=== PATIENT | female | born 1940 | race Caucasian/White ===

== ENCOUNTER 2020-10-02 16:39 | Outpatient (REF) | payer MEDICARE, SELFPAY | END 2020-10-02 16:40 | disposition home or self-care (01) | LOC: HO.LAB 16:39 | PROVIDERS: Visit Provider Internal Medicine | DX: Z20.828 Contact with and (suspected) exposure to other viral communicable diseases (principal) | CPT/HCPCS: C9803; U0003 ==

== ENCOUNTER 2021-01-29 13:31 | Outpatient (REF) | payer MEDICARE, SELFPAY ==
--- NOTE | ~2021-01-29 | MM_ITS ---
EXAMINATION: BONE DENSITOMETRY CLINICAL INDICATION: Screening for osteoporosis. COMPARISON: This is the patient's baseline examination. TECHNIQUE: Using a [employer]ine[employer] DXA System (software version: 13.1) manufactured by [employer], dual-energy x-ray absorptiometry was performed of the lumbar spine and left hip. The images are of good technical quality. Summary results are attached. FINDINGS: AP SPINE L1-L4: BMD 1.045 g/cm2, Z-score 1.1, T-score -1.1, osteopenia. LEFT FEMUR, NECK: BMD 0.635 g/cm2, Z-score -0.4, T-score -2.9, osteoporosis. LEFT FEMUR, TOTAL: BMD 0.675 g/cm2, Z-score -0.2, T-score -2.6, osteoporosis. IDENTIFIED RISK FACTORS: Menopause, hysterectomy, bilateral oophorectomy, history of fracture (adult), secondary osteoporosis. HISTORY OF FRACTURE: Other. MEDICATIONS: None listed. MM/XR DEXA axial skeleton IMPRESSION: 1. DIAGNOSIS: Osteoporosis based on the lowest T-score value of -2.9 in the femoral neck applying World Health Organization criteria. 2. 10-YEAR FRACTURE RISK PREDICTION, FRAX: Major osteoporotic fracture (clinical spine, forearm, hip or shoulder) 19.9%. Hip fracture 7.4%. 3. Treatment Recommendations: NOF guidelines recommend consideration for treatment in postmenopausal women and men age 50 and older presenting with the following: -A hip or vertebral (clinical or morphometric) fracture. -T-score less than or equal to -2.5 at the femoral neck or spine after appropriate evaluation to exclude secondary causes. -Low bone mass at the hip or spine and a 10-year fracture probability by FRAX of greater than or equal to 3% for hip fracture or greater than or equal to 20% for major osteoporotic fracture based on the [place] adapted WHO algorithm. 4. Other Recommendations: All treatment decisions require clinical judgment and consideration of individual patient factors, including patient preferences, comorbidities, previous drug use, risk factors not captured in the FRAX model (e.g. frailty, falls, vitamin D deficiency, increased bone turnover, interval significant decline in bone density) and possible under or overestimation of fracture risk by FRAX. Additional medical evaluation for secondary cause of low bone mineral density may be appropriate. FUTURE SCAN RECOMMENDATION: People with diagnosed cases of osteoporosis or at high risk for fracture should have regular bone mineral density tests. For patients eligible for Medicare, routine testing is allowed once every 2 years. The testing frequency can be increased to one year for patients who have rapidly progressing disease, those who are receiving or discontinuing medical therapy to restore bone mass, or have additional risk factors.
== END 2021-01-29 13:32 | disposition home or self-care (01) ==
LOC: HO.MAMMO 13:31
PROVIDERS: PCP Nurse Practitioner Primary Care; Visit Provider Nurse Practitioner Primary Care
DX: Z13.820 Encounter for screening for osteoporosis (principal); Z78.0 Asymptomatic menopausal state
CPT/HCPCS: 77080

== ENCOUNTER → 2021-05-29 09:14 | Outpatient (BNVA) | payer MEDICARE, SELFPAY | PROVIDERS: PCP Nurse Practitioner Primary Care; Visit Provider Internal Medicine | DX: Z13.89 Encounter for screening for other disorder (principal) | CPT/HCPCS: Q3014 ==

== ENCOUNTER 2021-10-29 14:04 | Outpatient (REF) | payer MEDICARE, OTHER, SELFPAY ==
--- NOTE | ~2021-10-29 | US_ITS ---
EXAMINATION: ULTRASOUND SOFT TISSUE LIMITED CLINICAL INFORMATION: Mass in the left elbow COMPARISON: None TECHNIQUE: Limited sonogram of the superficial soft tissues of the left elbow FINDINGS: No abnormality is identified in the soft tissues adjacent to the left elbow. No subcutaneous edema. No cystic or solid masses. There is mild tortuosity of the cephalic vein at this area. US/US extremity nonvascular IMPRESSION: Mild tortuosity of the cephalic vein at this area. This could be related to prior IV placement.
== END 2021-10-29 14:05 | disposition home or self-care (01) ==
LOC: HO.US 14:04
PROVIDERS: PCP Nurse Practitioner Primary Care; Visit Provider Nurse Practitioner Primary Care
DX: M79.89 Other specified soft tissue disorders (principal)
CPT/HCPCS: 76882

== ENCOUNTER → 2022-04-07 10:17 | Outpatient (BNVA) | payer MEDICARE, OTHER, SELFPAY | PROVIDERS: PCP Nurse Practitioner Primary Care; Visit Provider Internal Medicine | DX: M81.0 Age-related osteoporosis without current pathological fracture (principal); E55.9 Vitamin D deficiency, unspecified | CPT/HCPCS: Q3014 ==

== ENCOUNTER → 2022-07-24 10:46 | Outpatient (BNVA) | payer MEDICARE, SELFPAY | PROVIDERS: PCP Nurse Practitioner Primary Care; Visit Provider Internal Medicine | DX: M81.0 Age-related osteoporosis without current pathological fracture (principal); E55.9 Vitamin D deficiency, unspecified | CPT/HCPCS: Q3014 ==

== ENCOUNTER 2022-07-28 15:19 | Outpatient (REF) | payer MEDICARE, SELFPAY ==
[2022-07-28 17:16] LABS: Alanine Aminotransferase 18 U/L (0-31); Albumin Level 3.9 g/dL (3.5-5.0); Alkaline Phosphatase 79 U/L (39-117); Anion Gap 19 (12-20); Aspartate Amino Transferase 13 U/L (5-31); Bilirubin Total 0.3 mg/dL (0.0-1.0); Blood Urea Nitrogen 30 mg/dL (9-16); Calcium 9.6 mg/dL (8.4-10.2); Carbon Dioxide 21 mmol/L (22-29); Chloride 103 mmol/L (96-108); Estimated Glomerular Filt Rate 26; Glucose Random 346 mg/dL (60-115); Phosphorus 4.1 mg/dL (2.7-4.5); Potassium 4.6 mmol/L (3.3-5.1); Sodium 138 mmol/L (135-145); Total Protein 7.1 g/dL (6.5-8.0)
[2022-07-28 17:32] LABS: Free T4 (Free Thyroxine) 0.92 ng/dL (0.71-1.85); Thyroid Stimulating Hormone 0.46 uIU/mL (0.32-4.0); Vitamin D 25-OH Total 48.4 ng/mL (>30)
[2022-07-29 12:42] LABS: Calcium (PTHI) 9.6 mg/dL (8.6-10.4); PTHI 76 pg/mL (16-77)
[2022-07-30 22:17] LABS: Prot Elec - Alpha1 0.3 g/dL (0.2-0.3); Prot Elec - Alpha2 0.6 g/dL (0.5-0.9); Prot Elec - Beta 1 0.4 g/dL (0.4-0.6); Prot Elec - Beta 2 0.4 g/dL (0.2-0.5); Prot Elec - Gamma 1.2 g/dL (0.8-1.7)
[2022-07-31 21:02] LABS: Alkaline Phosphatase Bone 13.4 mcg/L (see note)
[2022-08-01 20:47] LABS: N-Telopeptide 29 (see note); NTXCreaRU 126 mg/dL (20-275)
== END 2022-07-28 15:20 | disposition home or self-care (01) ==
LOC: HO.LAB 15:19
PROVIDERS: PCP Nurse Practitioner Primary Care; Visit Provider Internal Medicine
DX: M81.0 Age-related osteoporosis without current pathological fracture (principal); E55.9 Vitamin D deficiency, unspecified
CPT/HCPCS: 36415; 80053; 82306; 82523; 83970; 84075; 84100; 84165; 84439; 84443

== ENCOUNTER 2022-12-07 11:40 | Inpatient (IN) | payer MEDICARE, OTHER, SELFPAY ==
--- NOTE | ~2022-12-07 | CT_ITS ---
EXAMINATION: CT ANGIOGRAM HEAD CT ANGIOGRAM NECK CLINICAL INFORMATION: Confusion COMPARISON: None. TECHNIQUE: Initial noncontrast mcat instructor imaging of the head and neck was performed. Comparison is made with noncontrast head CT from earlier today. Test bolus sequences followed by intravenous administration 70 mL of Omnipaque 350. Helical imaging was performed in the axial plane from the aortic arch to the skull vertex. Delayed postcontrast imaging of the head was also performed. The data was processed at the medical imaging technologist's workstation for generation of MIP sequences. Angled MIPs and volume rendered reformatted images were also generated at an offline 3D workstation. Stenoses are assessed in accordance with NASCET criteria unless otherwise indicated. This CT examination was performed using dose optimization techniques as appropriate, variously including the following: *Automated exposure control *Adjustment of mA and/or kV according to patient size (this includes techniques or standardized protocols for targeted exams where dose is matched to indication/reason for exam; i.e. extremities or head) *Use of iterative reconstruction technique DLP: 1503 mGy-cm FINDINGS: CT HEAD: Noncontrast head CT findings are discussed separately, including an acute to subacute infarct in the left MCA territory involving the left parietal lobe and a portion of the left temporal lobe, which appears to demonstrate some enhancement likely on the basis of blood brain barrier disruption. CTA HEAD: Mild calcified plaque along the internal carotid artery siphons without significant stenosis. There is loss of contrast opacification of a distal left M4 branch on series 6 images 132-135, which appears somewhat distal for the degree of left MCA territory infarction, raising the possibility of a prior thrombosis with interval recanalization. The BRADLEY complexes are normal bilaterally. The intradural vertebral arteries are patent with trace calcific plaque along the intradural left vertebral artery. The basilar artery is normal. Eccentric plaque contributes to mild luminal narrowing of the mid left P2 FIREWORKS INSPECTOR. The right FIREWORKS INSPECTOR complex is patent. No proximal large vessel occlusion. No aneurysms and no high flow vascular malformations. No evidence of dural arteriovenous fistula. Timing of the contrast bolus allows assessment of the major dural venous sinuses, which all opacify normally CTA NECK: Classic 3 vessel branching pattern of the aortic arch. Fibrofatty and calcific plaque of the aortic arch and great vessel origins. Origins of the great vessels are widely patent. The common carotid arteries are widely patent. There is sclerosis at the bilateral carotid bifurcations contributes to mild (less than 50%) luminal narrowing of the internal carotid artery origins. The vertebral artery ostia are widely patent. Both vertebral arteries are patent, noting mild multifocal narrowing along the left V2 segment from extrinsic compression related to cervical spondylitic disease. CT NECK: No aerodigestive tract mass. . The salivary glands are unremarkable. The thyroid gland is normal. Normal appearance of the suprahyoid and infrahyoid neck spaces. No pathologically enlarged cervical chain lymph nodes. Diffuse osseous demineralization. Severe hypertrophic degenerative changes across the anterior atlantodental interval. Multilevel moderate to severe discogenic disease with mineralization of the disc spaces and cervical spondylosis. The visualized lung apices and upper mediastinum are within normal limits. Prior median sternotomy. CT/CT angio head neck stroke IMPRESSION: 1. Acute to subacute infarct in the left MCA territory involving the left parietal lobe and a portion of the left temporal lobe, which appears to demonstrate some enhancement likely on the basis of blood brain barrier disruption. 2. Loss of contrast opacification of a distal left M4 branch on series 6 images 132-135, which appears somewhat distal for the degree of left MCA territory infarction, raising the possibility of a prior thrombosis with interval recanalization. 3. Mild luminal narrowing of the mid left P2 FIREWORKS INSPECTOR and proximal internal carotid artery origins. Findings were discussed with Juvenal Mccoy MD on 12/07/2022 at 2:45 PM.
--- NOTE | ~2022-12-07 | CT_ITS ---
EXAMINATION: CT HEAD WITHOUT CONTRAST (STROKE PROTOCOL) CLINICAL INFORMATION: Stroke protocol. Confusion COMPARISON: None TECHNIQUE: Contiguous axial imaging was performed from the skull base to vertex without intravenous administration of contrast. This CT examination was performed using dose optimization techniques as appropriate, variously including the following: *Automated exposure control *Adjustment of mA and/or kV according to patient size (this includes techniques or standardized protocols for targeted exams where dose is matched to indication/reason for exam; i.e. extremities or head) *Use of iterative reconstruction technique DLP: 640 mGy-cm FINDINGS: There is a region of diminished density with loss of ramirez-white matter interface and mild edema involving sulci without midline shift structure shift involving the left parietal lobe with the appearance of an acute infarct. There is a curvilinear region of increased density within this which may represent a thrombosed vessel or calcified angioma. With the linear appearance or think that an acute bleed would be less likely. There is an old left occipital infarct. There is a large amount of periventricular white matter low density seen. There is some diminished density seen about the left sided white matter adjacent to the caudate lobe. CT/CT head for stroke IMPRESSION: What appears to be an acute evolving left parietal infarct with mild edema.. Old left occipital infarct. This critical result was discussed with Dr. Mccoy at 2:15 PM hours on January 04, 2023. It was ascertained that the content and urgency of the report was understood at the time of direct communication.
[2022-12-07 12:10] VITALS: BMI 19.3
[2022-12-07 12:52] LABS: Glucose, Whole Blood 359 mg/dL (60-115)
--- NOTE | 2022-12-07 13:05 | ED.GENADULT ---
HPI - General Adult General Chief complaint: General Medical Stated complaint: hyperglycemia Time Seen by Provider: 12/07/22 13:05 Source: patient Mode of arrival: ambulatory Limitations: language barrier History of Present Illness HPI narrative: According to son patient woke up normally and then became confused. No focal deficit, history of prior stroke. Last known well 9:30am Onset (ago): hour(s) Related Data Home Medications Medication Instructions Recorded Confirmed amlodipine 5 mg tablet 5 mg PO DAILY 05/29/21 08/20/22 atorvastatin 10 mg tablet 10 mg PO BEDTIME 05/29/21 08/20/22 blood sugar diagnostic (FreeStyle #10 ea 05/29/21 08/20/22 Lite Strips) cholecalciferol (vitamin D3) 25 25 mcg PO QPM 05/29/21 08/20/22 mcg (1,000 unit) tablet clonazepam 0.5 mg tablet 0.25 mg PO BEDTIME 05/29/21 08/20/22 glipizide 5 mg tablet 10 mg PO BID 05/29/21 08/20/22 lancets 33 gauge (TRUEplus Lancets) #100 ea 05/29/21 08/20/22 linagliptin 5 mg tablet (Tradjenta) 5 mg PO QAM 05/29/21 08/20/22 metoprolol succinate 50 mg 50 mg PO BID 05/29/21 08/20/22 tablet,extended release 24 hr omeprazole 20 mg capsule,delayed 20 mg PO DAILY 05/29/21 08/20/22 release pen needle, diabetic 32 gauge x #50 ea 05/29/21 08/20/22 5/32 (Pentips) sertraline 50 mg tablet 50 mg PO QAM 05/29/21 08/20/22 insulin degludec 100 unit/mL (3 6 unit subcut QPM 07/24/22 08/20/22 mL) subcutaneous pen (Tresiba FlexTouch U-100 insulin) Allergies Allergy/AdvReac Type Severity Reaction Status Date / Time No Known Allergies Allergy Verified 08/20/22 15:43 [No Known Allergies*] Review of Systems Review of Systems: Yes Unobtainable due to mental status PMFSH Past Medical History Medical History Abnormal SPEP CAD (coronary artery disease) CKD (chronic kidney disease) stage 4, GFR 15-29 ml/min CVA (cerebral vascular accident) Depression HLD (hyperlipidemia) HTN (hypertension) Osteoporosis T2DM (type 2 diabetes mellitus) Vitamin D deficiency Surgical History History of coronary artery bypass graft History of open heart surgery Hx of knee surgery Family History Family History Father Medical history unknown Mother Diabetes mellitus Osteoporosis Other No family history of cancer Social History Social History Household Members: Family and Children Housing: House Are you a primary healthcare network consultant to a significant other at home: No Do you presently have visiting nurse or other home services: No Alcohol intake: never Patient Tobacco Use Status: Never used Tobacco Advance Directives: No Advance Directives Information Provided: No service: No Current occupational status: retired Physical Exam ED Vital Signs: Vital Signs - 24 hr 12/07/22 14:29 Temperature 98.2 F Pulse Rate 73 Respiratory Rate 16 Blood Pressure 175/75 H Pulse Oximetry 100 Oxygen Delivery Method Room Air BMI result Body Mass Index 19.3 NIH Stroke Scale Level of Consciousness: Alert Level of Consciousness Questions: Answers neither question correctly Level of Consciousness Commands: Performs neither task correctly Best Gaze: Normal Facial Palsy: Normal Motor Arm (Right): No drift Motor Arm (Left): No drift Motor Leg (Right): No drift Motor Leg (Left): No drift Sensory: Normal Best Language: Severe aphasia Course Reevaluation(s) Reevaluation #1: Patient with large left temperal parietal infarction on CT, there maybe some blood in the stroke, patient is not a tpa candidate Time: 14:29 Reevaluation #2: I spent 40 minutes of critical care, with interventions, assessments, speaking to patient, consultants, and family. Time: 15:59 Medications Administered Discontinued Medications Generic Name Dose Route Start Last Admin Trade Name Freq PRN Reason Stop Dose Admin Sodium Chloride 500 mls @ 500 mls/hr 12/07/22 13:30 12/07/22 15:03 Ns IV 12/07/22 14:29 Infused .Q1H ZANA Infusion Insulin Human Lispro 8 unit 12/07/22 13:28 12/07/22 14:31 Insulin Lispro 100 Unit/Ml 3 Ml Vial SUBCUT 12/07/22 13:29 8 unit ONCE ONE Administration Iohexol 100 ml 12/07/22 14:16 12/07/22 14:16 Iohexol 350 Mg/Ml 100 Ml Infus..Btl IV 12/07/22 14:17 70 ml ONCE ONE Administration Medical Decision Making Differential Diagnosis Differential Diagnoses: The differential diagnosis associated with the presentation includes (Stroke, hyperglycemia, altered mental status) Admission/Observation Consideration of admission/observation: Escalation of care including admission/observation considered (Upon arrival 82 yo female with altered mental status was considered for admission on arrival) Consult Healthcare Provider Management of the patient was discussed with: Hospitalist and Biological Chemist (stroke team) Lab Data MDM Lab Attestation statement: I reviewed the patient's lab results. 12/07/22 14:50 12/07/22 14:50 Labs: Lab Results 12/07/22 12/07/22 12/07/22 Range/Units 12:48 14:50 14:50 WBC Cancelled RBC Cancelled Hgb Cancelled Hct Cancelled MCV Cancelled MCH Cancelled MCHC Cancelled RDW Cancelled Plt Count Cancelled MPV Cancelled Immature Gran % (Auto) (0.0-0.4) % Neut % (Auto) (45-73) % Lymph % (Auto) (20-40) % [place] % (Auto) (2-11) % Eos % (Auto) (0-4) % Baso % (Auto) (0-2) % Lymph # (Auto) (1.2-4.9) X10*3/uL [place] # (Auto) (0.1-1.2) X10*3/uL Eos # (Auto) (0.0-0.4) X10*3/uL Baso # (Auto) (0.0-0.2) X10*3/uL Abs Immat Gran (auto) (0.00-0.03) X10*3/uL Absolute Neuts (auto) (2.0-8.3) x10*3/uL Absolute Nucleated RBC Cancelled Nucleated RBC % (auto) Cancelled Sodium 134 L (135-145) mmol/L Potassium 5.2 H (3.3-5.1) mmol/L Chloride 100 (96-108) mmol/L Carbon Dioxide 25 (22-29) mmol/L Anion Gap 14 (12-20) BUN 39 H (9-16) mg/dL Creatinine 1.72 H (0.5-1.4) mg/dL Estim Creat Clear Calc 20.9 Estimated GFR 28 POC Glucose 359 H* (60-115) mg/dL Random Glucose 366 H* (60-115) mg/dL Calcium 9.2 (8.4-10.2) mg/dL Total Bilirubin 0.5 (0.0-1.0) mg/dL AST 15 (5-31) U/L ALT 19 (0-31) U/L Alkaline Phosphatase 79 (39-117) U/L Troponin I High Sens (<3.5-17.0) ng/L Total Protein 6.5 (6.5-8.0) g/dL Albumin 3.6 (3.5-5.0) g/dL 12/07/22 12/07/22 Range/Units 14:50 14:50 WBC 8.3 RBC 4.88 Hgb 13.5 Hct 41.1 MCV 84.2 MCH 27.7 MCHC 32.8 RDW 13.7 Plt Count 215 MPV 10.0 Immature Gran % (Auto) 0.8 H (0.0-0.4) % Neut % (Auto) 72.4 (45-73) % Lymph % (Auto) 22.0 (20-40) % [place] % (Auto) 4.4 (2-11) % Eos % (Auto) 0.2 (0-4) % Baso % (Auto) 0.2 (0-2) % Lymph # (Auto) 1.8 (1.2-4.9) X10*3/uL [place] # (Auto) 0.4 (0.1-1.2) X10*3/uL Eos # (Auto) 0.0 (0.0-0.4) X10*3/uL Baso # (Auto) 0.0 (0.0-0.2) X10*3/uL Abs Immat Gran (auto) 0.07 H (0.00-0.03) X10*3/uL Absolute Neuts (auto) 6.0 (2.0-8.3) x10*3/uL Absolute Nucleated RBC 0.000 Nucleated RBC % (auto) 0.0 Sodium (135-145) mmol/L Potassium (3.3-5.1) mmol/L Chloride (96-108) mmol/L Carbon Dioxide (22-29) mmol/L Anion Gap (12-20) BUN (9-16) mg/dL Creatinine (0.5-1.4) mg/dL Estim Creat Clear Calc Estimated GFR POC Glucose (60-115) mg/dL Random Glucose (60-115) mg/dL Calcium (8.4-10.2) mg/dL Total Bilirubin (0.0-1.0) mg/dL AST (5-31) U/L ALT (0-31) U/L Alkaline Phosphatase (39-117) U/L Troponin I High Sens 5.9 (<3.5-17.0) ng/L Total Protein (6.5-8.0) g/dL Albumin (3.5-5.0) g/dL Discharge Plan Discharge Clinical Impression: CVA (cerebral vascular accident) Patient Disposition: Admitted As Inpatient Prescriptions: No Action (DME) lancets [TRUEplus Lancets] 33 gauge misc See Rx Instructions Not Applicable TID Qty: 100 Rx Instructions: As directed Tradjenta 5 mg tablet 5 mg PO QAM sertraline 50 mg tablet 50 mg PO QAM clonazepam 0.5 mg tablet 0.25 mg PO BEDTIME atorvastatin 10 mg tablet 10 mg PO BEDTIME glipizide 5 mg tablet 10 mg PO BID omeprazole 20 mg capsule,delayed release(DR/EC) 20 mg PO DAILY (DME) FreeStyle Lite Strips Strip See Rx Instructions Not Applicable TID Qty: 10 Rx Instructions: As directed (DME) pen needle, diabetic [Pentips] 32 gauge x 5/32 needle See Rx Instructions .ROUTE DAILY Qty: 50 Rx Instructions: As directed metoprolol succinate 50 mg tablet extended release 24 hr 50 mg PO BID amlodipine 5 mg tablet 5 mg PO DAILY cholecalciferol (vitamin D3) 25 mcg (1,000 unit) tablet 25 mcg PO QPM Tresiba FlexTouch U-100 100 unit/mL (3 mL) insulin pen 6 unit subcut QPM
[2022-12-07] MEDS: 0.9 % Sodium Chloride 500 ML IV (13:45)
[2022-12-07] MEDS: iohexoL 350 MG/ML 100 ML INFUS..BTL IV (14:16)
[2022-12-07 14:29] VITALS: BP 175/75; PULSE 73; RESP 16; TEMP 36.8; O2SAT 100
[2022-12-07] MEDS: Insulin Lispro 100 UNIT/ML 3 ML VIAL 8 UNIT SUBCUT (14:31)
--- NOTE | 2022-12-07 14:51 | MHC.STROKE ---
Addendum entered by Karla Ricks RN 12/08/22 11:01: CASE DISCUSSED WITH DR BEASLEY TO CLARIFY LAST KNOWN WELL, DUE TO ISCHEMIC STROKE ALREADY SEEN ON INITIAL CT, ONSET OF SYMPTOMS IS UNKNOWN. DISCOVERY OF SYMPTOMS 12/07/22 AT 0930. EXCLUDED FROM THROMBOLYTICS BASED ON RECENT ISCHEMIC SEEN ON CT. Addendum entered by Karla Ricks RN 12/07/22 15:13: CTA H/N NO PROXIMAL LVO, SEE REPORT, ADMIT, ASPIRIN, STROKE ORDER SET. CANNOT HAVE MRI PACEMAKER. Original Note: 1140 ARRIVED BY EMS, NO STROKE ALERT, CONFUSION ELEVATED BLOOD SUGAR, NO LKW BUT DISCOVERED AROUND 0930. SEEN BY PROVIDER AT 1305 AND HE WAS CLARIFYING THE TIMELINE, STROKE PROTOCOL ACTIVATED. CT AND CTA H/N DONE. EVOLVING ACUTE STROKE IDENTIFIED ON CT, EXCLUDED AND OUT OF THE WINDOW FOR TPA-THROMBOLYTICS. PATIENT WAS ABLE TO PASS NURSING SWALLOW SCREEN WITHOUT DIFFICULTLY. CTA H/N RESULTS PENDING.
[2022-12-07 15:06] LABS: Basophils Percent Auto 0.2 % (0-2); Eosinophils Percent Auto 0.2 % (0-4); Hematocrit 41.1 % (37.0-47.0); Hemoglobin 13.5 g/dl (12.0-16.0); Imm Gran Abs Auto 0.07 X10*3/uL (0.00-0.03); Imm Gran Pct Auto 0.8 % (0.0-0.4); Lymphocytes Absolute Auto 1.8 X10*3/uL (1.2-4.9); MANUAL DIFF FLAG NO; Mean Corpuscular HGB Conc 32.8 g/dl (31.0-35.0); Mean Corpuscular Hemoglobin 27.7 pg (27.0-33.0); Mean Corpuscular Volume 84.2 fL (80.0-98.0); Monocytes Absolute Auto 0.4 X10*3/uL (0.1-1.2); Monocytes Percent Auto 4.4 % (2-11); Neutrophils Percent Auto 72.4 % (45-73); Platelet Count 215 X10*3/uL (160-400); Red Blood Count 4.88 X10*6/uL (4.20-5.50); Red Cell Distribution Width 13.7 % (11.0-16.0); White Blood Count 8.3 X10*3/uL (4.8-10.8)
[2022-12-07 15:22] LABS: Alanine Aminotransferase 19 U/L (0-31); Albumin Level 3.6 g/dL (3.5-5.0); Alkaline Phosphatase 79 U/L (39-117); Anion Gap 14 (12-20); Aspartate Amino Transferase 15 U/L (5-31); Bilirubin Total 0.5 mg/dL (0.0-1.0); Blood Urea Nitrogen 39 mg/dL (9-16); Calcium 9.2 mg/dL (8.4-10.2); Carbon Dioxide 25 mmol/L (22-29); Chloride 100 mmol/L (96-108); Creatinine Clr Calc Pharmacy 20.9; Estimated Glomerular Filt Rate 28; Glucose Random 366 mg/dL (60-115); Potassium 5.2 mmol/L (3.3-5.1); Sodium 134 mmol/L (135-145); Total Protein 6.5 g/dL (6.5-8.0)
[2022-12-07 15:27] LABS: Troponin-I High Sensitivity 5.9 ng/L (<3.5-17.0)
--- NOTE | 2022-12-07 15:32 | PC.NURSE ---
report received from CHERRIE Santana Pt resting on stretcher, no apparent distress, respirations are even and unlabored
--- NOTE | 2022-12-07 15:37 | ECG_ITS ---
Test Reason : ams Blood Pressure : / mmHG Vent. Rate : 069 BPM Atrial Rate : 069 BPM P-R Int : 144 ms QRS Dur : 068 ms QT Int : 400 ms P-R-T Axes : 022 -26 073 degrees QTc Int : 428 ms Normal sinus rhythm with sinus arrhythmia Nonspecific T wave abnormality Abnormal ECG When compared with ECG of 10-MAR-2020 12:25, No significant change was found Referred By: Juvenal Mccoy Electronically Signed By:JOHN SHULTZ MD
[2022-12-07 15:59] VITALS: BP 156/71; PULSE 72; RESP 16; O2SAT 99
--- NOTE | 2022-12-07 16:12 | P.HPHOSP_ITS ---
History of Present Illness Date of Service: 12/07/22 Attending physician on admission: [facility] Chief Complaint: aphasia, confusion 82-year-old female with history of uncontrolled insulin-dependent type 2 diabetes, CKD stage 4, coronary artery disease s/p CABG, history CVA, hyperlip idemia, hypertension, depression, osteoporosis presented to the ED via EMS. Per ED provider, pt was brought in by EMS with complaint of hyperglycemia of 397. On arrival pt noted to be confused, largely nonverbal, but well kempt. Upon speaking with pt's son, with whom she lives, patient was found to be nonverbal and confused by son with last known well time around 930am. Pt noted to be hypertensive in the ED at 175/75, other vitals wnl. Hematology studies unremarkable. Hyperglycemic at 366 with mild hyponatremia of 134 and mild hyperkalemia 5.2. Renal function with creatinine of 1.72, BUN 39, consistent with baseline. She was given 8 units regular insulin. Head CT showed probable acute evolving left parietal infarct with mild edema as well as old left occipital infarct. Head/neck CTA showed acute to subacute infarct in left MCA territory involving left parietal lobe and portion of the left temporal lobe demonstrating. Based on appearance of distal left M4 branch, there is also ques tion of prior thrombosis with interval recanalization as well as mild luminal narrowing of the mid left P2 ASSISTANT MANAGER PT and proximal internal carotid artery origins. Patient given 325 mg aspirin after having passed nursing bedside swallow screen. She is outside of the window for thrombolytic therapy. Patient to be admitted for acute CVA. Review of Systems Review of Systems: Yes Unobtainable due to mental condition [facility] Medical History Abnormal SPEP CAD (coronary artery disease) CKD (chronic kidney disease) stage 4, GFR 15-29 ml/min CVA (cerebral vascular accident) Depression HLD (hyperlipidemia) HTN (hypertension) Osteoporosis T2DM (type 2 diabetes mellitus) Vitamin D deficiency Family History Father Medical history unknown Mother Diabetes mellitus Osteoporosis Other No family history of cancer Surgical History History of coronary artery bypass graft History of open heart surgery Hx of knee surgery Social History Household Members: Family and Children Housing: House Are you a primary urgent care technician to a significant other at home: No Do you presently have visiting nurse or other home services: No Alcohol intake: never Patient Tobacco Use Status: Never used Tobacco Advance Directives: No Advance Directives Information Provided: No service: No Current occupational status: retired Meds Allergies Allergy/AdvReac Type Severity Reaction Status Date / Time No Known Allergies Allergy Verified 08/20/22 15:43 [No Known Allergies*] Active Medications: Current Medications Acetaminophen (Acetaminophen 325 Mg Tablet) 650 mg PO Q6H PRN PRN Reason: Pain, Mild (Pain Scale 1-3) Aspirin (Aspirin Enteric Coated 81 Mg Tablet.Dr) 81 mg PO DAILY ZANA Atorvastatin Calcium (Atorvastatin Calcium 80 Mg Tablet) 80 mg PO DAILY [facility] Dextrose (Dextrose 50 % 25 Gm/50 Ml Syringe) 25 gm IVPUSH Q15M PRN; Protocol PRN Reason: per Hypoglycemia Standing Ord. Enoxaparin Sodium (Enoxaparin Sodium 40 Mg/0.4 Ml Syringe) 40 mg SUBCUT Q24H ZANA Glucose (Glucose Gel 15 Gm Gel..Gram.) 15 gm PO Q15M PRN; Protocol PRN Reason: per Hypoglycemia Standing Ord. Insulin Human Lispro (Insulin Lispro 100 Unit/Ml 3 Ml Vial) 0 unit SUBCUT QIDACHS ZANA; Protocol Ondansetron HCl (Ondansetron Hcl 4 Mg/2 Ml Vial) 4 mg IVPUSH Q8H PRN PRN Reason: Nausea and Vomiting Pharmacy Consult (Consult Rx Perform Med Rec) 1 each MISCELLANE ONCE PRN PRN Reason: Consult order Senna (Sennosides 8.6 Mg Tablet) 17.2 mg PO BEDTIME PRN PRN Reason: Constipation Sodium Chloride (0.9 % Sodium Chloride Flush 3 Ml Syringe) 3 ml IVFLUSH QSHIFT [facility] Home Medications Medication Instructions Recorded Confirmed Last Taken Type amlodipine 5 mg tablet 5 mg PO DAILY 05/29/21 08/20/22 Unknown History atorvastatin 10 mg tablet 10 mg PO BEDTIME 05/29/21 08/20/22 Unknown History blood sugar diagnostic (FreeStyle #10 ea 05/29/21 08/20/22 Unknown History Lite Strips) cholecalciferol (vitamin D3) 25 25 mcg PO QPM 05/29/21 08/20/22 Unknown History mcg (1,000 unit) tablet clonazepam 0.5 mg tablet 0.25 mg PO BEDTIME 05/29/21 08/20/22 Unknown History glipizide 5 mg tablet 10 mg PO BID 05/29/21 08/20/22 Unknown History lancets 33 gauge (TRUEplus Lancets) #100 ea 05/29/21 08/20/22 Unknown History linagliptin 5 mg tablet (Tradjenta) 5 mg PO QAM 05/29/21 08/20/22 Unknown History metoprolol succinate 50 mg 50 mg PO BID 05/29/21 08/20/22 Unknown History tablet,extended release 24 hr omeprazole 20 mg capsule,delayed 20 mg PO DAILY 05/29/21 08/20/22 Unknown History release pen needle, diabetic 32 gauge x #50 ea 05/29/21 08/20/22 Unknown History (Pentips) sertraline 50 mg tablet 50 mg PO QAM 05/29/21 08/20/22 Unknown History insulin degludec 100 unit/mL (3 6 unit subcut QPM 07/24/22 08/20/22 Unknown History mL) subcutaneous pen (Tresiba FlexTouch U-100 insulin) Physical Exam Vital Signs and Narrative: Vital Signs: Last Vital Signs Temp 98.2 F 12/07/22 14:29 Pulse 73 12/07/22 14:29 Resp 16 12/07/22 14:29 BP 175/75 H 12/07/22 14:29 Pulse Ox 100 12/07/22 14:29 O2 Del Method 12/07/22 14:29 BMI result Body Mass Index 19.3 Constitutional - Awake and Alert, No apparent distress Eyes - PERRLA, EOMI Cardiovascular - S1S2, RRR, No edema Respiratory - Normal lung expansion, Normal respiratory effort, No respiratory distress, CTA bilaterally Gastrointestinal - NT / ND; +BS; No rebound or guarding Extremities - no calf tenderness bilaterally, no swelling Skin - Warm/Dry Neurological - Alert. Unable to assess orientation secondary to aphasia, but does appear confused. Unable to participate in neuro exam but does have good symmetric tone in upper and lower extremities. EOMI appear to be in tact. No facial droop. Results Labs 12/07/22 14:50 12/07/22 14:50 Labs: Laboratory Results - last 24 hr 12/07/22 12/07/22 12/07/22 12:48 14:50 14:50 MCV Cancelled MCH Cancelled MCHC Cancelled RDW Cancelled Plt Count Cancelled MPV Cancelled Immature Gran % (Auto) Neut % (Auto) Lymph % (Auto) [place] % (Auto) Eos % (Auto) Baso % (Auto) Lymph # (Auto) [place] # (Auto) Eos # (Auto) Baso # (Auto) Abs Immat Gran (auto) Absolute Neuts (auto) Absolute Nucleated RBC Cancelled Nucleated RBC % (auto) Cancelled Anion Gap 14 Estim Creat Clear Calc 20.9 Estimated GFR 28 POC Glucose 359 H* Random Glucose 366 H* Calcium 9.2 Total Bilirubin 0.5 AST 15 ALT 19 Alkaline Phosphatase 79 Troponin I High Sens Total Protein 6.5 Albumin 3.6 12/07/22 12/07/22 14:50 14:50 MCV 84.2 MCH 27.7 MCHC 32.8 RDW 13.7 Plt Count 215 MPV 10.0 Immature Gran % (Auto) 0.8 H Neut % (Auto) 72.4 Lymph % (Auto) 22.0 [place] % (Auto) 4.4 Eos % (Auto) 0.2 Baso % (Auto) 0.2 Lymph # (Auto) 1.8 [place] # (Auto) 0.4 Eos # (Auto) 0.0 Baso # (Auto) 0.0 Abs Immat Gran (auto) 0.07 H Absolute Neuts (auto) 6.0 Absolute Nucleated RBC 0.000 Nucleated RBC % (auto) 0.0 Anion Gap Estim Creat Clear Calc Estimated GFR POC Glucose Random Glucose Calcium Total Bilirubin AST ALT Alkaline Phosphatase Troponin I High Sens 5.9 Total Protein Albumin Imaging Radiologist's Impressions: Impressions Head CT 12/07/22 14:06 IMPRESSION: What appears to be an acute evolving left parietal infarct with mild edema.. Old left occipital infarct. This critical result was discussed with Dr. Mccoy at 2:15 PM hours on January 04, 2023. It was ascertained that the content and urgency of the report was understood at the time of direct communication. Head/Neck CTA 12/07/22 14:13 IMPRESSION: 1. Acute to subacute infarct in the left MCA territory involving the left parietal lobe and a portion of the left temporal lobe, which appears to demonstrate some enhancement likely on the basis of blood brain barrier disruption. 2. Loss of contrast opacification of a distal left M4 branch on series 6 images 132-135, which appears somewhat distal for the degree of left MCA territory infarction, raising the possibility of a prior thrombosis with interval recanalization. 3. Mild luminal narrowing of the mid left P2 ASSISTANT MANAGER PT and proximal internal carotid artery origins. Findings were discussed with Juvenal Mccoy MD on 12/07/2022 at 2:45 PM. Assessment and Plan (1) CVA (cerebral vascular accident): Status: Acute (2) Aphasia due to acute stroke: Status: Acute Plan 82-year-old female with history of uncontrolled insulin-dependent type 2 diabetes, CKD stage 4, coronary artery disease s/p CABG, history CVA, hyperl ipidemia, hypertension, depression, osteoporosis admitted for acute CVA. #Acute left parietal CVA -Head CT showed probable acute evolving left parietal infarct with mild edema as well as old left occipital infarct. Head/neck CTA showed acute to subacute infarct in left MCA territory involving left parietal lobe and portion of the left temporal lobe. No further imaging indicated at this time -nursing bedside swallow eval passed. Diabetic diet ground/mech altered until eval by TIPPING MACHINE OPERATOR AUTOMATIC -Given 325mg asa. Continue 81mg asa daily -Atorvastatin 80mg daily -lipid panel pending -PT, OT, TIPPING MACHINE OPERATOR AUTOMATIC consulted -appreciate Neuro input -stroke education -echo ordered #Non-metabolic encephalopathy- related to cerebral infarction as above # uncontrolled insulin-dependent type 2 diabetes with hyperglycemia -continue home basal insulin -Humalog on sliding scale -POC glucose -diabetic diet -hemoglobin A1c pending #CAD/HLD -EKG showing NSR, no felicita or depressions -Trop WNL -Continue statin/bb/asa #HTN -Hold antihypertensives to allow for penumbral perfusion in setting of CVA #CKD stage 4- likely r/t diabetic nephropathy -renal function baseline #Chronic left occipital infarct -continue plan as above #Depression -continue home meds DVT prophylaxis- lovenox Medrec pending Full code for now- clarify with son given pt's aphasia Pt requires inpt stay at least two midnights for management of acute CVA Time Spent With Patient Time: Total time managing care of this patient today ____ minutes. Quality Stroke Does the patient have a stroke diagnosis?: Yes Reason for No Anti-thrombotic by Day Two: Drug treatment not indicated (outside treatment window) VTE Prior VTE?: No VTE Risk Level:: Medical - moderate - high VTE Device Contraindication: Treatment Not Indicated VTE Drug Contraindication: N/A - Med Ordered
[2022-12-07 16:39] LABS: Estimated Average Glucose 303 mg/dL; Hemoglobin A1c % 12.2 %
[2022-12-07 16:44] LABS: Cholesterol 243 mg/dL; HDL Cholesterol 37 mg/dL; LDL Cholesterol Calculated 161 mg/dl; Triglycerides 226 mg/dL
[2022-12-07 16:47] LABS: Glucose, Whole Blood 212 mg/dL (60-115)
[2022-12-07] MEDS: Aspirin Enteric Coated 325 MG TABLET.DR PO (16:59)
[2022-12-07] MEDS: Enoxaparin Sodium 40 MG/0.4 ML SYRINGE SUBCUT (17:00)
[2022-12-07] MEDS: Insulin Lispro 100 UNIT/ML 3 ML VIAL SUBCUT ×2 (17:00→22:00)
[2022-12-07] MEDS: 0.9 % Sodium Chloride Flush 3 ML SYRINGE IVFLUSH (17:00)
--- NOTE | 2022-12-07 17:55 | PC.NURSE ---
pt resting comfortably on stretcher, son at bedside. this RN did neuro assessment with assistance from son. Pt son states that the patient continues to be confused, not making much sense .Pt is unable to remember birthday, last name, location
--- NOTE | 2022-12-07 18:41 | PHA.MEDREC ---
MED REC COMPLETE, NO ISSUES Pharmacy Consult ? Medication Reconciliation Pharmacy has completed the medication reconciliation.
--- NOTE | 2022-12-07 19:33 | MHC.CM.PN ---
CM met with patient and son. IMM 12/07. Reviewed with son. Son Italian speaking, but patient speaks [place] African. machine designer used for patient. Pt appears confused and is unable to converse with column precaster or acknowledge any understanding of simple questions. Per medical radiation therapist, speech that patient is attempting to use, does not make sense. Lives with son, Fran Grimaldo ([phone]). Has been living with her son for 3 years, since she had a stroke in [place]. Pt went to rehab in [place]. Pt has been independent at home, No DME/services. Ambulating without difficulty, managing ADL's independently. Son has family help with her care. Pt received 2 vaccinations and 1 booster in [place], but son is unsure of vessel engineer. No HCP on file. Unable to complete at this time due to aphasia and AMS. PT,OT, and speech assessment pending. D/C plan: Probable STR, will evaluate during MDR's. Son agreeable to home with services or STR. No referrals placed at this time pending further evaluations. CM will follow for discharge planning.
[2022-12-07 19:43] LABS: COVID-19 Test Negative (Negative); IDNOW Serial# 16C4AD1C
[2022-12-07 20:00] VITALS: BP 176/72; PULSE 65; TEMP 36.9; O2SAT 96
--- NOTE | 2022-12-07 20:14 | PC.NURSE ---
attempted to call report for pt to go upstairs, nurse not available. Rene texted RN as well
[2022-12-07 20:48] LABS: Glucose, Whole Blood 171 mg/dL (60-115)
[2022-12-07] MEDS: Atorvastatin Calcium 80 MG TABLET PO (21:59)
[2022-12-07] MEDS: Insulin Glargine,Hum.rec.anlog 100 UNIT/ML 10 ML VIAL SUBCUT (21:59)
[2022-12-07 23:44] VITALS: BP 159/76; PULSE 76; RESP 18; TEMP 37; O2SAT 100
[2022-12-08] VITALS (7 sets, daily range): BP systolic 119–161; BP diastolic 51–66; PULSE 66–87; RESP 18–20; TEMP 36.3–37.1; O2SAT 96–100
[2022-12-08] MEDS: 0.9 % Sodium Chloride Flush 3 ML SYRINGE IVFLUSH ×3 (00:34→16:48)
[2022-12-08] MEDS: Omeprazole 20 MG CAPSULE.DR PO (05:49)
[2022-12-08] MEDS: ondansetron HCL 4 MG/2 ML VIAL IVPUSH (06:00)
--- NOTE | 2022-12-08 07:00 | CA_ITS ---
Transthoracic Echocardiogram Patient (Last, First, Middle): Gwendolyn Maher, Gender: Female Date of : 1940 Age: 82 Procedure Date: 12/08/2022 Procedure Type: Transthoracic Echocardiogram Location: [place] Height: 167.64 cm Weight: 54.43 kg BSA: 1.61 m2 Heart Rate: 76 bpm BP: 175 / 75 mmHg Validation Software Facilitator: SB Referring MD: Marylin GREY Geospatial Systems Integrator: Elder Navas MD Symptoms: stroke Study Quality: Technically Difficult ECG Rhythm: Sinus Conclusions: - 1. Technically limited study 2. Normal LV systolic function with small area of apical akinesis with noted apical thrombus after contrast use 3. Limited evaluation of cardiac valves Findings Procedure Information Contrast agent, definity, is being given per protocol without apparent complications. Left Ventricle Normal left ventricular size, thickness, and systolic function. The visually estimated ejection fraction is between 65-70%. Spectral Doppler is indicative of an impaired relaxation filling pattern. There is mild septal asymmetric hypertrophy. There is a moderate immobile apical thrombus in the left ventricle. The thrombus appears protruding and irregular in shape. 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 All other scored wall segments showed normal motion. Right Ventricle The right ventricle was not well visualized. Atria The left atrium was not well visualized. There is no evidence of interatrial shunt. The right atrium was not well visualized. Aortic Valve The aortic valve was not well visualized. There is no aortic valve stenosis. There is no aortic valve regurgitation. Mitral Valve The mitral valve was not well visualized. There is no mitral valve regurgitation. There is no mitral valve stenosis. Pulmonic Valve The pulmonic valve was not well visualized. Tricuspid Valve The tricuspid valve was not well visualized. Tricuspid regurgitation envelope is inadequate for calculation of right ventricular systolic pressure. Great Vessels The aorta was not well visualized. The pulmonary artery was not well visualized. Venous The inferior vena cava was not well visualized. Pericardium/Pleural The pericardium was not well visualized. Prior Study Comparison No prior study available for comparison. Measurements 2D Linear Measurements IVSd: 1.42 0.6-0.9/0.6-1.0 cm LVIDd: 3.64 3.9-5.3/4.2-5.9 cm LVIDd Index: 2.26 2.4-3.2/2.2-3.1 cm/m2 LVIDs: 2.10 2.0-3.6 cm LVPWd: 0.77 0.7-1.1 cm LA Diam: 3.80 2.7-3.8/3.0-4.0 cm LAIDs Index: 2.36 1.5-2.3 cm/m2 LV Mass: 155.50 67-162/88-224 g LV Mass Index: 96.58 43-95/49-115 g/m2 LVOT Diam: 2.00 3.0+(-)1.3 cm 2D Systolic Function EF 4C: 71.80 >55% EF 2C: 68.60 >55% EF BiP: 69.40 >55% Mitral Valve MV Pk E: 0.57 MV PK A: 1.02 MV Decel Time: 184.00 E/A: 0.60 E'Lateral: 6.41 E'Medial: 3.16 E/E' Med: 17.90 E/E' Lat: 8.80 PHT: 54.00 MVA PHT: 4.07 Decel Moore: 3.08 Aortic Valve AoV Pk Paul: 1.24 AoV Pk Grad: 6.00 ROCCO: 2.10 LVOT LVOT Pk Paul: 0.81 LVOT Mn Paul: 0.62 LVOT VTI: 0.17 LVOT Pk Grad: 3.00 LVOT Mn Grad: 2.00 LVOT Diam: 2.00 LVOT Area: 3.14 Diastolic Function MV Pk E: 0.57 MV Pk A: 1.02 E/A: 0.60 E'Medial: 3.16 E/E' Med: 17.90 E' Laterial: 6.41 E/E' Lat: 8.80 Right Ventricle TAPSE (mm): 8.20 TVS' Paul: 7.20 Tricuspid Valve RA Press: 3.00 Great Vessels Aorta Sinus of Valsalva: 2.40 2.0-3.5 cm Ao Asc: 2.50 2.1-3.4 cm Updated in Other Vendor System with Status of Final Elder Navas MD electronically signed on 12/08/2022 4:52:27 PM with status of Final
[2022-12-08 07:18] LABS: MANUAL DIFF FLAG NO
[2022-12-08 07:21] LABS: Basophils Percent Auto 0.4 % (0-2); Hemoglobin 13.6 g/dl (12.0-16.0); Imm Gran Abs Auto 0.09 X10*3/uL (0.00-0.03); Imm Gran Pct Auto 0.8 % (0.0-0.4); Lymphocytes Absolute Auto 1.6 X10*3/uL (1.2-4.9); Lymphocytes Percent Auto 14.3 % (20-40); Mean Corpuscular HGB Conc 33.2 g/dl (31.0-35.0); Mean Corpuscular Hemoglobin 27.6 pg (27.0-33.0); Mean Corpuscular Volume 83.2 fL (80.0-98.0); Mean Platelet Volume 9.7 fL (9.4-12.3); Monocytes Absolute Auto 0.6 X10*3/uL (0.1-1.2); Monocytes Percent Auto 5.2 % (2-11); Neutrophils Absolute Auto 8.9 x10*3/uL (2.0-8.3); Neutrophils Percent Auto 79.3 % (45-73); Platelet Count 218 X10*3/uL (160-400); Red Blood Count 4.93 X10*6/uL (4.20-5.50); Red Cell Distribution Width 13.6 % (11.0-16.0); White Blood Count 11.2 X10*3/uL (4.8-10.8)
[2022-12-08 07:37] LABS: Glucose, Whole Blood 188 mg/dL (60-115)
[2022-12-08 07:42] LABS: Anion Gap 20 (12-20); Blood Urea Nitrogen 27 mg/dL (9-16); Calcium 9.6 mg/dL (8.4-10.2); Carbon Dioxide 22 mmol/L (22-29); Chloride 102 mmol/L (96-108); Cholesterol 263 mg/dL; Creatinine Clr Calc Pharmacy 23.8; Estimated Glomerular Filt Rate 33; Glucose Random 200 mg/dL (60-115); HDL Cholesterol 43 mg/dL; LDL Cholesterol Calculated 189 mg/dl; Potassium 4.4 mmol/L (3.3-5.1); Sodium 140 mmol/L (135-145); Triglycerides 159 mg/dL
[2022-12-08] MEDS: Aspirin Enteric Coated 81 MG TABLET.DR PO (07:53)
[2022-12-08] MEDS: Cholecalciferol (Vitamin D3) 25 MCG TABLET PO (07:53)
[2022-12-08] MEDS: Atorvastatin Calcium 80 MG TABLET PO (07:53)
[2022-12-08] MEDS: Insulin Lispro 100 UNIT/ML 3 ML VIAL SUBCUT ×3 (07:53→16:44)
[2022-12-08] MEDS: Sertraline HCL 50 MG TABLET PO (07:53)
--- NOTE | 2022-12-08 09:14 | PM.NEUROCN ---
History of Present Illness Data of Consult Service Date: 12/08/22 Primary Care Provider: Candy Ocampo NP HPI Reason for consult: stroke with aphasia This is a 82-year-old female with history of uncontrolled insulin-dependent type 2 diabetes, CKD stage 4, coronary artery disease s/p CABG, previous CVA, hyperlipidemia, hypertension, depression, osteoporosis presented to the ED with hyperglycemia of 397, confused, largely nonverbal. Pt's son, with whom she lives, found her nonverbal and confused with last known well time around 930am. BP in the ED at 175/75, Hyperglycemic at 366 with mild hyponatremia of 134 and mild hyperkalemia 5.2.? Renal function with creatinine of 1.72, BUN 39, consistent with baseline.? She was given 8 units regular insulin.? Head CT showed probable acute evolving left parietal infarct with mild edema as well as old left occipital infarct.? Head/neck CTA showed acute to subacute infarct in left MCA territory involving left parietal lobe and portion of the left temporal lobe.?Based on appearance of distal left M4 branch, there is also question of prior thrombosis with interval recanalization as well as mild luminal narrowing of the mid left P2 ALLEY TENDER and proximal internal carotid artery origins.? Patient given 325 mg aspirin after having passed nursing bedside swallow screen.? She was outside of the window for thrombolytic therapy.? Review of Systems Review of Systems: Yes Unobtainable due to mental condition and Unobtainable due to mental status PMFSH Past Medical History Medical History Abnormal SPEP CAD (coronary artery disease) CKD (chronic kidney disease) stage 4, GFR 15-29 ml/min CVA (cerebral vascular accident) Depression HLD (hyperlipidemia) HTN (hypertension) Osteoporosis T2DM (type 2 diabetes mellitus) Vitamin D deficiency Family History Family History Father Medical history unknown Mother Diabetes mellitus Osteoporosis Other No family history of cancer Surgical History Surgical History History of coronary artery bypass graft History of open heart surgery Hx of knee surgery Social History Social History Household Members: Family and Children Housing: House Are you a primary career orientation teacher to a significant other at home: No Do you presently have visiting nurse or other home services: No Alcohol intake: former Patient Tobacco Use Status: Never used Tobacco service: No Current occupational status: retired [employer] Allergies Allergy/AdvReac Type Severity Reaction Status Date / Time No Known Allergies Allergy Verified 08/20/22 15:43 [No Known Allergies*] Active Medications: Current Medications Acetaminophen (Acetaminophen 325 Mg Tablet) 650 mg PO Q6H PRN PRN Reason: Pain, Mild (Pain Scale 1-3) Aspirin (Aspirin Enteric Coated 81 Mg Tablet.) 81 mg PO DAILY [facility] Last Admin: 12/08/22 07:53 Dose: 81 mg Atorvastatin Calcium (Atorvastatin Calcium 80 Mg Tablet) 80 mg PO DAILY [facility] Last Admin: 12/08/22 07:53 Dose: 80 mg Calcitriol (Calcitriol 0.25 Mcg Capsule) 0.25 mcg PO Q2D@1000 [facility] Dextrose (Dextrose 50 % 25 Gm/50 Ml Syringe) 25 gm IVPUSH Q15M PRN; Protocol PRN Reason: per Hypoglycemia Standing Ord. Enoxaparin Sodium (Enoxaparin Sodium 40 Mg/0.4 Ml Syringe) 40 mg SUBCUT Q24H [facility] Last Admin: 12/07/22 17:00 Dose: 40 mg Glucose (Glucose Gel 15 Gm Gel..Gram.) 15 gm PO Q15M PRN; Protocol PRN Reason: per Hypoglycemia Standing Ord. Insulin Glargine (Insulin Glargine,Hum.Rec.Anlog 100 Unit/Ml 10 Ml Vial) 4 unit SUBCUT BEDTIME [facility] Last Admin: 12/07/22 21:59 Dose: 4 unit Insulin Human Lispro (Insulin Lispro 100 Unit/Ml 3 Ml Vial) 0 unit SUBCUT QIDACHS [facility]; Protocol Last Admin: 12/08/22 07:53 Dose: 2 unit Lidocaine (Lidocaine 4 % Patch Adh..Patch) 1 patch TRANSDERMA DAILY PRN PRN Reason: Back Pain Melatonin (Melatonin 3 Mg Tablet) 3 mg PO BEDTIME [facility] Metoprolol Succinate (Metoprolol Succinate Er 50 Mg Tab.Er.24h) 50 mg PO BID [facility]; Protocol Omeprazole (Omeprazole 20 Mg Capsule.) 20 mg PO DAILY@0630 [facility] Last Admin: 12/08/22 05:49 Dose: 20 mg Ondansetron HCl (Ondansetron Hcl 4 Mg/2 Ml Vial) 4 mg IVPUSH Q8H PRN PRN Reason: Nausea and Vomiting Last Admin: 12/08/22 06:00 Dose: 4 mg Pharmacy Consult (Consult Rx Perform Med Rec) 1 each MISCELLANE ONCE PRN PRN Reason: Consult order Senna (Sennosides 8.6 Mg Tablet) 17.2 mg PO BEDTIME PRN PRN Reason: Constipation Sertraline HCl (Sertraline Hcl 50 Mg Tablet) 50 mg PO DAILY [facility] Last Admin: 12/08/22 07:53 Dose: 50 mg Sodium Chloride (0.9 % Sodium Chloride Flush 3 Ml Syringe) 3 ml IVFLUSH QSHIFT [facility] Last Admin: 12/08/22 07:58 Dose: 3 ml Vitamin D (Cholecalciferol (Vitamin D3) 25 Mcg Tablet) 25 mcg PO DAILY [facility] Last Admin: 12/08/22 07:53 Dose: 25 mcg Home Medications Medication Instructions Recorded Confirmed Last Taken Type amlodipine 5 mg tablet 5 mg PO DAILY@1200 05/29/21 12/07/22 12/07/22 History atorvastatin 10 mg tablet 10 mg PO BEDTIME 05/29/21 12/07/22 12/07/22 History blood sugar diagnostic (FreeStyle #10 ea 05/29/21 08/20/22 Unknown History Lite Strips) cholecalciferol (vitamin D3) 25 25 mcg PO DAILY 05/29/21 12/07/22 12/07/22 History mcg (1,000 unit) tablet glipizide 5 mg tablet 10 mg PO BIDAC 05/29/21 12/07/22 12/07/22 History lancets 33 gauge (TRUEplus Lancets) #100 ea 05/29/21 08/20/22 Unknown History linagliptin 5 mg tablet (Tradjenta) 5 mg PO DAILY 05/29/21 12/07/22 12/07/22 History metoprolol succinate 50 mg 50 mg PO BID 05/29/21 12/07/22 12/07/22 History tablet,extended release 24 hr omeprazole 20 mg capsule,delayed 20 mg PO DAILY 05/29/21 12/07/22 12/07/22 History release pen needle, diabetic 32 gauge x #50 ea 05/29/21 08/20/22 Unknown History (Pentips) sertraline 50 mg tablet 50 mg PO DAILY 05/29/21 12/07/22 12/07/22 History insulin degludec 100 unit/mL (3 8 unit subcut BEDTIME 07/24/22 12/07/22 12/06/22 History mL) subcutaneous pen (Tresiba FlexTouch U-100 insulin) calcitriol 0.25 mcg capsule 0.25 mcg PO Q2D@1000 12/07/22 12/07/22 Unknown History lidocaine 5 % topical patch 1 patch topical DAILY PRN Back Pain 12/07/22 12/07/22 Unknown History (Lidoderm) melatonin 5 mg tablet 5 mg PO BEDTIME 12/07/22 12/07/22 12/06/22 History Physical Exam Vital Signs: Vital Signs: Last Vital Signs Temp 98.2 F 12/08/22 07:46 Pulse 78 12/08/22 08:35 Resp 20 12/08/22 07:46 BP 139/66 12/08/22 08:35 Pulse Ox 100 12/08/22 08:35 O2 Del Method 12/08/22 07:46 BMI result Body Mass Index 19.3 Neuro: Other: aphasia, otherwise non focal exam. Unable to test visual busch. Areflexia Results Labs 12/08/22 07:03 12/08/22 07:03 Labs: Short CBC 12/07/22 12/07/22 12/08/22 Range/Units 14:50 14:50 07:03 WBC Cancelled 8.3 11.2 H Hgb Cancelled 13.5 13.6 Hct Cancelled 41.1 41.0 Plt Count Cancelled 215 218 BMP 12/07/22 12/08/22 14:50 07:03 Sodium 134 L 140 Potassium 5.2 H 4.4 Chloride 100 102 Carbon Dioxide 25 22 BUN 39 H 27 H Creatinine 1.72 H 1.51 H Calcium 9.2 9.6 Liver Function 12/07/22 Range/Units 14:50 Total Bilirubin 0.5 (0.0-1.0) mg/dL AST 15 (5-31) U/L ALT 19 (0-31) U/L Alkaline Phosphatase 79 (39-117) U/L Albumin 3.6 (3.5-5.0) g/dL Assessment and Plan (1) CVA (cerebral vascular accident): Status: Acute Continue ASA. Control of BP and Sugar. PT, OT and speech therapy (2) Aphasia due to acute stroke: Status: Acute Speech therapy and swallowing eval. Plan 82-year-old female with history of uncontrolled insulin-dependent type 2 diabetes, CKD stage 4, coronary artery disease s/p CABG, history CVA, hyperlipidemia, hypertension, depression, osteoporosis admitted for acute CVA. #Acute left parietal CVA -Head CT showed probable acute evolving left parietal infarct with mild edema as well as old left occipital infarct. Head/neck CTA showed acute to subacute infarct in left MCA territory involving left parietal lobe and portion of the left temporal lobe. No further imaging indicated at this time -nursing bedside swallow eval passed. Diabetic diet ground/mech altered until eval by EXTRUSION DIE REPAIRER -Given 325mg asa. 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 Procedures Date of Service Date of Service: 12/08/22
--- NOTE | 2022-12-08 10:51 | MHC.CM.PN ---
CM met with Patient and her Son at bedside to discuss PT's recommendation for Acute Rehab. Patient & Son have accepted [facility] private room bed offer and CM will continue to follow.
[2022-12-08 10:54] LABS: Glucose, Whole Blood 215 mg/dL (60-115)
[2022-12-08] MEDS: Metoprolol Succinate ER 50 MG TAB.ER.24H PO ×2 (11:19→21:43)
[2022-12-08 14:46] LABS: Appearance Urine Clear; Color Urine Yellow; Glucose Urine UA 250 mg/dL (Negative); Leukocyte Esterase Urine Negative (Negative); Nitrite Urine Negative (Negative); Specific Gravity - Urine >= 1.030 (1.005-1.025); UMIC TRIGGER UACC YES; Urine Blood Negative (Negative); Urine Ketones Negative (Negative); Urine Protein 100 (2+) mg/dL (Neg-Trace)
[2022-12-08 14:48] LABS: Bacteria Urine None Seen (None Seen); Hyaline Casts Urine 0-2 /LPF (0-2); Squamous Epithelial Cell Urine 0-2 /HPF (0-2); WBC Urine 0-5 /HPF (0-5)
--- NOTE | 2022-12-08 14:51 | HO.PM.IMPN ---
Subjective Subjective Date of Service: 12/08/22 Interval History: aphasic, unable to obtain ROS Review of Systems Review of Systems: Yes Unobtainable due to mental status Physical Exam Vital Signs: Vital Signs: Last Vital Signs Temp 98.8 F 12/08/22 11:08 Pulse 75 12/08/22 11:08 Resp 20 12/08/22 11:08 BP 140/64 H 12/08/22 11:08 Pulse Ox 100 12/08/22 11:08 O2 Del Method 12/08/22 11:08 BMI result Body Mass Index 19.3 Gen: in no acute distress HEENT: sclera anicteric, moist mucus membranes Neck: supple Lungs: clear to auscultation bilaterally Heart: regular rate and rhythm, no murmurs Abd: soft, non-tender, non-distended Ext: no edema Skin: warm/well-perfused Neuro: alert, aphasic, no facial droop, normal tone in all 4 ext Psych: appropriate affect Objective Data Active Medications Acetaminophen (Acetaminophen 325 Mg Tablet) 650 mg PO Q6H PRN PRN Reason: Pain, Mild (Pain Scale 1-3) Aspirin (Aspirin Enteric Coated 81 Mg Tablet.) 81 mg PO DAILY [facility] Last Admin: 12/08/22 07:53 Dose: 81 mg Documented By: MIYA Atorvastatin Calcium (Atorvastatin Calcium 80 Mg Tablet) 80 mg PO DAILY [facility] Last Admin: 12/08/22 07:53 Dose: 80 mg Documented By: MIYA Calcitriol (Calcitriol 0.25 Mcg Capsule) 0.25 mcg PO Q2D@1000 [facility] Dextrose (Dextrose 50 % 25 Gm/50 Ml Syringe) 25 gm IVPUSH Q15M PRN; Protocol PRN Reason: per Hypoglycemia Standing Ord. Enoxaparin Sodium (Enoxaparin Sodium 40 Mg/0.4 Ml Syringe) 40 mg SUBCUT Q24H [facility] Last Admin: 12/07/22 17:00 Dose: 40 mg Documented By: MARCO Glucose (Glucose Gel 15 Gm Gel..Gram.) 15 gm PO Q15M PRN; Protocol PRN Reason: per Hypoglycemia Standing Ord. Insulin Glargine (Insulin Glargine,Hum.Rec.Anlog 100 Unit/Ml 10 Ml Vial) 4 unit SUBCUT BEDTIME [facility] Last Admin: 12/07/22 21:59 Dose: 4 unit Documented By: GILBERTO Insulin Human Lispro (Insulin Lispro 100 Unit/Ml 3 Ml Vial) 0 unit SUBCUT QIDACHS [facility]; Protocol Last Admin: 12/08/22 11:19 Dose: 4 unit Documented By: MIYA Lidocaine (Lidocaine 4 % Patch Adh..Patch) 1 patch TRANSDERMA DAILY PRN PRN Reason: Back Pain Melatonin (Melatonin 3 Mg Tablet) 3 mg PO BEDTIME [facility] Metoprolol Succinate (Metoprolol Succinate Er 50 Mg Tab.Er.24h) 50 mg PO BID [facility]; Protocol Last Admin: 12/08/22 11:19 Dose: 50 mg Documented By: MIYA Omeprazole (Omeprazole 20 Mg Capsule.Dr) 20 mg PO DAILY@0630 [facility] Last Admin: 12/08/22 05:49 Dose: 20 mg Documented By: YEIMI Ondansetron HCl (Ondansetron Hcl 4 Mg/2 Ml Vial) 4 mg IVPUSH Q8H PRN PRN Reason: Nausea and Vomiting Last Admin: 12/08/22 06:00 Dose: 4 mg Documented By: YEIMI Pharmacy Consult (Consult Rx Perform Med Rec) 1 each MISCELLANE ONCE PRN PRN Reason: Consult order Senna (Sennosides 8.6 Mg Tablet) 17.2 mg PO BEDTIME PRN PRN Reason: Constipation Sertraline HCl (Sertraline Hcl 50 Mg Tablet) 50 mg PO DAILY [facility] Last Admin: 12/08/22 07:53 Dose: 50 mg Documented By: MIYA Sodium Chloride (0.9 % Sodium Chloride Flush 3 Ml Syringe) 3 ml IVFLUSH QSHIFT [facility] Last Admin: 12/08/22 07:58 Dose: 3 ml Documented By: MIYA Vitamin D (Cholecalciferol (Vitamin D3) 25 Mcg Tablet) 25 mcg PO DAILY [facility] Last Admin: 12/08/22 07:53 Dose: 25 mcg Documented By: MIYA Labs 12/08/22 07:03 12/08/22 07:03 Labs: Laboratory Results - last 24 hr 12/07/22 12/07/22 12/07/22 14:50 14:50 14:50 MCV Cancelled 84.2 MCH Cancelled 27.7 MCHC Cancelled 32.8 RDW Cancelled 13.7 Plt Count Cancelled 215 MPV Cancelled 10.0 Immature Gran % (Auto) 0.8 H Neut % (Auto) 72.4 Lymph % (Auto) 22.0 [place] % (Auto) 4.4 Eos % (Auto) 0.2 Baso % (Auto) 0.2 Lymph # (Auto) 1.8 [place] # (Auto) 0.4 Eos # (Auto) 0.0 Baso # (Auto) 0.0 Abs Immat Gran (auto) 0.07 H Absolute Neuts (auto) 6.0 Absolute Nucleated RBC Cancelled 0.000 Nucleated RBC % (auto) Cancelled 0.0 Anion Gap 14 Estim Creat Clear Calc 20.9 Estimated GFR 28 POC Glucose Random Glucose 366 H* Estimat Average Glucose Hemoglobin A1c % Calcium 9.2 Total Bilirubin 0.5 AST 15 ALT 19 Alkaline Phosphatase 79 Troponin I High Sens Total Protein 6.5 Albumin 3.6 Triglycerides 226 Cholesterol 243 LDL Cholesterol, Calc 161 HDL Cholesterol 37 Urine Color Urine Appearance Urine pH Ur Specific [place] Urine Protein Urine Glucose (UA) Urine Ketones Urine Blood Urine Nitrite Ur Leukocyte Esterase COVID-19 ([facility]) [facility] 12/07/22 12/07/22 12/07/22 14:50 14:50 16:40 MCV MCH MCHC RDW Plt Count MPV Immature Gran % (Auto) Neut % (Auto) Lymph % (Auto) [place] % (Auto) Eos % (Auto) Baso % (Auto) Lymph # (Auto) [place] # (Auto) Eos # (Auto) Baso # (Auto) Abs Immat Gran (auto) Absolute Neuts (auto) Absolute Nucleated RBC Nucleated RBC % (auto) Anion Gap Estim Creat Clear Calc Estimated GFR POC Glucose 212 H Random Glucose Estimat Average Glucose 303 Hemoglobin A1c % 12.2 Calcium Total Bilirubin AST ALT Alkaline Phosphatase Troponin I High Sens 5.9 Total Protein Albumin Triglycerides Cholesterol LDL Cholesterol, Calc HDL Cholesterol Urine Color Urine Appearance Urine pH Ur Specific [place] Urine Protein Urine Glucose (UA) Urine Ketones Urine Blood Urine Nitrite Ur Leukocyte Esterase COVID-19 ([facility]) [facility] 12/07/22 12/07/22 12/08/22 19:19 20:40 07:03 MCV 83.2 MCH 27.6 MCHC 33.2 RDW 13.6 Plt Count 218 MPV 9.7 Immature Gran % (Auto) 0.8 H Neut % (Auto) 79.3 H Lymph % (Auto) 14.3 L [place] % (Auto) 5.2 Eos % (Auto) 0.0 Baso % (Auto) 0.4 Lymph # (Auto) 1.6 [place] # (Auto) 0.6 Eos # (Auto) 0.0 Baso # (Auto) 0.0 Abs Immat Gran (auto) 0.09 H Absolute Neuts (auto) 8.9 H Absolute Nucleated RBC 0.000 Nucleated RBC % (auto) 0.0 Anion Gap Estim Creat Clear Calc Estimated GFR POC Glucose 171 H Random Glucose Estimat Average Glucose Hemoglobin A1c % Calcium Total Bilirubin AST ALT Alkaline Phosphatase Troponin I High Sens Total Protein Albumin Triglycerides Cholesterol LDL Cholesterol, Calc HDL Cholesterol Urine Color Urine Appearance Urine pH Ur Specific [place] Urine Protein Urine Glucose (UA) Urine Ketones Urine Blood Urine Nitrite Ur Leukocyte Esterase COVID-19 ([facility]) Negative COVID-19 Clin Com See Note 12/08/22 12/08/22 12/08/22 07:03 07:24 10:42 MCV MCH MCHC RDW Plt Count MPV Immature Gran % (Auto) Neut % (Auto) Lymph % (Auto) [place] % (Auto) Eos % (Auto) Baso % (Auto) Lymph # (Auto) [place] # (Auto) Eos # (Auto) Baso # (Auto) Abs Immat Gran (auto) Absolute Neuts (auto) Absolute Nucleated RBC Nucleated RBC % (auto) Anion Gap 20 Estim Creat Clear Calc 23.8 Estimated GFR 33 POC Glucose 188 H 215 H Random Glucose 200 H Estimat Average Glucose Hemoglobin A1c % Calcium 9.6 Total Bilirubin AST ALT Alkaline Phosphatase Troponin I High Sens Total Protein Albumin Triglycerides 159 Cholesterol 263 LDL Cholesterol, Calc 189 HDL Cholesterol 43 Urine Color Urine Appearance Urine pH Ur Specific [place] Urine Protein Urine Glucose (UA) Urine Ketones Urine Blood Urine Nitrite Ur Leukocyte Esterase COVID-19 ([facility]) COVID-[facility] Com 12/08/22 14:15 MCV MCH MCHC RDW Plt Count MPV Immature Gran % (Auto) Neut % (Auto) Lymph % (Auto) [place] % (Auto) Eos % (Auto) Baso % (Auto) Lymph # (Auto) [place] # (Auto) Eos # (Auto) Baso # (Auto) Abs Immat Gran (auto) Absolute Neuts (auto) Absolute Nucleated RBC Nucleated RBC % (auto) Anion Gap Estim Creat Clear Calc Estimated GFR POC Glucose Random Glucose Estimat Average Glucose Hemoglobin A1c % Calcium Total Bilirubin AST ALT Alkaline Phosphatase Troponin I High Sens Total Protein Albumin Triglycerides Cholesterol LDL Cholesterol, Calc HDL Cholesterol Urine Color Yellow Urine Appearance Clear Urine pH 7.0 Ur Specific [place] >= 1.030 H Urine Protein 100 (2+) H Urine Glucose (UA) 250 H Urine Ketones Negative Urine Blood Negative Urine Nitrite Negative Ur Leukocyte Esterase Negative COVID-19 ([facility]) COVID-19 Clin Com Assessment and Plan (1) CVA (cerebral vascular accident): Status: Acute [facility] hospital d#2 82yo F with uncontrolld DM2, CKD4, CAD s/p CABG, prior CVA, HLD, HTN, depression, osteoporosis found to be aphasic, last known well unknown admitted for evolving left parietal CVA # CVA, acute - CT showed probable acute evolving left parietal infarct with mild edema as well as old left occipital infarct. Out of TPA window. - head/neck CTA showed acute to subacute infarct in left MCA territory involving left parietal lobe and portion of the left temporal lobe - cannot do MRI due to pacemaker - Neuro consulted- continue ASA + atorvastatin. PT/OT/GASKET FORMER + TTE pending # non-metabolic encephalopathy - related to cerebral infarction as above # uncontrolled insulin-dependent type 2 diabetes with hyperglycemia, A1c 12.2 - basal-bolus insulin, importance of glycemic control counseled to pt's son # CAD - statin, ASA, metoprolol # HTN - continue metoprolol, hold amlodipine to allow some degree of permissive HTN # CKD4 - SCr at baseline # depression - continue sertraline # VTE ppx: LMWH # dispo: plan AIR In my clinical judgment, the patient requires continued inpatient hospitalization for the following reasons: to complete CVA workup Time Spent With Patient Time: Total time managing care of this patient today __35__ minutes. Quality Stroke Does the patient have a stroke diagnosis?: Yes Reason for No Anti-thrombotic by Day Two: Drug treatment not indicated (outside treatment window) VTE Prior VTE?: No VTE Risk Level:: Medical - moderate - high VTE Device Contraindication: Treatment Not Indicated VTE Drug Contraindication: N/A - Med Ordered
[2022-12-08 15:56] LABS: Glucose, Whole Blood 292 mg/dL (60-115)
[2022-12-08] MEDS: Enoxaparin Sodium 40 MG/0.4 ML SYRINGE SUBCUT (16:45)
--- NOTE | 2022-12-08 17:46 | MHC.SL.SWA ---
Speech Pathologist Impression: Risk of Aspiration Due to: Neurological Condition Reduced Cognition Dysphasia Diet Status: Liquid Consistency and Strategies for Safe Swallow: Liquid Intake Recommendation: Thin Liquid Intake Strategies: Small Sips No Straws Solid Food Consistency: Dietary Recommendations: Grnd/Mech Altered (NDD2) Additional Modifications to Solid Foods: Patient will need 1-1 assistance, although can do some guided/supported self feeding (is clumsy, has slow movement of UE). Liquids by controlled cup sip, no straws. Assure that patient has swallowed before presenting more food. Oral Medication Intake: Crushed with Puree Please contact the pharmacy regarding appropriate crushable or liquid drug formulations that are available whenever modified delivery is recommended. Compensatory Strategies and Precautions to be Taken for Safe Swallow: Sitting Upright (90 deg) Menselsohn Maneuver Liquids from Cup Small Bites and Sips Alternate Liquids/Solids Rate of Ingestion Change Supervision While Eating and Drinking for Safe Swallow: Total Assistance (1:1) Foods to Avoid: Tough to chew solids, mixed consistencies Swallowing Recommended Treatments: Compens. Strategy Educat. Recommendation for Speech: Inpatient Speech Therapy Speech Therapy through Rehab Facility Comment: Patient presents with a mild oral phase dysphagia, characterized by a slow rate of mastication/oral transit. Patient was additionally given screening of speech/language: Patient was unreliably answering y/n questions (consistently answered Yes to all questions) and minimally verbalizing, verbalizations were repetitions of single word, (e.g. tawnya, tawnya, tawnya when asked to count to ten) and incoherent speech. Patient presents with suspected global aphasia. Recommend patient continue on current diet of Ground/Mechanical Altered (NDD2) for ease of mastication, and THIN liquids, pills crushed in puree. DRYING MACHINE RECEIVER will continue to follow, re-assess swallow as warranted, continue to assess/monitor speech/language skills. PARUL CARRILLO notified of recommendations by secure stephan, RN in person. Per case briefer, Patient has been accepted to [facility] for inpatient [facility]hab, will likely transfer 11/08/22. Frequency/Duration: Date Range for Service Req: Timeline to reassess: Utility Forester Clinican/Clinical Fellow: No Supervisory Statement: I have reviewed and agree with the student/clinical fellow's documentation: N/A Speech Language Pathologist: Manju Regan M.A., [facility]-DRYING MACHINE RECEIVER
--- NOTE | 2022-12-08 18:28 | PM.EVENT ---
Event Note Date of Service: 12/08/22 Event Note: Message received from Dr. Navas. Echocardiogram showed apical thrombus. Discussed with Dr. Harrington. Given her stroke, should wait one week before initiating anticoagulation. Recommends repeating head CT in 1 week to rule out any hemorrhage. If negative, can initiate anticoagulation. Continue aspirin. Time Spent With Patient Time: Total time managing care of this patient today ____ minutes.
[2022-12-08 20:22] LABS: Glucose, Whole Blood 114 mg/dL (60-115)
[2022-12-08] MEDS: Insulin Glargine,Hum.rec.anlog 100 UNIT/ML 10 ML VIAL SUBCUT (21:42)
[2022-12-08] MEDS: Melatonin 3 MG TABLET PO (21:43)
[2022-12-09] MEDS: 0.9 % Sodium Chloride Flush 3 ML SYRINGE IVFLUSH ×2 (00:17→08:35)
[2022-12-09 04:00] VITALS: BP 154/70; PULSE 68; RESP 20; TEMP 36.4; O2SAT 98
[2022-12-09] MEDS: Omeprazole 20 MG CAPSULE.DR PO (05:34)
[2022-12-09 07:11] VITALS: BP 142/74; PULSE 68; RESP 16; TEMP 36.5; O2SAT 99
--- NOTE | 2022-12-09 07:15 | PC.NURSE ---
Patient had 3 beat of Vtach overnight while sleeping , asymptomatic. Hospitalist notified, BMP and mag level ordered this am.
[2022-12-09 07:24] LABS: Glucose, Whole Blood 233 mg/dL (60-115)
[2022-12-09 07:48] LABS: Anion Gap 19 (12-20); Blood Urea Nitrogen 23 mg/dL (9-16); Calcium 9.3 mg/dL (8.4-10.2); Carbon Dioxide 22 mmol/L (22-29); Chloride 100 mmol/L (96-108); Creatinine Clr Calc Pharmacy 21.9; Estimated Glomerular Filt Rate 30; Glucose Random 238 mg/dL (60-115); Magnesium 1.7 mg/dL (1.6-2.6); Potassium 4.8 mmol/L (3.3-5.1); Sodium 136 mmol/L (135-145)
[2022-12-09 08:05] VITALS: BP 142/74; PULSE 68; O2SAT 99
[2022-12-09] MEDS: Insulin Lispro 100 UNIT/ML 3 ML VIAL SUBCUT ×2 (08:32→12:24)
[2022-12-09] MEDS: Aspirin Enteric Coated 81 MG TABLET.DR PO (08:34)
[2022-12-09] MEDS: Atorvastatin Calcium 80 MG TABLET PO (08:35)
[2022-12-09] MEDS: Sertraline HCL 50 MG TABLET PO (08:35)
[2022-12-09] MEDS: calcitrioL 0.25 MCG CAPSULE PO (08:35)
[2022-12-09] MEDS: Cholecalciferol (Vitamin D3) 25 MCG TABLET PO (08:35)
[2022-12-09] MEDS: Metoprolol Succinate ER 50 MG TAB.ER.24H PO (08:35)
--- NOTE | 2022-12-09 11:09 | P.CONCA_ITS ---
History of Present Illness History of Present Illness Date of Service: 12/09/22 Requesting physician: Marylin Mix Consult reason: other (Stroke with LV thrombus) Chief complaint: STOKE Narrative: I was consulted to see Gwendolyn in cardiology consultation. History cannot be obtained from the patient as she is nonverbal. She seems to not to every question I asked her. Patient came to the hospital with what appears to have expressive aphasia and some weakness in left upper extremity and confusion. Noted to have left MCA territory infarct with large infarct in the parietal lobe. Patient doing workup underwent echocardiogram and echocardiogram shows presence of LV mural thrombus at the apex with apical hypokinesis in that area. Patient does have prior history of coronary artery disease with coronary artery bypass grafting, hypertension, diabetes, hyperlipidemia. It appears that she was taking all her medications and this event happened acutely. She was not given thrombolytic therapy on admission due to the fact that we do know exact timing of the event. Review of Systems 2 Review of Systems: Yes Unobtainable due to mental condition PMFSH Past Medical History Medical History Abnormal SPEP CAD (coronary artery disease) CKD (chronic kidney disease) stage 4, GFR 15-29 ml/min CVA (cerebral vascular accident) Depression HLD (hyperlipidemia) HTN (hypertension) Osteoporosis T2DM (type 2 diabetes mellitus) Vitamin D deficiency Family History Family History Father Medical history unknown Mother Diabetes mellitus Osteoporosis Other No family history of cancer Surgical History Surgical History History of coronary artery bypass graft History of open heart surgery Hx of knee surgery Social History Social History Household Members: Family Housing: Apartment Are you a primary long term care administrator to a significant other at home: No Do you presently have visiting nurse or other home services: No Alcohol intake: former Patient Tobacco Use Status: Never used Tobacco service: No Current occupational status: retired [employer] Allergies Allergy/AdvReac Type Severity Reaction Status Date / Time No Known Allergies Allergy Verified 08/20/22 15:43 [No Known Allergies*] Active Medications: Current Medications Acetaminophen (Acetaminophen 325 Mg Tablet) 650 mg PO Q6H PRN PRN Reason: Pain, Mild (Pain Scale 1-3) Aspirin (Aspirin Enteric Coated 81 Mg Tablet.) 81 mg PO DAILY [facility] Last Admin: 12/09/22 08:34 Dose: 81 mg Atorvastatin Calcium (Atorvastatin Calcium 80 Mg Tablet) 80 mg PO DAILY [facility] Last Admin: 12/09/22 08:35 Dose: 80 mg Calcitriol (Calcitriol 0.25 Mcg Capsule) 0.25 mcg PO Q2D@1000 [facility] Last Admin: 12/09/22 08:35 Dose: 0.25 mcg Dextrose (Dextrose 50 % 25 Gm/50 Ml Syringe) 25 gm IVPUSH Q15M PRN; Protocol PRN Reason: per Hypoglycemia Standing Ord. Enoxaparin Sodium (Enoxaparin Sodium 40 Mg/0.4 Ml Syringe) 40 mg SUBCUT Q24H [facility] Last Admin: 12/08/22 16:45 Dose: 40 mg Glucose (Glucose Gel 15 Gm Gel..Gram.) 15 gm PO Q15M PRN; Protocol PRN Reason: per Hypoglycemia Standing Ord. Insulin Glargine (Insulin Glargine,Hum.Rec.Anlog 100 Unit/Ml 10 Ml Vial) 4 unit SUBCUT BEDTIME [facility] Last Admin: 12/08/22 21:42 Dose: 4 unit Insulin Human Lispro (Insulin Lispro 100 Unit/Ml 3 Ml Vial) 0 unit SUBCUT QIDACHS [facility]; Protocol Last Admin: 12/09/22 08:32 Dose: 4 unit Lidocaine (Lidocaine 4 % Patch Adh..Patch) 1 patch TRANSDERMA DAILY PRN PRN Reason: Back Pain Melatonin (Melatonin 3 Mg Tablet) 3 mg PO BEDTIME [facility] Last Admin: 12/08/22 21:43 Dose: 3 mg Metoprolol Succinate (Metoprolol Succinate Er 50 Mg Tab.Er.24h) 50 mg PO BID [facility]; Protocol Last Admin: 12/09/22 08:35 Dose: 50 mg Omeprazole (Omeprazole 20 Mg Capsule.) 20 mg PO DAILY@0630 [facility] Last Admin: 12/09/22 05:34 Dose: 20 mg Ondansetron HCl (Ondansetron Hcl 4 Mg/2 Ml Vial) 4 mg IVPUSH Q8H PRN PRN Reason: Nausea and Vomiting Last Admin: 12/08/22 06:00 Dose: 4 mg Pharmacy Consult (Consult Rx Perform Med Rec) 1 each MISCELLANE ONCE PRN PRN Reason: Consult order Senna (Sennosides 8.6 Mg Tablet) 17.2 mg PO BEDTIME PRN PRN Reason: Constipation Sertraline HCl (Sertraline Hcl 50 Mg Tablet) 50 mg PO DAILY [facility] Last Admin: 12/09/22 08:35 Dose: 50 mg Sodium Chloride (0.9 % Sodium Chloride Flush 3 Ml Syringe) 3 ml IVFLUSH QSHIFT [facility] Last Admin: 12/09/22 08:35 Dose: 3 ml Vitamin D (Cholecalciferol (Vitamin D3) 25 Mcg Tablet) 25 mcg PO DAILY [facility] Last Admin: 12/09/22 08:35 Dose: 25 mcg Home Medications Medication Instructions Recorded Confirmed Last Taken Type amlodipine 5 mg tablet 5 mg PO DAILY@1200 05/29/21 12/07/22 12/07/22 History atorvastatin 10 mg tablet 10 mg PO BEDTIME 05/29/21 12/07/22 12/07/22 History blood sugar diagnostic (FreeStyle #10 ea 05/29/21 08/20/22 Unknown History Lite Strips) cholecalciferol (vitamin D3) 25 25 mcg PO DAILY 05/29/21 12/07/22 12/07/22 H istory mcg (1,000 unit) tablet glipizide 5 mg tablet 10 mg PO BIDAC 05/29/21 12/07/22 12/07/22 History lancets 33 gauge (TRUEplus Lancets) #100 ea 05/29/21 08/20/22 Unknown History linagliptin 5 mg tablet (Tradjenta) 5 mg PO DAILY 05/29/21 12/07/22 12/07/22 History metoprolol succinate 50 mg 50 mg PO BID 05/29/21 12/07/22 12/07/22 History tablet,extended release 24 hr omeprazole 20 mg capsule,delayed 20 mg PO DAILY 05/29/21 12/07/22 12/07/22 History release pen needle, diabetic 32 gauge x #50 ea 05/29/21 08/20/22 Unknown History (Pentips) sertraline 50 mg tablet 50 mg PO DAILY 05/29/21 12/07/22 12/07/22 History insulin degludec 100 unit/mL (3 8 unit subcut BEDTIME 07/24/22 12/07/22 12/06/22 History mL) subcutaneous pen (Tresiba FlexTouch U-100 insulin) calcitriol 0.25 mcg capsule 0.25 mcg PO Q2D@1000 12/07/22 12/07/22 Unknown Hi story lidocaine 5 % topical patch 1 patch topical DAILY PRN Back Pain 12/07/22 12/07/22 Unknown History (Lidoderm) melatonin 5 mg tablet 5 mg PO BEDTIME 12/07/22 12/07/22 12/06/22 History Physical Exam Vital Signs: Vital Signs: Last Vital Signs Temp 97.7 F 12/09/22 07:11 Pulse 68 12/09/22 08:05 Resp 16 12/09/22 07:11 BP 142/74 H 12/09/22 08:05 Pulse Ox 99 12/09/22 08:05 O2 Del Method 12/09/22 07:11 BMI result Body Mass Index 19.3 Const: General: cooperative, comfortable, no acute distress, alert and awake Nutritional Appearance: average body habitus HEENT: Head: Yes normocephalic and Yes atraumatic Neck: Neck: Yes trachea midline, Yes supple and Yes no JVD Resp: Effort & Inspection: decreased respiratory effort Auscultation: clear to auscultation bilaterally Cardio: Jugular venous distension: no JVD Palpation: normal PMI Rate: regular rate Rhythm: regular rhythm Heart sounds: S1 normal heart sound present, S2 normal heart sound present, no click, no gallops, no murmurs and no rubs GI: Auscultation: normal bowel sounds Skin: General skin exam: no rashes or lesions noted Neuro: Speech: Expressive aphasia present Extrem: General: Yes no clubbing, cyanosis or edema Objective Labs and Meds 12/08/22 07:03 12/09/22 07:07 Lab results: Laboratory Results - last 24 hr 12/08/22 12/08/22 12/08/22 14:15 15:38 20:15 Sodium Potassium Chloride Carbon Dioxide Anion Gap BUN Creatinine Estim Creat Clear Calc Estimated GFR POC Glucose 292 H 114 Random Glucose Calcium Magnesium Urine Color Yellow Urine Appearance Clear Urine pH 7.0 Ur Specific [place] >= 1.030 H Urine Protein 100 (2+) H Urine Glucose (UA) 250 H Urine Ketones Negative Urine Blood Negative Urine Nitrite Negative Ur Leukocyte Esterase Negative Urine RBC 3-5 H Urine WBC 0-5 Ur Squamous Epith Cells 0-2 Urine Bacteria None Seen Hyaline Casts 0-2 12/09/22 12/09/22 07:07 07:15 Sodium 136 Potassium 4.8 Chloride 100 Carbon Dioxide 22 Anion Gap 19 BUN 23 H Creatinine 1.64 H Estim Creat Clear Calc 21.9 Estimated GFR 30 POC Glucose 233 H Random Glucose 238 H Calcium 9.3 Magnesium 1.7 Urine Color Urine Appearance Urine pH Ur Specific [place] Urine Protein Urine Glucose (UA) Urine Ketones Urine Blood Urine Nitrite Ur Leukocyte Esterase Urine RBC Urine WBC Ur Squamous Epith Cells Urine Bacteria Hyaline Casts Assessment and Plan (1) CVA (cerebral vascular accident): Status: Acute Patient present with acute CVA in the left MCA territory which appears to be embolic in nature given that she has LV mural thrombus. Concern for the loss size of infarct as well as possible hemorrhagic transformation. From cardiac perspective most likely cause is the apical akinetic segment along with development of mural thrombus related to prior coronary artery disease and possible apical myocardial infarction in the past. Patient does have prior coronary artery bypass grafting, details not available. Would be a candidate for oral anticoagulation therapy, study drug being warfarin. The direct oral anticoagulants in her case and not been well studied and with rapid onset of action may be more likely to cause him right cheek transformation. Consult with Neurology about initiation of oral anticoagulation therapy. One strategy could be initiating warfarin with delayed onset without any bridging anticoagulation. Continue high-intensity statin therapy. Continue adequate blood pressure control. Supportive and physical therapy care as per the hospitalist team. Will sign of the care at this point time. Will attempt to follow-up as outpatient unless patient has her own first calender worker which is difficult to ascertain at this point in time. Time Spent With Patient Time: Total time managing care of this patient today ____ minutes. Procedures Date of Service Date of Service: 12/09/22
[2022-12-09 11:21] LABS: Glucose, Whole Blood 351 mg/dL (60-115)
[2022-12-09 11:52] VITALS: BP 138/69; PULSE 78; RESP 17; TEMP 36.9; O2SAT 100
[2022-12-09 13:31] LABS: IDNOW Serial# 16C4AD1C
[2022-12-09 13:32] LABS: COVID-19 Test Negative (Negative)
--- NOTE | 2022-12-09 14:26 | P.DS_ITS ---
DS: Providers Provider Date of Service: 12/09/22 Date of admission: 12/07/22 15:59 Date of discharge: 12/09/22 Primary care physician: Candy Ocampo NP Consults: 12/07/22 16:03 Consult to Neurology Routine Consulting Provider: Joelle Hollingsworth Reason for consultation: stroke 12/08/22 16:59 Consult to Cardiology Routine Consulting Provider: Elder Navas Reason for consultation: apical thrombus DS: Diagnosis Discharge Diagnosis (1) CVA (cerebral vascular accident): Status: Acute (2) Intracardiac thrombosis: Status: Acute (3) Aphasia due to acute stroke: Status: Acute DS: Summary Hospital Course Hospital Course: from admission H+P by hospitalist MATILDA Mix, 12/07/22: 82-year-old female with history of uncontrolled insulin-dependent type 2 diabetes, CKD stage 4, coronary artery disease s/p CABG, history CVA, hyperlipidemia, hypertension, depression, osteoporosis presented to the ED via EMS. Per ED provider, pt was brought in by EMS with complaint of hyperglycemia of 397. On arrival pt noted to be confused, largely nonverbal, but well kempt. Upon speaking with pt's son, with whom she lives, patient was found to be nonverbal and confused by son with last known well time around 930am. Pt noted to be hypertensive in the ED at 175/75, other vitals wnl. Hematology studies unremarkable. Hyperglycemic at 366 with mild hyponatremia of 134 and mild hyperkalemia 5.2.? Renal function with creatinine of 1.72, BUN 39, consistent with baseline.? She was given 8 units regular insulin.? Head CT showed probable acute evolving left parietal infarct with mild edema as well as old left occipital infarct.? Head/neck CTA showed acute to subacute infarct in left MCA territory involving left parietal lobe and portion of the left temporal lobe demonstrating.? Based on appearance of distal left M4 branch, there is also question of prior thrombosis with interval recanalization as well as mild luminal narrowing of the mid left P2 [employer] and proximal internal carotid artery origins.? Patient given 325 mg aspirin after having passed nursing bedside swallow screen.? She is outside of the window for thrombolytic therapy.? Patient to be admitted for acute CVA. 82yo F with uncontrolld DM2, CKD4, CAD s/p CABG, prior CVA, HLD, HTN, depression, and osteoporosis who was found to be aphasic and brought in outside of the tPA window. She was admitted for evolving left parietal CVA with mild edema as well as old left occipital infarct.? Neurology was consulted. No MRI due to pacemaker. ASA and atorvastatin were continued. TTE showed an apical intracardiac thrombus. Per design and sales consultant: Patient present with acute CVA in the left MCA territory which appears to be embolic in nature given that she has LV mural thrombus.? Concern for the loss size of infarct as well as possible hemorrhagic transformation.? From cardiac perspective most likely cause is the apical akinetic segment along with development of mural thrombus related to prior coronary artery disease and possible apical myocardial infarction in the past.? Patient does have prior coronary artery bypass grafting, details not available.? Would be a candidate for oral anticoagulation therapy, study drug being warfarin.? The direct oral anticoagulants in her case and not been well studied and with rapid onset of action may be more likely to cause him right cheek transformation.? Consult with Neurology about initiation of oral anticoagulation therapy.? One strategy could be initiating warfarin with delayed onset without any bridging anticoagulation.? Continue high-intensity statin therapy.? Continue adequate blood pressure control. This was discussed with Neurology and warfarin 2.5 mg/d was started on 12/09/22. She will need daily INR monitoring until therapeutic and a repeat noncontrast CT of the head should be done on 12/12/22 to rule out hemorrhagic transformation of the stroke. The importance of glycemic and blood pressure control was counseled, especially in light of A1c of 12.2. Aphasia resolved and she was transferred to [facility]. Time Spent with Patient Time attestation: Total time managing care of this patient today __55__ minutes. Discharge coordination time: Greater than 30 minutes Quality: Safe Use of Opioids Does Pt have an Active Cancer Diagnosis on the Problem List?: No Quality: Stroke Does the patient have a stroke diagnosis?: Yes Reason for No Anti-thrombotic at DC: N/A - Med Ordered Reason for No Anticoagulant at DC: N/A - Med Ordered Reason Not Initiating IV-Tpa: Not indicated Reason for No Anti-thrombotic by Day Two: N/A - Med Ordered Reason for No Statin at DC: N/A - Med Ordered Physical Exam Vital Signs: Vital Signs: Last Vital Signs Temp 98.5 F 12/09/22 11:52 Pulse 78 12/09/22 11:52 Resp 17 12/09/22 11:52 BP 138/69 12/09/22 11:52 Pulse Ox 100 12/09/22 11:52 O2 Del Method 12/09/22 11:52 BMI result Body Mass Index 19.3 Gen: in no acute distress HEENT: sclera anicteric, moist mucus membranes Neck: supple Lungs: clear to auscultation bilaterally Heart: regular rate and rhythm, no murmurs Abd: soft, non-tender, non-distended Ext: no edema Skin: warm/well-perfused Neuro: alert, speech with some halting qualities but much improved from yesterday, no facial droop, no pronator drift Psych: appropriate affect DS: Data Data Completed and Pending Completed studies during hospitalization [Text1]: Laboratory Results WBC 11.2 X10*3/uL (4.8-10.8) H 12/08/22 07:03 RBC 4.93 X10*6/uL (4.20-5.50) 12/08/22 07:03 Hgb 13.6 g/dl (12.0-16.0) 12/08/22 07:03 Hct 41.0 % (37.0-47.0) 12/08/22 07:03 MCV 83.2 fL (80.0-98.0) 12/08/22 07:03 MCH 27.6 pg (27.0-33.0) 12/08/22 07:03 MCHC 33.2 g/dl (31.0-35.0) 12/08/22 07:03 RDW 13.6 % (11.0-16.0) 12/08/22 07:03 Plt Count 218 X10*3/uL (160-400) 12/08/22 07:03 MPV 9.7 fL (9.4-12.3) 12/08/22 07:03 Immature Gran % (Auto) 0.8 % (0.0-0.4) H 12/08/22 07:03 Neut % (Auto) 79.3 % (45-73) H 12/08/22 07:03 Lymph % (Auto) 14.3 % (20-40) L 12/08/22 07:03 Jones % (Auto) 5.2 % (2-11) 12/08/22 07:03 Eos % (Auto) 0.0 % (0-4) 12/08/22 07:03 Baso % (Auto) 0.4 % (0-2) 12/08/22 07:03 Lymph # (Auto) 1.6 X10*3/uL (1.2-4.9) 12/08/22 07:03 Jones # (Auto) 0.6 X10*3/uL (0.1-1.2) 12/08/22 07:03 Eos # (Auto) 0.0 X10*3/uL (0.0-0.4) 12/08/22 07:03 Baso # (Auto) 0.0 X10*3/uL (0.0-0.2) 12/08/22 07:03 Abs Immat Gran (auto) 0.09 X10*3/uL (0.00-0.03) H 12/08/22 07:03 Absolute Neuts (auto) 8.9 x10*3/uL (2.0-8.3) H 12/08/22 07:03 Absolute Nucleated RBC 0.000 X10*3/uL (0.0-0.012) 12/08/22 07:03 Nucleated RBC % (auto) 0.0 /100WBC (0.0-0.2) 12/08/22 07:03 PT 11.5 SEC (10.0-13.1) 12/09/22 14:35 INR 1.0 (0.9-1.1) 12/09/22 14:35 Sodium 136 mmol/L (135-145) 12/09/22 07:07 Potassium 4.8 mmol/L (3.3-5.1) 12/09/22 07:07 Chloride 100 mmol/L (96-108) 12/09/22 07:07 Carbon Dioxide 22 mmol/L (22-29) 12/09/22 07:07 Anion Gap 19 (12-20) 12/09/22 07:07 BUN 23 mg/dL (9-16) H 12/09/22 07:07 Creatinine 1.64 mg/dL (0.5-1.4) H 12/09/22 07:07 Estim Creat Clear Calc 21.9 12/09/22 07:07 Estimated GFR 30 12/09/22 07:07 POC Glucose 351 mg/dL (60-115) H* 12/09/22 11:07 Random Glucose 238 mg/dL (60-115) H 12/09/22 07:07 Estimat Average Glucose 303 mg/dL 12/07/22 14:50 Hemoglobin A1c % 12.2 % 12/07/22 14:50 Calcium 9.3 mg/dL (8.4-10.2) 12/09/22 07:07 Magnesium 1.7 mg/dL (1.6-2.6) 12/09/22 07:07 Total Bilirubin 0.5 mg/dL (0.0-1.0) 12/07/22 14:50 AST 15 U/L (5-31) 12/07/22 14:50 ALT 19 U/L (0-31) 12/07/22 14:50 Alkaline Phosphatase 79 U/L (39-117) 12/07/22 14:50 Troponin I High Sens 5.9 ng/L (<3.5-17.0) 12/07/22 14:50 Total Protein 6.5 g/dL (6.5-8.0) 12/07/22 14:50 Albumin 3.6 g/dL (3.5-5.0) 12/07/22 14:50 Triglycerides 159 mg/dL 12/08/22 07:03 Cholesterol 263 mg/dL 12/08/22 07:03 LDL Cholesterol, Calc 189 mg/dl 12/08/22 07:03 HDL Cholesterol 43 mg/dL 12/08/22 07:03 Urine Color Yellow 12/08/22 14:15 Urine Appearance Clear 12/08/22 14:15 Urine pH 7.0 (5.0-9.0) 12/08/22 14:15 Ur Specific [place] >= 1.030 (1.005-1.025) H 12/08/22 14:15 Urine Protein 100 (2+) mg/dL (Neg-Trace) H 12/08/22 14:15 Urine Glucose (UA) 250 mg/dL (Negative) H 12/08/22 14:15 Urine Ketones Negative mg/dL (Negative) 12/08/22 14:15 Urine Blood Negative (Negative) 12/08/22 14:15 Urine Nitrite Negative (Negative) 12/08/22 14:15 Ur Leukocyte Esterase Negative (Negative) 12/08/22 14:15 Urine RBC 3-5 /HPF (0-2) H 12/08/22 14:15 Urine WBC 0-5 /HPF (0-5) 12/08/22 14:15 Ur Squamous Epith Cells 0-2 /HPF (0-2) 12/08/22 14:15 Urine Bacteria None Seen (None Seen) 12/08/22 14:15 Hyaline Casts 0-2 /LPF (0-2) 12/08/22 14:15 COVID-19 ([facility]) Negative (Negative) 12/09/22 12:50 COVID-19 Clin Com See Note 12/09/22 12:[address] 12/07/22 14:06 IMPRESSION: What appears to be an acute evolving left parietal infarct with mild edema.. Old left occipital infarct. This critical result was discussed with Dr. Mccoy at 2:15 PM hours on January 04, 2023. It was ascertained that the content and urgency of the report was understood at the time of direct communication. Head/Neck CTA 12/07/22 14:13 IMPRESSION: 1. Acute to subacute infarct in the left MCA territory involving the left parietal lobe and a portion of the left temporal lobe, which appears to demonstrate some enhancement likely on the basis of blood brain barrier disruption. 2. Loss of contrast opacification of a distal left M4 branch on series 6 images 132-135, which appears somewhat distal for the degree of left MCA territory infarction, raising the possibility of a prior thrombosis with interval recanalization. 3. Mild luminal narrowing of the mid left P2 [employer] and proximal internal carotid artery origins. Findings were discussed with Juvenal Mccoy MD on 12/07/2022 at 2:45 PM. TTE 12/08/22 1. Technically limited study ? 2. Normal LV systolic function with small area of apical akinesis with noted apical thrombus after contrast use? 3. Limited evaluation of cardiac valves? Discharge Plan Discharge Anticipated Discharge Date/Time: 12/09/22 15:00 Patient Disposition: Xfer Inpatient Rehab Fac Discharge Diagnosis: Left MCA acute stroke Intracardiac thrombus Referrals: [facility] [Outside] - 1 Week Candy Ocampo NP [Primary Care Provider] - 1 Week Discharge Medications: New atorvastatin 80 mg Tablet 80 mg PO DAILY Qty: 30 0RF warfarin [Jantoven] 2.5 mg Tablet 2.5 mg PO DAILY@1800 Qty: 30 0RF aspirin 81 mg Tablet,Delayed Release (Dr/Ec) 81 mg PO DAILY Qty: 30 0RF Continued calcitriol 0.25 mcg Capsule 0.25 mcg PO Q2D@1000 melatonin 5 mg Tablet 5 mg PO BEDTIME lidocaine [Lidoderm] 5 % Adhesive Patch,Medicated 1 patch TOPICAL DAILY PRN (Reason: Back Pain) Rx Instructions: leave on most painful area for up to 12 hrs (DME) lancets [TRUEplus Lancets] 33 gauge misc See Rx Instructions Not Applicable TID Qty: 100 Rx Instructions: As directed Tradjenta 5 mg tablet 5 mg PO DAILY sertraline 50 mg tablet 50 mg PO DAILY glipizide 5 mg tablet 10 mg PO BIDAC omeprazole 20 mg capsule,delayed release(DR/EC) 20 mg PO DAILY (DME) FreeStyle Lite Strips Strip See Rx Instructions Not Applicable TID Qty: 10 Rx Instructions: As directed (DME) pen needle, diabetic [Pentips] 32 gauge x 5/32 needle See Rx Instructions .ROUTE DAILY Qty: 50 Rx Instructions: As directed metoprolol succinate 50 mg tablet extended release 24 hr 50 mg PO BID amlodipine 5 mg tablet 5 mg PO DAILY@1200 cholecalciferol (vitamin D3) 25 mcg (1,000 unit) tablet 25 mcg PO DAILY Tresiba FlexTouch U-100 100 unit/mL (3 mL) insulin pen 8 unit subcut BEDTIME Discontinued atorvastatin 10 mg tablet 10 mg PO BEDTIME Discharge Orders: Discharge Order (Routine); Ordered 12/09/22 Ordered By: Michele Hurst Diet: Diabetic diet Activity on Discharge: As tolerated Stand Alone Forms: Patient Portal Discharge page Other Ambulatory Orders: Prothrombin Time INR (DAILY) Timeframe: 20221210 Facility: [facility] - Location: Laboratory Ordered By: Michele Hurst Prothrombin Time INR (DAILY) Timeframe: 20221211 Facility: [facility] - Location: Laboratory Ordered By: Michele Hurst Prothrombin Time INR (DAILY) Timeframe: 20221212 Facility: [facility] - Location: Laboratory Ordered By: Michele Hurst Prothrombin Time INR (DAILY) Timeframe: 20221213 Facility: [facility] - Location: Laboratory Ordered By: Michele Hurst Prothrombin Time INR (DAILY) Timeframe: 20221214 Facility: [facility] - Location: Laboratory Ordered By: Michele Hurst Care Plan Goals: Stroke prevention Health Concerns: Left MCA acute stroke Intracardiac thrombus Plan of Treatment: Transfer to [facility] for speech therapy along with physical and occupational therapy. NDD2 [ground/mechanical] solids plus thin liquids. Continue aspirin Start warfarin 2.5 mg daily. Check INR daily until therapeutic [2-3]. REPEAT CT HEAD WITHOUT CONTRAST on 12/12/22 TO MONITOR FOR HEMORRHAGIC TRANSFORMATION Increase atorvastatin from 10 mg to 80 mg daily Please follow up with your primary care doctor within 1 week of discharge from [place]. Return to the hospital if you experience recurrent or worsening symptoms. Also follow up with your brand engineer within 1 month. Assessment: See Discharge Summary.
[2022-12-09] MEDS: Warfarin Sodium 2.5 MG TABLET PO (14:35)
[2022-12-09 14:52] LABS: Prothrombin Time 11.5 SEC (10.0-13.1)
--- NOTE | 2022-12-09 15:09 | MHC.CM.PN ---
Addendum entered by Marissa Tipton 12/09/22 15:12: IMM 12/07/22 The patient's [facility] has been [facility]. Original Note: Patient is dischARGED TODAY TO [place] [facility] VIA bls. aLL DISCHARGE INFO, INCLUDING A NEGATIVE COVID TEST RESULT, HAVE BEEN SENT TO THE FACILITY.
[2022-12-09 15:23] VITALS: BP 135/75; PULSE 80; RESP 17; TEMP 37.1; O2SAT 100
[2022-12-09 16:31] LABS: Glucose, Whole Blood 109 mg/dL (60-115)
== END 2022-12-09 16:47 | DRG 65 ==
LOC: HO.ED 16:00 → HO.EDOVER 16:11 → HO.IMC 20:01
PROVIDERS: Internal Medicine; Admitting Provider Physician Assistant; Emergency Provider Emergency Medicine; PCP Nurse Practitioner Primary Care; Visit Provider Family Medicine
DX: I63.512 Cerebral infarction due to unspecified occlusion or stenosis of left middle cerebral artery (principal); G93.49 Other encephalopathy; N18.4 Chronic kidney disease, stage 4 (severe); R47.01 Aphasia; I25.10 Atherosclerotic heart disease of native coronary artery without angina pectoris; E78.5 Hyperlipidemia, unspecified; I12.9 Hypertensive chronic kidney disease with stage 1 through stage 4 chronic kidney disease, or unspecified chronic kidney disease; E11.22 Type 2 diabetes mellitus with diabetic chronic kidney disease; F32.A Depression, unspecified; E11.65 Type 2 diabetes mellitus with hyperglycemia; I51.3 Intracardiac thrombosis, not elsewhere classified; Z20.822 Contact with and (suspected) exposure to COVID-19; Z86.73 Personal history of transient ischemic attack (TIA), and cerebral infarction without residual deficits; Z95.1 Presence of aortocoronary bypass graft; Z79.84 Long term (current) use of oral hypoglycemic drugs; Z79.899 Other long term (current) drug therapy
CPT/HCPCS: 36415; 70450; 70496; 70498; 80048; 80053; 80061; 81001; 82947; 83036; 83735; 84484; 85025; 85610; 87635; 92610; 93005; 93306; 97110; 97116; 97162; 97166; 97535; 99285; J1650; J2405; Q9957; Q9967

== ENCOUNTER → 2023-02-22 13:01 | Outpatient (BNVA) | payer MEDICARE, SELFPAY | PROVIDERS: PCP Nurse Practitioner Primary Care; Visit Provider Internal Medicine | DX: I69.30 Unspecified sequelae of cerebral infarction (principal); Z79.01 Long term (current) use of anticoagulants; Z51.81 Encounter for therapeutic drug level monitoring | CPT/HCPCS: 85610; 99202 ==

== ENCOUNTER → 2023-02-26 13:22 | Outpatient (BNVA) | payer MEDICARE, SELFPAY | PROVIDERS: PCP Nurse Practitioner Primary Care; Visit Provider Internal Medicine | DX: I69.30 Unspecified sequelae of cerebral infarction (principal); Z79.01 Long term (current) use of anticoagulants; Z51.81 Encounter for therapeutic drug level monitoring | CPT/HCPCS: 85610; 99211 ==

== ENCOUNTER → 2023-03-18 09:41 | Outpatient (BNVA) | payer MEDICARE, SELFPAY | PROVIDERS: PCP Nurse Practitioner Primary Care; Visit Provider Internal Medicine | DX: I69.30 Unspecified sequelae of cerebral infarction (principal); Z79.01 Long term (current) use of anticoagulants; Z51.81 Encounter for therapeutic drug level monitoring | CPT/HCPCS: 85610; 99211 ==

== ENCOUNTER → 2023-04-02 10:54 | Outpatient (BNVA) | payer MEDICARE, SELFPAY | PROVIDERS: PCP Nurse Practitioner Primary Care; Visit Provider Internal Medicine | DX: I69.30 Unspecified sequelae of cerebral infarction (principal); Z79.01 Long term (current) use of anticoagulants; Z51.81 Encounter for therapeutic drug level monitoring | CPT/HCPCS: 85610; 99211 ==

== ENCOUNTER → 2023-04-19 09:15 | Outpatient (BNVA) | payer MEDICARE, SELFPAY | PROVIDERS: PCP Nurse Practitioner Primary Care; Visit Provider Internal Medicine | DX: I69.30 Unspecified sequelae of cerebral infarction (principal); Z79.01 Long term (current) use of anticoagulants; Z51.81 Encounter for therapeutic drug level monitoring | CPT/HCPCS: 85610; 99211 ==

== ENCOUNTER → 2023-04-29 09:48 | Outpatient (BNVA) | payer MEDICARE, SELFPAY | PROVIDERS: PCP Nurse Practitioner Primary Care; Visit Provider Internal Medicine | DX: I69.30 Unspecified sequelae of cerebral infarction (principal); Z79.01 Long term (current) use of anticoagulants; Z51.81 Encounter for therapeutic drug level monitoring | CPT/HCPCS: 85610; 99211 ==

== ENCOUNTER 2023-05-14 10:26 | Outpatient (AMB) | payer MEDICARE, SELFPAY ==
[2023-05-14 10:33] LABS: Prothrombin Time Whole Bld POC 27.3 sec (11.1-13.5); ~PT, ~INR - Anti Coag Clinic 2.3 (0.9-1.1)
--- NOTE | 2023-05-14 10:40 | MHC.OFFVISCO ---
Intake Intake Visit Reasons: Anticoagulation Allergies No Known Allergies [No Known Allergies*] Allergy (Verified 05/14/23 10:28) Medication List - Last Reconciled 05/14/23 by Zee West RN amlodipine 5 mg PO DAILY@1200 aspirin 81 mg PO DAILY atorvastatin 80 mg PO DAILY blood sugar diagnostic (FreeStyle Lite Strips) As directed calcitriol 0.25 mcg PO Q2D@1000 cholecalciferol (vitamin D3) 25 mcg PO DAILY glipizide 10 mg PO BIDAC insulin degludec (Tresiba FlexTouch U-100 insulin) 8 units subcut BEDTIME lancets (TRUEplus Lancets) As directed lidocaine 5% (Lidoderm) 1 patch topical DAILY PRN linagliptin (Tradjenta) 5 mg PO DAILY melatonin 5 mg PO BEDTIME metoprolol succinate ER 50 mg PO BID omeprazole 20 mg PO DAILY pen needle, diabetic (Pentips) As directed sertraline 50 mg PO DAILY warfarin See Protocol 2 mg orally 4mg x 2 days/2mg x 5 days or as indicated by INR; Nursing Note NO CP,SOB,DIET/MED CHANGES,FALLS OR SX OF BLEEDING CONTINUE PRESENT DOSE AND FOLLOW-UP IN 2 WEEKS. GOOD UNDERSTANDING OF DOSING INSTR. 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 r/t blood sugar) and Stroke/TIA (cva x 2 (3 years) Nov 2022 - had covid vaccine) Cancer HX: No Psych. Illness/Depression: No Coding Level of Care Code Est Patient Level 1 Diagnoses Current use of anticoagulant therapy Z79.01 Assessment & Plan Assessment & Plan (1) Current use of anticoagulant therapy: Code(s): Z79.01 - care home (current) use of 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
== END 2023-05-14 10:43 | disposition home or self-care (01) ==
LOC: HO.ACS 10:26
PROVIDERS: PCP Nurse Practitioner Primary Care; Visit Provider Internal Medicine
DX: Z79.01 Long term (current) use of anticoagulants (principal)

== ENCOUNTER → 2023-05-14 10:26 | Outpatient (BNVA) | payer MEDICARE, SELFPAY | PROVIDERS: PCP Nurse Practitioner Primary Care; Visit Provider Internal Medicine | DX: I69.30 Unspecified sequelae of cerebral infarction (principal); Z79.01 Long term (current) use of anticoagulants; Z51.81 Encounter for therapeutic drug level monitoring | CPT/HCPCS: 85610; 99211 ==

== ENCOUNTER 2023-06-08 09:58 | Outpatient (AMB) | payer MEDICARE, SELFPAY ==
[2023-06-08 10:13] LABS: Prothrombin Time Whole Bld POC 23.2 sec (11.1-13.5); ~PT, ~INR - Anti Coag Clinic 1.9 (0.9-1.1)
--- NOTE | 2023-06-08 10:17 | MHC.OFFVISCO ---
Intake Intake Visit Reasons: Anticoagulation Allergies No Known Allergies [No Known Allergies*] Allergy (Verified 06/08/23 10:08) Medication List - Last Reconciled 06/08/23 by Olive Galarza RN amlodipine 5 mg PO DAILY@1200 aspirin 81 mg PO DAILY atorvastatin 80 mg PO DAILY blood sugar diagnostic (FreeStyle Lite Strips) As directed calcitriol 0.25 mcg PO Q2D@1000 cholecalciferol (vitamin D3) 25 mcg PO DAILY glipizide 10 mg PO BIDAC insulin degludec (Tresiba FlexTouch U-100 insulin) 8 units subcut BEDTIME lancets (TRUEplus Lancets) As directed lidocaine 5% (Lidoderm) 1 patch topical DAILY PRN linagliptin (Tradjenta) 5 mg PO DAILY melatonin 5 mg PO BEDTIME metoprolol succinate ER 50 mg PO BID omeprazole 20 mg PO DAILY pen needle, diabetic (Pentips) As directed sertraline 50 mg PO DAILY warfarin See Protocol 2 mg orally 4mg x 2 days/2mg x 5 days or as indicated by INR; Nursing Note Amb to ACS accomp by son, sts missed last visit as he was in the hospital. Medications and supplements reviewed No changes in health, diet, medications, or supplements Denies any unusual signs and symptoms of bruising, bleeding Denies any new Chest pain, SOB, or clotting INR: 1.9 just below therapeutic range Nutritional guidance given: ok for reds to raise today then balance greens and reds in diet, pt is not a green eater Dose: take 4mg today, 2mg tomorrow then usual dosing (4mg x 3 days and 2mg x 4 days) F/U INR: 2 weeks may need dosing increase again if comes in at or below range Patients son verbalizes understanding of instructions given with accurate read back/ teach back of dosing Anti-Coag Initial Assessment Social Hx Patient Tobacco Use Status: Never used Tobacco alcohol intake: former Alcohol intake frequency: does not drink Cardiovascular Hx: HTN, Rheumatic Fever (possible as child - will need to further assessment ) and Other (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 r/t blood sugar) and Stroke/TIA (cva x 2 (3 years) Nov 2022 - had covid vaccine) Cancer HX: No Psych. Illness/Depression: No Coding Level of Care Code Est Patient Level 1 Diagnoses Current use of anticoagulant therapy Z79.01 Time Spent (min) 15 Assessment & Plan Assessment & Plan (1) Current use of anticoagulant therapy: Code(s): Z79.01 - [facility] (current) use of 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
== END 2023-06-08 10:24 | disposition home or self-care (01) ==
LOC: HO.ACS 09:58
PROVIDERS: PCP Nurse Practitioner Primary Care; Visit Provider Internal Medicine
DX: Z79.01 Long term (current) use of anticoagulants (principal)

== ENCOUNTER → 2023-06-08 09:58 | Outpatient (BNVA) | payer MEDICARE, SELFPAY | PROVIDERS: PCP Nurse Practitioner Primary Care; Visit Provider Internal Medicine | DX: I69.30 Unspecified sequelae of cerebral infarction (principal); Z79.01 Long term (current) use of anticoagulants; Z51.81 Encounter for therapeutic drug level monitoring | CPT/HCPCS: 85610; 99211 ==

== ENCOUNTER 2023-06-25 10:18 | Outpatient (AMB) | payer MEDICARE, SELFPAY ==
[2023-06-25 10:26] LABS: Prothrombin Time Whole Bld POC 21.1 sec (11.1-13.5); ~PT, ~INR - Anti Coag Clinic 1.8 (0.9-1.1)
--- NOTE | 2023-06-25 10:29 | MHC.OFFVISCO ---
Intake Intake Visit Reasons: Anticoagulation Allergies No Known Allergies [No Known Allergies*] Allergy (Verified 06/25/23 10:19) Medication List - Last Reconciled 06/25/23 by Olive Galarza RN amlodipine 5 mg PO DAILY@1200 aspirin 81 mg PO DAILY atorvastatin 80 mg PO DAILY blood sugar diagnostic (FreeStyle Lite Strips) As directed calcitriol 0.25 mcg PO Q2D@1000 cholecalciferol (vitamin D3) 25 mcg PO DAILY glipizide 10 mg PO BIDAC insulin degludec (Tresiba FlexTouch U-100 insulin) 8 units subcut BEDTIME lancets (TRUEplus Lancets) As directed lidocaine 5% (Lidoderm) 1 patch topical DAILY PRN linagliptin (Tradjenta) 5 mg PO DAILY melatonin 5 mg PO BEDTIME metoprolol succinate ER 50 mg PO BID omeprazole 20 mg PO DAILY pen needle, diabetic (Pentips) As directed sertraline 50 mg PO DAILY warfarin See Protocol 2 mg orally 4mg x 2 days/2mg x 5 days or as indicated by INR; Nursing Note Amb to ACS accomp by family member feeling ok Medications and supplements reviewed No changes in health, diet, medications, or supplements Denies any unusual signs and symptoms of bruising, bleeding Denies any new Chest pain, SOB, or clotting INR: 1.8 below therapeutic range, has been trending low or below, not a bog green eater Nutritional guidance given: balance greens and reds in diet Dose: follow new dosing for increase to 4mg x 4 days and 2mg x 3 days; F/U INR: 10 days Patient verbalizes understanding of instructions given with accurate read back/ teach back of dosing Anti-Coag Initial Assessment Social Hx Patient Tobacco Use Status: Never used Tobacco alcohol intake: former Alcohol intake frequency: does not drink Cardiovascular Hx: HTN, Rheumatic Fever (possible as child - will need to further assessment ) and Other (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 r/t blood sugar) and Stroke/TIA (cva x 2 (3 years) Nov 2022 - had covid vaccine) Cancer HX: No Psych. 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
== END 2023-06-25 10:35 | disposition home or self-care (01) ==
LOC: HO.ACS 10:18
PROVIDERS: PCP Nurse Practitioner Primary Care; Visit Provider Internal Medicine
DX: Z79.01 Long term (current) use of anticoagulants (principal)

== ENCOUNTER → 2023-06-25 10:18 | Outpatient (BNVA) | payer MEDICARE, SELFPAY | PROVIDERS: PCP Nurse Practitioner Primary Care; Visit Provider Internal Medicine | DX: I69.30 Unspecified sequelae of cerebral infarction (principal); Z51.81 Encounter for therapeutic drug level monitoring; Z79.01 Long term (current) use of anticoagulants | CPT/HCPCS: 85610; 99211 ==

== ENCOUNTER 2023-07-06 10:35 | Outpatient (AMB) | payer MEDICARE, SELFPAY ==
--- NOTE | 2023-07-06 10:43 | MHC.OFFVISCO ---
Intake Intake Visit Reasons: Anticoagulation Allergies No Known Allergies [No Known Allergies*] Allergy (Verified 07/06/23 10:39) Medication List - Last Reconciled 07/06/23 by Rosalia Richmond RN amlodipine 5 mg PO DAILY@1200 aspirin 81 mg PO DAILY atorvastatin 80 mg PO DAILY blood sugar diagnostic (FreeStyle Lite Strips) As directed calcitriol 0.25 mcg PO Q2D@1000 cholecalciferol (vitamin D3) 25 mcg PO DAILY glipizide 10 mg PO BIDAC insulin degludec (Tresiba FlexTouch U-100 insulin) 8 units subcut BEDTIME lancets (TRUEplus Lancets) As directed lidocaine 5% (Lidoderm) 1 patch topical DAILY PRN linagliptin (Tradjenta) 5 mg PO DAILY melatonin 5 mg PO BEDTIME metoprolol succinate ER 50 mg PO BID omeprazole 20 mg PO DAILY pen needle, diabetic (Pentips) As directed sertraline 50 mg PO DAILY warfarin See Protocol 2 mg orally 4mg x 2 days/2mg x 5 days or as indicated by INR; Nursing Note INR: 2.1- in therapeutic range Medications and supplements reviewed- no changes No changes in health, diet, medications, or supplements, Denies any signs and symptoms of bleeding or bruising or clotting. Bleeding, bruising, clotting discussed Nutritional guidance given Dose: 2mg x 3, 4mg x 4 F/U INR: 2 weeks Patient and son verbalizes understanding of instructions given Anti-Coag Initial Assessment Social Hx Patient Tobacco Use Status: Never used Tobacco alcohol intake: former Alcohol intake frequency: does not drink Cardiovascular Hx: HTN, Rheumatic Fever (possible as child - will need to further assessment ) and Other (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 r/t blood sugar) and Stroke/TIA (cva x 2 (3 years) Nov 2022 - had covid vaccine) Cancer HX: No Psych. 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
[2023-07-06 10:44] LABS: Prothrombin Time Whole Bld POC 24.6 sec (11.1-13.5); ~PT, ~INR - Anti Coag Clinic 2.1 (0.9-1.1)
== END 2023-07-06 10:49 | disposition home or self-care (01) ==
LOC: HO.ACS 10:35
PROVIDERS: PCP Nurse Practitioner Primary Care; Visit Provider Internal Medicine
DX: Z79.01 Long term (current) use of anticoagulants (principal)

== ENCOUNTER → 2023-07-06 10:35 | Outpatient (BNVA) | payer MEDICARE, SELFPAY | PROVIDERS: PCP Nurse Practitioner Primary Care; Visit Provider Internal Medicine | DX: I69.30 Unspecified sequelae of cerebral infarction (principal); Z79.01 Long term (current) use of anticoagulants; Z51.81 Encounter for therapeutic drug level monitoring | CPT/HCPCS: 85610; 99211 ==

== ENCOUNTER 2023-07-20 10:11 | Outpatient (AMB) | payer MEDICARE, SELFPAY ==
[2023-07-20 10:38] LABS: Prothrombin Time Whole Bld POC 54.2 sec (11.1-13.5); ~PT, ~INR - Anti Coag Clinic 4.5 (0.9-1.1)
--- NOTE | 2023-07-20 10:46 | MHC.OFFVISCO ---
Intake Intake Visit Reasons: Anticoagulation Allergies No Known Allergies [No Known Allergies*] Allergy (Verified 07/20/23 10:33) Medication List - Last Reconciled 07/20/23 by Olive Galarza RN amlodipine 5 mg PO DAILY@1200 aspirin 81 mg PO DAILY atorvastatin 80 mg PO DAILY blood sugar diagnostic (FreeStyle Lite Strips) As directed calcitriol 0.25 mcg PO Q2D@1000 cholecalciferol (vitamin D3) 25 mcg PO DAILY glipizide 10 mg PO BIDAC insulin degludec (Tresiba FlexTouch U-100 insulin) 8 units subcut BEDTIME lancets (TRUEplus Lancets) As directed lidocaine 5% (Lidoderm) 1 patch topical DAILY PRN linagliptin (Tradjenta) 5 mg PO DAILY melatonin 5 mg PO BEDTIME metoprolol succinate ER 50 mg PO BID omeprazole 20 mg PO DAILY pen needle, diabetic (Pentips) As directed sertraline 50 mg PO DAILY warfarin See Protocol 4mg x 4 days, 2mg mwf Nursing Note Amb to [facility] feeling well , accomp by son Medications and supplements reviewed No changes in health, diet, medications, or supplements other than melatonin last week for sleep Denies any unusual signs and symptoms of bruising, bleeding Denies any new Chest pain, SOB, or clotting INR: 4.5 above therapeutic range (last dose increase 06/25) Nutritional guidance given: have a dark leafy green today then balance greens and reds in diet enc to have a serving of green when taking melatonin Dose: hold warfarin today then resume usual dosing tomorrow;4mg x 4 days and 2mg x 3 days F/U INR: 1 week Patient verbalizes understanding of instructions given with accurate read back/ teach back of dosing Anti-Coag Initial Assessment Social Hx Patient Tobacco Use Status: Never used Tobacco alcohol intake: former Alcohol intake frequency: does not drink Cardiovascular Hx: HTN, Rheumatic Fever (possible as child - will need to further assessment ) and Other (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 r/t blood sugar) and Stroke/TIA (cva x 2 (3 years) Nov 2022 - had covid vaccine) Cancer HX: No Psych. 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
== END 2023-07-20 10:51 | disposition home or self-care (01) ==
LOC: HO.ACS 10:11
PROVIDERS: PCP Nurse Practitioner Primary Care; Visit Provider Internal Medicine
DX: Z79.01 Long term (current) use of anticoagulants (principal)

== ENCOUNTER → 2023-07-20 10:11 | Outpatient (BNVA) | payer MEDICARE, SELFPAY | PROVIDERS: PCP Nurse Practitioner Primary Care; Visit Provider Internal Medicine | DX: I69.30 Unspecified sequelae of cerebral infarction (principal); Z79.01 Long term (current) use of anticoagulants; Z51.81 Encounter for therapeutic drug level monitoring | CPT/HCPCS: 85610; 99211 ==

== ENCOUNTER 2023-07-27 10:43 | Outpatient (AMB) | payer MEDICARE, SELFPAY ==
[2023-07-27 10:51] LABS: ~PT, ~INR - Anti Coag Clinic 2.5 (0.9-1.1)
--- NOTE | 2023-07-27 10:59 | MHC.OFFVISCO ---
Intake Intake Visit Reasons: Anticoagulation Allergies No Known Allergies [No Known Allergies*] Allergy (Verified 07/27/23 10:44) Medication List - Last Reconciled 07/27/23 by Francine Vigil RN amlodipine 5 mg PO DAILY@1200 aspirin 81 mg PO DAILY atorvastatin 80 mg PO DAILY blood sugar diagnostic (FreeStyle Lite Strips) As directed calcitriol 0.25 mcg PO Q2D@1000 cholecalciferol (vitamin D3) 25 mcg PO DAILY docusate sodium 100 mg PO BID glipizide 10 mg PO BIDAC insulin degludec (Tresiba FlexTouch U-100 insulin) 8 units subcut BEDTIME lancets (TRUEplus Lancets) As directed lidocaine 5% (Lidoderm) 1 patch topical DAILY PRN linagliptin (Tradjenta) 5 mg PO DAILY melatonin 5 mg PO BEDTIME metoprolol succinate ER 50 mg PO BID pantoprazole 40 mg PO DAILY pen needle, diabetic (Pentips) As directed sennosides (senna) 17.2 mg PO BEDTIME sertraline 50 mg PO DAILY warfarin See Protocol 4mg x 4 days, 2mg mwf Nursing Note INR: 2.5 in therapeutic range Medications and supplements reviewed- NO CHANGES PER PT AND SON STATES SHE HAS ALLERGIES TODAY - SNIFFLES No changes in health, diet, medications, or supplements, Denies any signs and symptoms of bleeding or bruising or clotting. 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 r/t blood sugar) and Stroke/TIA (cva x 2 (3 years) Nov 2022 - had covid vaccine) Cancer HX: No Psych. 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
== END 2023-07-27 11:03 | disposition home or self-care (01) ==
LOC: HO.ACS 10:43
PROVIDERS: PCP Nurse Practitioner Primary Care; Visit Provider Internal Medicine
DX: Z79.01 Long term (current) use of anticoagulants (principal)

== ENCOUNTER → 2023-07-27 10:43 | Outpatient (BNVA) | payer MEDICARE, SELFPAY | PROVIDERS: PCP Nurse Practitioner Primary Care; Visit Provider Internal Medicine | DX: I69.30 Unspecified sequelae of cerebral infarction (principal); Z79.01 Long term (current) use of anticoagulants; Z51.81 Encounter for therapeutic drug level monitoring | CPT/HCPCS: 85610; 99211 ==

== ENCOUNTER 2023-08-10 10:54 | Outpatient (AMB) | payer MEDICARE, SELFPAY ==
--- NOTE | 2023-08-10 11:18 | MHC.OFFVISCO ---
Intake Intake Visit Reasons: Anticoagulation Allergies No Known Allergies [No Known Allergies*] Allergy (Verified 08/10/23 11:02) Medication List - Last Reconciled 08/10/23 by Olive Galarza RN amlodipine 5 mg PO DAILY@1200 aspirin 81 mg PO DAILY atorvastatin 80 mg PO DAILY blood sugar diagnostic (FreeStyle Lite Strips) As directed calcitriol 0.25 mcg PO Q2D@1000 cholecalciferol (vitamin D3) 25 mcg PO DAILY docusate sodium 100 mg PO BID glipizide 10 mg PO BIDAC insulin degludec (Tresiba FlexTouch U-100 insulin) 8 units subcut BEDTIME lancets (TRUEplus Lancets) As directed lidocaine 5% (Lidoderm) 1 patch topical DAILY PRN linagliptin (Tradjenta) 5 mg PO DAILY melatonin 5 mg PO BEDTIME metoprolol succinate ER 50 mg PO BID pantoprazole 40 mg PO DAILY pen needle, diabetic (Pentips) As directed sennosides (senna) 17.2 mg PO BEDTIME sertraline 50 mg PO DAILY warfarin See Protocol 4mg x 4 days, 2mg mwf Nursing Note Amb to [facility], accomp by son feeling well Medications and supplements reviewed No changes in health, diet, medications, or supplements Denies any unusual signs and symptoms of bruising, bleeding Denies any new Chest pain, SOB, or clotting INR: 3.6 above therapeutic range, reviewed possible causes for elevated INR- son sts she had more cranberry juice than usual, not a big green eater Nutritional guidance given:try to get a green in today, then balance greens and reds in diet, try to limit cranberry juice to 2-3x week Dose: decrease dose today to 2mg then resume usual dosing tomorrow;4mg x 3 days and 2mg x 4 days F/U INR:2 weeks Patients son verbalizes understanding of instructions given with accurate read back/ teach back of dosing Anti-Coag Initial Assessment Social Hx Patient Tobacco Use Status: Never used Tobacco alcohol intake: former Alcohol intake frequency: does not drink Cardiovascular Hx: HTN, Rheumatic Fever (possible as child - will need to further assessment ) and Other (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 r/t blood sugar) and Stroke/TIA (cva x 2 (3 years) Nov 2022 - had covid vaccine) Cancer HX: No Psych. 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
== END 2023-08-10 11:26 | disposition home or self-care (01) ==
LOC: HO.ACS 10:54
PROVIDERS: PCP Nurse Practitioner Primary Care; Visit Provider Internal Medicine
DX: Z79.01 Long term (current) use of anticoagulants (principal)

== ENCOUNTER → 2023-08-10 10:54 | Outpatient (BNVA) | payer MEDICARE, SELFPAY | PROVIDERS: PCP Nurse Practitioner Primary Care; Visit Provider Internal Medicine | DX: I69.30 Unspecified sequelae of cerebral infarction (principal); Z79.01 Long term (current) use of anticoagulants; Z51.81 Encounter for therapeutic drug level monitoring | CPT/HCPCS: 85610; 99211 ==

== ENCOUNTER 2023-08-26 14:04 | Outpatient (AMB) | payer MEDICARE, SELFPAY ==
[2023-08-26 14:17] LABS: Prothrombin Time Whole Bld POC 37.6 sec (11.1-13.5); ~PT, ~INR - Anti Coag Clinic 3.1 (0.9-1.1)
--- NOTE | 2023-08-26 14:21 | MHC.OFFVISCO ---
Intake Intake Visit Reasons: Anticoagulation Allergies No Known Allergies [No Known Allergies*] Allergy (Verified 08/26/23 14:11) Medication List - Last Reconciled 08/26/23 by Olive Galarza RN amlodipine 5 mg PO DAILY@1200 aspirin 81 mg PO DAILY atorvastatin 80 mg PO DAILY blood sugar diagnostic (FreeStyle Lite Strips) As directed calcitriol 0.25 mcg PO Q2D@1000 cholecalciferol (vitamin D3) 25 mcg PO DAILY docusate sodium 100 mg PO BID glipizide 10 mg PO BIDAC insulin degludec (Tresiba FlexTouch U-100 insulin) 8 units subcut BEDTIME lancets (TRUEplus Lancets) As directed lidocaine 5% (Lidoderm) 1 patch topical DAILY PRN linagliptin (Tradjenta) 5 mg PO DAILY melatonin 5 mg PO BEDTIME metoprolol succinate ER 50 mg PO BID pantoprazole 40 mg PO DAILY pen needle, diabetic (Pentips) As directed sennosides (senna) 17.2 mg PO BEDTIME sertraline 50 mg PO DAILY warfarin See Protocol 4mg x 4 days, 2mg mwf Nursing Note Amb to [facility] accomp by son, feeling well Medications and supplements reviewed No changes in health, diet, medications, or supplements Denies any unusual signs and symptoms of bruising, bleeding Denies any new Chest pain, SOB, or clotting INR: 3.1 just above therapeutic range Nutritional guidance given: add an extra green to diet and balance greens and reds in diet Dose: continue usual dosing;4mg x 3 days and 2mg x 4 days F/U INR: 2 weeks Patient verbalizes understanding of instructions given with accurate read back/ teach back of dosing Anti-Coag Initial Assessment Social Hx Patient Tobacco Use Status: Never used Tobacco alcohol intake: former Alcohol intake frequency: does not drink Cardiovascular Hx: HTN, Rheumatic Fever (possible as child - will need to further assessment ) and Other (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 r/t blood sugar) and Stroke/TIA (cva x 2 (3 years) Nov 2022 - had covid vaccine) Cancer HX: No Psych. Illness/Depression: No Coding Level of Care Code Est Patient Level 1 Diagnoses Current use of anticoagulant therapy Z79.01 Time Spent (min) 15 Assessment & Plan Assessment & Plan (1) Current use of anticoagulant therapy: Code(s): Z79.01 - residential (current) use of 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
== END 2023-08-26 14:25 | disposition home or self-care (01) ==
LOC: HO.ACS 14:04
PROVIDERS: PCP Nurse Practitioner Primary Care; Visit Provider Internal Medicine
DX: Z79.01 Long term (current) use of anticoagulants (principal)

== ENCOUNTER → 2023-08-26 14:04 | Outpatient (BNVA) | payer MEDICARE, SELFPAY | PROVIDERS: PCP Nurse Practitioner Primary Care; Visit Provider Internal Medicine | DX: I69.30 Unspecified sequelae of cerebral infarction (principal); Z79.01 Long term (current) use of anticoagulants; Z51.81 Encounter for therapeutic drug level monitoring | CPT/HCPCS: 85610; 99211 ==

== ENCOUNTER 2023-09-07 14:09 | Outpatient (AMB) | payer MEDICARE, SELFPAY ==
--- NOTE | 2023-09-07 14:24 | MHC.OFFVISCO ---
Intake Intake Visit Reasons: Anticoagulation Allergies No Known Allergies [No Known Allergies*] Allergy (Verified 09/07/23 14:19) Medication List - Last Reconciled 09/07/23 by Rosalia Richmond RN amlodipine 5 mg PO DAILY@1200 aspirin 81 mg PO DAILY atorvastatin 80 mg PO DAILY blood sugar diagnostic (FreeStyle Lite Strips) As directed calcitriol 0.25 mcg PO Q2D@1000 cholecalciferol (vitamin D3) 25 mcg PO DAILY docusate sodium 100 mg PO BID glipizide 10 mg PO BIDAC insulin degludec (Tresiba FlexTouch U-100 insulin) 8 units subcut BEDTIME lancets (TRUEplus Lancets) As directed lidocaine 5% (Lidoderm) 1 patch topical DAILY PRN linagliptin (Tradjenta) 5 mg PO DAILY melatonin 5 mg PO BEDTIME metoprolol succinate ER 50 mg PO BID pantoprazole 40 mg PO DAILY pen needle, diabetic (Pentips) As directed sennosides (senna) 17.2 mg PO BEDTIME sertraline 50 mg PO DAILY warfarin See Protocol 4mg x 4 days, 2mg mwf Nursing Note INR: 2.7- in therapeutic range of 2-3 Medications and supplements reviewed- no changes No changes in health, diet, medications, or supplements, Denies any signs and symptoms of bleeding or bruising or clotting. 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 r/t blood sugar) and Stroke/TIA (cva x 2 (3 years) Nov 2022 - had covid vaccine) Cancer HX: No Psych. 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
[2023-09-07 14:26] LABS: Prothrombin Time Whole Bld POC 32.6 sec (11.1-13.5); ~PT, ~INR - Anti Coag Clinic 2.7 (0.9-1.1)
== END 2023-09-07 14:33 | disposition home or self-care (01) ==
LOC: HO.ACS 14:09
PROVIDERS: PCP Nurse Practitioner Primary Care; Visit Provider Internal Medicine
DX: Z79.01 Long term (current) use of anticoagulants (principal)

== ENCOUNTER → 2023-09-07 14:09 | Outpatient (BNVA) | payer MEDICARE, SELFPAY | PROVIDERS: PCP Nurse Practitioner Primary Care; Visit Provider Internal Medicine | DX: I69.30 Unspecified sequelae of cerebral infarction (principal); Z79.01 Long term (current) use of anticoagulants; Z51.81 Encounter for therapeutic drug level monitoring | CPT/HCPCS: 85610; 99211 ==

== ENCOUNTER 2023-09-28 10:12 | Outpatient (AMB) | payer MEDICARE, SELFPAY ==
[2023-09-28 10:20] LABS: Prothrombin Time Whole Bld POC 40.9 sec (11.1-13.5); ~PT, ~INR - Anti Coag Clinic 3.4 (0.9-1.1)
--- NOTE | 2023-09-28 10:23 | MHC.OFFVISCO ---
Intake Intake Visit Reasons: Anticoagulation Allergies No Known Allergies [No Known Allergies*] Allergy (Verified 09/28/23 10:16) Medication List - Last Reconciled 09/28/23 by Francine Vigil RN amlodipine 5 mg PO DAILY@1200 aspirin 81 mg PO DAILY atorvastatin 80 mg PO DAILY blood sugar diagnostic (FreeStyle Lite Strips) As directed calcitriol 0.25 mcg PO Q2D@1000 cholecalciferol (vitamin D3) 25 mcg PO DAILY docusate sodium 100 mg PO BID glipizide 10 mg PO BIDAC insulin degludec (Tresiba FlexTouch U-100 insulin) 8 units subcut BEDTIME lancets (TRUEplus Lancets) As directed lidocaine 5% (Lidoderm) 1 patch topical DAILY PRN linagliptin (Tradjenta) 5 mg PO DAILY melatonin 5 mg PO BEDTIME metoprolol succinate ER 50 mg PO BID pantoprazole 40 mg PO DAILY pen needle, diabetic (Pentips) As directed sennosides (senna) 17.2 mg PO BEDTIME sertraline 50 mg PO DAILY warfarin See Protocol 4mg x 4 days, 2mg mwf Nursing Note INR: 3.4 in therapeutic range Medications and supplements reviewed No changes in health, diet, medications, or supplements, Denies any signs and symptoms of bleeding or bruising or clotting. 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 r/t blood sugar) and Stroke/TIA (cva x 2 (3 years) Nov 2022 - had covid vaccine) Cancer HX: No Psych. Illness/Depression: No Coding Level of Care Code Est Patient Level 1 Results AMB INR Fingerstick AMB INR Fingerstick 3.4 Last Edit by Francine Vigil RN on 09/28/23 10:24 MANUAL ENTRY FAILED INTERFACING ONGOING
== END 2023-09-28 10:28 | disposition home or self-care (01) ==
LOC: HO.ACS 10:12
PROVIDERS: PCP Nurse Practitioner Primary Care; Visit Provider Internal Medicine
DX: Z79.01 Long term (current) use of anticoagulants (principal)

== ENCOUNTER → 2023-09-28 10:12 | Outpatient (BNVA) | payer MEDICARE, SELFPAY | PROVIDERS: PCP Nurse Practitioner Primary Care; Visit Provider Internal Medicine | DX: I69.30 Unspecified sequelae of cerebral infarction (principal); Z79.01 Long term (current) use of anticoagulants; Z51.81 Encounter for therapeutic drug level monitoring | CPT/HCPCS: 85610; 99211 ==

== ENCOUNTER 2023-10-13 10:22 | Outpatient (AMB) | payer MEDICARE, SELFPAY ==
--- NOTE | 2023-10-13 10:36 | MHC.OFFVISCO ---
Intake Intake Visit Reasons: Anticoagulation Allergies No Known Allergies [No Known Allergies*] Allergy (Verified 10/13/23 10:31) Medication List - Last Reconciled 10/13/23 by Rosalia Richmond RN amlodipine 5 mg PO DAILY@1200 aspirin 81 mg PO DAILY atorvastatin 80 mg PO DAILY blood sugar diagnostic (FreeStyle Lite Strips) As directed calcitriol 0.25 mcg PO Q2D@1000 cholecalciferol (vitamin D3) 25 mcg PO DAILY docusate sodium 100 mg PO BID glipizide 10 mg PO BIDAC insulin degludec (Tresiba FlexTouch U-100 insulin) 8 units subcut BEDTIME lancets (TRUEplus Lancets) As directed lidocaine 5% (Lidoderm) 1 patch topical DAILY PRN linagliptin (Tradjenta) 5 mg PO DAILY melatonin 5 mg PO BEDTIME metoprolol succinate ER 50 mg PO BID pantoprazole 40 mg PO DAILY pen needle, diabetic (Pentips) As directed sennosides (senna) 17.2 mg PO BEDTIME sertraline 50 mg PO DAILY warfarin See Protocol 4mg x 4 days, 2mg mwf Nursing Note INR: 2.5- in therapeutic range of 2-3 Medications and supplements reviewed- no changes No changes in health, diet, medications, or supplements, Denies any signs and symptoms of bleeding or bruising or clotting. 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 r/t blood sugar) and Stroke/TIA (cva x 2 (3 years) Nov 2022 - had covid vaccine) Cancer HX: No Psych. Illness/Depression: No Coding Level of Care Code Est Patient Level 1 Diagnoses Current use of anticoagulant therapy Z79.01 Results AMB INR Fingerstick AMB INR Fingerstick 2.5 Last Edit by Rosalia Richmond RN on 10/13/23 10:37 Assessment & Plan Assessment & Plan (1) Current use of anticoagulant therapy: Code(s): Z79.01 - long-term (current) use of 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
[2023-10-14 09:16] LABS: Prothrombin Time Whole Bld POC 29.8 sec (11.1-13.5); ~PT, ~INR - Anti Coag Clinic 2.5 (0.9-1.1)
== END 2023-10-13 10:43 | disposition home or self-care (01) ==
LOC: HO.ACS 10:22
PROVIDERS: PCP Nurse Practitioner Primary Care; Visit Provider Internal Medicine
DX: Z79.01 Long term (current) use of anticoagulants (principal)

== ENCOUNTER → 2023-10-13 10:22 | Outpatient (BNVA) | payer MEDICARE, SELFPAY | PROVIDERS: PCP Nurse Practitioner Primary Care; Visit Provider Internal Medicine | DX: I69.30 Unspecified sequelae of cerebral infarction (principal); Z79.01 Long term (current) use of anticoagulants; Z51.81 Encounter for therapeutic drug level monitoring | CPT/HCPCS: 85610; 99211 ==

== ENCOUNTER 2023-11-03 11:15 | Outpatient (AMB) | payer MEDICARE, SELFPAY ==
--- NOTE | 2023-11-03 11:27 | MHC.OFFVISCO ---
Intake Intake Visit Reasons: Anticoagulation Allergies No Known Allergies [No Known Allergies*] Allergy (Verified 11/03/23 11:19) Medication List - Last Reconciled 11/03/23 by Zee West RN amlodipine 5 mg PO DAILY@1200 aspirin 81 mg PO DAILY atorvastatin 80 mg PO DAILY blood sugar diagnostic (FreeStyle Lite Strips) As directed calcitriol 0.25 mcg PO Q2D@1000 cholecalciferol (vitamin D3) 25 mcg PO DAILY docusate sodium 100 mg PO BID glipizide 10 mg PO BIDAC insulin degludec (Tresiba FlexTouch U-100 insulin) 8 units subcut BEDTIME lancets (TRUEplus Lancets) As directed lidocaine 5% (Lidoderm) 1 patch topical DAILY PRN linagliptin (Tradjenta) 5 mg PO DAILY melatonin 5 mg PO BEDTIME metoprolol succinate ER 50 mg PO BID pantoprazole 40 mg PO DAILY pen needle, diabetic (Pentips) As directed sennosides (senna) 17.2 mg PO BEDTIME sertraline 50 mg PO DAILY warfarin See Protocol 4mg x 4 days, 2mg mwf Nursing Note NO CP,SOB,DIET/MED CHANGES,FALLS OR SX OF BLEEDING. DECREASE DOSE TODAY TO 1MGM THEN RESUME USUAL DOSING AND FOLLOW-UP IN 2 WEEKS. GOOD UNDERSTANDING VERB.BY GRANDSON. 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 r/t blood sugar) and Stroke/TIA (cva x 2 (3 years) Nov 2022 - had covid vaccine) Cancer HX: No Psych. Illness/Depression: No Coding Level of Care Code Est Patient Level 1 Diagnoses Current use of anticoagulant therapy Z79.01 Assessment & Plan Assessment & Plan (1) Current use of anticoagulant therapy: Code(s): Z79.01 - halfway (current) use of 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
== END 2023-11-03 11:28 | disposition home or self-care (01) ==
LOC: HO.ACS 11:15
PROVIDERS: PCP Nurse Practitioner Primary Care; Visit Provider Internal Medicine
DX: Z79.01 Long term (current) use of anticoagulants (principal)

== ENCOUNTER → 2023-11-03 11:15 | Outpatient (BNVA) | payer MEDICARE, SELFPAY | PROVIDERS: PCP Nurse Practitioner Primary Care; Visit Provider Internal Medicine | DX: I69.30 Unspecified sequelae of cerebral infarction (principal); Z79.01 Long term (current) use of anticoagulants; Z51.81 Encounter for therapeutic drug level monitoring | CPT/HCPCS: 85610; 99211 ==

== ENCOUNTER 2023-11-17 13:03 | Outpatient (AMB) | payer MEDICARE, SELFPAY ==
[2023-11-17 13:09] LABS: Prothrombin Time Whole Bld POC 39.9 sec (11.1-13.5); ~PT, ~INR - Anti Coag Clinic 3.3 (0.9-1.1)
--- NOTE | 2023-11-17 13:14 | MHC.OFFVISCO ---
Intake Intake Visit Reasons: Anticoagulation Allergies No Known Allergies [No Known Allergies*] Allergy (Verified 11/17/23 13:03) Medication List - Last Reconciled 11/17/23 by Zee West RN amlodipine 5 mg PO DAILY@1200 aspirin 81 mg PO DAILY atorvastatin 80 mg PO DAILY blood sugar diagnostic (FreeStyle Lite Strips) As directed calcitriol 0.25 mcg PO Q2D@1000 cholecalciferol (vitamin D3) 25 mcg PO DAILY docusate sodium 100 mg PO BID glipizide 10 mg PO BIDAC insulin degludec (Tresiba FlexTouch U-100 insulin) 8 units subcut BEDTIME lancets (TRUEplus Lancets) As directed lidocaine 5% (Lidoderm) 1 patch topical DAILY PRN linagliptin (Tradjenta) 5 mg PO DAILY melatonin 5 mg PO BEDTIME metoprolol succinate ER 50 mg PO BID pantoprazole 40 mg PO DAILY pen needle, diabetic (Pentips) As directed sennosides (senna) 17.2 mg PO BEDTIME sertraline 50 mg PO DAILY warfarin See Protocol 4mg x 4 days, 2mg mwf Nursing Note NO CP,SOB,DIET/MED CHANGES,FALLS OR SX OF BLEEDING. HOLD WARFARIN TODAY THEN RESUME USUAL DOSE AND FOLLOW-UP IN 2 WEEKS. GOOD UNDERSTANDING OF DOSING INSTR. 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 r/t blood sugar) and Stroke/TIA (cva x 2 (3 years) Nov 2022 - had covid vaccine) Cancer HX: No Psych. 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
== END 2023-11-17 13:15 | disposition home or self-care (01) ==
LOC: HO.ACS 13:03
PROVIDERS: PCP Nurse Practitioner Primary Care; Visit Provider Internal Medicine
DX: Z79.01 Long term (current) use of anticoagulants (principal)

== ENCOUNTER → 2023-11-17 13:03 | Outpatient (BNVA) | payer MEDICARE, SELFPAY | PROVIDERS: PCP Nurse Practitioner Primary Care; Visit Provider Internal Medicine | DX: I69.30 Unspecified sequelae of cerebral infarction (principal); Z79.01 Long term (current) use of anticoagulants; Z51.81 Encounter for therapeutic drug level monitoring | CPT/HCPCS: 85610; 99211 ==

== ENCOUNTER 2023-12-02 13:04 | Outpatient (AMB) | payer MEDICARE, SELFPAY ==
[2023-12-02 13:11] LABS: Prothrombin Time Whole Bld POC 31.9 sec (11.1-13.5); ~PT, ~INR - Anti Coag Clinic 2.7 (0.9-1.1)
--- NOTE | 2023-12-02 13:13 | MHC.OFFVISCO ---
Intake Intake Visit Reasons: Anticoagulation Allergies No Known Allergies [No Known Allergies*] Allergy (Verified 12/02/23 13:05) Medication List - Last Reconciled 12/02/23 by Francine Vigil RN amlodipine 5 mg PO DAILY@1200 aspirin 81 mg PO DAILY atorvastatin 80 mg PO DAILY blood sugar diagnostic (FreeStyle Lite Strips) As directed calcitriol 0.25 mcg PO Q2D@1000 cholecalciferol (vitamin D3) 25 mcg PO DAILY docusate sodium 100 mg PO BID glipizide 10 mg PO BIDAC insulin degludec (Tresiba FlexTouch U-100 insulin) 8 units subcut BEDTIME lancets (TRUEplus Lancets) As directed lidocaine 5% (Lidoderm) 1 patch topical DAILY PRN linagliptin (Tradjenta) 5 mg PO DAILY melatonin 5 mg PO BEDTIME metoprolol succinate ER 50 mg PO BID pantoprazole 40 mg PO DAILY pen needle, diabetic (Pentips) As directed sennosides (senna) 17.2 mg PO BEDTIME sertraline 50 mg PO DAILY warfarin See Protocol 4mg x 4 days, 2mg mwf Nursing Note INR: 2.7 in therapeutic range Medications and supplements reviewed HAS A MILD COLD WITH SINUS CONGESTION- ENC TO STAY HYDRATED AND OR TRY SALINE SOLUTION No changes in diet, medications, or supplements, Denies any signs and symptoms of bleeding or bruising or clotting. Bleeding, bruising, clotting discussed Nutritional guidance given KEEP UP WEEKLY GREENS Dose: KEEP SAME 4MG SUN TUE THUR/ 2MG X 4 DAYS F/U INR: 3 WEEKS CALL WITHH ANY MEDICATION CHANGES Patient verbalizes understanding of instructions given Anti-Coag Initial Assessment Social Hx Patient Tobacco Use Status: Never used Tobacco alcohol intake: former Alcohol intake frequency: does not drink Cardiovascular Hx: HTN, Rheumatic Fever (possible as child - will need to further assessment ) and Other (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 r/t blood sugar) and Stroke/TIA (cva x 2 (3 years) Nov 2022 - had covid vaccine) Cancer HX: No Psych. Illness/Depression: No Coding Level of Care Code Est Patient Level 1 Diagnoses Current use of anticoagulant therapy Z79.01 Assessment & Plan Assessment & Plan (1) Current use of anticoagulant therapy: Code(s): Z79.01 - custodial (current) use of 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
== END 2023-12-02 13:18 | disposition home or self-care (01) ==
LOC: HO.ACS 13:04
PROVIDERS: PCP Nurse Practitioner Primary Care; Visit Provider Internal Medicine
DX: Z79.01 Long term (current) use of anticoagulants (principal)

== ENCOUNTER → 2023-12-02 13:04 | Outpatient (BNVA) | payer MEDICARE, SELFPAY | PROVIDERS: PCP Nurse Practitioner Primary Care; Visit Provider Internal Medicine | DX: I69.30 Unspecified sequelae of cerebral infarction (principal); Z51.81 Encounter for therapeutic drug level monitoring; Z79.01 Long term (current) use of anticoagulants | CPT/HCPCS: 85610; 99211 ==

== ENCOUNTER 2023-12-28 09:57 | Outpatient (AMB) | payer MEDICARE, SELFPAY ==
--- NOTE | 2023-12-28 10:21 | MHC.OFFVISCO ---
Intake Intake Visit Reasons: Anticoagulation Allergies No Known Allergies [No Known Allergies*] Allergy (Verified 12/28/23 10:12) Medication List - Last Reconciled 12/28/23 by Rosalia Richmond RN amlodipine 5 mg PO DAILY@1200 aspirin 81 mg PO DAILY atorvastatin 80 mg PO DAILY blood sugar diagnostic (FreeStyle Lite Strips) As directed calcitriol 0.25 mcg PO Q2D@1000 cholecalciferol (vitamin D3) 25 mcg PO DAILY docusate sodium 100 mg PO BID glipizide 10 mg PO BIDAC insulin degludec (Tresiba FlexTouch U-100 insulin) 8 units subcut BEDTIME lancets (TRUEplus Lancets) As directed lidocaine 5% (Lidoderm) 1 patch topical DAILY PRN linagliptin (Tradjenta) 5 mg PO DAILY melatonin 5 mg PO BEDTIME metoprolol succinate ER 50 mg PO BID pantoprazole 40 mg PO DAILY pen needle, diabetic (Pentips) As directed sennosides (senna) 17.2 mg PO BEDTIME sertraline 50 mg PO DAILY warfarin See Protocol 4mg x 4 days, 2mg mwf Nursing Note INR: 2.7- in therapeutic range of 2-3 Medications and supplements reviewed- tresiba insulin increased to 10 units daily in am No changes in health, diet, medications, or supplements, Denies any signs and symptoms of bleeding or bruising or clotting. 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 r/t blood sugar) and Stroke/TIA (cva x 2 (3 years) Nov 2022 - had covid vaccine) Cancer HX: No Psych. 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
[2023-12-28 10:27] LABS: Prothrombin Time Whole Bld POC 31.9 sec (11.1-13.5); ~PT, ~INR - Anti Coag Clinic 2.7 (0.9-1.1)
== END 2023-12-28 10:29 | disposition home or self-care (01) ==
LOC: HO.ACS 09:57
PROVIDERS: PCP Nurse Practitioner Primary Care; Visit Provider Internal Medicine
DX: Z79.01 Long term (current) use of anticoagulants (principal)

== ENCOUNTER → 2023-12-28 09:57 | Outpatient (BNVA) | payer MEDICARE, SELFPAY | PROVIDERS: PCP Nurse Practitioner Primary Care; Visit Provider Internal Medicine | DX: I69.30 Unspecified sequelae of cerebral infarction (principal); Z79.01 Long term (current) use of anticoagulants; Z51.81 Encounter for therapeutic drug level monitoring | CPT/HCPCS: 85610; 99211 ==

== ENCOUNTER 2024-03-09 10:19 | Outpatient (AMB) | payer MEDICARE, SELFPAY ==
[2024-03-09 10:25] LABS: ~PT, ~INR - Anti Coag Clinic 2.8 (0.9-1.1)
--- NOTE | 2024-03-09 10:28 | MHC.OFFVISCO ---
Intake Intake Visit Reasons: Anticoagulation Allergies No Known Allergies [No Known Allergies*] Allergy (Verified 12/28/23 10:12) Nursing Note INR: 2.8 in therapeutic range OF 2-3 Medications and supplements reviewed: NO CHANGES No changes in health, diet, medications, or supplements, Denies any signs and symptoms of bleeding or bruising or clotting. Bleeding, bruising, clotting discussed Nutritional guidance given Dose: 4MG x 3 DAYS AND 2MG x 4 DAYS F/U INR: 1 MONTH Patient verbalizes understanding of instructions given Anti-Coag Initial Assessment Social Hx Patient Tobacco Use Status: Never used Tobacco alcohol intake: former Alcohol intake frequency: does not drink Cardiovascular Hx: HTN, Rheumatic Fever (possible as child - will need to further assessment ) and Other (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 r/t blood sugar) and Stroke/TIA (cva x 2 (3 years) Nov 2022 - had covid vaccine) Cancer HX: No Psych. Illness/Depression: No Coding Level of Care Code Est Patient Level 1 Diagnoses Current use of anticoagulant therapy Z79.01 Results AMB INR Fingerstick AMB INR Fingerstick 2.8 Last Edit by Olive Newell, RN on 03/09/24 10:26 INTERFACE DELAY Assessment & Plan Assessment & Plan (1) Current use of anticoagulant therapy: Code(s): Z79.01 - FDC (current) use of 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
== END 2024-03-09 10:30 | disposition home or self-care (01) ==
LOC: HO.ACS 10:19
PROVIDERS: PCP Nurse Practitioner Primary Care; Visit Provider Internal Medicine
DX: Z79.01 Long term (current) use of anticoagulants (principal)

== ENCOUNTER → 2024-03-09 10:19 | Outpatient (BNVA) | payer MEDICARE, SELFPAY | PROVIDERS: PCP Nurse Practitioner Primary Care; Visit Provider Internal Medicine | DX: Z86.73 Personal history of transient ischemic attack (TIA), and cerebral infarction without residual deficits (principal); Z79.01 Long term (current) use of anticoagulants; Z51.81 Encounter for therapeutic drug level monitoring | CPT/HCPCS: 85610; 99211 ==

== ENCOUNTER 2024-03-22 18:04 | Emergency (ER) | payer MEDICARE, SELFPAY ==
--- NOTE | ~2024-03-22 | XR_ITS ---
EXAMINATION: CHEST AND LEFT SHOULDER CLINICAL INFORMATION: Chest and shoulder pain status post trauma COMPARISON: Chest radiograph 03/10/2020 TECHNIQUE: 2 views chest, 3 views left shoulder FINDINGS: Status post median sternotomy. A loop recorder is present. Heart size normal. No infiltrates, effusions or lung masses are seen. There is a fracture through the left humeral neck with some posterior angulation of the proximal fragment. There is some mild inferior subluxation secondary to probable hemarthrosis. No dislocation. XR/XR chest 2V IMPRESSION: 1. No acute intrathoracic disease. 2. Left humeral neck fracture.
--- NOTE | ~2024-03-22 | XR_ITS ---
EXAMINATION: CHEST AND LEFT SHOULDER CLINICAL INFORMATION: Chest and shoulder pain status post trauma COMPARISON: Chest radiograph 03/10/2020 TECHNIQUE: 2 views chest, 3 views left shoulder FINDINGS: Status post median sternotomy. A loop recorder is present. Heart size normal. No infiltrates, effusions or lung masses are seen. There is a fracture through the left humeral neck with some posterior angulation of the proximal fragment. There is some mild inferior subluxation secondary to probable hemarthrosis. No dislocation. XR/XR shoulder LT min 2V IMPRESSION: 1. No acute intrathoracic disease. 2. Left humeral neck fracture.
--- NOTE | ~2024-03-22 | CT_ITS ---
EXAMINATION: CT HEAD WITHOUT CONTRAST CLINICAL INFORMATION: Trauma COMPARISON: CT head from 12/07/2022 TECHNIQUE: Contiguous axial imaging was performed from the skull base to vertex without intravenous administration of contrast. This CT examination was performed using dose optimization techniques as appropriate, variously including the following: *Automated exposure control *Adjustment of mA and/or kV according to patient size (this includes techniques or standardized protocols for targeted exams where dose is matched to indication/reason for exam; i.e. 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 Chronic white matter small vessel ischemic changes. Cerebral atrophy with commensurate ventricular changes. There is no evidence of acute intracranial hemorrhage or territorial infarction. No abnormal mass effect or midline shift is seen. Verma to white matter differentiation is well preserved. No extra-axial fluid collections are identified. The ventricles are normal in size. There is no abnormal attenuation within the brain parenchyma. The osseous structures and soft tissues are normal. The mastoid air cells and visualized portions of the paranasal sinuses are well aerated. Atherosclerotic calcifications. CT/CT cervical spine wo IV con IMPRESSION: 1. No acute intracranial pathology. 2. 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 3. Chronic white matter small vessel ischemic changes. EXAMINATION: Noncontrast CT scan of the cervical spine. INDICATION: Trauma COMPARISON: None. TECHNIQUE: Helical, multidetector axial images were obtained from the occiput to the upper thorax. Coronal and sagittal reformats of the cervical spine were provided for interpretation. DLP: 255.35 mGy-cm FINDINGS: No acute fractures or dislocations of the cervical spine are seen. Multilevel degenerative changes. Anatomic alignment and positioning of the vertebral bodies and posterior elements is noted. The atlantoaxial joint and craniovertebral articulations are normal without evidence of subluxation. There is no prevertebral soft tissue swelling. The thyroid gland and visualized portions of the lung apices and mediastinum are unremarkable. IMPRESSION: 1. No acute visible fracture or dislocation. 2. Multilevel degenerative changes.
[2024-03-22 18:29] VITALS: BP 113/55; PULSE 68; RESP 14; TEMP 36.1; O2SAT 98; BMI 27.2
--- NOTE | 2024-03-22 18:30 | ED_ITS ---
HPI - General Adult General Chief complaint: Extremity Injury, Upper Stated complaint: shoulder inj s/p fall Time Seen by Provider: 03/22/24 23:24 Source: patient Mode of arrival: ambulatory Limitations: no limitations History of Present Illness ED Provider: Dr. Tasha Vicente HPI narrative: Patient comes to the emergency room complaining of left shoulder pain. Patient states that approximately 21 hours ago, patient fell out of bed. Patient states that she miscalculated rolling in bed and landed on her left shoulder. Patient denies chest pain or shortness of breath. Patient is on Coumadin. Patient states that she did not hit her head or lost consciousness. Patient was able to get up her own and go back to bed. However, throughout the day, patient has been complaining of ongoing left shoulder pain. Denies numbness or tingling Related Data Home Medications ?Medication ?Instructions ?Recorded ?Confirmed amlodipine 5 mg tablet 5 mg PO DAILY@1200 05/29/21 12/02/23 blood sugar diagnostic (FreeStyle #10 ea 05/29/21 12/02/23 Lite Strips) cholecalciferol (vitamin D3) 25 25 mcg PO DAILY 05/29/21 12/02/23 mcg (1,000 unit) tablet glipizide 5 mg tablet 10 mg PO BIDAC 05/29/21 12/02/23 lancets 33 gauge (TRUEplus Lancets) #100 ea 05/29/21 12/02/23 linagliptin 5 mg tablet (Tradjenta) 5 mg PO DAILY 05/29/21 12/02/23 metoprolol succinate 50 mg 50 mg PO BID 05/29/21 12/02/23 tablet,extended release 24 hr pen needle, diabetic 32 gauge x #50 ea 05/29/21 12/02/23 (Pentips) sertraline 50 mg tablet 50 mg PO DAILY 05/29/21 12/02/23 calcitriol 0.25 mcg capsule 0.25 mcg PO Q2D@1000 12/07/22 12/02/23 lidocaine 5 % topical patch 1 patch topical DAILY PRN Back Pain 12/07/22 12/02/23 (Lidoderm) melatonin 5 mg tablet 5 mg PO BEDTIME 12/07/22 12/02/23 docusate sodium 100 mg capsule 100 mg PO BID 07/27/23 12/02/23 pantoprazole 40 mg tablet,delayed 40 mg PO DAILY 07/27/23 12/02/23 release sennosides 8.6 mg tablet (senna) 17.2 mg PO BEDTIME 07/27/23 12/02/23 insulin degludec 100 unit/mL (3 10 unit subcut DAILY 12/28/23 12/28/23 mL) subcutaneous pen (Tresiba FlexTouch U-100 insulin) warfarin 2 mg tablet 2 mg PO .COMPLEX 01/20/24 03/09/24 Previous Rx's ?Medication ?Instructions ?Recorded aspirin 81 mg tablet,delayed 81 mg PO DAILY #30 tabs 12/09/22 release atorvastatin 80 mg tablet 80 mg PO DAILY #30 tabs 12/09/22 tramadol 50 mg tablet 50 mg PO Q8H PRN pain #7 tabs 03/23/24 Allergies Allergy/AdvReac Type Severity Reaction Status Date / Time No Known Allergies Allergy Verified 03/22/24 18:44 [No Known Allergies*] Review of Systems 2 Review of Systems: Constitutional : No Weight loss, No Fever, No Chills, No Night Sweats, No Fatigue, No Malaise ENT/Mouth : No Hearing loss, No Ear Pain, No Nasal Congestion, No Sinus Pain, No Hoarseness, No sore throat, No Rhinorrhea, No Swallowing Difficulty Eyes: No Eye Pain, No Swelling, No Redness, No Foreign Body, No Discharge, No Vision Changes Cardiovascular : No Chest Pain, No SOB, No Dyspnea on Exertion, No Orthopnea, No Edema, No Palpitations Respiratory : No Cough, No Sputum, No Wheezing, No Smoke Exposure, No Dyspnea Gastrointestinal : No Nausea, No Vomiting, No Diarrhea, No Constipation, No abdominal Pain, No Hematochezia, No Melena Genitourinary : no irregular bleeding, No Dysuria, No Urinary Frequency, No Hematuria, No Urinary Incontinence, No Urgency, No Flank Pain, No Urinary Flow Changes, No Hesitancy Musculoskeletal : Complaining of left shoulder pain, No Myalgias, No Joint Swelling Skin : No Skin Lesions, No rash Neuro : No Weakness, No Numbness, No Paresthesias, No Loss of Consciousness, No Dizziness, No Headache Psych : No Anxiety/Panic, No Depression, No SI/HI/AH/VH, No Social Issues, Heme/Lymph: No Bruising, No Bleeding,No Lymphadenopathy Endocrine : No Polyuria, No Polydipsia, No Temperature Intolerance [facility] Past Medical History Medical History Abnormal SPEP CVA (cerebral vascular accident) CAD (coronary artery disease) Depression HTN (hypertension) HLD (hyperlipidemia) CKD (chronic kidney disease) stage 4, GFR 15-29 ml/min Vitamin D deficiency Osteoporosis T2DM (type 2 diabetes mellitus) Surgical History History of coronary artery bypass graft History of open heart surgery Hx of knee surgery Family History Family History Father Medical history unknown Mother Diabetes mellitus Osteoporosis Other No family history of cancer Social History Social History Household Members: Family Housing: Other Housing Other:: lives with son, PVTA, ofered [facility] [place] [facility] transportation , spouse Are you a primary child care provider to a significant other at home: No Do you presently have visiting nurse or other home services: No Alcohol intake: former Patient Tobacco Use Status: Never used Tobacco Advance Directives: No Advance Directives Information Provided: No Do you have a plan to hurt others: No Plan service: No Current occupational status: retired Current occupational exposures/hazards: No Physical Exam ED Vital Signs: Vital Signs - 24 hr 03/22/24 18:29 03/22/24 22:47 Temperature 97.0 F 97.6 F Pulse Rate 68 72 Respiratory Rate 14 17 Blood Pressure 113/55 L 137/55 L Pulse Oximetry 98 97 Oxygen Delivery Method Room Air Room Air BMI result Body Mass Index 27.2 Const Other: Appearance: Alert. Oriented X3. No acute distress. Eyes: Pupils equal, round and reactive to light. ENT: Pharynx normal. Neck: Normal inspection. Neck supple. No lymph nodes noted. No crepitus CVS: Normal heart rate and rhythm. Pulses normal. Normal S1 and S2 Respiratory: No respiratory distress. Breath sounds normal. No Wheezing. No rales Abdomen: Soft and nontender. No rigidity. No distention. Skin: Skin warm and dry. Normal skin color. Normal skin turgor. Extremities: No lower extremity edema. No Lacerations. No Rash, complaining of left shoulder pain Neuro: Oriented X 3. No motor deficit. No sensory deficit. Moving all extremities. At baseline slurred speech. CN 2 through 12 grossly intact Psych: calm, cooperative, normal affect Course Course Course Narrative: RME- 84-year-old female presents for evaluation of left shoulder pain after a fall this morning. The patient reports falling out of bed around 3:00 a.m. she is unable to lift her left arm. She is on Coumadin. Plan for labs including INR, CT brain, cervical spine, x-ray of the left shoulder and chest. Medications Administered Discontinued Medications Generic Name Dose Route Start Last Admin Trade Name Mikie PRN Reason Stop Dose Admin Tramadol HCl 50 mg 03/23/24 00:05 03/23/24 00:13 Tramadol Hcl 50 Mg Tablet PO 03/23/24 00:06 50 mg ONCE ONE Administration Medical Decision Making Medical Decision Making [facility] Narrative: -my interpretation of labs: White blood cell count 12.9, likely reactive leukocytosis. Chemistry shows chronic elevation of creatinine and at baseline, INR 2.7, LFTs normal. -my interpretation of head CT and cervical spine CT, no obvious fracture or acute abnormality. -my interpretation of x-ray of the shoulder: Left humeral neck fracture. -patient states that Tylenol worked well for her. Patient requesting something a little bit stronger for yesterday night. Patient was given a dose of tramadol. Patient was put on a sling, patient instructed to follow-up with orthopedics. -patient's son at bedside, family feels comfortable taking the patient home and caring for her. Differential Diagnosis Differential Diagnoses: The differential diagnosis associated with the presentation includes Admission/Observation Consideration of admission/observation: Escalation of care including admission/observation considered (Observation, case management considered) Lab Data [facility] Lab Attestation statement: I reviewed the patient's lab results. 03/22/24 19:30 03/22/24 19:30 Labs: Lab Results 03/22/24 03/22/24 Range/Units 19:30 19:54 WBC 12.9 H (4.8-10.8) X10*3/uL RBC 4.19 L (4.20-5.50) X10*6/uL Hgb 11.8 L (12.0-16.0) g/dl Hct 36.7 L (37.0-47.0) % MCV 87.6 (80.0-98.0) fL MCH 28.2 (27.0-33.0) pg MCHC 32.2 (31.0-35.0) g/dl RDW 14.9 (11.0-16.0) % Plt Count 277 D (160-400) X10*3/uL MPV 10.0 (9.4-12.3) fL Immature Gran % (Auto) 0.6 H (0.0-0.4) % Neut % (Auto) 65.6 (45-73) % Lymph % (Auto) 27.0 (20-40) % [place] % (Auto) 6.5 (2-11) % Eos % (Auto) 0.1 (0-4) % Baso % (Auto) 0.2 (0-2) % Lymph # (Auto) 3.5 (1.2-4.9) X10*3/uL [place] # (Auto) 0.8 (0.1-1.2) X10*3/uL Eos # (Auto) 0.0 (0.0-0.4) X10*3/uL Baso # (Auto) 0.0 (0.0-0.2) X10*3/uL Abs Immat Gran (auto) 0.08 H (0.00-0.03) X10*3/uL Absolute Neuts (auto) 8.5 H (2.0-8.3) x10*3/uL Absolute Nucleated RBC 0.000 (0.0-0.012) X10*3/uL Nucleated RBC % (auto) 0.0 (0.0-0.2) /100WBC PT 33.2 H (11.1-13.3) SEC INR 2.7 H (0.9-1.1) Sodium 141 (135-145) mmol/L Potassium 4.3 (3.3-5.1) mmol/L Chloride 108 (96-108) mmol/L Carbon Dioxide 19 L (22-29) mmol/L Anion Gap 18 (12-20) BUN 37 H (9-16) mg/dL Creatinine 1.82 H (0.5-1.4) mg/dL Estim Creat Clear Calc 16.8 Estimated GFR 26 Random Glucose 187 H (60-115) mg/dL Calcium 9.7 (8.4-10.2) mg/dL Total Bilirubin 0.3 (0.0-1.0) mg/dL AST 21 (5-31) U/L ALT 21 (0-31) U/L Alkaline Phosphatase 76 (39-117) U/L Total Protein 7.2 (6.5-8.0) g/dL Albumin 3.8 (3.5-5.0) g/dL Lipase 71 (8-78) U/L Independent Interpretation I performed an independent interpretation of an: Plain X-Ray and CT Scan Radiology Impression Discussion of test interpretation with radiology: I have reviewed the radiologist's reading. Radiologist Impression: Status post median sternotomy. A loop recorder is present. Heart size normal. No infiltrates, effusions or lung masses are seen. There is a fracture through the left humeral neck with some posterior angulation of the proximal fragment. There is some mild inferior subluxation secondary to probable hemarthrosis. No dislocation. XR/XR shoulder LT min 2V IMPRESSION: 1. No acute intrathoracic disease. 2. Left humeral neck fracture. FINDINGS: Redemonstrated left parieto-occipital lobe infarct with encephalomalacia. Chronic white matter small vessel ischemic changes. Cerebral atrophy with commensurate ventricular changes. There is no evidence of acute intracranial hemorrhage or territorial infarction. No abnormal mass effect or midline shift is seen. Verma to white matter differentiation is well preserved. No extra-axial fluid collections are identified. The ventricles are normal in size. There is no abnormal attenuation within the brain parenchyma. The osseous structures and soft tissues are normal. The mastoid air cells and visualized portions of the paranasal sinuses are well aerated. Atherosclerotic calcifications. CT/CT head/brain wo IV con IMPRESSION: 1. No acute intracranial pathology. 2. 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 3. Chronic white matter small vessel ischemic changes. EXAMINATION: Noncontrast CT scan of the cervical spine. INDICATION: Trauma COMPARISON: None. TECHNIQUE: Helical, multidetector axial images were obtained from the occiput to the upper thorax. Coronal and sagittal reformats of the cervical spine were provided for interpretation. DLP: 255.35 mGy-cm FINDINGS: No acute fractures or dislocations of the cervical spine are seen. Multilevel degenerative changes. Anatomic alignment and positioning of the vertebral bodies and posterior elements is noted. The atlantoaxial joint and craniovertebral articulations are normal without evidence of subluxation. There is no prevertebral soft tissue swelling. The thyroid gland and visualized portions of the lung apices and mediastinum are unremarkable. IMPRESSION: 1. No acute visible fracture or dislocation. 2. Multilevel degenerative changes. Independent Historian Clinical information obtained from an independent historian. History obtained from or confirmed by: Other (Patient's son) Discharge Plan Discharge Clinical Impression: Closed left humeral fracture Patient Disposition: Home, Self-Care Instructions: Arm Fracture in Adults (ED) Additional Instructions: Please follow-up with your primary care physician tomorrow. If you have any worsening or new symptoms, please return to the emergency room or call 911 Prescriptions: New tramadol 50 mg tablet 50 mg PO Q8H PRN (Reason: pain) Qty: 7 0RF No Action warfarin 2 mg tablet 2 mg PO .COMPLEX Protocol: Dose Management Condition: Wednesday (Week One) Dose/Route: 4 mg Instruction: 2 x 2 mg tablets Condition: Wednesday Dose/Route: 2 mg Instruction: 1 x 2 mg tablet Condition: Wednesday Dose/Route: 4 mg Instruction: 2 x 2 mg tablets Condition: Wednesday Dose/Route: 2 mg Instruction: 1 x 2 mg tablet Condition: Dose/Route: 4 mg Instruction: 2 x 2 mg tablets Condition: Wednesday Dose/Route: 2 mg Instruction: 1 x 2 mg tablet Condition: Wednesday Dose/Route: 2 mg Instruction: 1 x 2 mg tablet Condition: Wednesday (Week Two) Dose/Route: 4 mg Instruction: 2 x 2 mg tablets Condition: Wednesday Dose/Route: 2 mg Instruction: 1 x 2 mg tablet Condition: Wednesday Dose/Route: 4 mg Instruction: 2 x 2 mg tablets Condition: Wednesday Dose/Route: 2 mg Instruction: 1 x 2 mg tablet Condition: Dose/Route: 4 mg Instruction: 2 x 2 mg tablets Condition: Wednesday Dose/Route: 2 mg Instruction: 1 x 2 mg tablet Condition: Wednesday Dose/Route: 2 mg Instruction: 1 x 2 mg tablet Protocol Text: Adjustment Start Date: 03/09/24 INR Value: 2.8 INR Date: 03/09/24 Recheck Date: 04/08/24 Rx Instructions: 2 mg orally 4mg x 3 DAYS , 2MG X 4 DAYS; calcitriol 0.25 mcg Capsule 0.25 mcg PO Q2D@1000 melatonin 5 mg Tablet 5 mg PO BEDTIME lidocaine [Lidoderm] 5 % Adhesive Patch,Medicated 1 patch TOPICAL DAILY PRN (Reason: Back Pain) Rx Instructions: leave on most painful area for up to 12 hrs atorvastatin 80 mg Tablet 80 mg PO DAILY Qty: 30 0RF aspirin 81 mg Tablet,Delayed Release (Dr/Ec) 81 mg PO DAILY Qty: 30 0RF (DME) lancets [TRUEplus Lancets] 33 gauge misc See Rx Instructions Not Applicable TID Qty: 100 Rx Instructions: As directed Tradjenta 5 mg tablet 5 mg PO DAILY sertraline 50 mg tablet 50 mg PO DAILY glipizide 5 mg tablet 10 mg PO BIDAC (DME) FreeStyle Lite Strips Strip See Rx Instructions Not Applicable TID Qty: 10 Rx Instructions: As directed (DME) pen needle, diabetic [Pentips] 32 gauge x 5/32 needle See Rx Instructions .ROUTE DAILY Qty: 50 Rx Instructions: As directed metoprolol succinate 50 mg tablet extended release 24 hr 50 mg PO BID amlodipine 5 mg tablet 5 mg PO DAILY@1200 cholecalciferol (vitamin D3) 25 mcg (1,000 unit) tablet 25 mcg PO DAILY docusate sodium 100 mg capsule 100 mg PO BID sennosides [senna] 8.6 mg tablet 17.2 mg PO BEDTIME pantoprazole 40 mg tablet,delayed release (DR/EC) 40 mg PO DAILY Tresiba FlexTouch U-100 100 unit/mL (3 mL) insulin pen 10 unit subcut DAILY Rx Instructions: in am Referrals: Clarice Hu PA-C [Physician Employee Communications Coordinator] - 03/24/24 Print Language: Tamazight
--- NOTE | 2024-03-22 18:31 | ECG_ITS ---
Test Reason : FALL Blood Pressure : / mmHG Vent. Rate : 066 BPM Atrial Rate : 066 BPM P-R Int : 164 ms QRS Dur : 068 ms QT Int : 396 ms P-R-T Axes : 014 -17 127 degrees QTc Int : 415 ms Sinus rhythm with Premature atrial complexes Nonspecific T wave abnormality Abnormal ECG When compared with ECG of 07-DEC-2022 15:57, Premature atrial complexes are now Present Nonspecific T wave abnormality, worse in Inferior leads Referred By: Tate Cast Electronically Signed By:JOHN SHULTZ MD
[2024-03-22 19:34] LABS: MANUAL DIFF FLAG NO
[2024-03-22 19:50] LABS: Basophils Percent Auto 0.2 % (0-2); Eosinophils Percent Auto 0.1 % (0-4); Hematocrit 36.7 % (37.0-47.0); Hemoglobin 11.8 g/dl (12.0-16.0); Imm Gran Abs Auto 0.08 X10*3/uL (0.00-0.03); Imm Gran Pct Auto 0.6 % (0.0-0.4); Lymphocytes Absolute Auto 3.5 X10*3/uL (1.2-4.9); Mean Corpuscular HGB Conc 32.2 g/dl (31.0-35.0); Mean Corpuscular Hemoglobin 28.2 pg (27.0-33.0); Mean Corpuscular Volume 87.6 fL (80.0-98.0); Monocytes Absolute Auto 0.8 X10*3/uL (0.1-1.2); Monocytes Percent Auto 6.5 % (2-11); Neutrophils Absolute Auto 8.5 x10*3/uL (2.0-8.3); Neutrophils Percent Auto 65.6 % (45-73); Platelet Count 277 X10*3/uL (160-400); Red Blood Count 4.19 X10*6/uL (4.20-5.50); Red Cell Distribution Width 14.9 % (11.0-16.0); White Blood Count 12.9 X10*3/uL (4.8-10.8)
[2024-03-22 19:53] LABS: Alanine Aminotransferase 21 U/L (0-31); Albumin Level 3.8 g/dL (3.5-5.0); Alkaline Phosphatase 76 U/L (39-117); Anion Gap 18 (12-20); Aspartate Amino Transferase 21 U/L (5-31); Bilirubin Total 0.3 mg/dL (0.0-1.0); Blood Urea Nitrogen 37 mg/dL (9-16); Calcium 9.7 mg/dL (8.4-10.2); Carbon Dioxide 19 mmol/L (22-29); Chloride 108 mmol/L (96-108); Creatinine Clr Calc Pharmacy 16.8; Estimated Glomerular Filt Rate 26; Glucose Random 187 mg/dL (60-115); Lipase 71 U/L (8-78); Potassium 4.3 mmol/L (3.3-5.1); Sodium 141 mmol/L (135-145); Total Protein 7.2 g/dL (6.5-8.0)
--- NOTE | 2024-03-22 19:57 | MHC.EDTECH ---
PATIENT EKG TAKEN AND WAS READ BY PROVIDER ,BLOOD DRAWN AND SENT TO LAB .
[2024-03-22 20:07] LABS: INTERNATIONAL NORM RATIO 2.7 (0.9-1.1); Prothrombin Time 33.2 SEC (11.1-13.3)
[2024-03-22 22:47] VITALS: BP 137/55; PULSE 72; RESP 17; TEMP 36.4; O2SAT 97
[2024-03-23] MEDS: traMADoL HCL 50 MG TABLET PO (00:13)
[2024-03-23 00:21] LABS: Appearance Urine Clear; Color Urine Yellow; Glucose Urine UA >=1000 mg/dL (Negative); Leukocyte Esterase Urine Negative (Negative); Nitrite Urine Negative (Negative); Specific Gravity - Urine 1.025 (1.005-1.025); UMIC TRIGGER UACC YES; Urine Blood Negative (Negative); Urine Ketones Negative (Negative); Urine Protein Trace mg/dL (Neg-Trace)
[2024-03-23 00:26] LABS: Bacteria Urine Trace (None Seen); RBC Urine 0-2 /HPF (0-2); WBC Urine 0-5 /HPF (0-5)
[2024-03-23 01:12] VITALS: BP 127/65; PULSE 97; RESP 16; TEMP 36.4; O2SAT 97
== END 2024-03-23 00:55 | disposition home or self-care (01) ==
PROVIDERS: Physician Assistant; Emergency Provider Emergency Medicine
DX: S42.212A Unspecified displaced fracture of surgical neck of left humerus, initial encounter for closed fracture (principal); W06.XXXA Fall from bed, initial encounter; Y93.9 Activity, unspecified; Y92.9 Unspecified place or not applicable; Y99.9 Unspecified external cause status; M25.512 Pain in left shoulder; E11.22 Type 2 diabetes mellitus with diabetic chronic kidney disease; I12.9 Hypertensive chronic kidney disease with stage 1 through stage 4 chronic kidney disease, or unspecified chronic kidney disease; N18.9 Chronic kidney disease, unspecified; Z79.899 Other long term (current) drug therapy
CPT/HCPCS: 36415; 70450; 71046; 72125; 73030; 80053; 81001; 83690; 85025; 85610; 93005; 99284

== ENCOUNTER → 2024-03-22 18:31 | Outpatient (BNV) | payer MEDICARE, SELFPAY | PROVIDERS: Emergency Provider Emergency Medicine; Visit Provider Internal Medicine Cardiovascular Disease | DX: R94.31 Abnormal electrocardiogram [ECG] [EKG] (principal) | CPT/HCPCS: 93010 ==

== ENCOUNTER 2024-04-13 11:00 | Outpatient (AMB) | payer MEDICARE, SELFPAY ==
[2024-04-13 11:07] LABS: Prothrombin Time Whole Bld POC 53.5 sec (11.1-13.5); ~PT, ~INR - Anti Coag Clinic 4.5 (0.9-1.1)
--- NOTE | 2024-04-13 11:07 | MHC.OFFVISCO ---
Intake Intake Visit Reasons: Anticoagulation Allergies No Known Allergies [No Known Allergies*] Allergy (Verified 04/13/24 11:01) Medication List - Last Reconciled 04/13/24 by Rosalia Richmond RN amlodipine 5 mg PO DAILY@1200 aspirin 81 mg PO DAILY atorvastatin 80 mg PO DAILY blood sugar diagnostic (FreeStyle Lite Strips) As directed calcitriol 0.25 mcg PO Q2D@1000 cholecalciferol (vitamin D3) 25 mcg PO DAILY docusate sodium 100 mg PO BID glipizide 10 mg PO BIDAC insulin degludec (Tresiba FlexTouch U-100 insulin) 10 units subcut DAILY lancets (TRUEplus Lancets) As directed lidocaine 5% (Lidoderm) 1 patch topical DAILY PRN linagliptin (Tradjenta) 5 mg PO DAILY melatonin 5 mg PO BEDTIME metoprolol succinate ER 50 mg PO BID pantoprazole 40 mg PO DAILY pen needle, diabetic (Pentips) As directed sennosides (senna) 17.2 mg PO BEDTIME sertraline 50 mg PO DAILY tramadol 50 mg PO Q8H PRN warfarin See Protocol 2 mg orally 4mg x 3 DAYS , 2MG X 4 DAYS; Nursing Note INR 4.5-? out of therapeutic range of 2-3 Medications and supplements reviewed Patient status: pt s/p fall out of bed with injury to left shoulder. arm in sling. pt went to ed on 03/22/24 and had xrays- closed fracture left humerus Medications or supplements: no changes, taking tylenol and tramadol prn Diet: same Denies any signs and symptoms of bleeding or clotting or unusual bruising Bleeding, bruising, clotting discussed - aware risk for bleeding and to avoid high risk activity Nutritional guidance given: eat greens to lower, no reds for 2 days Dose: hold warfarin today then cont reg dosing- 4mg x 3, 2mg x 4 F/U INR Date : 1 week?? Patient and son eb verbalizing understanding of instructions given. 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 r/t blood sugar) and Stroke/TIA (cva x 2 (3 years) Nov 2022 - had covid vaccine) Cancer HX: No Psych. Illness/Depression: No Coding Level of Care Code Est Patient Level 1 Diagnoses Current use of anticoagulant therapy Z79.01 Assessment & Plan Assessment & Plan (1) Current use of anticoagulant therapy: Code(s): Z79.01 - roasterman (current) use of 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
== END 2024-04-13 11:19 | disposition home or self-care (01) ==
LOC: HO.ACS 11:00
PROVIDERS: PCP Nurse Practitioner Primary Care; Visit Provider Internal Medicine
DX: Z79.01 Long term (current) use of anticoagulants (principal)

== ENCOUNTER → 2024-04-13 11:00 | Outpatient (BNVA) | payer MEDICARE, SELFPAY | PROVIDERS: PCP Nurse Practitioner Primary Care; Visit Provider Internal Medicine | DX: I69.30 Unspecified sequelae of cerebral infarction (principal); Z79.01 Long term (current) use of anticoagulants; Z51.81 Encounter for therapeutic drug level monitoring | CPT/HCPCS: 85610; 99211 ==

== ENCOUNTER 2024-04-25 11:19 | Outpatient (AMB) | payer MEDICARE, SELFPAY ==
[2024-04-25 11:30] LABS: Prothrombin Time Whole Bld POC 35.8 sec (11.1-13.5)
--- NOTE | 2024-04-25 11:33 | MHC.OFFVISCO ---
Intake Intake Visit Reasons: Anticoagulation Allergies No Known Allergies [No Known Allergies*] Allergy (Verified 04/25/24 11:24) Medication List - Last Reconciled 04/25/24 by Olive Galarza RN amlodipine 5 mg PO DAILY@1200 aspirin 81 mg PO DAILY atorvastatin 80 mg PO DAILY blood sugar diagnostic (FreeStyle Lite Strips) As directed calcitriol 0.25 mcg PO Q2D@1000 cholecalciferol (vitamin D3) 25 mcg PO DAILY docusate sodium 100 mg PO BID glipizide 10 mg PO BIDAC insulin degludec (Tresiba FlexTouch U-100 insulin) 10 units subcut DAILY lancets (TRUEplus Lancets) As directed lidocaine 5% (Lidoderm) 1 patch topical DAILY PRN linagliptin (Tradjenta) 5 mg PO DAILY melatonin 5 mg PO BEDTIME metoprolol succinate ER 50 mg PO BID pantoprazole 40 mg PO DAILY pen needle, diabetic (Pentips) As directed sennosides (senna) 17.2 mg PO BEDTIME sertraline 50 mg PO DAILY warfarin See Protocol 2 mg orally 4mg x 3 DAYS , 2MG X 4 DAYS; Nursing Note Amb to [facility] accomp by son, pt feeling ok S/P fx humerus 03/22, no cast, splint or sling pt sts some pain 01/08, is taking tylenol a couple times a day for it Medications and supplements reviewed No other changes in health, diet, medications, or supplements, Denies any signs and symptoms of bleeding, bruising, or clotting. 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 r/t blood sugar) and Stroke/TIA (cva x 2 (3 years) Nov 2022 - had covid vaccine) Cancer HX: No Psych. Illness/Depression: No Questionnaires HAS-BLED Does the patient had uncontrolled Hypertension?: Yes Does the patient have renal disease?: Yes Does the patient have liver disease?: No Does the patient have a history of stroke?: Yes Has the patient had major bleeding or predisposition to bleeding?: No Does the patient have labile INRs?: No Is the patient over 65 years of age?: Yes Is the patient on medications that gives them a predisposition to bleeding?: Yes Does the patient use alcohol?: No HAS-BLED Score: 5 CHADSVASC Age: 75 or over Gender: Female Does the patient have a history of CHF?: No Does the patient have a history of Hypertension?: Yes Does the patient have a history of Stroke/TIA/Thromboembolism?: Yes Does the patient have a history of Vascular Disease (prior WI, PAD or aortic plaque)?: Yes Does the patient have a history of Diabetes?: Yes CHADS VACS Score: 8 Tony Prediction Score Rsk VTE Active Cancer: No Previous VTE, excluding superficial vein thrombosis: No Reduced mobility: No Already known Thrombophilic Condition: Yes With-in last month Trauma and/or Surgery: Yes Elderly 70 year or older: Yes Heart and/or Respiratory Failure: No Acute Myocardial infarction and/or Ischemic Stroke: Yes Acute Infection and/or Rheumatologic Disorder: No Obesity (BMI 30 or greater): No Ongoing Hormonal Treatment: No Score: 7 Tony Score less than 4; Low Risk of VTE Tony Score 4 or greater; High Risk of VTE Coding Level of Care Code Est Patient Level 1 Diagnoses Current use of anticoagulant therapy Z79.01 Time Spent (min) 15 Assessment & Plan Assessment & Plan (1) Current use of anticoagulant therapy: Code(s): Z79.01 - 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
== END 2024-04-25 11:45 | disposition home or self-care (01) ==
LOC: HO.ACS 11:19
PROVIDERS: PCP Nurse Practitioner Primary Care; Visit Provider Internal Medicine
DX: Z79.01 Long term (current) use of anticoagulants (principal)

== ENCOUNTER → 2024-04-25 11:19 | Outpatient (BNVA) | payer MEDICARE, SELFPAY | PROVIDERS: PCP Nurse Practitioner Primary Care; Visit Provider Internal Medicine | DX: I69.30 Unspecified sequelae of cerebral infarction (principal); Z79.01 Long term (current) use of anticoagulants; Z51.81 Encounter for therapeutic drug level monitoring | CPT/HCPCS: 85610; 99211 ==

== ENCOUNTER 2024-05-09 11:00 | Outpatient (AMB) | payer MEDICARE, SELFPAY ==
[2024-05-09 11:11] LABS: Prothrombin Time Whole Bld POC 30.4 sec (11.1-13.5); ~PT, ~INR - Anti Coag Clinic 2.5 (0.9-1.1)
--- NOTE | 2024-05-09 11:17 | MHC.OFFVISCO ---
Intake Intake Visit Reasons: Anticoagulation Allergies No Known Allergies [No Known Allergies*] Allergy (Verified 05/09/24 11:05) Medication List - Last Reconciled 05/09/24 by Francine Vigil RN amlodipine 5 mg PO DAILY@1200 aspirin 81 mg PO DAILY atorvastatin 80 mg PO DAILY blood sugar diagnostic (FreeStyle Lite Strips) As directed calcitriol 0.25 mcg PO Q2D@1000 cholecalciferol (vitamin D3) 25 mcg PO DAILY docusate sodium 100 mg PO BID glipizide 10 mg PO BIDAC insulin degludec (Tresiba FlexTouch U-100 insulin) 10 units subcut DAILY lancets (TRUEplus Lancets) As directed lidocaine 5% (Lidoderm) 1 patch topical DAILY PRN linagliptin (Tradjenta) 5 mg PO DAILY melatonin 5 mg PO BEDTIME metoprolol succinate ER 50 mg PO BID pantoprazole 40 mg PO DAILY pen needle, diabetic (Pentips) As directed sennosides (senna) 17.2 mg PO BEDTIME sertraline 50 mg PO DAILY warfarin See Protocol 2 mg orally 4mg x 3 DAYS , 2MG X 4 DAYS; Nursing Note INR: 2.5 in therapeutic range Medications and supplements reviewed No changes in health, diet, medications, or supplements, Denies any signs and symptoms of bleeding or bruising or clotting. 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 r/t blood sugar) and Stroke/TIA (cva x 2 (3 years) Nov 2022 - had covid vaccine) Cancer HX: No Psych. Illness/Depression: No Coding Level of Care Code Est Patient Level 1 Diagnoses Current use of anticoagulant therapy Z79.01 Results AMB INR Fingerstick AMB INR Fingerstick 2.5 Last Edit by Francine Vigil RN on 05/09/24 11:11 MANUAL ENTRY NOOOO INTERFACING Assessment & Plan Assessment & Plan (1) Current use of anticoagulant therapy: Code(s): Z79.01 - custodial (current) use of 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
== END 2024-05-09 11:21 | disposition home or self-care (01) ==
LOC: HO.ACS 11:00
PROVIDERS: PCP Nurse Practitioner Primary Care; Visit Provider Internal Medicine
DX: Z79.01 Long term (current) use of anticoagulants (principal)

== ENCOUNTER → 2024-05-09 11:00 | Outpatient (BNVA) | payer MEDICARE, SELFPAY | PROVIDERS: PCP Nurse Practitioner Primary Care; Visit Provider Internal Medicine | DX: I69.30 Unspecified sequelae of cerebral infarction (principal); Z79.01 Long term (current) use of anticoagulants; Z51.81 Encounter for therapeutic drug level monitoring | CPT/HCPCS: 85610; 99211 ==

== ENCOUNTER 2024-08-24 10:57 | Outpatient (AMB) | payer MEDICARE, SELFPAY ==
[2024-08-24 11:10] LABS: Prothrombin Time Whole Bld POC 23.7 sec (11.1-13.5)
--- NOTE | 2024-08-24 11:18 | MHC.OFFVISCO ---
Intake Intake Visit Reasons: Anticoagulation Allergies No Known Allergies [No Known Allergies*] Allergy (Verified 08/24/24 11:03) Medication List - Last Reconciled 08/24/24 by Francine Vigil RN amlodipine 5 mg PO DAILY@1200 aspirin 81 mg PO DAILY atorvastatin 80 mg PO DAILY blood sugar diagnostic (FreeStyle Lite Strips) As directed calcitriol 0.25 mcg PO Q2D@1000 cholecalciferol (vitamin D3) 25 mcg PO DAILY docusate sodium 100 mg PO BID glipizide 10 mg PO BIDAC insulin degludec (Tresiba FlexTouch U-100 insulin) 10 units subcut DAILY lancets (TRUEplus Lancets) As directed lidocaine 5% (Lidoderm) 1 patch topical DAILY PRN linagliptin (Tradjenta) 5 mg PO DAILY melatonin 5 mg PO BEDTIME metoprolol succinate ER 50 mg PO BID pantoprazole 40 mg PO DAILY pen needle, diabetic (Pentips) As directed sennosides (senna) 17.2 mg PO BEDTIME sertraline 50 mg PO DAILY warfarin See Protocol 2 mg orally 4mg x 3 DAYS , 2MG X 4 DAYS; Post menopausal: Yes Patient : No Nursing Note INR: 2.0 in therapeutic range Medications and supplements reviewed No changes in health, diet, medications, or supplements, Denies any signs and symptoms of bleeding or bruising or clotting. 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 r/t blood sugar) and Stroke/TIA (cva x 2 (3 years) Nov 2022 - had covid vaccine) Cancer HX: No Psych. Illness/Depression: No Post menopausal: Yes Patient : No Coding Level of Care Code Est Patient Level 1 Diagnoses Current use of anticoagulant therapy Z79.01 Results AMB INR Fingerstick AMB INR Fingerstick 2.0 Last Edit by Francine Vigil RN on 08/24/24 11:10 MANUAL ENTRY Assessment & Plan Assessment & Plan (1) Current use of anticoagulant therapy: Code(s): Z79.01 - half-way (current) use of 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
== END 2024-08-24 11:29 | disposition home or self-care (01) ==
LOC: HO.ACS 10:57
PROVIDERS: PCP Nurse Practitioner Primary Care; Visit Provider Internal Medicine
DX: Z79.01 Long term (current) use of anticoagulants (principal)

== ENCOUNTER → 2024-08-24 10:57 | Outpatient (BNVA) | payer MEDICARE, SELFPAY | PROVIDERS: PCP Nurse Practitioner Primary Care; Visit Provider Internal Medicine | DX: I69.30 Unspecified sequelae of cerebral infarction (principal); Z79.01 Long term (current) use of anticoagulants; Z51.81 Encounter for therapeutic drug level monitoring | CPT/HCPCS: 85610; 99211 ==

== ENCOUNTER 2024-09-21 10:54 | Outpatient (AMB) | payer MEDICARE, SELFPAY ==
[2024-09-21 11:06] LABS: Prothrombin Time Whole Bld POC 38.4 sec (11.1-13.5); ~PT, ~INR - Anti Coag Clinic 3.2 (0.9-1.1)
--- NOTE | 2024-09-21 11:17 | MHC.OFFVISCO ---
Intake Intake Visit Reasons: Anticoagulation Allergies No Known Allergies [No Known Allergies*] Allergy (Verified 09/21/24 10:59) Medication List - Last Reconciled 09/21/24 by Francine Vigil RN amlodipine 5 mg PO DAILY@1200 aspirin 81 mg PO DAILY atorvastatin 80 mg PO DAILY blood sugar diagnostic (FreeStyle Lite Strips) As directed calcitriol 0.25 mcg PO Q2D@1000 cholecalciferol (vitamin D3) 25 mcg PO DAILY docusate sodium 100 mg PO BID glipizide 10 mg PO BIDAC insulin degludec (Tresiba FlexTouch U-100 insulin) 10 units subcut DAILY lancets (TRUEplus Lancets) As directed lidocaine 5% (Lidoderm) 1 patch topical DAILY PRN linagliptin (Tradjenta) 5 mg PO DAILY melatonin 5 mg PO BEDTIME metoprolol succinate ER 50 mg PO BID pantoprazole 40 mg PO DAILY pen needle, diabetic (Pentips) As directed sennosides (senna) 17.2 mg PO BEDTIME sertraline 50 mg PO DAILY warfarin See Protocol 2 mg orally 4mg x 3 DAYS , 2MG X 4 DAYS; Nursing Note INR: 3.2 almost therapeutic range Medications and supplements reviewed had a close family friend pass away unexpected - she took Melatonin for sleep x 2 nights which can raise the INR Denies any signs and symptoms of bleeding or bruising or clotting. Bleeding, bruising, clotting discussed Nutritional guidance given - review food list weekly especially during the holidays, eat greens today and tomorrow- when taking more melatonin than usual eat an extra green or 2 during the week Dose: keep same for now 2mg mwf/ 4mg x 4 days F/U INR: 1 month Patient and son verbalizes understanding of instructions given Anti-Coag Initial Assessment Social Hx Patient Tobacco Use Status: Never used Tobacco alcohol intake: former Alcohol intake frequency: does not drink Cardiovascular Hx: HTN, Rheumatic Fever (possible as child - will need to further assessment ) and Other (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 r/t blood sugar) and Stroke/TIA (cva x 2 (3 years) Nov 2022 - had covid vaccine) Cancer HX: No Psych. Illness/Depression: No Coding Level of Care Code Est Patient Level 1 Diagnoses Current use of anticoagulant therapy Z79.01 Assessment & Plan Assessment & Plan (1) Current use of anticoagulant therapy: Code(s): Z79.01 - meterman (current) use of 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
== END 2024-09-21 11:23 | disposition home or self-care (01) ==
LOC: HO.ACS 10:54
PROVIDERS: PCP Nurse Practitioner Primary Care; Visit Provider Internal Medicine
DX: Z79.01 Long term (current) use of anticoagulants (principal)

== ENCOUNTER → 2024-09-21 10:54 | Outpatient (BNVA) | payer MEDICARE, SELFPAY | PROVIDERS: PCP Nurse Practitioner Primary Care; Visit Provider Internal Medicine | DX: I69.30 Unspecified sequelae of cerebral infarction (principal); Z79.01 Long term (current) use of anticoagulants; Z51.81 Encounter for therapeutic drug level monitoring | CPT/HCPCS: 85610; 99211 ==

== ENCOUNTER 2024-11-15 12:53 | Outpatient (AMB) | payer MEDICARE, SELFPAY ==
[2024-11-15 12:59] LABS: Prothrombin Time Whole Bld POC 40.9 sec (11.1-13.5); ~PT, ~INR - Anti Coag Clinic 3.4 (0.9-1.1)
--- NOTE | 2024-11-15 13:08 | MHC.OFFVISCO ---
Intake Intake Visit Reasons: Anticoagulation Allergies No Known Allergies [No Known Allergies*] Allergy (Verified 11/15/24 12:59) Medication List - Last Reconciled 11/15/24 by Zee West RN amlodipine 5 mg PO DAILY@1200 aspirin 81 mg PO DAILY atorvastatin 80 mg PO DAILY blood sugar diagnostic (FreeStyle Lite Strips) As directed calcitriol 0.25 mcg PO Q2D@1000 cholecalciferol (vitamin D3) 25 mcg PO DAILY docusate sodium 100 mg PO BID glipizide 10 mg PO BIDAC insulin degludec (Tresiba FlexTouch U-100 insulin) 10 units subcut DAILY lancets (TRUEplus Lancets) As directed lidocaine 5% (Lidoderm) 1 patch topical DAILY PRN linagliptin (Tradjenta) 5 mg PO DAILY melatonin 5 mg PO BEDTIME metoprolol succinate ER 50 mg PO BID pantoprazole 40 mg PO DAILY pen needle, diabetic (Pentips Pen Needle) As directed sennosides (senna) 17.2 mg PO BEDTIME sertraline 50 mg PO DAILY warfarin See Protocol 2 mg orally 4mg x 3 DAYS , 2MG X 4 DAYS; Nursing Note NO CP,SOB,DIET/MED CHANGES,FALLS OR SX OF BLEEDING. CONTINUE PRESENT DOSING AND FOLLOW-UP IN 4 WEEKS. GOOD UNDERSTANDING OF DOSING INSTR.BY GRANDSON. 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 r/t blood sugar) and Stroke/TIA (cva x 2 (3 years) Nov 2022 - had covid vaccine) Cancer HX: No Psych. 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
== END 2024-11-15 13:22 | disposition home or self-care (01) ==
LOC: HO.ACS 12:53
PROVIDERS: PCP Nurse Practitioner Primary Care; Visit Provider Internal Medicine
DX: Z79.01 Long term (current) use of anticoagulants (principal)

== ENCOUNTER → 2024-11-15 12:53 | Outpatient (BNVA) | payer MEDICARE, SELFPAY | PROVIDERS: PCP Nurse Practitioner Primary Care; Visit Provider Internal Medicine | DX: I69.30 Unspecified sequelae of cerebral infarction (principal); Z79.01 Long term (current) use of anticoagulants; Z51.81 Encounter for therapeutic drug level monitoring | CPT/HCPCS: 85610; 99211 ==

== ENCOUNTER 2025-01-10 10:43 | Outpatient (AMB) | payer MEDICARE, SELFPAY ==
--- NOTE | 2025-01-10 10:51 | MHC.OFFVISCO ---
Intake Intake Visit Reasons: Anticoagulation Allergies No Known Allergies [No Known Allergies*] Allergy (Verified 01/10/25 10:47) Medication List - Last Reconciled 01/10/25 by Rosalia Richmond RN amlodipine 5 mg PO DAILY@1200 aspirin 81 mg PO DAILY atorvastatin 80 mg PO DAILY blood sugar diagnostic (FreeStyle Lite Strips) As directed calcitriol 0.25 mcg PO Q2D@1000 cholecalciferol (vitamin D3) 25 mcg PO DAILY docusate sodium 100 mg PO BID glipizide 10 mg PO BIDAC insulin degludec (Tresiba FlexTouch U-100 insulin) 10 units subcut DAILY lancets (TRUEplus Lancets) As directed lidocaine 5% (Lidoderm) 1 patch topical DAILY PRN linagliptin (Tradjenta) 5 mg PO DAILY melatonin 5 mg PO BEDTIME metoprolol succinate ER 50 mg PO BID pantoprazole 40 mg PO DAILY pen needle, diabetic (Pentips Pen Needle) As directed sennosides (senna) 17.2 mg PO BEDTIME sertraline 50 mg PO DAILY warfarin See Protocol 2 mg orally 4mg x 3 DAYS , 2MG X 4 DAYS; Nursing Note INR: 2.1- in therapeutic range of 2-3 Medications and supplements reviewed- no changes No changes in health, diet, medications, or supplements, Denies any signs and symptoms of bleeding or bruising or clotting. 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 r/t blood sugar) and Stroke/TIA (cva x 2 (3 years) Nov 2022 - had covid vaccine) Cancer HX: No Psych. Illness/Depression: No Coding Level of Care Code Est Patient Level 1 Diagnoses Current use of anticoagulant therapy Z79.01 Results AMB INR Fingerstick AMB INR Fingerstick 2.1 Last Edit by Rosalia Richmond RN on 01/10/25 10:52 interface delay Assessment & Plan Assessment & Plan (1) Current use of anticoagulant therapy: Code(s): Z79.01 - [facility] (current) use of 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
[2025-01-10 11:01] LABS: ~PT, ~INR - Anti Coag Clinic 2.1 (0.9-1.1)
--- OUTSIDE RECORDS SUMMARY | 2025-01-10 12:24 | XMS_ITS | Encounter Summary ---
Author Organization [facility] Address [address] [place] [address] Care Team Providers Care Delivery Representative Name Role Phone Candy Ocampo Primary Care Provider [phone] Reason for Visit * Reason Comments Med Refill Encounter Details Date Type Department Care Team (Late st Contact Info) Description 12/27/2024 Refill [facility] [address] [place] [address] [phone] Candy Ocampo ANP [address], [place] [phone] Social History Tobacco Use Types Packs/Day Years Used Date Smoking Tobacco: Never Smokeless Tobacco: Never Alcohol Use Standard Drinks/Week Comments Never 0 (1 standard drink = 0.6 oz pur e alcohol) Comments Unknown Sex and Gender Information Value Date Recorded Sex Assigned at Female 08/31/2022 10:36 AM EDT Legal Sex Female 10:36 AM EDT Gender Identity Female 08/31/2022 10:36 AM EDT Sexual Orientation Straight 08/31/2022 10 :36 AM EDT documented as of this encounter Plan of Treatment Upcoming Encounters Date Type Department Care Team (Late st Contact Info) Description 03/09/2025 11:15 AM EDT Office Visit [facility] [address] [place] [id number] Candy Ocampo ANP [address] [place] [address] documented as of this encounter Visit Diagnoses Not on filedocumented in this encounter Care Teams Delivery Representative Relationship Specialty Start Date End Date Candy Ocampo ANP [address] [place] [address] PCP - General Family Medicine 12/06/19 documented as of this encounter
--- OUTSIDE RECORDS SUMMARY | 2025-01-10 12:24 | XMS_ITS | Encounter Summary ---
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 Social History Tobacco Use Types Packs/Day Years [...] Description 03/09/2025 11:15 AM EDT Office Visit [facility] [address] [place] [address] [phone] Candy Ocampo ANP [address] [place] [address] documented as of this encounter Visit Diagnoses Diagnosis Coronary artery disease involving shoshone[place]bann[place] coronary artery of shoshone[place]bannock heart without angina pectoris documented in this encounter Care Teams Reinforcer Relationship Specialty Start Date End Date Candy Ocampo ANP [address] [place] [address] PCP - General Family Medicine 12/06/19 documented as of this encounter
--- OUTSIDE RECORDS SUMMARY | 2025-01-10 12:24 | XMS_ITS | Encounter Summary ---
Author Organization [facility] Address [address] [facility] [address] [place] [address] Care Team Providers Care Donor Recruitment Manager Name Role Phone Candy Ocampo Primary Care Provider [phone] Reason for Visit * Reason Comments Med Refill Encounter Details Date Type Department Care Team (Late st Contact Info) Description 04/23/[address] [facility] MED[facility]INE [address] [place] [address] [phone] Candy Ocampo ANP [address] [place], [place] [phone] Social History Tobacco Use Types Packs/Day Years [...] Description 03/09/2025 11:15 AM EDT Office Visit [facility] MED[facility]INE [address] [place] [address] [phone] Candy Ocampo ANP [address] [place] [address] documented as of this encounter Visit Diagnoses Not on filedocumented in this encounter Care Teams Donor Recruitment Manager Relationship Specialty Start Date End Date Candy Ocampo ANP [address] [place] [address] PCP - General Family Medicine 12/06/19 documented as of this encounter
--- OUTSIDE RECORDS SUMMARY | 2025-01-10 12:24 | XMS_ITS | Clinical Summary ---
Author Organization [facility] Address [address] [facility] [address] [place] [address] Phone Care Team Providers Care Sports Bookmaker Name Role Phone Candy Ocampo NP Primary Care Provider Unavailabl e Allergies No known active allergies Medications sertraline (ZOLOFT) 50 MG tablet Take 1 tablet by mouth 1 (one) time each day Active metoprolol tartrate (LOPRESSOR) 50 MG tablet Take 1 tablet by mouth 2 (two) times a day Active Melatonin 5 MG tablet Take 1 tablet by mouth at bed time Active linaGLIPtin (Tradjenta) 5 MG tablet Take 1 tablet by mouth 1 (one) time each day Active glipiZIDE (GLUCOTROL) 10 MG tablet Take 1 tablet by mouth 2 (two) times a day Active clonazePAM (KlonoPIN) 0.5 MG tablet Take 0.5 tablets by mouth at bed time Active atorvastatin (LIPITOR) 10 MG tablet Take 1 tablet by mouth 1 (one) time each day Active amLODIPine (NORVASC) 5 MG tablet Take 1 tablet by mouth 1 (one) time each day Active insulin degludec (Tresiba FlexTouch) 100 UNIT/ML injection Inject 11 Units under the skin every night Active Cholecalciferol (Vitamin D3) 25 MCG tablet Take 1 tablet by mouth at bed time 06/17/2021 Active FREESTYLE LITE test strip TEST BLOOD SUGAR 3 TIMES A DAY 06/26/2021 Active calcitriol (ROCALTROL) 0.25 MCG capsule TAKE 1 CAPSULE BY MOUTH EVERY OTHER DAY IN THE MORNING 15 capsule 2 07/07/2023 Active Active Problems Problem Noted Date Diagnosed Date Stage 3b chronic kidney disease 05/13/2022 Renal osteodystrophy 04/12/2021 Blood chemistry outside reference range 04/11/20 21 Renal function tests outside reference range 09/2021 Chronic kidney disease, stage 4 (severe) 021 Type 2 diabetes mellitus wit h diabetic chronic kidney disease 04/11/2021 Chronic kidney disease due to benign hypertensio n 04/11/2021 Family History Relation Status Comments Father Unknown Mother Unknown Social History Tobacco Use Types Packs/Day Years Used Date Smoking Tobacco: Never Alcohol Use Standard Drinks/Week Comments No 0 (1 standard drink = 0.6 oz pur e alcohol) Comments Unknown Sex and Gender Information Value Date Recorded Sex Assigned at Not on file Legal Sex Female 4:56 PM EST Gender Identity Not on file Sexual Orientation Not on file Last Filed Vital Signs Vital Sign Reading Time Taken Comments Blood Pressure 119/60 05/13/2022 4:10 PM EDT Pulse 67 05/13/2022 4:10 PM EDT Temperature - - Respiratory Rate - - Oxygen Saturation 97% 05/13/2022 4:10 PM EDT Inhaled Oxygen Concentration - - Weight 56.1 kg (123 lb 9.6 oz) 05/13/2022 4:10 P M EDT Height 162.6 cm (5' 4 ) 01/17/2020 12:00 PM EDT Body Mass Index 21.22 01/17/2020 12:00 PM EDT Plan of Treatment Health Maintenance Due Date Last Done Comments Diabetes: Ophthalmology Exam 04/11/2021 Diabetes: Pedal Pulse Checked 04/11/2021 Diabetes: Sensory Foot Exam 04/11/2021 Diabetes: Visual Foot Exam 04/11/2021 Diabetes: Hemoglobin A1C 03/09/2024 024, 12/14/2019 Influenza Vaccine (#1) 2024 4, 09/29/2022 Pneumococcal Vaccine: 65+ Years Completed 12/10/2023, 09/17/2021, 12/06/2019 Hepatitis B Vaccine Aged Out No longe r eligible based on patient's age to complete this topic Procedures Procedure Name Priority Date/Time Associated Diagnosis Comments BLOOD PANEL (HC) Routine 12/14/2019 12:0 0 AM EST from Last 3 Months or Most Recently Relevant to Health Maintenance Results * (ABNORMAL) Blood Panel (12/14/2019 12:00 AM EST) Carbon Dioxide (CO2) 28 22 - 30 mmol/L [facility] Vitamin D, 25-OH, Total 44.4 20 - 100 ng/ml [facility] Cholesterol 177 <200 mg/dl [facility] HDL 38(L) >40 mg/dl [facility] Potassium 4.7 3.5 - 5.1 mmol/L [facility] BUN 28(H) 9 - 20 mg/dl [facility] Creatinine 1.97(H) 0.70 - 1.30 mg/dl [facility] Calcium 9.5 8.4 - 10.2 mg/dl [facility] LDL,Direct 111 <130 mg/dl [facility] Hematocrit 37.0(L) 38 - 50 % [facility] Sodium 141 137 - 145 mmol/L [facility] Hgb 12.2(L) 13.0 - 16.5 g/dl [facility] eGFR Non- 33(L) >60 ml/min [facility] Triglycerides 143 <150 mg/dl [facility] Platelets 264 140 - 440 k/uL [facility] Hemoglobin A1C 7.1(H) <5 % [facility] 12/14/2019 us [facility] [id number] LICITED RESULTS Final Result [facility] from Last 3 Months or Most Recently Relevant to Health Maintenance Insurance MEDICARE MEDICARE Care Teams Sports Bookmaker Relationship Specialty Start Date End Date Candy Ocampo NP PCP - General Nurse Practitioner 04/11/21
--- OUTSIDE RECORDS SUMMARY | 2025-01-10 12:24 | XMS_ITS | Encounter Summary ---
Author Organization [facility] Address [address] [place] [address] Care Team Providers Care Pressure Tester Operator Name Role Phone Candy Ocampo Primary Care Provider [phone] Reason for Visit * Reason Onset Date Comments Paperwork/Forms 01/01/2025 Encounter Details Date Type Department Care Team (Late st Contact Info) Description 01/01/2025 Telephone [facility] MEDICINE [address] [place], [place] [phone] Velia Beard RN [address] [place], [place] [phone] Paperwork/Forms Social History Tobacco Use Types Packs/Day Years [...] AM EDT documented as of this encounter Miscellaneous Notes * Telephone Encounter - Velia Beard RN - 01/01/2025 1:45 PM EST Received form from [facility] requesting PCP signature on anticoagulation renewal. Placed on PCP's desk ending signature. documented in this encounter Plan of Treatment Upcoming Encounters Date Type Department Care Team ([facility] Contact Info) Description 03/09/2025 11:15 AM EDT Office Visit [facility] MEDICINE [address] [place] [address] Candy Ocampo ANP [address] [place] [address] documented as of this encounter Visit Diagnoses Not on filedocumented in this encounter Care Teams Pressure Tester Operator Relationship Specialty Start Date End Date Candy Ocampo ANP [address] [place] [address] PCP - General Family Medicine 12/06/19 documented as of this encounter
--- OUTSIDE RECORDS SUMMARY | 2025-01-10 12:24 | XMS_ITS | Encounter Summary ---
Author Organization [facility] Address [address] [facility] [address] [place] [address] Care Team Providers Care Treasury Manager Name Role Phone Candy Ocampo Primary Care Provider [phone] Reason for Visit * Reason Comments Med Refill Encounter Details Date Type Department Care Team (Late st Contact Info) Description 04/15/2023 Refill [facility] MED[facility]INE [address] [place] [address] [phone] Candy Ocampo ANP [address] [place], [place] [phone] Social History Tobacco Use Types Packs/Day Years [...] encounter Miscellaneous Notes * Telephone Encounter - RIGO Weaver - 04/15/2023 3:53 PM EDT A1c 12.2% 12/09/22 documented in this encounter Plan of Treatment Upcoming Encounters Date Type Department Care Team (Late st Contact Info) Description 03/09/2025 11:15 AM EDT Office Visit [facility] [address] [place] [address] [phone] Candy Ocampo ANP [address] [place] [address] documented as of this encounter Visit Diagnoses Not on filedocumented in this encounter Care Teams Treasury Manager Relationship Specialty Start Date End Date Candy Ocampo ANP [address] [place] [address] PCP - General Family Medicine 12/06/19 documented as of this encounter
--- OUTSIDE RECORDS SUMMARY | 2025-01-10 12:24 | XMS_ITS | Encounter Summary ---
Author Organization [facility] Address [address] [facility] 7[address] [place] [address] Care Team Providers Care Registered Nurse Maternity Name Role Phone Candy Ocampo Primary Care Provider [phone] Encounter Details Date Type Department Care Team (Late st Contact Info) Description 12/28/2022 Orders Only [facility] MEDICINE [address] [place] [phone] Kasandra Moreland RN Social History Tobacco Use Types Packs/Day Years Used Date Smoking Tobacco: Never Assessed Comments Unknown Sex and Gender Information Value [...] Description 03/09/2025 11:15 AM EDT Office Visit [facility] MEDICINE [address] [place] [phone] Candy Ocampo ANP [address] [place] [address] documented as of this encounter Visit Diagnoses Not on filedocumented in this encounter Care Teams Registered Nurse Maternity Relationship Specialty Start Date End Date Candy Ocampo ANP [address] [place] [phone] PCP - General Family Medicine 12/06/19 documented as of this encounter
--- OUTSIDE RECORDS SUMMARY | 2025-01-10 12:24 | XMS_ITS | Clinical Summary ---
Author Organization [employer] Address [address] [place] [address] Care Team Providers Care Weld Inspector Name Role Phone Candy Ocampo RIGO Primary Care Provider [phone] Allergies No known active allergies Medications acetaminophen (Tylenol 8 Hour) 650 MG ER tablet Take 1 tablet by mouth Every 6-8 hours as needed. 020 Active calcitriol (Rocaltrol) 0.25 MCG capsule Take 1 capsule by mouth every other day. 023 Active FREESTYLE LITE test stripIndications: Type 2 diabetes mellitus with stage 3 chronic kidney disease, with long-term current use of insulin, unspecified whether stage 3a or 3b CKD ([facility]) TEST BLOOD SUGAR 3 TIMES A DAY 100 strip 11 023 Active TRUEplus Lancets 33G miscIndications:T ype 2 diabetes mellitus with stage 3 chronic kidney disease, with long-term current use of insulin, unspecified whether stage 3a or 3b CKD ([facility]) TEST BLOOD SUGAR THREE TIMES DAILY 100 each 11 023 Active lidocaine (Lidoderm) 5 % patch Apply 1 patch topically in the morning. Apply to lower back for pain 60 patch 3 023 Active polyethylene glycol, PEG, 3350 (Miralax) 17 g packet Mix I packet in 8 ounces of water,juice,coff ee or tea and drink once a day as needed for constipation 30 packet 1 023 Active Continuous Blood Gluc Accountant Helper (FreeStyle Kai 2 Castell) deviceIndications :Type 2 diabetes mellitus with stage 4 chronic kidney disease, with long-term current use of insulin ([facility]) Scan sensor every 3 hours 1 each 024 Active Continuous Blood Gluc Sensor (FreeStyle Kai 2 Sensor) miscIndications:T ype 2 diabetes mellitus with stage 4 chronic kidney disease, with long-term current use of insulin ([facility]) Apply 1 sensor every 14 days 2 each 3 024 Active insulin degludec (Tresiba FlexTouch) 100 UNIT/ML injectionIndicati ons:Type 2 diabetes mellitus with stage 4 chronic kidney disease, with long-term current use of insulin ([facility]) Inject 10 Units under the skin in the morning. 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 ([facility]) TAKE 1 TABLET BY MOUTH EVERY DAY OR DIRECTED BY COUMADIN CLINIC 90 tablet 2 024 Active Tradjenta 5 MG tabletIndications :Type 2 diabetes mellitus with chronic kidney disease, with long-term current use of insulin, unspecified CKD stage ([facility]) TAKE 1 TABLET BY MOUTH EVERY MORNING 30 tablet 5 025 Active metoprolol succinate XL (Toprol-XL) 50 MG 24 hr tablet TAKE 1 TABLET BY MOUTH EVERY MORNING 90 tablet 2 025 Active melatonin 5 MG tabletIndications :Insomnia, unspecified type TAKE 1 TABLET BY MOUTH AT BEDTIME 90 tablet 2 025 Active senna (Senokot) 8.6 MG tablet TAKE 2 TABLETS BY MOUTH EVERY DAY AT BEDTIME 180 tablet 025 Active docusate sodium (Colace) 100 MG capsule TAKE 1 CAPSULE BY MOUTH TWICE DAILY 180 capsule 025 Active amLODIPine (Norvasc) 5 MG tablet TAKE 1 TABLET BY MOUTH EVERYDAY AT NOON 90 tablet 025 Active sertraline (Zoloft) 50 MG tablet TAKE 1 TABLET BY MOUTH EVERY MORNING 30 tablet 2 025 Active atorvastatin (Lipitor) 80 MG tabletIndications :Coronary artery disease involving [place] coronary artery of [place] heart without angina pectoris TAKE 1 TABLET BY MOUTH EVERY MORNING 90 tablet 1 025 Active glipiZIDE (Glucotrol) 5 MG tablet TAKE 2 TABLETS BY MOUTH TWICE DAILY IN THE MORNING AND EVENING BEFORE MEALS 360 tablet 1 025 Active Aspirin Low Dose 81 MG chewable tabletIndications :Coronary artery disease involving [place] coronary artery of [place] heart without angina pectoris TAKE 1 TABLET BY MOUTH EVERY EVENING 90 tablet 1 025 Active insulin aspart (NovoLOG FLEXPEN) 100 UNIT/ML penIndications:Ty pe 2 diabetes mellitus with stage 4 chronic kidney disease, with long-term current use of insulin (CMS/HCC) INJECT SUBCUTANEOUSLY THREE TIMES DAILY BEFORE MEALS DIRECTED BY SLIDING SCALE. (BG<150: 0 UNITS, 150-199: 2 UNITS, 200-249: 3 UNITS, 250-299: 5 UNITS, 300-349: 7 UNITS, 350-399: 8 UNITS, >400: CALL DOCTOR) 15 mL 3 025 Active insulin aspart (NovoLOG FLEXPEN) 100 UNIT/ML penIndications:Ty pe 2 diabetes mellitus with stage 4 chronic kidney disease, with long-term current use of insulin (CMS/HCC) INJECT 3 TIMES DAILY BEFORE MEALS DIRECTED BY SLIDING SCALE. BG<150mg/dL admin 0 UNITS, 150-199 admin 2 UNITS, 200-249 3 UNITS, 250-299 5 UNITS, 300-349 7 UNITS, 350-399 8 UNITS, >400mg/dL: CALL clinic 10 mL 12 024 2024 Discontinued Aspirin Low Dose 81 MG chewable tabletIndications :Coronary artery disease involving [place] coronary artery of [place] heart without angina pectoris TAKE 1 TABLET BY MOUTH EVERY EVENING 90 tablet 1 024 2024 Discontinued atorvastatin (Lipitor) 80 MG tabletIndications :Coronary artery disease involving [place] coronary artery of [place] heart without angina pectoris TAKE 1 TABLET BY MOUTH EVERY MORNING 90 tablet 1 024 2024 Discontinued glipiZIDE (Glucotrol) 5 MG tablet TAKE 2 TABLETS BY MOUTH TWICE DAILY IN THE MORNING AND EVENING BEFORE MEALS 360 tablet 1 024 2024 Discontinued sertraline (Zoloft) 50 MG tablet TAKE 1 TABLET BY MOUTH EVERY MORNING 30 tablet 2 024 2024 Discontinued Active Problems Problem Noted Date Diagnosed Date 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 02/16/2023 Anxiety 12/28/2022 Chronic low back pain 12/28/2022 Coronary artery disease invo lving [place] coronary artery of [place] heart without angina pectoris 12/28/2022 Hemorrhagic cerebrovascular accident (CVA) 12/28 History of tonsillectomy 12/28/2022 Hyperlipidemia 12/28/2022 Hypertensive disorder 12/28/2022 Implantable cardioverter-defibrillator (ICD) in situ 12/28/2022 S/P CABG x 1 12/28/2022 Seizure disorder 12/28/2022 Stage 3b chronic kidney disease 05/13/2022 Renal osteodystrophy 04/12/2021 Chronic kidney disease, stage 4 (severe) 021 Type 2 diabetes mellitus wit h diabetic chronic kidney disease 04/11/2021 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 He will call if need to reschedule etc) 01/02/2025 Refill [facility] [address] [place] [address] Candy Ocampo ANP Type 2 diabetes mellitus with stage 4 chronic kidney disease, with long-term current use of insulin ([facility]) 01/01/2025 Telephone [facility] [address] [place], [place] [phone] Velia Beard RN Paperwork/Forms 12/28/2024 Refill [facility] [address] [place], [place] [phone] Candy Ocampo ANP Coronary artery disease involving [place] coronary artery of [place] heart without angina pectoris 12/27/2024 Refill [facility] [address] [place] [address] Candy Ocampo ANP 12/04/2024 Refill [facility] [address] [place] [address] Candy Ocampo ANP 11/29/2024 Refill [facility] [address] [place] [address] Candy Ocampo ANP Insomnia, unspecified type 11/26/2024 Refill [facility] [address] [place] [address] Candy Ocampo ANP Type 2 diabetes mellitus with chronic kidney disease, with long-term current use of insulin, unspecified CKD stage ([facility]) 11/15/2024 Orders Only GENERIC EXTERNAL DATA DEPARTMENT Provider, Generic External Data 11/07/2024 Refill [facility] [address] [place] [address] Candy Ocampo ANP 10/15/2024 Telephone [facility] [address] [place] [address] Candy Ocampo ANP Med Refill from Last 3 Months Immunizations Name Administration Dates Next Due Influenza High-dose Quadrivalent Preservative Fr ee 08/21/2020 Influenza injectable quadrivalent preservative f ree 12/10/2023,09/29/2022 Pneumococcal Conjugate PCV 13 12/06/2019 Pneumococcal Conjugate PCV 20 12/10/2023 Pneumococcal Polysaccharide PPSV23 09/17/2021 Tdap 12/06/2019 Social History Tobacco Use Types Packs/Day Years Used Date Smoking Tobacco: Never Smokeless Tobacco: Never Tobacco Cessation:Counseling Given: Not Answered Alcohol Use Standard Drinks/Week Comments Never 0 (1 standard drink = 0.6 oz pur e alcohol) Comments Unknown Sex and Gender Information Value Date Recorded Sex Assigned at Female 08/31/2022 10:36 AM EDT Legal Sex Female 10:36 AM EDT Gender Identity Female 08/31/2022 10:36 AM EDT Sexual Orientation Straight 08/31/2022 10 :36 AM EDT Last Filed Vital Signs Vital Sign Reading Time Taken Comments Blood Pressure 116/64 12/10/2023 11:39 AM EST Pulse 77 12/10/2023 11:39 AM EST Temperature 36.7 ??C (98.1 ??F) 12/10/2023 11:[address] Respiratory Rate 12 12/10/2023 11:39 AM EST Oxygen Saturation 98% 12/10/2023 11:39 AM EST Inhaled Oxygen Concentration - - Weight 51.7 kg (114 lb) 12/10/2023 11:39 AM EST Height 157.5 cm (5' 2 ) 01/01/2023 10:36 AM EST Body Mass Index 20.85 01/01/2023 10:36 AM EST Plan of Treatment Upcoming Encounters Date Type Department Care Team (Late st Contact Info) Description 03/09/2025 11:15 AM EDT Office Visit [facility] MEDICINE [address] [place], [place] [phone] Candy Ocampo ANP [address] [place], [place] [phone] Health Maintenance Due Date Last Done Comments Depression Screening 1940 SDOH Screening 1940 Diabetes: Foot Exam 02/06/1948 Eye Exam 02/06/1948 Alcohol/Substance Use Screening 1950 Zoster Vaccines (1 of 2) 02/06/1988 RSV Patients and Patients Aged 60 years or older (1 - 1-dose 75+ series) 2013 Lipid Panel 03/05/2022 03/05/2021, 11/06/2020 Diabetes: Hemoglobin A1C 03/09/2024 024, 07/28/2022, 07/28/2022, Additional history exists COVID-19 Vaccine (2023- season) 2024 09/24/2021, 01/16/2021, 12/19/2020 Influenza Vaccine (#1) 2024 , 09/29/2022, 08/21/2020 Tobacco Screening 12/10/2024 12/10/2023 DTaP/Tdap/Td Vaccines (2 - Td or Tdap) 12/06/2029 12/06/2019 Pneumococcal Vaccine: 50+ Years Completed 12/10/2023, 09/17/2021, 12/06/2019 HIB Vaccines Aged Out No longer eligi ble based on patient's age to complete this topic HPV Vaccines Aged Out No longer eligi ble based on patient's age to complete this topic Hepatitis A Vaccines Aged Out No long er eligible based on patient's age to complete this topic Hepatitis B Vaccines Aged Out No long er eligible based on patient's age to complete this topic IPV Vaccines Aged Out No longer eligi ble based on patient's age to complete this topic Meningococcal Vaccine Aged Out No padmaja andres eligible based on patient's age to complete this topic RSV under 20 months Aged Out No longe r eligible based on patient's age to complete this topic Rotavirus Vaccines Aged Out No longer eligible based on patient's age to complete this topic Procedures Procedure Name Priority Date/Time Associated Diagnosis Comments PROTHROMBIN TIME WHOLE BLD POC Routine 01/10/2025 10:50 AM EDT ~PT, ~INR - ANTI COAG CLINIC Routine 01/10/2025 10:50 AM EDT PROTHROMBIN TIME WHOLE BLD POC Routine 11/15/2024 12:57 PM EST ~PT, ~INR - ANTI COAG CLINIC Routine 11/15/2024 12:57 PM EST POCT GLYCATED HEMOGLOBIN, TOTAL Routine 12/10/2023 11:43 AM EST Type 2 diabetes mellitus with stage 4 chronic kidney disease, with long-term current use of insulin ([facility]) LIPID PANEL, STANDARD Routine 03/05/2021 9:50 AM EDT from Last 3 Months or Most Recently Relevant to Health Maintenance Results * (ABNORMAL) PROTHROMBIN TIME WHOLE BLD POC (01/10/2025 10:50 AM EDT) Only the most recent of2 resultswithin the time period is included. Protime 25.0(H) 11.1 - 13.5 sec [facility] 01/10/2025 10:5 0 AM EDT 01/10/2025 11:01 AM EDT Generic External Data Provider LAB BLOOD ORDERAB LES Final Result Performing Organization Address City/[facility]/ZIP Co de Phone Number [facility] [address] [place] [phone] * (ABNORMAL) ~PT, ~INR - ANTI COAG CLINIC (01/10/2025 10:50 AM EDT) Only the most recent of2 resultswithin the time period is included. Prothrombin Time INR 2.1(H) 0.9 - 1.1 [facility] Comment:METER #: [id number] TERNATIONAL NORMALIZED RATIO (INR) REFERENCE RANGES Reference RangeFor patients not on anticoagulant therapy: 0.9 - 1.1INR ranges for oral anticoagulanttherapy:For prevention and treatment of venous thrombosis and pulmonary embolism: 2.0 - 3.0For acute myocardial infarction with aspirin therapy: 2.0 - 3.0For acute myocardial infarction without aspirin therapy: 3.0 - 4.0For patients with mechanical prosthetic heart valves: 2.5 - 3.5 01/10/2025 10:5 0 AM EDT 01/10/2025 11:01 AM EDT Generic External Data Provider LAB BLOOD ORDERAB LES Final Result Performing Organization Address City/[facility]/ZIP Co de Phone Number [facility] [address] [place] [phone] * (ABNORMAL) POCT A1C (12/10/2023 11:43 AM EST) Hemoglobin A1C 10.9(A) 4.0 - 6.0 % Comment:controls valid QC Media Lot # Comment:[id number] Lot# Expiration Date Comment:07/19/2025 Blood 12/10/2023 11:4 3 AM EST us Candy Ocampo ANP POINT OF CARE TEST ENTER/EDIT OR DERABLES Final Result * (ABNORMAL) LIPID PANEL, STANDARD (03/05/2021 9:50 AM EDT) Chol/HDLC Ratio 4.9 <5.0 (calc) [facility] Cholesterol, Total 209(H) <200 mg/dL [facility] HDL Cholesterol 43(L) > OR = 50 mg/dL [facility] LDL Cholesterol 134(H) mg/dL (calc) [facility] Comment: Reference range: <100 ?? Desirable range <100 mg/dL for primary prevention; ?? <70 mg/dL for patients with CHD or diabetic patients ?? with > or = 2 CHD risk factors. ?? LDL-C is now calculated using the Lindsay ?? calculation, which is a validated novel method providing ?? better accuracy than the Friedewald equation in the ?? estimation of LDL-C. ?? Bill VARGAS et al. FILOMENA. 2013;310(19): 8766-6481 ?? (http://[employer]/faq/FYX388) Non-HDL Cholesterol 166(H) <130 mg/dL (calc) [facility] Comment: For patients with diabetes plus 1 major ASCVD risk ?? factor, treating to a non-HDL-C goal of <100 mg/dL ?? (LDL-C of <70 mg/dL) is considered a therapeutic ?? option. Triglycerides 183(H) <150 mg/dL [facility] 03/05/2021 9:50 AM EDT Candy Ocampo [facility] LAB BLOOD ORDERABLES Final Resul t [facility] [address] from Last 3 Months or Most Recently Relevant to Health Maintenance Insurance [employer] MEDICARE REPLACEMENT Care Teams Weld Inspector Relationship Specialty Start Date End Date Candy Ocampo ANP [address] [place] [phone] PCP - General Family Medicine 12/06/19
--- OUTSIDE RECORDS SUMMARY | 2025-01-10 12:24 | XMS_ITS | Encounter Summary ---
Author Organization [employer] [facility] Address [address] [place] [address] Care Team Providers Care Fiction And Nonfiction Author Name Role Phone Candy Ocampo Primary Care Provider [phone] Reason for Visit * Reason Comments Med Refill Encounter Details Date Type Department Care Team (Late st Contact Info) Description 01/02/2025 Refill [facility] MEDICINE [address] [place], [place] [phone] Candy Ocampo ANP [address] [place], [place] [phone] Type 2 diabetes mellitus with stage 4 chronic kidney disease, with long-term current use of insulin ([facility]) Social History Tobacco Use Types Packs/Day Years [...] * Telephone Encounter - RIGO Weaver - 01/02/2025 4:32 PM EST Tony novoa - can you get this pt scheduled for f/u DM? Anytime in next 2 mo. thanks documented in this encounter Plan of Treatment Upcoming Encounters Date Type Department Care Team (Late st Contact Info) Description 03/09/2025 11:15 AM EDT Office Visit [facility] MEDICINE [address] [place] [address] Candy Ocampo ANP [address] [place] [phone] documented as of this encounter Visit Diagnoses Diagnosis Type 2 diabetes mellitus with stage 4 chronic kidney disease, with long-term current use of insulin ([facility]) documented in this encounter Care Teams Fiction And Nonfiction Author Relationship Specialty Start Date End Date Candy Ocampo ANP [address] [place] [phone] PCP - General Family Medicine 12/06/19 documented as of this encounter
--- OUTSIDE RECORDS SUMMARY | 2025-01-10 12:24 | XMS_ITS | Clinical Summary ---
Author Organization [facility] Address [address] [place] [address] Care Team Providers Care Slurry Tank Tender Name Role Phone Unavailable Primary Care Provider Unavailabl e Social History Tobacco Use Types Packs/Day Years Used Date Smoking Tobacco: Never Assessed Comments Unknown Sex and Gender Information Value Date Recorded Sex Assigned at Not on file Legal Sex Female 8:58 PM EST Gender Identity Not on file Sexual Orientation Not on file Plan of Treatment Health Maintenance Due Date Last Done Comments DTaP,Tdap,and Td Vaccines (1 - Tdap) 1957 Pneumococcal Vaccine: 50+ Ye ars (1 of 1 - PCV) 02/06/1988 Zoster Vaccines (1 of 2) 02/06/1988 RSV Immunization Patients 60 + Years Old (1 - 1-dose 75+ series) 2013 Depression Screening 11/26/2023 Falls Risk Assessment 11/26/2023 Osteoporosis Screening (Bone Density Screening) 11/26/2023 Social Influencers of Health Screening 11/26/2023 COVID-19 Vaccine ( - 2023-2 5 season) 2024 Influenza Vaccine (#1) 2024 HIB Vaccines Aged Out No longer eligi [...] on patient's age to complete this topic MMR Vaccines Aged Out No longer eligi ble based on patient's age to complete this topic Meningococcal ACWY Vaccine Aged Out N o longer eligible based on patient's age to complete this topic Meningococcal B Vacine Aged Out No lo nger eligible based on patient's age to complete this topic RSV Immunization Patients Un russ 20 months Aged Out No longer eligible b ased on patient's age to complete this topic Varicella Vaccines Aged Out No longer eligible based on patient's age to complete this topic Advance Directives Documents on File Type Date Recorded Patient Program Evaluation Consultant Expl anation Health Care Decision (hx) 12/10/2022 HE ALTH CARE PROXY Health Care Decision (hx) 12/10/2022 HE ALTH CARE PROXY
--- OUTSIDE RECORDS SUMMARY | 2025-01-10 12:24 | XMS_ITS | Encounter Summary ---
Author Organization [employer] Address [address] [place] [address] Care Team Providers Care Tosser Name Role Phone Candy Ocampo Primary Care Provider [phone] Encounter Details Date Type Department Care Team (Late st Contact Info) Description 11/30/2022 Orders Only [facility] [address] [place], [place] [phone] Malaika Asif LPN Social History Tobacco Use Types Packs/Day Years [...] Description 03/09/2025 11:15 AM EDT Office Visit [facility] MEDICINE [address] [place], [place] [phone] Candy Ocampo ANP [address] [place], [place] [phone] documented as of this encounter Procedures Procedure Name Priority Date/Time Associated Diagnosis Comments HIGH SENSITIVITY TROPONIN I Routine 12/07/2022 2:50 PM EST CBC WITH AUTO DIFFERENTIAL Routine 12/07/2022 2:50 PM EST COMPREHENSIVE METABOLIC PANEL Routine 12/07/2022 2:50 PM EST GLUCOSE, WHOLE BLOOD Routine 12/07/2022 12:48 PM EST documented in this encounter Results * HIGH SENSITIVITY TROPONIN I (12/07/2022 2:50 PM EST) TROPONIN I HIGH SENSITIVITY 5.9 <3.5 - 17.0 ng/L [facility] Comment:The Gomez high sens itivity Troponin-I results should beused in conjunction with other diagnostic information suchas ECG, clinical observations and information, and patientsymptoms to aid in the diagnosis of [place]. 12/07/2022 2:50 PM EST 12/07/2022 2:55 PM EST [facility] External Provider LAB BLO OD ORDERABLES Final Result [facility] [address] [place] [phone] * (ABNORMAL) Comprehensive Metabolic Panel (12/07/2022 2:50 PM EST) Pathologist [facility] Sodium 134(L) 135 - 145 mmol/L [facility] Potassium 5.2(H) 3.3 - 5.1 mmol/L [facility] Chloride 100 96 - 108 mmol/L [facility] Carbon Dioxide 25 22 - 29 mmol/L [facility] Anion Gap 14 12 - 20 [facility] Urea Nitrogen (BUN) 39(H) 9 - 16 mg/dL [facility] Creatinine, Serum 1.72(H) 0.5 - 1.4 mg/dL [facility] Creatinine Clr Calc Pharmacy 20.9 [facility] Comment:Provided height and weight: 167.64 cm,54.431 kg.eGFR (calculated from the MDRD study equation) and eCrCl(calculated from the Cockcroft-Gault equation) are based ondifferent parameters and may not yield comparable results.If eCrCl result is absurd, please check patient'sheight/weight. Estimated Glomerular Filt Rate 28 [facility] Comment:NOTE: For -Am erican individuals, multiply the result by 1.210.Chronic Kidney Disease: Estimated GFR < 60 mL/min/1.34x9Ttvmcu Kidney Disease: Estimated GFR < 15 mL/min/1.73m2 Glucose 366(HH) 60 - 115 mg/dL [facility] Comment:Critical value for t est(s): GLUR Results called to and readback by: Marvin calling:RORYSF Date: [id number] Calcium 9.2 8.4 - 10.2 mg/dL [facility] Bilirubin, Total 0.5 0.0 - 1.0 mg/dL [facility] Aspartate Amino Transferase 15 5 - 31 U/L [facility] Alanine Aminotransferase 19 0 - 31 U/L [facility] Total Protein 6.5 6.5 - 8.0 g/dL [facility] Albumin Level 3.6 3.5 - 5.0 g/dL [facility] Alkaline Phosphatase 79 39 - 117 U/L [facility] 12/07/2022 2:50 PM EST 12/07/2022 2:55 PM EST us [facility] External Provider LAB BLO OD ORDERABLES Final Result [facility] [address] [place] [phone] * (ABNORMAL) CBC auto differential (12/07/2022 2:50 PM EST) White Blood Count 8.3 4.8 - 10.8 X10*3/uL [facility] Red Blood Count 4.88 4.20 - 5.50 X10*6/uL [facility] Hemoglobin 13.5 12.0 - 16.0 g/dl [facility] Hematocrit 41.1 37.0 - 47.0 % [facility] Mean Corpuscular Volume 84.2 80.0 - 98.0 fL [facility] Mean Corpuscular Hemoglobin 27.7 27.0 - 33.0 pg [facility] Mean Corpuscular HGB Conc 32.8 31.0 - 35.0 g/dl [facility] Red Cell Distribution Width 13.7 11.0 - 16.0 % [facility] Platelet Count 215 160 - 400 X10*3/uL [facility] Mean Platelet Volume 10.0 9.4 - 12.3 fL [facility] Neutrophils Percent Auto 72.4 45 - 73 % [facility] Imm Gran Pct Auto 0.8(H) 0.0 - 0.4 % [facility] Lymphocytes Percent Auto 22.0 20 - 40 % [facility] Monocytes Percent Auto 4.4 2 - 11 % [facility] Eosinophils Percent Auto 0.2 0 - 4 % [facility] Basophils Percent Auto 0.2 0 - 2 % [facility] NRBC Pct Auto 0.0 0.0 - 0.2 /100WBC [facility] Neutrophils Absolute Auto 6.0 2.0 - 8.3 x10*3/uL [facility] Imm Gran Abs Auto 0.07(H) 0.00 - 0.03 X10*3/uL [facility] Lymphocytes Absolute Auto 1.8 1.2 - 4.9 X10*3/uL [facility] Monocytes Absolute Auto 0.4 0.1 - 1.2 X10*3/uL [facility] Eosinophils Absolute Auto 0.0 0.0 - 0.4 X10*3/uL [facility] Basophils Absolute Auto 0.0 0.0 - 0.2 X10*3/uL [facility] NRBC Abs Auto 0.000 0.0 - 0.012 X10*3/uL [facility] 12/07/2022 2:50 PM EST 12/07/2022 3:05 PM EST us [facility] External Provider LAB BLO OD ORDERABLES Final Result [facility] [address] [place], [place] [phone] * (ABNORMAL) GLUCOSE, WHOLE BLOOD (12/07/2022 12:48 PM EST) Glucose, Whole Blood 359(HH) 60 - 115 mg/dL [facility] Comment:METER #: [id number] 1 12/07/2022 12:4 8 PM EST 12/07/2022 12:51 PM EST us [facility] External Provider LAB BLO OD ORDERABLES Final Result Performing Organization Address City/State/[facility] Co de Phone Number [facility] [address] [place] [address] [phone] documented in this encounter Visit Diagnoses Not on filedocumented in this encounter Care Teams Tosser Relationship Specialty Start Date End Date Candy Ocampo ANP [address] [place] [phone] PCP - General Family Medicine 12/06/19 documented as of this encounter
--- OUTSIDE RECORDS SUMMARY | 2025-01-10 12:24 | XMS_ITS | Encounter Summary ---
Author Organization [email or web address] Address [address] [place] [address] Care Team Providers Care Slurry Plant Operator Name Role Phone Candy Ocampo RIGO Primary Care Provider [phone] Reason for Visit * Reason Onset Date Comments Appointment 01/05/2025 Called pt to chano carter dm follow up ,spoke to her son eb who agree on bringing gwendolyn on 03/09/25 at 11:15 am. He will call if need to reschedule etc Encounter Details Date Type Department Care Team (Late st Contact Info) Description 01/05/2025 Telephone [facility] MEDICINE [address] [place], [place] [phone] Alyssa De La Rosa [place] Appointment (Called pt to book dm follow up ,spoke to her son eb who agree on bringing gwendolyn on 03/09/25 at 11:15 am. He will call if need to reschedule etc) Social History Tobacco Use Types Packs/Day Years [...] encounter Miscellaneous Notes * Telephone Encounter - Alyssa De La Rosa [place] - 01/05/2025 9:50 AM EST Called pt to book dm follow up ,spoke to her son eb who agree on bringing gwendolyn on 03/09/25 at 11:15 am. He will call if need to reschedule etc documented in this encounter Plan of Treatment Upcoming Encounters Date Type Department Care Team (Late st Contact Info) Description 03/09/2025 11:15 AM EDT Office Visit [facility] MEDICINE [address] [place] [address] Candy Ocampo ANP [address] [place] [phone] documented as of this encounter Visit Diagnoses Not on filedocumented in this encounter Care Teams Slurry Plant Operator Relationship Specialty Start Date End Date Candy Ocampo ANP [address] [place] [phone] PCP - General Family Medicine 12/06/19 documented as of this encounter
--- OUTSIDE RECORDS SUMMARY | 2025-01-10 12:24 | XMS_ITS | Encounter Summary ---
Author Organization [employer] [facility] Address [address] [place] [address] Care Team Providers Care Chief Cruiser Name Role Phone Candy Ocampo Primary Care Provider Encounter Details Date Type Department Care Team (Late st Contact Info) Description 01/10/2025 Orders Only GENERIC EXTERNAL DATA DEPARTMENT Provider, Generic External Data Social History Tobacco Use Types Packs/Day Years [...] Description 03/09/2025 11:15 AM EDT Office Visit [facility] MEDICINE [address] [place], [place] [phone] Candy Ocampo ANP [address] [place], [place] [phone] documented as of this encounter Procedures Procedure Name Priority Date/Time Associated Diagnosis Comments PROTHROMBIN TIME WHOLE BLD POC Routine 01/10/2025 10:50 AM EDT ~PT, ~INR - ANTI COAG CLINIC Routine 01/10/2025 10:50 AM EDT documented in this encounter Results * (ABNORMAL) PROTHROMBIN TIME WHOLE BLD POC (01/10/2025 10:50 AM EDT) Protime 25.0(H) 11.1 - 13.5 sec [facility] 01/10/2025 10:5 0 AM EDT 01/10/2025 11:01 AM EDT us Generic External Data Provider LAB BLOOD ORDERAB LES Final Result Performing Organization Address City/[facility]/ZIP Co de Phone Number [facility] [address] [place] [address] [phone] * (ABNORMAL) ~PT, ~INR - ANTI COAG CLINIC (01/10/2025 10:50 AM EDT) Prothrombin Time INR 2.1(H) 0.9 - 1.1 [facility] Comment:METER #: [id number] TERNATIONAL NORMALIZED RATIO (INR) REFERENCE RANGES Reference [...] 0 AM EDT 01/10/2025 11:01 AM EDT us Generic External Data Provider LAB BLOOD ORDERAB LES Final Result Performing Organization Address [facility] Co de Phone Number [facility] [address] [place] [address] [phone] documented in this encounter Visit Diagnoses Not on filedocumented in this encounter Care Teams Chief Cruiser Relationship Specialty Start Date End Date Candy Ocampo ANP [address] [place] [phone] PCP - General Family Medicine 12/06/19 documented as of this encounter
== END 2025-01-10 11:18 | disposition home or self-care (01) ==
LOC: HO.ACS 10:43
PROVIDERS: PCP Nurse Practitioner Primary Care; Visit Provider Internal Medicine
DX: Z79.01 Long term (current) use of anticoagulants (principal)

== ENCOUNTER → 2025-01-10 10:43 | Outpatient (BNVA) | payer MEDICARE, SELFPAY | PROVIDERS: PCP Nurse Practitioner Primary Care; Visit Provider Internal Medicine | DX: I69.30 Unspecified sequelae of cerebral infarction (principal); Z79.01 Long term (current) use of anticoagulants; Z51.81 Encounter for therapeutic drug level monitoring | CPT/HCPCS: 85610; 99211 ==

== ENCOUNTER 2025-02-07 10:42 | Outpatient (AMB) | payer MEDICARE, SELFPAY ==
--- NOTE | 2025-02-07 10:51 | MHC.OFFVISCO ---
Intake Intake Visit Reasons: Anticoagulation Allergies No Known Allergies [No Known Allergies*] Allergy (Verified 02/07/25 10:47) Medication List - Last Reconciled 02/07/25 by Rosalia Richmond RN amlodipine 5 mg PO DAILY@1200 aspirin 81 mg PO DAILY atorvastatin 80 mg PO DAILY blood sugar diagnostic (FreeStyle Lite Strips) As directed calcitriol 0.25 mcg PO Q2D@1000 cholecalciferol (vitamin D3) 25 mcg PO DAILY docusate sodium 100 mg PO BID glipizide 10 mg PO BIDAC insulin degludec (Tresiba FlexTouch U-100 insulin) 10 units subcut DAILY lancets (TRUEplus Lancets) As directed lidocaine 5% (Lidoderm) 1 patch topical DAILY PRN linagliptin (Tradjenta) 5 mg PO DAILY melatonin 5 mg PO BEDTIME metoprolol succinate ER 50 mg PO BID pantoprazole 40 mg PO DAILY pen needle, diabetic (Pentips Pen Needle) As directed sennosides (senna) 17.2 mg PO BEDTIME sertraline 50 mg PO DAILY warfarin See Protocol 2 mg orally 4mg x 3 DAYS , 2MG X 4 DAYS; Nursing Note INR: 2.8- in therapeutic range of 2-3 Medications and supplements reviewed- no changes No changes in health, diet, medications, or supplements, Denies any signs and symptoms of bleeding or bruising or clotting. 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 r/t blood sugar) and Stroke/TIA (cva x 2 (3 years) Nov 2022 - had covid vaccine) Cancer HX: No Psych. Illness/Depression: No Coding Level of Care Code Est Patient Level 1 Diagnoses Current use of anticoagulant therapy Z79.01 Assessment & Plan Assessment & Plan (1) Current use of anticoagulant therapy: Code(s): Z79.01 - nursing home (current) use of 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
[2025-02-07 10:52] LABS: Prothrombin Time Whole Bld POC 33.4 sec (11.1-13.5); ~PT, ~INR - Anti Coag Clinic 2.8 (0.9-1.1)
--- OUTSIDE RECORDS SUMMARY | 2025-02-07 12:20 | XMS_ITS | Clinical Summary ---
Author Organization [facility] Address [address] [place] [address] Care Team Providers Care Signal Worker Name Role Phone Unavailable Primary Care Provider [...] Vaccines (1 of 2) 02/06/1988 RSV Immunization Adult Patie nts (1 - 1-dose 75+ series) 2013 Depression Screening 11/26/2023 Falls Risk Assessment 11/26/2023 Osteoporosis Screening (Bone Density Screening) 11/26/2023 Social Influencers of Health Screening 11/26/2023 COVID-19 Vaccine ( - 2023-2 5 season) 2024 Influenza Vaccine (Season Ended) 2025 HIB Vaccines Aged Out No longer eligi [...] age to complete this topic Meningococcal B Vaccine Aged Out No l onger eligible based on patient's age to complete this topic RSV Immunization Patients Un russ 20 months Aged Out No longer eligible b ased on patient's age to complete this topic Varicella Vaccines Aged Out No longer eligible based on patient's age to complete this topic Advance Directives Documents on File Type Date Recorded Patient [employer] Publishing Agent Expl anation Health Care Decision (hx) 12/10/2022 HE ALTH CARE PROXY Health Care Decision (hx) 12/10/2022 HE ALTH CARE PROXY
--- OUTSIDE RECORDS SUMMARY | 2025-02-07 12:20 | XMS_ITS | Encounter Summary ---
Author Organization [employer] [facility] Address [address] [place] [address] Care Team Providers Care Home Health Rn Name Role Phone Candy Ocampo Primary Care Provider [phone] Encounter Details Date Type Department Care Team (Late st Contact Info) Description 02/07/2025 Orders Only GENERIC EXTERNAL DATA DEPARTMENT Provider, [...] Description 03/09/2025 11:15 AM EDT Office Visit [facility] MEDICINE [address] [place], [place] [phone] Candy Ocampo ANP [address] [place], [place] [phone] documented as of this encounter Procedures Procedure Name Priority Date/Time Associated Diagnosis Comments PROTHROMBIN TIME WHOLE BLD POC Routine 02/07/2025 10:50 AM EDT ~PT, ~INR - ANTI COAG CLINIC Routine 02/07/2025 10:50 AM EDT documented in this encounter Results * (ABNORMAL) PROTHROMBIN TIME WHOLE BLD POC (02/07/2025 10:50 AM EDT) Protime 33.4(H) 11.1 - 13.5 sec [facility] 02/07/2025 10:5 0 AM EDT 02/07/2025 10:51 AM EDT us Generic External Data Provider LAB BLOOD ORDERAB LES Final Result Performing Organization Address City/[facility]/ZIP Co de Phone Number [facility] [address] [place] [phone] * (ABNORMAL) ~PT, ~INR - ANTI COAG CLINIC (02/07/2025 10:50 AM EDT) Prothrombin Time INR 2.8(H) 0.9 - 1.1 [facility] Comment:METER #: [id number] TERNATIONAL NORMALIZED RATIO (INR) REFERENCE RANGES Reference RangeFor patients not on anticoagulant therapy: 0.9 - 1.1INR ranges for oral anticoagulanttherapy:For prevention and treatment of venous thrombosis and pulmonary embolism: 2.0 - 3.0For acute myocardial infarction with aspirin therapy: 2.0 - 3.0For acute myocardial infarction without aspirin therapy: 3.0 - 4.0For patients with mechanical prosthetic heart valves: 2.5 - 3.5 02/07/2025 10:5 0 AM EDT 02/07/2025 10:51 AM EDT us Generic External Data Provider LAB BLOOD ORDERAB LES Final Result Performing Organization Address [facility] Co de Phone Number [facility] [address] [place] [address] [phone] documented in this encounter Visit Diagnoses Not on filedocumented in this encounter Care Teams Home Health Rn Relationship Specialty Start Date End Date Candy Ocampo ANP [address] [place] [address] PCP - General Family Medicine 12/06/19 documented as of this encounter
--- OUTSIDE RECORDS SUMMARY | 2025-02-07 12:20 | XMS_ITS | Encounter Summary ---
Author Organization [employer] Address [address] [place] [address] Care Team Providers Care Energy Efficiency Finance Manager Name Role Phone Candy Ocampo Primary Care Provider [phone] Encounter Details Date Type Department Care Team (Late st Contact Info) Description 11/30/2022 Orders Only [facility] MED & PEDS [address] [place], [place] [phone] Malaika Asif LPN Social History Tobacco Use [...] 03/09/2025 11:15 AM EDT Office Visit [facility] MEDICINE [address] [place], [place] [phone] Candy Ocampo ANP [address] [place], [place] [phone] documented as of this encounter Procedures Procedure [...] HIGH SENSITIVITY 5.9 <3.5 - 17.0 ng/L [facility] Comment:The Gomez high sens itivity Troponin-I results should beused in conjunction with other diagnostic information suchas ECG, clinical observations and information, and patientsymptoms to aid in the diagnosis of [place]. 12/07/2022 2:50 PM EST 12/07/2022 2:55 PM EST [facility] External Provider LAB BLO OD ORDERABLES Final Result [facility] [address] [place] [phone] * (ABNORMAL) Comprehensive Metabolic Panel (12/07/2022 2:50 PM EST) Pathologist [facility] Sodium 134(L) 135 - 145 mmol/L [facility] Potassium 5.2(H) 3.3 - 5.1 mmol/L [facility] Chloride 100 96 - 108 mmol/L [facility] Carbon Dioxide 25 22 - 29 mmol/L [facility] Anion Gap 14 12 - 20 [facility] Urea Nitrogen (BUN) 39(H) 9 - 16 mg/dL [facility] Creatinine, Serum 1.72(H) 0.5 - 1.4 mg/dL [facility] Creatinine Clr Calc Pharmacy 20.9 [facility] Comment:Provided height and weight: 167.64 cm,54.431 kg.eGFR (calculated from the MDRD study equation) and eCrCl(calculated from the Cockcroft-Gault equation) are based ondifferent parameters and may not yield comparable results.If eCrCl result is absurd, please check patient'sheight/weight. Estimated Glomerular Filt Rate 28 [facility] Comment:NOTE: For -Am erican individuals, multiply the result by 1.210.Chronic Kidney Disease: Estimated GFR < 60 mL/min/1.43h6Tzzoan Kidney Disease: Estimated GFR < 15 mL/min/1.73m2 Glucose 366(HH) 60 - 115 mg/dL [facility] Comment:Critical value for t est(s): GLUR Results called to and readback by: Marvin calling:RORYSF Date: [id number]:1520 Calcium 9.2 8.4 - 10.2 mg/dL [facility] Bilirubin, Total 0.5 0.0 - 1.0 mg/dL [facility] Aspartate Amino Transferase 15 5 - 31 U/L [facility] Alanine Aminotransferase 19 0 - 31 U/L [facility] Total Protein 6.5 6.5 - 8.0 g/dL [facility] Albumin Level 3.6 3.5 - 5.0 g/dL [facility] Alkaline Phosphatase 79 39 - 117 U/L [facility] 12/07/2022 2:50 PM EST 12/07/2022 2:55 PM EST us [facility] External Provider LAB BLO OD ORDERABLES Final Result [facility] [address] [place] [phone] * (ABNORMAL) CBC auto differential (12/07/2022 2:50 PM EST) White Blood Count 8.3 4.8 - 10.8 X10*3/uL [facility] Red Blood Count 4.88 4.20 - 5.50 X10*6/uL [facility] Hemoglobin 13.5 12.0 - 16.0 g/dl [facility] Hematocrit 41.1 37.0 - 47.0 % [facility] Mean Corpuscular Volume 84.2 80.0 - 98.0 fL [facility] Mean Corpuscular Hemoglobin 27.7 27.0 - 33.0 pg [facility] Mean Corpuscular HGB Conc 32.8 31.0 - 35.0 g/dl [facility] Red Cell Distribution Width 13.7 11.0 - 16.0 % [facility] Platelet Count 215 160 - 400 X10*3/uL [facility] Mean Platelet Volume 10.0 9.4 - 12.3 fL [facility] Neutrophils Percent Auto 72.4 45 - 73 % [facility] Imm Gran Pct Auto 0.8(H) 0.0 - 0.4 % [facility] Lymphocytes Percent Auto 22.0 20 - 40 % [facility] Monocytes Percent Auto 4.4 2 - 11 % [facility] Eosinophils Percent Auto 0.2 0 - 4 % [facility] Basophils Percent Auto 0.2 0 - 2 % [facility] NRBC Pct Auto 0.0 0.0 - 0.2 /100WBC [facility] Neutrophils Absolute Auto 6.0 2.0 - 8.3 x10*3/uL [facility] Imm Gran Abs Auto 0.07(H) 0.00 - 0.03 X10*3/uL [facility] Lymphocytes Absolute Auto 1.8 1.2 - 4.9 X10*3/uL [facility] Monocytes Absolute Auto 0.4 0.1 - 1.2 X10*3/uL [facility] Eosinophils Absolute Auto 0.0 0.0 - 0.4 X10*3/uL [facility] Basophils Absolute Auto 0.0 0.0 - 0.2 X10*3/uL [facility] NRBC Abs Auto 0.000 0.0 - 0.012 X10*3/uL [facility] 12/07/2022 2:50 PM EST 12/07/2022 3:05 PM EST us [facility] External Provider LAB BLO OD ORDERABLES Final Result [facility] [address] [place], [place] [phone] * (ABNORMAL) GLUCOSE, WHOLE BLOOD (12/07/2022 12:48 PM EST) Glucose, Whole Blood 359(HH) 60 - 115 mg/dL [facility] Comment:METER #: [id number] 12/07/2022 12:4 8 PM EST 12/07/2022 12:51 PM EST us [facility] External Provider LAB BLO OD ORDERABLES Final Result Performing Organization Address City/State/[facility] Co de Phone Number [facility] [address] [place] [address] [phone] documented in this encounter Visit Diagnoses Not on filedocumented in this encounter Care Teams Energy Efficiency Finance Manager Relationship Specialty Start Date End Date Candy Ocampo ANP [address] [place] [phone] PCP - General Family Medicine 12/06/19 documented as of this encounter
--- OUTSIDE RECORDS SUMMARY | 2025-02-07 12:20 | XMS_ITS | Clinical Summary ---
Author Organization [employer] Address [address] [facility] [address] [place] [address] Care Team Providers Care Hose Maker Name Role Phone Candy Ocampo RIGO Primary Care Provider [phone] Allergies No known active allergies Medications acetaminophen [...] unspecified whether stage 3a or 3b CKD ([facility]) TEST BLOOD SUGAR 3 TIMES A DAY 100 strip 11 023 Active TRUEplus Lancets 33G miscIndications:T ype 2 diabetes mellitus with stage 3 chronic kidney disease, with long-term current use of insulin, unspecified whether stage 3a or 3b CKD ([facility]) TEST BLOOD SUGAR THREE TIMES DAILY 100 [...] packet 1 023 Active Continuous Blood Gluc Head Banquet Waitress (FreeStyle Kai 2 Henderson) deviceIndications :Type 2 diabetes mellitus with stage 4 chronic kidney disease, with long-term current use of insulin ([facility]) Scan sensor every 3 hours 1 each 024 Active Continuous Blood Gluc Sensor (FreeStyle Kai 2 Sensor) miscIndications:T ype 2 diabetes mellitus with stage 4 chronic kidney disease, with long-term current use of insulin ([facility]) Apply 1 sensor every 14 days 2 each 3 024 Active pantoprazole (ProtoNix) 40 MG EC tablet TAKE 1 TABLET BY MOUTH ONCE DAILY BEFORE A MEAL 90 tablet 2 024 Active cholecalciferol (Vitamin D-3) 25 MCG tablet TAKE 1 TABLET BY MOUTH EVERY MORNING 90 tablet 3 024 Active BD Pen Needle Marisa U/F 32G X 4 MM miscIndications:T ype 2 diabetes mellitus with hyperlipidemia (CMS/HCC) ([facility]) USE DIRECTED WITH INSULIN 100 each 5 024 Active warfarin (Coumadin) 2 MG tabletIndications :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 ([facility]) TAKE 1 TABLET BY MOUTH EVERY DAY OR DIRECTED BY COUMADIN CLINIC 90 tablet 2 024 Active Tradjenta 5 MG tabletIndications :Type 2 diabetes mellitus with chronic kidney disease, with long-term current use of insulin, unspecified CKD stage ([facility]) TAKE 1 TABLET BY MOUTH EVERY MORNING [...] 80 MG tabletIndications :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 TAKE 1 TABLET BY MOUTH EVERY MORNING 90 tablet 1 025 Active glipiZIDE (Glucotrol) 5 MG tablet TAKE 2 TABLETS BY MOUTH TWICE DAILY IN THE MORNING AND EVENING BEFORE MEALS 360 tablet 1 025 Active Aspirin Low Dose 81 MG chewable tabletIndications :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 15 mL 3 024 2024 Discontinued Active Problems Problem Noted Date Diagnosed Date 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 02/16/2023 Anxiety 12/28/2022 Chronic low back pain 12/28/2022 Coronary artery disease invo lving yocha dehe coronary artery of yocha dehe heart without angina pectoris 12/28/2022 Hemorrhagic cerebrovascular [...] Encounters Date Type Department Care Team Description 02/07/2025 Orders Only GENERIC EXTERNAL DATA DEPARTMENT Provider, Generic External Data 2025 Refill [facility] MEDICINE [address] [place] [address] Candy Ocampo ANP Type 2 diabetes mellitus with stage 4 chronic kidney disease, with long-term current use of insulin ([facility]) 01/10/2025 Orders Only GENERIC EXTERNAL DATA DEPARTMENT Provider, Generic External Data 01/05/2025 Telephone [facility] MEDICINE [address] [place] [address] Alyssa De La Rosa [place] Appointment (Called pt to book dm follow up ,spoke to her son eb who agree on bringing gwendolyn on 03/09/25 at 11:15 am. 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 12/27/2024 Refill [facility] MED[facility] [address] [place] [address] Candy Ocampo ANP 12/04/2024 Refill [facility] [address] [place] [address] Candy Ocampo ANP 11/29/2024 Refill [facility] MEDICINE [address] [place] [address] Candy Ocampo ANP Insomnia, unspecified type 11/26/2024 Refill [facility] MEDICINE [address] [place] [address] Candy Ocampo ANP Type 2 diabetes mellitus with chronic kidney disease, with long-term current use of insulin, unspecified CKD stage ([facility]) 11/15/2024 Orders Only GENERIC EXTERNAL DATA DEPARTMENT Provider, Generic External Data from Last 3 Months Immunizations Name Administration [...] Description 03/09/2025 11:15 AM EDT Office Visit [facility] MEDICINE [address] [place] [address] Candy Ocampo ANP [address] [place] [address] Health Maintenance Due Date Last Done Comments Depression Screening 1940 SDOH Screening 1940 Diabetes: Foot Exam 02/06/1948 Eye Exam 02/06/1948 Alcohol/Substance Use Screening 1950 Zoster Vaccines (1 of 2) 02/06/1988 RSV Patients and Patients Aged 60 years or older (1 - 1-dose 75+ series) 2013 Lipid Panel 03/05/2022 03/05/2021, 11/06/2020 Diabetes: Hemoglobin A1C 03/09/2024 024, 07/28/2022, 07/28/2022, Additional history exists COVID-19 Vaccine ( season) 2024 09/24/2021, 01/16/2021, 12/19/2020 Influenza Vaccine (#1) 2024 4, 09/29/2022, 08/21/2020 Tobacco Screening 12/10/2024 12/10/2023 DTaP/Tdap/Td [...] [facility] Routine 02/07/2025 10:50 AM EDT PROTHROMBIN TIME WHOLE BLD POC Routine 01/10/2025 [...] disease, with long-term current use of insulin ([facility]) LIPID PANEL, STANDARD Routine 03/05/2021 9:50 AM EDT from Last 3 Months or Most Recently Relevant to Health Maintenance Results * (ABNORMAL) PROTHROMBIN TIME WHOLE BLD POC (02/07/2025 10:50 AM EDT) Only the most recent of3 resultswithin the time period is included. Protime 33.4(H) 11.1 - 13.5 sec [facility] 02/07/2025 10:5 0 AM EDT 02/07/2025 10:51 AM EDT us Generic External Data Provider LAB BLOOD ORDERAB LES Final Result [facility] [address] [place] [phone] * (ABNORMAL) ~PT, ~INR - ANTI COAG CLINIC (02/07/2025 10:50 AM EDT) Only the most recent of3 resultswithin the time period is included. Prothrombin Time INR 2.8(H) 0.9 - 1.1 [facility] Comment:METER #: [id number] TERNATIONAL NORMALIZED RATIO (INR) REFERENCE RANGES Reference [...] 0 AM EDT 02/07/2025 10:51 AM EDT Generic External Data Provider LAB BLOOD ORDERAB LES Final Result [facility] [address] [place] [phone] * (ABNORMAL) POCT A1C (12/10/2023 11:43 AM EST) Hemoglobin A1C 10.9(A) 4.0 - 6.0 % Comment:controls valid QC Media Lot # Comment:[id number] Lot# Expiration Date Comment:07/19/2025 Blood 12/10/2023 11:4 3 AM EST us Candy [facility] POINT OF CARE TEST ENTER/EDIT OR DERABLES [...] ?? LDL-C is now calculated using the Bill-Keenan ?? calculation, which is a validated novel method providing ?? better accuracy than the Friedewald equation in the ?? estimation of LDL-C. ?? Bill VARGAS et al. FILOMENA. 2013;310(19): 3203-6049 ?? (http://education.Echodio.Browns-Hall Gardner/faq/OVK614) Non-HDL Cholesterol 166(H) <130 mg/dL (calc) [facility] Comment: For patients with diabetes plus 1 major ASCVD risk ?? factor, treating to a non-HDL-C goal of <100 mg/dL ?? (LDL-C of <70 mg/dL) is considered a therapeutic ?? option. Triglycerides 183(H) <150 mg/dL [facility] 03/05/2021 9:50 AM EDT [facility] Ocampo [facility] LAB BLOOD ORDERABLES Final Resul t [facility] [address] from Last 3 Months or Most Recently Relevant to Health Maintenance Insurance AET MEDICARE REPLACEMENT Care Teams Hose Maker Relationship Specialty Start Date End Date Candy Ocampo ANP [address] [place] [address] PCP - General Family Medicine 12/06/19
--- OUTSIDE RECORDS SUMMARY | 2025-02-07 12:20 | XMS_ITS | Clinical Summary ---
Author Organization [facility] Address [address] [facility] [address] [place] [address] Phone Care Team Providers Care Mold Hoister Name Role Phone Candy Ocampo NP Primary Care Provider [phone] Allergies No known active allergies Medications sertraline [...] Hemoglobin A1C 03/09/2024 024, 12/14/2019 Influenza Vaccine (Season Ended) 2025 12/10/2023, 09/29/2022 Pneumococcal Vaccine: 65+ Years Completed 12/10/2023, [...] % [facility] 12/14/2019 us [facility] Conversion LAB [id number] LICITED RESULTS Final Result [facility] from Last 3 Months or Most Recently Relevant to Health Maintenance Insurance MEDICARE MEDICARE Care Teams Mold Hoister Relationship Specialty Start Date End Date Candy Ocampo NP PCP - General Nurse Practitioner 04/11/21
--- OUTSIDE RECORDS SUMMARY | 2025-02-07 12:20 | XMS_ITS | Encounter Summary ---
Author Organization [employer] [facility] Address [address] [facility] 7t [place] [address] Care Team Providers Care Lending Consultant Name Role Phone Candy Ocampo Primary Care Provider [phone] Encounter Details Date Type Department Care Team (Late st Contact Info) Description 12/28/[address] [facility] MEDICINE [address] [place] [phone] Kasandra Moreland RN Social History Tobacco Use [...] Description 03/09/2025 11:15 AM EDT Office Visit [facility] MEDICINE [address] [place] [phone] Candy Ocampo ANP [address] [place] [address] documented as of this encounter Visit Diagnoses Not on filedocumented in this encounter Care Teams Lending Consultant Relationship Specialty Start Date End Date Candy Ocampo ANP [address] [place] [phone] PCP - General Family Medicine 12/06/19 documented as of this encounter
--- OUTSIDE RECORDS SUMMARY | 2025-02-07 12:20 | XMS_ITS | Encounter Summary ---
Author Organization [employer] [facility] Address [address] [facility] 7t [place] [address] Care Team Providers Care Printer Slotter Feeder Name Role Phone Candy Ocampo Primary Care Provider [phone] Reason for Visit * Reason Comments Med Refill Encounter Details Date Type Department Care Team (Late st Contact Info) Description 04/23/2024 Refill [facility] MEDICINE [address] [place] [address] [phone] Candy Ocampo ANP [address] [place], [place] [phone] Social History Tobacco Use Types Packs/Day Years [...] Description 03/09/2025 11:15 AM EDT Office Visit [facility] MEDICINE [address] [place] [phone] Candy Ocampo ANP [address] [place] [address] documented as of this encounter Visit Diagnoses Not on filedocumented in this encounter Care Teams Printer Slotter Feeder Relationship Specialty Start Date End Date Candy Ocampo ANP [address] [place] [address] PCP - General Family Medicine 12/06/19 documented as of this encounter
--- OUTSIDE RECORDS SUMMARY | 2025-02-07 12:20 | XMS_ITS | Encounter Summary ---
Author Organization [employer] [facility] Address [address] [facility] [address] [address] [place] [address] Care Team Providers Care Social Worker Masters Name Role Phone Candy Ocampo Primary Care Provider [phone] Reason for Visit * Reason Comments Med Refill Encounter Details Date Type Department Care Team (Late st Contact Info) Description 2025 Refill [facility] MEDICINE [address] [place] [address] [phone] Candy Ocampo ANP [address] [place], [place] [phone] Type 2 diabetes mellitus with stage 4 chronic kidney disease, with long-term current use of insulin ([facility]) Social History Tobacco Use Types Packs/Day Years [...] 03/09/2025 11:15 AM EDT Office Visit [facility] MEDICINE [address] [place] [address] [phone] Candy Ocampo ANP [address] [place], [place] [phone] documented as of this encounter Visit Diagnoses Diagnosis Type 2 diabetes mellitus with stage 4 chronic kidney disease, with long-term current use of insulin ([facility]) documented in this encounter Care Teams Social Worker Masters Relationship Specialty Start Date End Date Candy Ocampo ANP [address] [place] [address] PCP - General Family Medicine 12/06/19 documented as of this encounter
--- OUTSIDE RECORDS SUMMARY | 2025-02-07 12:20 | XMS_ITS | Encounter Summary ---
Author Organization [employer] [facility] Address [address] [facility] 7t [place] [address] Care Team Providers Care Commercial Mortgage Broker Name Role Phone Candy Ocampo Primary Care Provider [phone] Reason for Visit * Reason Comments Med Refill Encounter Details Date Type Department Care Team (Late st Contact Info) Description 04/15/2023 Refill [facility] MEDICINE [address] [place] [address] [phone] Candy Ocampo ANP [address] [place], [place] [phone] Social History Tobacco Use Types Packs/Day Years [...] Description 03/09/2025 11:15 AM EDT Office Visit [facility] MEDICINE [address] [place] [address] [phone] Candy Ocampo ANP [address] [place] [address] documented as of this encounter Visit Diagnoses Not on filedocumented in this encounter Care Teams Commercial Mortgage Broker Relationship Specialty Start Date End Date Candy Ocampo ANP [address] [place] [address] PCP - General Family Medicine 12/06/19 documented as of this encounter
== END 2025-02-07 10:57 | disposition home or self-care (01) ==
LOC: HO.ACS 10:42
PROVIDERS: PCP Nurse Practitioner Primary Care; Visit Provider Internal Medicine Medical Oncology
DX: Z79.01 Long term (current) use of anticoagulants (principal)

== ENCOUNTER → 2025-02-07 10:42 | Outpatient (BNVA) | payer MEDICARE, SELFPAY | PROVIDERS: PCP Nurse Practitioner Primary Care; Visit Provider Internal Medicine Medical Oncology | DX: Z86.73 Personal history of transient ischemic attack (TIA), and cerebral infarction without residual deficits (principal); Z51.81 Encounter for therapeutic drug level monitoring; Z79.01 Long term (current) use of anticoagulants | CPT/HCPCS: 85610; 99211 ==

== ENCOUNTER 2025-04-10 14:40 | Outpatient (AMB) | payer MEDICARE, SELFPAY ==
[2025-04-10 14:47] VITALS: BP 82/60; PULSE 67; O2SAT 98; BMI 21.0
--- NOTE | 2025-04-10 14:47 | HO.NEPHOV ---
Vital Signs 04/10/25 14:47 Height 4 ft 11 in Weight 104 lb BMI 21.0 BP 82/60 L Blood Pressure Location Lt brachial Position Sitting Pulse 67 Pulse Source Pulse Oximeter Pulse Oximetry (%) 98 Oxygen Delivery Method Room Air Intake Visit Reasons: ENP: CKD STG4/ Conf Housekeeping/Laundry Supervisor Required: No Accompanied by: Son Allergies No Known Allergies [No Known Allergies*] Allergy (Verified 04/10/25 14:50) Medication List - Last Reconciled 04/10/25 by Alexandr Sepulveda MD amlodipine 5 mg PO DAILY@1200 aspirin 81 mg PO DAILY atorvastatin 80 mg PO DAILY blood sugar diagnostic (FreeStyle Lite Strips) As directed cholecalciferol (vitamin D3) 25 mcg PO DAILY insulin aspart U-100 (Novolog FlexPen U-100 Insulin aspart) subcut insulin degludec (Tresiba FlexTouch U-100 insulin) 10 units subcut DAILY lancets (TRUEplus Lancets) As directed lidocaine 5% (Lidoderm) 1 patch topical DAILY PRN linagliptin (Tradjenta) 5 mg PO DAILY melatonin 5 mg PO BEDTIME metoprolol succinate ER 50 mg PO BID pantoprazole 40 mg PO DAILY pen needle, diabetic (Pentips Pen Needle) As directed sennosides (senna) 17.2 mg PO BEDTIME PRN sertraline 50 mg PO DAILY terbinafine HCl mg PO warfarin See Protocol 2 mg orally 4mg x 3 DAYS , 2MG X 4 DAYS; HPI Comments Details: The patient is an 85-year-old female presenting with declining kidney function. Her chronic kidney disease was identified in December of 2019 with kidney function assessed at 16-20%. Despite this decline, her kidney function has remained stable as of the last available testing in March 2024. H/o type 2 diabetes mellitus, which is managed and has shown decent control per recent evaluations. Additionally, she suffers from hypertension managed with medications including amlodipine, although she occasionally experiences low blood pressure episodes. Her cardiovascular history is significant for prior cerebrovascular accidents and a myocardial infarction, which led to coronary artery bypass grafting years ago. Accompanied by her son [facility] Medical History Abnormal SPEP CVA (cerebral vascular accident) CAD (coronary artery disease) Depression HTN (hypertension) HLD (hyperlipidemia) CKD (chronic kidney disease) stage 4, GFR 15-29 ml/min Vitamin D deficiency Osteoporosis T2DM (type 2 diabetes mellitus) Surgical History History of coronary artery bypass graft History of open heart surgery Hx of knee surgery Family History Father Medical history unknown Mother Diabetes mellitus Osteoporosis Other No family history of cancer Social History Household Members: Family Housing: Other Housing Other:: lives with son, PVTA, ofered [facility] transportation , spouse Are you a primary respite care provider to a significant other at home: No Do you presently have visiting nurse or other home services: No Alcohol intake: former Patient Tobacco Use Status: Never used Tobacco service: No Current occupational status: retired Current occupational exposures/hazards: No Review of Systems Const Denies fever(s) and Denies weight loss Card Denies chest pain Resp Denies cough and Denies hemoptysis GI Denies abdominal pain, Denies diarrhea and Denies nausea Musc Denies back pain Neuro Denies focal weakness Physical Exam Vital Signs: Last Vital Signs Pulse 67 04/10/25 14:47 BP 82/60 L 04/10/25 14:47 Pulse Ox 98 04/10/25 14:47 Oxygen Delivery Method Room Air 04/10/25 14:47 BMI result Body Mass Index 21.0 Const General: comfortable Nutritional Appearance: well nourished Orientation/consciousness: patient oriented x3 HEENT Head: No normal to inspection Mouth: moist mucous membranes Neck Neck: Yes supple and Yes no JVD Resp Auscultation: clear to auscultation bilaterally and no rales Cardio Jugular venous distension: no JVD Palpation: no palpable S3 and no palpable S4 Heart sounds: no rubs GI Palpation (GI): Soft to palpation and nontender Percussion: No Fluid wave present General: Yes no CVA tenderness Back/Spine/Pelvis Back: no CVA tenderness Skin General skin exam: no rashes or lesions noted Neuro General: patient oriented x3 Extrem General: Yes no pedal edema and No clubbing Results Reviewed Results Reviewed: Labs from March 2024 noted Nephrology Results: No Data to Display Assessment & Plan Assessment & Plan (1) CKD (chronic kidney disease): Code(s): N18.9 - Chronic kidney disease, unspecified Category: Medical (2) CVA (cerebral vascular accident): Code(s): I63.9 - Cerebral infarction, unspecified Category: Medical Plan Gwendolyn has chronic kidney disease in the setting of longstanding hypertension diabetes mellitus Back in 2019 serum creatinine was 2.0. Over the last 5 years serum creatinine has been this relatively stable. The most recent serum creatinine was from March 2024 which was around 2.1 mg/dL. 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 No evidence of any obstructive uropathy based on clinical history. No clinical evidence of any active glomerular nephritis or interstitial disease at this time. I have initiated a workup for CKD including renal ultrasonogram and urine studies including urine protein creatinine ratio. Check renal panel along with intact PTH. Screen for anemia. Goal is to slow the progression of renal disease. Maintain blood pressure less than 130/80 Maintain A1c less than 7%. Continue to avoid nephrotoxic agents including NSAIDs. The blood pressure is rather low today. She is asymptomatic. If the systolic blood pressure remains less than 90 mm Hg I would cut back on amlodipine. If she has significant proteinuria I would consider adding an BRODY inhibitor and titrate as needed. She would also benefit from an SGLT2 inhibitor. She will returned to the office once the baseline workup is completed. I will keep you updated with her progress. Orders: Orders Parathyroid Hormone Intact Today N18.9 - Chronic kidney disease, unspecified Creatinine Urine Today N18.9 - Chronic kidney disease, unspecified UA and rflx microscopic Today N18.9 - Chronic kidney disease, unspecified Total Protein Urine Random Today N18.9 - Chronic kidney disease, unspecified Complete Blood Count no Diff Today N18.9 - Chronic kidney disease, unspecified Comprehensive Met. Panel Today N18.9 - Chronic kidney disease, unspecified US renal BI Today N18.9 - Chronic kidney disease, unspecified Coding Level of Care Code New Pt Level 4 (03051) Diagnoses CKD (chronic kidney disease) N18.9 CVA (cerebral vascular accident) I63.9
--- OUTSIDE RECORDS SUMMARY | 2025-04-10 17:38 | XMS_ITS | Encounter Summary ---
Author Organization [employer] [facility] Address [address] [facility] 7t [place] [address] Care Team Providers Care Advisory Application Developer Name Role Phone Candy Ocampo Primary Care Provider [phone] Reason for Visit * Reason Comments Med Refill Encounter Details Date Type Department Care Team (Late st Contact Info) Description 04/23/2024 Refill [facility] MEDICINE [address] [place], [place] [phone] Candy Ocampo ANP [address] [place], [place] [phone] Social History Tobacco Use Types Packs/Day Years [...] Care Team (Late st Contact Info) Description 06/25/2025 11:00 AM EDT Office Visit [facility] MEDICINE [address] [place] [phone] Candy Ocampo ANP [address] [place] [address] documented as of this encounter Visit Diagnoses Not on filedocumented in this encounter Care Teams Advisory Application Developer Relationship Specialty Start Date End Date Candy Ocampo ANP [address] [place] [address], [place] [phone] PCP - General Family Medicine 12/06/19 documented as of this encounter
== END 2025-04-10 15:06 | disposition home or self-care (01) ==
LOC: HO.HKA 14:40
PROVIDERS: PCP Nurse Practitioner Primary Care; Referring Provider Nurse Practitioner Primary Care; Visit Provider Internal Medicine Hypertension Specialist
DX: N18.9 Chronic kidney disease, unspecified (principal); I63.9 Cerebral infarction, unspecified
CPT/HCPCS: 99204

== ENCOUNTER → 2025-04-10 14:40 | Outpatient (BNVA) | payer MEDICARE, SELFPAY | PROVIDERS: PCP Nurse Practitioner Primary Care; Referring Provider Nurse Practitioner Primary Care; Visit Provider Internal Medicine Hypertension Specialist | DX: I10 Essential (primary) hypertension (principal); I63.9 Cerebral infarction, unspecified; N18.9 Chronic kidney disease, unspecified; E11.9 Type 2 diabetes mellitus without complications | CPT/HCPCS: 99202 ==

== ENCOUNTER 2025-04-18 | Outpatient (REF) | payer MEDICARE, SELFPAY ==
--- OUTSIDE RECORDS SUMMARY | 2025-05-01 10:00 | XMS_ITS | Encounter Summary ---
Author Organization [facility] [facility] Address [address] 7[address] [place] [address] Care Team Providers Care Director Insurance Name Role Phone Candy Ocampo Primary Care Provider [phone] Reason for Visit * Reason Comments Med Refill Encounter Details Date Type Department Care Team (Late st Contact Info) Description 04/23/2024 Refill [facility] MEDICINE [address] [place], [place] [phone] Candy Ocampo ANP [address] [place], [place] [phone] Social History Tobacco Use Types Packs/Day Years [...] Description 06/25/2025 11:00 AM EDT Office Visit [facility] MEDICINE [address] [place] [phone] Candy Ocampo ANP [address] [place] [address] documented as of this encounter Visit Diagnoses Not on filedocumented in this encounter Care Teams Director Insurance Relationship Specialty Start Date End Date Candy Ocampo ANP [address] [place] [address], [place] [address] PCP - General Family Medicine 12/06/19 documented as of this encounter
--- OUTSIDE RECORDS SUMMARY | 2025-05-01 10:01 | XMS_ITS | Clinical Summary ---
Author Organization [facility] [address] [place] [address] Care Team Providers Care Personnel Officer Name Role Phone Unavailable Primary Care Provider [...] Documents on File Type Date Recorded Patient Hoister Expl anation Health Care Decision (hx) 12/10/2022 HE ALTH CARE PROXY Health Care Decision (hx) 12/10/2022 HE ALTH CARE PROXY
--- OUTSIDE RECORDS SUMMARY | 2025-05-01 10:01 | XMS_ITS | Clinical Summary ---
Author Organization [facility] Address [address] [facility] [address] [place] [address] Phone Care Team Providers Care Engraver Copperplate Name Role Phone Candy Ocampo NP Primary Care Provider [phone] Allergies No known active allergies Medications sertraline [...] (Season Ended) 2025 12/10/2023, 09/29/2022 Pneumococcal Vaccine: 50+ Years Completed 12/10/2023, 09/17/2021, 12/06/2019 Pneumococcal Vaccine: Peds ( 0 to 5 Years) and At-Risk Patients (6 to 49 Years) Discontinued 12/10/2023, 09/17/2021, 12/06/2019 Hepatitis B Vaccine Aged [...] % PVNMA 12/14/2019 us [facility] Conversion LAB [id number] LICITED RESULTS Final Result PVNMA from Last 3 Months or Most Recently Relevant to Health [place] [id number] Medicare Care Teams Engraver Copperplate Relationship Specialty Start Date End Date Candy Ocampo NP PCP - General Nurse Practitioner 04/11/21
== END 2025-04-18 00:01 | disposition home or self-care (01) ==
LOC: CF
PROVIDERS: PCP Nurse Practitioner Primary Care; Visit Provider Internal Medicine Medical Oncology
DX: I51.3 Intracardiac thrombosis, not elsewhere classified (principal); I69.30 Unspecified sequelae of cerebral infarction
CPT/HCPCS: 85610; 99211

== ENCOUNTER 2025-04-18 11:00 | Outpatient (AMB) | payer MEDICARE, SELFPAY ==
--- NOTE | 2025-04-18 11:17 | MHC.OFFVISCO ---
Intake Intake Visit Reasons: Anticoagulation Allergies No Known Allergies (No Known Allergies*) Allergy (Verified 04/18/25 11:10) Medication List - Last Reconciled 04/18/25 by Rosalia [place] RN amlodipine 5 mg PO DAILY@1200 aspirin 81 mg PO DAILY atorvastatin 80 mg PO DAILY blood sugar diagnostic (FreeStyle Lite Strips) As directed cholecalciferol (vitamin D3) 25 mcg PO DAILY insulin aspart U-100 (Novolog FlexPen U-100 Insulin aspart) subcut insulin degludec (Tresiba FlexTouch U-100 insulin) 10 units subcut DAILY lancets (TRUEplus Lancets) As directed lidocaine 5% (Lidoderm) 1 patch topical DAILY PRN linagliptin (Tradjenta) 5 mg PO DAILY melatonin 5 mg PO BEDTIME metoprolol succinate ER 50 mg PO BID pantoprazole 40 mg PO DAILY pen needle, diabetic (Pentips Pen Needle) As directed sennosides (senna) 17.2 mg PO BEDTIME PRN sertraline 50 mg PO DAILY terbinafine HCl mg PO warfarin See Protocol 2 mg orally 4mg x 3 DAYS , 2MG X 4 DAYS; Nursing Note INR 3.1-? out of therapeutic range 2-3 Medications and supplements reviewed Patient status: pt last acs visit 02/07/25- discussed importance of inr monitoring Medications or supplements: glipizide d/c approx one month ago Diet: appetite is good Denies any signs and symptoms of bleeding or clotting or unusual bruising Bleeding, bruising, clotting discussed Nutritional guidance given: eat a green today Dose: cont reg dosing 4mg x 3, 2mg x 4 F/U INR Date : 2 weeks Patient verbalizing understanding of instructions given. pt son present for acs visit Anti-Coag Initial Assessment Social Hx Patient Tobacco Use Status: Never used Tobacco alcohol intake: former Alcohol intake frequency: does not drink Cardiovascular Hx: HTN, Rheumatic Fever (possible as child - will need to further assessment ) and Other (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 r/t blood sugar) and Stroke/TIA (cva x 2 (3 years) Nov 2022 - had covid vaccine) Cancer HX: No Psych. Illness/Depression: No Coding Level of Care Code Est Patient Level 1 Diagnoses Current use of anticoagulant therapy Z79.01 Assessment & Plan Assessment & Plan (1) Current use of anticoagulant therapy: Code(s): Z79.01 - superintendent container terminal (current) use of 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
[2025-04-18 11:18] LABS: Prothrombin Time Whole Bld POC 36.8 sec (11.1-13.5); ~PT, ~INR - Anti Coag Clinic 3.1 (0.9-1.1)
== END 2025-04-18 11:29 | disposition home or self-care (01) ==
LOC: HO.ACS 11:00
PROVIDERS: PCP Nurse Practitioner Primary Care; Visit Provider Internal Medicine Medical Oncology
DX: Z79.01 Long term (current) use of anticoagulants (principal)

== ENCOUNTER → 2025-05-17 09:37 | Outpatient (REF) | payer MEDICARE, SELFPAY ==
--- NOTE | 2025-05-17 09:45 | CA_ITS ---
Transthoracic Echocardiogram Patient (Last, First, Middle): Gwendolyn Maher, Gender: Female Date of : 1940 Age: 85 Procedure Date: 05/17/2025 Procedure Type: Transthoracic Echocardiogram Location: OP Height: 149.86 cm Weight: 47.63 kg BSA: 1.40 m2 Heart Rate: 65 bpm BP: 82 / 60 mmHg Flask Cleaner: SB Referring MD: Candy Ocampo NP Symptoms: HX CVA W RESIDUAL EFFECT I69.30 LVENT THROMBUS I51.3 Study Quality: Fair ECG Rhythm: Sinus Conclusions: - The left ventricular systolic function is normal. The visually estimated ejection fraction is between 65-70%. 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 Possible small old thrombus. Findings Procedure Information Contrast agent, definity, is being given per protocol without apparent complications. Left Ventricle Normal left ventricular cavity size. The left ventricular systolic function is normal. The visually estimated ejection fraction is between 65-70%. There is evidence of regional wall motion abnormalities. Diastolic function is normal for age. There is mild septal asymmetric hypertrophy. Small echodensity at the apex which could indicate an old thrombus. 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 Right Ventricle Normal right ventricular cavity size. There is moderately decreased right ventricular systolic function. Atria Both atria are normal in size. Aortic Valve There is mild calcification of the aortic valve. There is no aortic valve stenosis. There is no aortic valve regurgitation. Mitral Valve There is no mitral valve regurgitation. There is no mitral valve stenosis. Pulmonic Valve The pulmonic valve is likely normal. Tricuspid Valve There is mild tricuspid valve regurgitation. There is no evidence of pulmonary hypertension. Great Vessels The asc aorta is normal in size. Venous The inferior vena cava is normal in size and collapses greater than 50% with inspiration. Pericardium/Pleural There is no evidence of pericardial effusion. Prior Study Comparison Changes noted compared to prior study dated: 12/08/2022. Apical thrombus much less prominent. Recommendations, Care & Conclusions No obvious valvular pathology seen on this study. Measurements 2D Linear Measurements IVSd: 1.15 0.6-0.9/0.6-1.0 cm LVIDd: 3.43 3.9-5.3/4.2-5.9 cm LVIDd Index: 2.45 2.4-3.2/2.2-3.1 cm/m2 LVIDs: 2.35 2.0-3.6 cm LVPWd: 0.90 0.7-1.1 cm LA Diam: 3.40 2.7-3.8/3.0-4.0 cm LAIDs Index: 2.43 1.5-2.3 cm/m2 LV Mass: 129.56 67-162/88-224 g LV Mass Index: 92.54 43-95/49-115 g/m2 LVOT Diam: 1.90 3.0+(-)1.3 cm 2D Systolic Function EF 4C: 70.90 >55% EF 2C: 65.80 >55% EF BiP: 70.50 >55% Mitral Valve MV Pk E: 0.46 MV PK A: 1.11 MV Decel Time: 273.00 E/A: 0.40 E'Lateral: 4.43 E'Medial: 2.70 E/E' Med: 17.10 E/E' Lat: 10.50 PHT: 80.00 MVA PHT: 2.75 Decel [place]: 1.70 Aortic Valve AoV Pk Paul: 1.07 AoV Pk Grad: 5.00 ROCCO: 2.02 LVOT LVOT Pk Paul: 0.77 LVOT Mn Paul: 0.53 LVOT VTI: 0.18 LVOT Pk Grad: 2.00 LVOT Mn Grad: 1.00 LVOT Diam: 1.90 LVOT Area: 2.84 Diastolic Function MV Pk E: 0.46 MV Pk A: 1.11 E/A: 0.40 E'Medial: 2.70 E/E' Med: 17.10 E' Laterial: 4.43 E/E' Lat: 10.50 Right Ventricle TAPSE (mm): 11.70 TVS' Paul: 5.70 Tricuspid Valve TR Pk Paul: 1.97 TR Pk Grad: 16.00 RA Press: 3.00 RVSP: 19.00 Great Vessels Aorta Sinus of Valsalva: 2.70 2.0-3.5 cm Ao Asc: 2.50 2.1-3.4 cm Pulmonary Valve PV Pk Paul: 0.63 Peak PV Grad: 2.00 Updated in Other Vendor System with Status of Final Alejandro Kaiser MD electronically signed on 05/18/2025 4:02:34 PM with status of Final
--- OUTSIDE RECORDS SUMMARY | 2025-05-17 09:54 | XMS_ITS | Encounter Summary ---
Author Organization [facility] Address [address] [place] [address] Care Team Providers Care Plant Chief Name Role Phone Candy Ocampo Primary Care Provider [phone] Reason for Visit * Reason Comments Med Refill Encounter Details Date Type Department Care Team (Late st Contact Info) Description 04/23/[address] [facility] MEDICINE [address] [place], [place] [phone] Candy Ocampo ANP [address] [place], [place] [phone] Social History Tobacco Use Types Packs/Day Years [...] Description 06/25/2025 11:00 AM EDT Office Visit [facility] MEDICINE [address] [place] [address] Candy Ocampo ANP [address] [place] [address] documented as of this encounter Visit Diagnoses Not on filedocumented in this encounter Care Teams Plant Chief Relationship Specialty Start Date End Date Candy Ocampo ANP [address] [place] [address], [place] [address] PCP - General Family Medicine 12/06/19 documented as of this encounter
--- OUTSIDE RECORDS SUMMARY | 2025-05-17 09:55 | XMS_ITS | Clinical Summary ---
Author Organization [facility] Address [address] [facility] [address] [place] [address] Phone Care Team Providers Care Repairer Engine Production Name Role Phone Candy Ocampo NP Primary Care Provider [phone] Allergies No known active allergies Medications sertraline [...] A1C 03/09/2024 024, 12/14/2019 Influenza Vaccine (#1) 2025 4, 09/29/2022 Pneumococcal Vaccine: 50+ Years Completed 12/10/2023, [...] % PVNMA 12/14/2019 us Rtama Conversion LAB [id number] LICITED RESULTS Final Result PVNMA from Last 3 Months or Most Recently Relevant to Health [place] [id number] Medicare Care Teams Repairer Engine Production Relationship Specialty Start Date End Date Candy Ocampo NP PCP - General Nurse Practitioner 04/11/21
--- OUTSIDE RECORDS SUMMARY | 2025-05-17 09:55 | XMS_ITS | Clinical Summary ---
Author Organization [facility] Address [address] [place] [address] Care Team Providers Care Support Staff Name Role Phone Unavailable Primary Care Provider [...] 2023-2 5 season) 2024 Influenza Vaccine (#1) 2025 HIB Vaccines Aged Out No longer [...] Documents on File Type Date Recorded Patient Radar Tester Expl anation Health Care Decision (hx) 12/10/2022 HE ALTH CARE PROXY Health Care Decision (hx) 12/10/2022 HE ALTH CARE PROXY
== END ==
LOC: HO.CARD 09:37
PROVIDERS: PCP Nurse Practitioner Primary Care; Visit Provider Nurse Practitioner Primary Care
DX: I69.30 Unspecified sequelae of cerebral infarction (principal); I51.3 Intracardiac thrombosis, not elsewhere classified
CPT/HCPCS: 93306; Q9957

== ENCOUNTER → 2025-05-17 09:45 | Outpatient (BNV) | payer MEDICARE, SELFPAY | PROVIDERS: PCP Nurse Practitioner Primary Care; Visit Provider Internal Medicine | DX: I42.2 Other hypertrophic cardiomyopathy (principal); I35.8 Other nonrheumatic aortic valve disorders; I51.3 Intracardiac thrombosis, not elsewhere classified | CPT/HCPCS: 93306 ==

== ENCOUNTER 2025-07-20 09:19 | Outpatient (AMB) | payer MEDICARE, SELFPAY ==
--- NOTE | 2025-07-20 09:24 | MHC.OFFVISCO ---
Intake Intake Visit Reasons: Anticoagulation Allergies No Known Allergies (No Known Allergies*) Allergy (Verified 07/20/25 09:19) Medication List - Last Reconciled 07/20/25 by Olive Newell RN amlodipine 5 mg PO DAILY@1200 aspirin 81 mg PO DAILY atorvastatin 80 mg PO DAILY blood sugar diagnostic (FreeStyle Lite Strips) As directed cholecalciferol (vitamin D3) 25 mcg PO DAILY insulin aspart U-100 (Novolog FlexPen U-100 Insulin aspart) subcut insulin degludec (Tresiba FlexTouch U-100 insulin) 10 units subcut DAILY lancets (TRUEplus Lancets) As directed lidocaine 5% (Lidoderm) 1 patch topical DAILY PRN linagliptin (Tradjenta) 5 mg PO DAILY melatonin 5 mg PO BEDTIME metoprolol succinate ER 50 mg PO BID pantoprazole 40 mg PO DAILY pen needle, diabetic (Pentips Pen Needle) As directed sennosides (senna) 17.2 mg PO BEDTIME PRN sertraline 50 mg PO DAILY terbinafine HCl mg PO warfarin See Protocol 2 mg orally 4mg x 3 DAYS , 2MG X 4 DAYS; Nursing Note Pt to ACS accompanied by son. Has not been seen in ACS since 04/18/25. INR: 2.5 in therapeutic range 2-3 Medications and supplements reviewed No changes in health, diet, medications, or supplements, Denies any signs and symptoms of bleeding or bruising or clotting. Bleeding, bruising, clotting discussed Nutritional guidance given Dose: 2mg X 4 days and4mg X 3 days (//) F/U INR: 2 weeks Patient verbalizes understanding of instructions given Anti-Coag Initial Assessment Social Hx Patient Tobacco Use Status: Never used Tobacco alcohol intake: former Alcohol intake frequency: does not drink Cardiovascular Hx: HTN, Rheumatic Fever (possible as child - will need to further assessment ) and Other (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 r/t blood sugar) and Stroke/TIA (cva x 2 (3 years) Nov 2022 - had covid vaccine) Cancer HX: No Psych. Illness/Depression: No Questionnaires HAS-BLED Does the patient had uncontrolled Hypertension?: No Does the patient have renal disease?: Yes Does the patient have liver disease?: No Does the patient have a history of stroke?: Yes Has the patient had major bleeding or predisposition to bleeding?: No Does the patient have labile INRs?: No Is the patient over 65 years of age?: Yes Is the patient on medications that gives them a predisposition to bleeding?: Yes Does the patient use alcohol?: No HAS-BLED Score: 4 CHADSVASC Age: 75 or over Gender: Female Does the patient have a history of CHF?: No Does the patient have a history of Hypertension?: Yes Does the patient have a history of Stroke/TIA/Thromboembolism?: Yes Does the patient have a history of Vascular Disease (prior CA, PAD or aortic plaque)?: Yes Does the patient have a history of Diabetes?: Yes CHADS VACS Score: 8 Tony Prediction Score Rsk VTE Active Cancer: No Previous VTE, excluding superficial vein thrombosis: No Reduced mobility: Yes Already known Thrombophilic Condition: No With-in last month Trauma and/or Surgery: No Elderly 70 year or older: Yes Heart and/or Respiratory Failure: No Acute Myocardial infarction and/or Ischemic Stroke: Yes Acute Infection and/or Rheumatologic Disorder: No Obesity (BMI 30 or greater): No Ongoing Hormonal Treatment: No Score: 5 Tony Score less than 4; Low Risk of VTE Tony Score 4 or greater; High Risk of VTE Coding Level of Care Code Est Patient Level 1 Diagnoses Current use of anticoagulant therapy Z79.01 Assessment & Plan Assessment & Plan (1) Current use of anticoagulant therapy: Code(s): Z79.01 - 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
[2025-07-20 09:31] LABS: Prothrombin Time Whole Bld POC 29.7 sec (11.1-13.5); ~PT, ~INR - Anti Coag Clinic 2.5 (0.9-1.1)
--- OUTSIDE RECORDS SUMMARY | 2025-07-20 09:53 | XMS_ITS | Encounter Summary ---
Author Organization [employer] Address [address] [facility] 7t [place] [address] Care Team Providers Care Film Mounter Name Role Phone Candy Ocampo Primary Care Provider Alexandr Sepulveda MD Unavailable [phone] Reason for Visit * Reason Comments Med Refill Encounter Details Date Type Department Care Team (Late st Contact Info) Description 04/15/2023 Refill [facility] MEDICINE [address] [place], [place] [phone] Candy Ocampo ANP [address] [place] [address] Social History Tobacco Use Types Packs/Day Years [...] Care Team (Late st Contact Info) Description 08/24/2025 9:30 AM EDT Office Visit [facility]IC[facility] [address] [place] [address] [place] [address] Candy Ocampo ANP [address] [place] [address] documented as of this encounter Visit Diagnoses Not on filedocumented in this encounter Care Teams Film Mounter Relationship Specialty Start Date End Date Candy Ocampo ANP [address] [place] [address] PCP - General Family Medicine 12/06/19 Alexandr Sepulveda MD [address] [place] [address] Drive [address] [place] [address] Nephrology 06/25/25 documented as of this encounter
--- OUTSIDE RECORDS SUMMARY | 2025-07-20 09:53 | XMS_ITS | Encounter Summary ---
Author Organization [employer] [facility] Address [address] [facility] 7t [place] [address] Care Team Providers Care Bisque Kiln Placer Name Role Phone Candy Ocampo Primary Care Provider [phone] Alexandr Sepulveda MD Unavailable [phone] Reason for Visit * Reason Comments Med Refill Encounter Details Date Type Department Care Team (Late st Contact Info) Description 04/23/2024 Refill [facility] MEDICINE [address] [place], [place] [phone] Candy Ocampo ANP [address] [place] [address] Social History Tobacco Use Types Packs/Day Years [...] Description 08/24/2025 9:30 AM EDT Office Visit [facility] MEDICINE [address] [place], [place] [phone] Candy Ocampo ANP [address] [place] [address] documented as of this encounter Visit Diagnoses Not on filedocumented in this encounter Care Teams Bisque Kiln Placer Relationship Specialty Start Date End Date Candy Ocampo ANP [address] [place] [address] PCP - General Family Medicine 12/06/19 Alexandr Sepulveda MD [address] [place] [address] Drive [address] [place] [address] Nephrology 06/25/25 documented as of this encounter
--- OUTSIDE RECORDS SUMMARY | 2025-07-20 09:53 | XMS_ITS | Clinical Summary ---
Author Organization [employer] Address [address] [facility] [address] [place] [address] Care Team Providers Care Network Architect Manager Name Role Phone Damaris Candy SIERRA Primary Care Provider [phone] Alexandr Sepulveda MD Unavailable Allergies No known active allergies Medications acetaminophen (Tylenol 8 Hour) 650 MG ER tablet Take 1 tablet by mouth Every 6-8 hours as needed. 020 Active calcitriol (Rocaltrol) 0.25 MCG capsule Take 1 capsule by mouth every other day. 023 Active FREESTYLE LITE test stripIndications :Type 2 diabetes mellitus with stage 3 chronic kidney disease, with long-term current use of insulin, unspecified whether stage 3a or 3b CKD ([facility]) TEST BLOOD SUGAR 3 TIMES A DAY 100 strip 11 023 Active TRUEplus Lancets 33G miscIndications: Type 2 diabetes mellitus with stage 3 chronic kidney disease, with long-term current use of insulin, unspecified whether stage 3a or 3b CKD ([facility]) TEST BLOOD SUGAR THREE TIMES DAILY 100 [...] for constipation 30 packet 1 023 Active cholecalciferol (Vitamin D-3) 25 MCG tablet TAKE 1 TABLET BY MOUTH EVERY MORNING 90 tablet 3 024 Active BD Pen Needle Marisa U/F 32G X 4 MM miscIndications: Type 2 diabetes mellitus with hyperlipidemia (CMS/HCC) ([facility]) USE DIRECTED WITH INSULIN 100 each 5 024 Active metoprolol succinate XL (Toprol-XL) 50 MG 24 hr tablet TAKE 1 TABLET BY MOUTH EVERY MORNING 90 tablet 2 025 Active melatonin 5 MG tabletIndication s:Insomnia, unspecified type TAKE 1 TABLET BY MOUTH AT BEDTIME 90 tablet 2 025 Active senna (Senokot) 8.6 MG tablet TAKE 2 TABLETS BY MOUTH EVERY DAY AT BEDTIME 180 tablet 025 Active docusate sodium (Colace) 100 MG capsule TAKE 1 CAPSULE BY MOUTH TWICE DAILY 180 capsule 025 Active insulin aspart (NovoLOG FLEXPEN) 100 UNIT/ML penIndications:T ype 2 diabetes mellitus with stage 4 chronic kidney disease, with long-term current use of insulin ([facility]) INJECT SUBCUTANEOUSLY THREE TIMES DAILY BEFORE MEALS DIRECTED BY SLIDING SCALE. (BG<150: 0 UNITS, 150-199: 2 UNITS, 200-249: 3 UNITS, 250-299: 5 UNITS, 300-349: 7 UNITS, 350-399: 8 UNITS, >400: CALL DOCTOR) 15 mL 3 025 Active Tresiba FlexTouch 100 UNIT/ML injectionIndicat ions:Type 2 diabetes mellitus with stage 4 chronic kidney disease, with long-term current use of insulin ([facility]) INJECT 10 UNITS SUBCUTANEOUSLY EVERY MORNING 15 mL 3 025 Active Continuous Glucose Belt Picker (FreeStyle Kai 3 Cleves) deviceIndication s:Type 2 diabetes mellitus with stage 4 chronic kidney disease, with long-term current use of insulin ([facility]) 1 each Once per day. Use as directed for CGM 1 each 025 Active Continuous Glucose Sensor (FreeStyle Kai 3 Plus Sensor) miscIndications: Type 2 diabetes mellitus with stage 4 chronic kidney disease, with long-term current use of insulin ([facility]) 1 each every 15 days. Apply 1 every 15 days as directed for CGM 2 each 11 025 Active amLODIPine (Norvasc) 5 MG tabletIndication s:Primary hypertension Take 1 tablet (5 mg) by mouth in the morning. 90 tablet 1 025 Active pantoprazole (ProtoNix) 40 MG EC tablet TAKE 1 TABLET BY MOUTH ONCE DAILY BEFORE A MEAL 90 tablet 2 025 Active warfarin (Coumadin) 2 MG tabletIndication s:Cerebrovascula r accident (CVA) due to thrombosis of left middle cerebral artery ([facility]/HCC) TAKE 1 TABLET BY MOUTH EVERY DAY OR DIRECTED BY COUMADIN CLINIC 90 tablet 3 025 Active Tradjenta 5 MG tabletIndication s:Type 2 diabetes mellitus with chronic kidney disease, with long-term current use of insulin, unspecified CKD stage ([facility]) TAKE 1 TABLET BY MOUTH EVERY MORNING 30 tablet 5 025 Active glucose blood ([employer] Ultra Test) test stripIndications :Type 2 diabetes mellitus with stage 4 chronic kidney disease, with long-term current use of insulin ([facility]) USE TO TEST BLOOD SUGAR THREE TIMES A DAY 100 each 11 025 2025 Active Blood Glucose Monitoring Suppl (ONE TOUCH ULTRA 2) w/Device kitIndications:T ype 2 diabetes mellitus with stage 4 chronic kidney disease, with long-term current use of insulin ([facility]) USE TO TEST BLOOD SUGAR ONCE A DAY 1 kit 025 Active TRUEplus Lancets 33G miscIndications: Type 2 diabetes mellitus with stage 4 chronic kidney disease, with long-term current use of insulin ([facility]) USE TO TEST BLOOD SUGAR THREE TIMES A DAY 100 each 11 025 Active sertraline (Zoloft) 50 MG tablet TAKE 1 TABLET BY MOUTH EVERY MORNING 30 tablet 2 025 Active ketoconazole (NIZOral) 2 % creamIndications :Kerion Apply topically 2 times daily. 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 TAKE 1 TABLET BY MOUTH EVERY EVENING 90 tablet 1 025 Active atorvastatin (Lipitor) 80 MG tabletIndication s: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 TAKE 1 TABLET BY MOUTH EVERY MORNING 90 tablet 1 025 Active atorvastatin (Lipitor) 80 MG tabletIndication s: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 TAKE 1 TABLET BY MOUTH EVERY MORNING 90 tablet 1 025 2024 Discontinued Aspirin Low Dose 81 MG chewable tabletIndication s: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 TAKE 1 TABLET BY MOUTH EVERY EVENING 90 tablet 1 025 2024 Discontinued ketoconazole (NIZOral) 2 % creamIndications :Kerion Apply topically 2 times daily. 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 12/28/2022 Hemorrhagic cerebrovascular [...] Encounters Date Type Department Care Team Description 07/20/2025 Orders Only GENERIC EXTERNAL DATA DEPARTMENT Provider, Generic External Data 06/28/2025 Telephone [facility] [address] [place] [phone] Candy Ocampo ANP Record Request 06/27/2025 Refill [facility] [address] [place] [address] Candy Ocampo ANP 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 06/25/2025 11:00 AM EDT Office Visit [address] [place] [address] Candy Ocampo ANP Type 2 diabetes mellitus with stage 4 chronic kidney disease, with long-term current use of insulin ([facility]) (Primary Dx); Renal osteodystrophy; 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 (CMS/[facility]); S/P CABG x 1; 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; Kerion 06/25/2025 Travel 06/24/2025 Refill [facility] [address] [facility] [address] Candy Ocampo ANP 06/22/2025 Telephone [facility] [address] [place] [address] Candy Ocampo ANP CHART PREP 06/01/2025 Refill [facility] [address] [place] [address] Candy Ocampo ANP Type 2 diabetes mellitus with stage 4 chronic kidney disease, with long-term current use of insulin (CMS/[facility]) 05/30/2025 Refill [facility] [address] [place] [address] Candy Ocampo ANP Type 2 diabetes mellitus with chronic kidney disease, with long-term current use of insulin, unspecified CKD stage (CMS/HCC) 05/21/2025 Orders Only [facility] [address] [place] [address] Candy Ocampo ANP 05/13/2025 Refill [facility] [address] [place] [address] Candy Ocampo ANP 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 (CMS/HCC) 05/07/2025 Telephone [facility] [address] [place] [address] Sulema Chua, head of commission department Advisory 05/03/2025 Telephone [facility]INE [address] [place] [phone] Velia Beard, aquaculture and fisheries professor from Last 3 Months Immunizations Immunization Administration Dates Next Due Influenza High-dose Quadrivalent [...] drink = 0.6 oz pur e alcohol) Depression Answer Date Recorded Patient Health Questionnaire-9 Score 0 03/19/2025 Patient Health Questionnaire-9 Score 0 03/19/2025 Last PHQ-9: Questionnaire Data Not on file 0 03/19/2025 Housing Stability Answer Date Recorded What is your housing situation today? I have siri joaquin 03/19/[address] you li ve. Do you have problems with any of the following? None of the above 03/19/2025 Food Insecurity Answer Date Recorded Within the past 12 months, y ou worried that your food would run out before you got money to buy more: Never True 03/19/2025 Within the past 12 months,th e food you bought just didn't last and you didn't have enough money to get more: Never True Transportation Answer Date Recorded In the past 12 months, has l ack of transportation kept you from medical appts, meetings, work or from getting things needed for daily living? No 03/19/2025 Utilities Answer Date Recorded In the past 12 months, has t he electric, gas, oil or water company threatened to shut off services in your home? No 03/19/2025 Depression Answer Date Recorded Patient Health Questionnaire-2 Score 0 03/19/2025 Internet Access Answer Date Recorded Internet Access Q1 Yes 03/19/2025 Internet Access Q2 Not on file 03/19/2025 Comments Unknown Sex and Gender Information Value Date Recorded Sex Assigned at Female 08/31/2022 10:36 AM EDT Legal Sex Female 10:36 AM EDT Gender Identity Female 08/31/2022 10:36 AM EDT Sexual Orientation Straight 08/31/2022 10 :36 AM EDT Last Filed Vital Signs Vital Sign Reading Time Taken Comments Blood Pressure 130/67 06/25/2025 11:05 AM EDT Pulse 68 06/25/2025 11:05 AM EDT Temperature 36.3 C (97.4 F) 06/25/2025 11:05 AM EDT Respiratory Rate 20 06/25/2025 11:05 AM EDT Oxygen Saturation 98% 06/25/2025 11:05 AM EDT Inhaled Oxygen Concentration - - Weight 47.3 kg (104 lb 3.2 oz) 06/25/2025 11:05 AM EDT Height 149.9 cm (4' 11 ) 06/25/2025 11:05 AM EDT Body Mass Index 21.05 06/25/2025 11:05 AM EDT Plan of Treatment Upcoming Encounters Date Type Department Care Team (Late st Contact Info) Description 08/24/2025 9:30 AM EDT Office Visit [facility] MEDICINE [address] [place], [place] [phone] Candy Ocampo ANP [address] [place], [place] [phone] Health Maintenance Due Date Last Done Comments Eye Exam 02/06/1950 Zoster Vaccines (1 of 2) 02/06/1988 RSV Patients and Patients Aged 60 years or older (1 - 1-dose 75+ series) 2013 Lipid Panel 03/05/2022 03/05/2021, 11/06/2020 COVID-19 Vaccine ( season) 2025 09/24/2021, 01/16/2021, 12/19/2020 Influenza Vaccine (#1) 2025 4, 09/29/2022, 08/21/2020 Diabetes: Hemoglobin A1C 09/25/202506/25/ 025, 03/19/2025, 12/10/2023, Additional history exists Alcohol/Substance Use Screening 03/19/2026 03/19/2025 Depression Screening 03/19/2026 03/19/2025, 03/19/20 25 SDOH Screening 03/19/2026 03/19/2025 Diabetes: Foot Exam 06/25/2026 06/25/2025, Tobacco Screening 06/25/2026 06/25/2025 DTaP/Tdap/Td Vaccines (2 - Td or Tdap) [...] Comments PROTHROMBIN TIME WHOLE BLD POC Routine 07/20/2025 9:29 AM EDT ~PT, ~INR - ANTI COAG CLINIC Routine 07/20/2025 9:29 AM EDT POCT GLYCATED HEMOGLOBIN, TOTAL Routine 06/25/2025 11:38 AM EDT Type 2 diabetes mellitus with stage 4 chronic kidney disease, with long-term current use of insulin ([facility]) POCT GLUCOSE Routine 06/25/2025 11:38 AM EDT Type 2 diabetes mellitus with stage 4 chronic kidney disease, with long-term current use of insulin ([facility]) LIPID PANEL, STANDARD Routine 03/05/2021 9:50 AM EDT from Last 3 Months or Most Recently Relevant to Health Maintenance Results * (ABNORMAL) PROTHROMBIN TIME WHOLE BLD POC (07/20/2025 9:29 AM EDT) Protime 29.7(H) 11.1 - 13.5 sec [facility] 07/20/2025 9:29 AM EDT 07/20/2025 9:31 AM EDT us Generic External Data Provider LAB BLOOD ORDERAB LES Final Result Performing Organization Address [facility] Co de Phone Number [facility] [address] [place] [phone] * (ABNORMAL) ~PT, ~INR - ANTI COAG CLINIC (07/20/2025 9:29 AM EDT) Pathologist [facility] Prothrombin Time INR 2.5(H) 0.9 - 1.1 [facility] Comment:METER #: [id number] TERNATIONAL NORMALIZED RATIO (INR) REFERENCE RANGES Reference RangeFor patients not on anticoagulant therapy: 0.9 - 1.1INR ranges for oral anticoagulanttherapy:For prevention and treatment of venous thrombosis and pulmonary embolism: 2.0 - 3.0For acute myocardial infarction with aspirin therapy: 2.0 - 3.0For acute myocardial infarction without aspirin therapy: 3.0 - 4.0For patients with mechanical prosthetic heart valves: 2.5 - 3.5 07/20/2025 9:29 AM EDT 07/20/2025 9:31 AM EDT Generic External Data Provider LAB BLOOD ORDERAB LES Final Result Performing Organization Address [facility] Co de Phone Number [facility] [address] [place] [phone] * (ABNORMAL) POCT HGB A1C (06/25/2025 11:38 AM EDT) Pathologist [facility] Hemoglobin A1C 9.7(A) 4.0 - 5.7 % QC Media Lot # [id number] Lot# Expiration Date [id number] Blood 06/25/2025 11:3 8 AM EDT us Candy Ocampo ANP POINT OF CARE TEST ENTER/EDIT OR DERABLES Final Result * POCT Glucose (06/25/2025 11:38 AM EDT) [facility] Glucose Blood, POC 183 60 - 200 mg/dL QC Media Lot # [id number] Lot# Expiration Date ,[id number] Blood Capillary blood specimen / Unknown 06/25/2025 11:38 AM EDT us Candy SIERRA POINT OF CARE TEST ENTER/EDIT OR DERABLES Final Result * (ABNORMAL) LIPID PANEL, STANDARD (03/05/2021 9:50 AM EDT) [facility] Chol/HDLC Ratio 4.9 <5.0 (calc) [facility] Cholesterol, Total 209(H) <200 mg/dL [facility] HDL Cholesterol 43(L) > OR = 50 mg/dL [facility] LDL Cholesterol 134(H) mg/dL (calc) [facility] Comment: Reference range: <100 Desirable range <100 mg/dL for primary prevention; <70 mg/dL for patients with CHD or diabetic patients with > or = 2 CHD risk factors. LDL-C is now calculated using the Bill-Shlomo calculation, which is a validated novel method providing better accuracy than the Friedewald equation in the estimation of LDL-C. Bill SS et al. FILOMENA. 2013;310(19): 7181-1715 (http://education.[employer].com/faq/XVG054) Non-HDL Cholesterol 166(H) <130 mg/dL (calc) [facility] Comment: For patients with diabetes plus 1 major ASCVD risk factor, treating to a non-HDL-C goal of <100 mg/dL (LDL-C of <70 mg/dL) is considered a therapeutic option. Triglycerides 183(H) <150 mg/dL [facility] 03/05/2021 9:50 AM EDT us Candy SIERRA LAB BLOOD ORDERABLES Final Resul t [facility] [address] from Last 3 Months or Most Recently Relevant to Health Maintenance Insurance [employer] MEDICARE REPLACEMENT Care Teams Network Architect Manager Relationship Specialty Start Date End Date Candy Ocampo ANP [address] [place] [phone] PCP - General Family Medicine 12/06/19 Alexandr Sepulveda MD [address] [place] [address] Drive [address] [place] [address] Nephrology 06/25/25
--- OUTSIDE RECORDS SUMMARY | 2025-07-20 09:53 | XMS_ITS | Encounter Summary ---
Author Organization [employer] Address [address] [place] [address] Care Team Providers Care Technical Account Representative Name Role Phone Damaris Candy SIERRA Primary Care Provider [phone] Alexandr Sepulveda MD Unavailable Encounter Details Date Type Department Care Team (Late st Contact Info) Description 07/20/2025 Orders Only GENERIC EXTERNAL DATA [...] your housing situation today? I have siri nuñez 03/19/[address] you li [...] Description 08/24/2025 9:30 AM EDT Office Visit [facility] MEDICINE [address] [place], [place] [phone] Candy Ocampo ANP [address] [place] [address] documented as of this encounter Procedures Procedure Name Priority Date/Time Associated Diagnosis Comments PROTHROMBIN TIME WHOLE BLD POC Routine 07/20/2025 9:29 AM EDT ~PT, ~INR - ANTI COAG CLINIC Routine 07/20/2025 9:29 AM EDT documented in this encounter Results * (ABNORMAL) PROTHROMBIN TIME WHOLE BLD POC (07/20/2025 9:29 AM EDT) Pathologist [facility] Protime 29.7(H) 11.1 - 13.5 sec [facility] 07/20/2025 9:29 AM EDT 07/20/2025 9:31 AM EDT us Generic External Data Provider LAB BLOOD ORDERAB LES Final Result [facility] [address] [place] [phone] * (ABNORMAL) ~PT, ~INR - ANTI COAG CLINIC (07/20/2025 9:29 AM EDT) Pathologist [facility] Prothrombin Time INR 2.5(H) 0.9 - 1.1 [facility] Comment:METER #: [id number] TERNATIONAL NORMALIZED RATIO (INR) REFERENCE RANGES Reference [...] Provider LAB BLOOD ORDERAB LES Final Result [facility] [address] [place] [phone] [phone] documented in this encounter Visit Diagnoses Not on filedocumented in this encounter Additional Health Concerns Assessment Noted Time PHQ-9 Depression Total Score: 0 03/19/20 25 11:32 AM EDT documented as of this encounter Care Teams Technical Account Representative Relationship Specialty Start Date End Date Candy Ocampo ANP [address] [place] [address] PCP - General Family Medicine 12/06/19 Alexandr Sepulveda MD [address] [place] [address] Nephrology 06/25/25 documented as of this encounter
--- OUTSIDE RECORDS SUMMARY | 2025-07-20 09:53 | XMS_ITS | Clinical Summary ---
Author Organization [facility] Address [address] [facility] [address] [place] [address] Phone Care Team Providers Care Desk Interviewer Name Role Phone Candy Ocampo NP Primary Care Provider [phone] Allergies No known active allergies Medications sertraline [...] % PVNMA 12/14/2019 us [facility] Conversion LAB [id number] LICITED RESULTS Final Result PVNMA from Last 3 Months or Most Recently Relevant to Health [place] [id number] Medicare Care Teams Desk Interviewer Relationship Specialty Start Date End Date Candy Ocampo NP PCP - General Nurse Practitioner 04/11/21
--- OUTSIDE RECORDS SUMMARY | 2025-07-20 09:54 | XMS_ITS | Encounter Summary ---
Author Organization [employer] Address [address] [facility] [address] [place] [address] Care Team Providers Care Barrel Centerer Name Role Phone Candy Ocampo Primary Care Provider [phone] Alexandr Sepulveda MD Unavailable [phone] Encounter Details Date Type Department Care Team (Late st Contact Info) Description 12/28/2022 Orders Only [facility] MEDICINE [address] [place] [phone] Kasandra Moreland RN Social History Tobacco Use [...] Description 08/24/2025 9:30 AM EDT Office Visit [facility] MEDICINE [address] [place] [phone] Candy Ocampo ANP [address] [place] [address] documented as of this encounter Visit Diagnoses Not on filedocumented in this encounter Care Teams Barrel Centerer Relationship Specialty Start Date End Date Candy Ocampo ANP [address] [place] [address] PCP - General Family Medicine 12/06/19 Alexandr Sepulveda MD [address] [place] [address] Nephrology 06/25/25 documented as of this encounter
--- OUTSIDE RECORDS SUMMARY | 2025-07-20 09:54 | XMS_ITS | Encounter Summary ---
Author Organization [employer] Address [address] [place] [address] Care Team Providers Care Contract Implementation Analyst Name Role Phone Candy Ocampo Primary Care Provider [phone] Alexandr Sepulveda MD Unavailable [phone] Encounter Details Date Type Department Care Team (Late st Contact Info) Description 11/30/2022 Orders Only [facility] [address] [place] [phone] Malaika Asif LPN Social History Tobacco Use [...] Description 08/24/2025 9:30 AM EDT Office Visit [facility] [address] [place] [address] Candy Ocampo ANP [address] [place] [address] documented as of this encounter Procedures Procedure [...] HIGH SENSITIVITY 5.9 <3.5 - 17.0 ng/L [facility] Comment:The Gomez high sens itivity Troponin-I results should beused in conjunction with other diagnostic information suchas ECG, clinical observations and information, and patientsymptoms to aid in the diagnosis of SC. 12/07/2022 2:50 PM EST 12/07/2022 2:55 PM EST [facility] External Provider LAB BLO OD ORDERABLES Final Result [facility] [address] [place] [phone] * (ABNORMAL) Comprehensive Metabolic Panel (12/07/2022 2:50 PM EST) Sodium 134(L) 135 - 145 mmol/L [facility] Potassium 5.2(H) 3.3 - 5.1 mmol/L [facility] Chloride 100 96 - 108 mmol/L [facility] Carbon Dioxide 25 22 - 29 mmol/L [facility] Anion Gap 14 12 - 20 [facility] Urea Nitrogen (BUN) 39(H) 9 - 16 mg/dL [facility] Creatinine, Serum 1.72(H) 0.5 - 1.4 mg/dL [facility] Creatinine Clr Calc Pharmacy 20.9 [facility] Comment:Provided height and weight: 167.64 cm,54.431 kg.eGFR (calculated from the MDRD study equation) and eCrCl(calculated from the Cockcroft-Gault equation) are based ondifferent parameters and may not yield comparable results.If eCrCl result is absurd, please check patient'sheight/weight. Estimated Glomerular Filt Rate 28 [facility] Comment:NOTE: For -Am erican individuals, multiply the result by 1.210.Chronic Kidney Disease: Estimated GFR < 60 mL/min/1.83y3Pxfanp Kidney Disease: Estimated GFR < 15 mL/min/1.73m2 Glucose 366(HH) 60 - 115 mg/dL [facility] Comment:Critical value for t est(s): GLUR Results called to and readback by: Marvin calling:TEJ Date: 45-56-34Nyrs:1520 Calcium 9.2 8.4 - 10.2 mg/dL [facility] Bilirubin, Total 0.5 0.0 - 1.0 mg/dL [facility] Aspartate Amino Transferase 15 5 - 31 U/L [facility] Alanine Aminotransferase 19 0 - 31 U/L [facility] Total Protein 6.5 6.5 - 8.0 g/dL [facility] Albumin Level 3.6 3.5 - 5.0 g/dL [facility] Alkaline Phosphatase 79 39 - 117 U/L [facility] 12/07/2022 2:50 PM EST 12/07/2022 2:55 PM EST us [facility] External Provider LAB BLO OD ORDERABLES Final Result [facility] [address] [place] [phone] * (ABNORMAL) CBC auto differential (12/07/2022 2:50 PM EST) White Blood Count 8.3 4.8 - 10.8 X10*3/uL [facility] Red Blood Count 4.88 4.20 - 5.50 X10*6/uL [facility] Hemoglobin 13.5 12.0 - 16.0 g/dl [facility] Hematocrit 41.1 37.0 - 47.0 % [facility] Mean Corpuscular Volume 84.2 80.0 - 98.0 fL [facility] Mean Corpuscular Hemoglobin 27.7 27.0 - 33.0 pg [facility] Mean Corpuscular HGB Conc 32.8 31.0 - 35.0 g/dl [facility] Red Cell Distribution Width 13.7 11.0 - 16.0 % [facility] Platelet Count 215 160 - 400 X10*3/uL [facility] Mean Platelet Volume 10.0 9.4 - 12.3 fL [facility] Neutrophils Percent Auto 72.4 45 - 73 % [facility] Imm Gran Pct Auto 0.8(H) 0.0 - 0.4 % [facility] Lymphocytes Percent Auto 22.0 20 - 40 % [facility] Monocytes Percent Auto 4.4 2 - 11 % [facility] Eosinophils Percent Auto 0.2 0 - 4 % [facility] Basophils Percent Auto 0.2 0 - 2 % [facility] NRBC Pct Auto 0.0 0.0 - 0.2 /100WBC [facility] Neutrophils Absolute Auto 6.0 2.0 - 8.3 x10*3/uL [facility] Imm Gran Abs Auto 0.07(H) 0.00 - 0.03 X10*3/uL [facility] Lymphocytes Absolute Auto 1.8 1.2 - 4.9 X10*3/uL [facility] Monocytes Absolute Auto 0.4 0.1 - 1.2 X10*3/uL [facility] Eosinophils Absolute Auto 0.0 0.0 - 0.4 X10*3/uL [facility] Basophils Absolute Auto 0.0 0.0 - 0.2 X10*3/uL [facility] NRBC Abs Auto 0.000 0.0 - 0.012 X10*3/uL [facility] 12/07/2022 2:50 PM EST 12/07/2022 3:05 PM EST us [facility] External Provider LAB BLO OD ORDERABLES Final Result [facility] [address] [place] [phone] * (ABNORMAL) GLUCOSE, WHOLE BLOOD (12/07/2022 12:48 PM EST) Glucose, Whole Blood 359(HH) 60 - 115 mg/dL [facility] Comment:METER #: [id number] 12/07/2022 12:4 8 PM EST 12/07/2022 12:51 PM EST us [facility] External Provider LAB BLO OD ORDERABLES Final Result [facility] [address] [place] [phone] documented in this encounter Visit Diagnoses Not on filedocumented in this encounter Care Teams Contract Implementation Analyst Relationship Specialty Start Date End Date Candy Ocampo ANP [address] [place] [phone] PCP - General Family Medicine 12/06/19 Alexandr Sepulveda MD [address] [place] [address] Nephrology 06/25/25 documented as of this encounter
--- OUTSIDE RECORDS SUMMARY | 2025-07-20 09:54 | XMS_ITS | Clinical Summary ---
[facility] Address [address] [place] [address] Care Team Providers Care Outsole Flexer Name Role Phone Unavailable Primary Care Provider [...] nts (1 - 1-dose 75+ series) 2013 Falls Risk Assessment 11/26/2023 Osteoporosis Screening (Bone Density Screening) 11/26/2023 Social Influencers of Health Screening 11/26/2023 Depression Screening 11/01/2024 COVID-19 Vaccine ( - 2023-2 5 season) 2025 Influenza Vaccine (#1) 2025 HIB Vaccines Aged [...] Documents on File Type Date Recorded Patient Field Sales Manager Expl anation Health Care Decision (hx) 12/10/2022 HE ALTH CARE PROXY Health Care Decision (hx) 12/10/2022 HE ALTH CARE PROXY
== END 2025-07-20 09:41 | disposition home or self-care (01) ==
LOC: HO.ACS 09:19
PROVIDERS: PCP Nurse Practitioner Primary Care; Visit Provider Internal Medicine Medical Oncology
DX: Z79.01 Long term (current) use of anticoagulants (principal)

== ENCOUNTER → 2025-07-20 09:19 | Outpatient (BNVA) | payer MEDICARE, SELFPAY | PROVIDERS: PCP Nurse Practitioner Primary Care; Visit Provider Internal Medicine Medical Oncology | DX: I69.30 Unspecified sequelae of cerebral infarction (principal); Z79.01 Long term (current) use of anticoagulants; Z51.81 Encounter for therapeutic drug level monitoring | CPT/HCPCS: 85610; 99211 ==

== ENCOUNTER 2025-08-24 11:25 | Outpatient (REF) | payer MEDICARE, SELFPAY ==
--- NOTE | ~2025-08-24 | US_ITS ---
EXAMINATION: US RETROPERITONEAL LIMITED (RENAL ONLY) CLINICAL INFORMATION: Chronic kidney disease, unspecified. N18.9.. COMPARISON: January 31, 2020. TECHNIQUE: Real-time ultrasound kidneys using a curvilinear transducer with grayscale and color Doppler technique. FINDINGS: RIGHT KIDNEY: 10 x 4 x 4 cm (SAG x AP x TRV). Increased echotexture. Renal cortical thickness is normal. No hydronephrosis. No gross solid lesion. Multiple anechoic lesions, the largest measures 2.1 cm in the upper pole without nodular components or septations nor flow on color Doppler interrogation.. LEFT KIDNEY: 9 x 4 x 3 cm (SAG x AP x TRV). Increased echotexture. Renal cortical thickness is normal. No hydronephrosis. No gross solid lesion. There are multiple anechoic lesions throughout the kidneys, the largest measures 0.7 cm. No gross septations or nodular component. US/US renal BI IMPRESSION: Medical renal disease. No hydronephrosis. Bilateral, multifocal and different sizes renal cysts.. Electronically signed by: Harpreet Jones MD 08/24/2025 12:34 PM EDT
--- OUTSIDE RECORDS SUMMARY | 2025-08-24 13:51 | XMS_ITS | Encounter Summary ---
Author Organization [employer] Address [address] [place] [address] Care Team Providers Care Press Catcher Name Role Phone GrewalKailee Primary Care Provider [phone] Alexandr Sepulveda MD Unavailable [phone] Encounter Details Date Type Department Care Team (Late st Contact Info) Description 08/24/2025 Orders Only [facility] External Provider, [facility] Social History Tobacco Use Types Packs/Day Years [...] as of this encounter Plan of Treatment Not on file documented as of this encounter Procedures Procedure Name Priority Date/Time Associated Diagnosis Comments US RENAL COMPLETE Routine 08/24/2025 11: 49 AM EDT documented in this encounter Results * US Renal Complete (08/24/2025 11:49 AM EDT) Anatomical Region Laterality Modality Kidney Ultrasound 08/24/2025 11:4 9 AM EDT Narrative 08/24/2025 12:36 PM EDT [place] [address] Ultrasound Report Signed Patient: Gwendolyn Maher MR#: [id number] : 1940 Acct:[id number] Age/Sex: 85 / F ADM Date: 08/24/25 Loc: . Attending Dr: Alexandr Sepulveda MD Ordering Physician: Alexandr Sepulveda MD Date of Service: 08/24/25 Procedure(s): US renal BI Accession Number(s): [id number] cc: Alexandr Sepulveda MD; KAILEE GREWAL NP Reason for Exam: N18.9 - Chronic kidney disease, unspecified EXAMINATION: US RETROPERITONEAL LIMITED (RENAL ONLY) CLINICAL INFORMATION: Chronic kidney disease, unspecified. N18.9.. COMPARISON: January 31, 2020. TECHNIQUE: Real-time ultrasound kidneys using a curvilinear transducer with grayscale and color Doppler technique. FINDINGS: RIGHT KIDNEY: 10 x 4 x 4 cm (SAG x AP x TRV). Increased echotexture. Renal cortical thickness is normal. No hydronephrosis. No gross solid lesion. Multiple anechoic lesions, the largest measures 2.1 cm in the upper pole without nodular components or septations nor flow on color Doppler interrogation.. LEFT KIDNEY: 9 x 4 x 3 cm (SAG x AP x TRV). Increased echotexture. Renal cortical thickness is normal. No hydronephrosis. No gross solid lesion. There are multiple anechoic lesions throughout the kidneys, the largest measures 0.7 cm. No gross septations or nodular component. US/US renal BI IMPRESSION: Medical renal disease. No hydronephrosis. Bilateral, multifocal and different sizes renal cysts.. Electronically signed by: Harpreet Jones MD 08/24/2025 12:34 PM EDT RP Dictated By: Harpreet Heredia MD Signed By: <Electronically signed by Harpreet Beard MD in OV> 08/24/25 1234 DD/ 1149 TD/TT: 08/24/25 1213 Lead Software Tester: Procedure Note Donotuseinterpreter, Image - 08/24/2025 [place] [address] Ultrasound Report Signed Patient: Gwendolyn Maher#: [id number] : 8Acct:[id number] Age/Sex: 85 / FADM Date: 08/24/25 Loc: . Attending Dr: Alexandr Sepulveda MD Ordering Physician: Alexandr Sepulveda MD Date of Service: 08/24/25 Procedure(s): US renal BI Accession Number(s): [id number] cc: Alexandr Sepulveda MD; KAILEE GREWAL NP Reason for Exam: N18.9 - Chronic kidney disease, unspecified EXAMINATION: US RETROPERITONEAL LIMITED (RENAL ONLY) CLINICAL INFORMATION: Chronic kidney disease, unspecified. N18.9.. COMPARISON: January 31, 2020. TECHNIQUE: Real-time ultrasound kidneys using a curvilinear transducer with grayscale and color Doppler technique. FINDINGS: RIGHT KIDNEY: 10 x 4 x 4 cm (SAG x AP x TRV). Increased echotexture. Renal cortical thickness is normal. No hydronephrosis. No gross solid lesion. Multiple anechoic lesions, the largest measures 2.1 cm in the upper pole without nodular components or septations nor flow on color Doppler interrogation.. LEFT KIDNEY: 9 x 4 x 3 cm (SAG x AP x TRV). Increased echotexture. Renal cortical thickness is normal. No hydronephrosis. No gross solid lesion. There are multiple anechoic lesions throughout the kidneys, the largest measures 0.7 cm. No gross septations or nodular component. US/US renal BI IMPRESSION: Medical renal disease. No hydronephrosis. Bilateral, multifocal and different sizes renal cysts.. Electronically signed by: Harpreet Jones MD 08/24/2025 12:34 PM EDT RP Dictated By: Harpreet Heredia MD Signed By: <Electronically signed by Harpreet Beard MDin OV> 08/24/25 1234 DD/ 1149 TD/TT: 08/24/25 1213 Lead Software Tester: [facility] External Provider IMG US PROCEDURES Final Result documented in this encounter Visit Diagnoses Not on filedocumented in this encounter Additional Health Concerns Assessment Noted Time PHQ-9 Depression Total Score: 0 03/19/20 11:32 AM EDT documented as of this encounter Care Teams Press Catcher Relationship Specialty Start Date End Date Kailee Grewal ANP [address] [place] [phone] PCP - General Family Medicine 12/06/19 Alexandr Sepulveda MD [address] [place] [address] Drive [address] [place] [address] Nephrology 06/25/25 documented as of this encounter
--- OUTSIDE RECORDS SUMMARY | 2025-08-24 13:51 | XMS_ITS | Clinical Summary ---
Author Organization [employer] Address [address] [place] [address] Care Team Providers Care Commissioner Of Internal Revenue Name Role Phone GrewalKailee Primary Care Provider [phone] Alexandr Sepulveda MD Unavailable [phone] Allergies No known active allergies Medications acetaminophen [...] unspecified whether stage 3a or 3b CKD (HCC) TEST BLOOD SUGAR 3 TIMES A DAY 100 strip 11 023 Active TRUEplus Lancets 33G miscIndications:T ype 2 diabetes mellitus with stage 3 chronic kidney disease, with long-term current use of insulin, unspecified whether stage 3a or 3b CKD (HCC) TEST BLOOD SUGAR THREE TIMES DAILY 100 [...] for constipation 30 packet 1 023 Active BD Pen Needle Marisa U/F 32G X 4 MM miscIndications:T ype 2 diabetes mellitus with hyperlipidemia (HCC) USE DIRECTED WITH INSULIN 100 each 5 024 Active senna (Senokot) 8.6 MG tablet TAKE 2 TABLETS BY MOUTH EVERY DAY AT BEDTIME 180 tablet 025 Active docusate sodium (Colace) 100 MG capsule TAKE 1 CAPSULE BY MOUTH TWICE DAILY 180 capsule 025 Active Tresiba FlexTouch 100 UNIT/ML injectionIndicati ons:Type 2 diabetes mellitus with stage 4 chronic kidney disease, with long-term current use of insulin ([facility]) INJECT 10 UNITS SUBCUTANEOUSLY EVERY MORNING 15 mL 3 025 Active Continuous Glucose [employer] (FreeStyle Kai 3 Randolph) deviceIndications :Type 2 diabetes mellitus with stage 4 chronic kidney disease, with long-term current use of insulin ([facility]) 1 each Once per day. Use as directed for CGM 1 each 025 Active Continuous Glucose Sensor (FreeStyle Kai 3 Plus Sensor) miscIndications:T ype 2 diabetes mellitus with stage 4 chronic kidney disease, with long-term current use of insulin ([facility]) 1 each every 15 days. Apply 1 every 15 days as directed for CGM 2 each 025 Active amLODIPine (Norvasc) 5 MG tabletIndications :Primary hypertension Take 1 tablet (5 mg) by mouth in the morning. 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 (HCC) TAKE 1 TABLET BY MOUTH EVERY DAY OR DIRECTED BY COUMADIN CLINIC 90 tablet 3 025 Active Tradjenta 5 MG tabletIndications :Type 2 diabetes mellitus with chronic kidney disease, with long-term current use of insulin, unspecified CKD stage ([facility]) TAKE 1 TABLET BY MOUTH EVERY MORNING 30 tablet 5 025 Active glucose blood (CouchsurfingTouch Ultra Test) test stripIndications: Type 2 diabetes mellitus with stage 4 chronic kidney disease, with long-term current use of insulin ([facility]) USE TO TEST BLOOD SUGAR THREE TIMES A DAY 100 each 025 2025 Active Blood Glucose Monitoring Suppl (ONE TOUCH ULTRA 2) w/Device kitIndications:Ty pe 2 diabetes mellitus with stage 4 chronic kidney disease, with long-term current use of insulin ([facility]) USE TO TEST BLOOD SUGAR ONCE A DAY 1 kit Active TRUEplus Lancets 33G miscIndications:T ype 2 diabetes mellitus with stage 4 chronic kidney disease, with long-term current use of insulin ([facility]) USE TO TEST BLOOD SUGAR THREE TIMES A DAY 100 each 11 Active sertraline (Zoloft) 50 MG tablet TAKE 1 TABLET BY MOUTH EVERY MORNING 30 tablet 2 Active ketoconazole (NIZOral) 2 % creamIndications: Kerion Apply topically 2 times daily. 60 g 2 Active Aspirin Low Dose 81 MG chewable tabletIndications :Coronary artery disease involving [place] coronary artery of [place] heart without angina pectoris TAKE 1 TABLET BY MOUTH EVERY EVENING 90 tablet 1 Active atorvastatin (Lipitor) 80 MG tabletIndications :Coronary artery disease involving [place] coronary artery of [place] heart without angina pectoris TAKE 1 TABLET BY MOUTH EVERY MORNING 90 tablet 1 Active insulin aspart (NovoLOG FLEXPEN) 100 UNIT/ML penIndications:Ty pe 2 diabetes mellitus with stage 4 chronic kidney disease, with long-term current use of insulin ([facility]) INJECT SUBCUTANEOUSLY THREE TIMES DAILY BEFORE MEALS DIRECTED BY SLIDING SCALE (BLOOD SUGAR <150: 0 UNITS, 150-199: 2 UNITS, 200-249: 3 UNITS, 250-299: 5 UNITS, 300-349: 7 UNITS, 350-399: 8 UNITS > 400: CALL DOCTOR) 15 mL 3 Active melatonin 5 MG tabletIndications :Insomnia, unspecified type TAKE 1 TABLET BY MOUTH AT BEDTIME 90 tablet 2 Active metoprolol succinate XL (Toprol-XL) 50 MG 24 hr tablet TAKE 1 TABLET BY MOUTH EVERY MORNING 90 tablet 2 Active cholecalciferol (Vitamin D-3) 25 MCG tablet TAKE 1 TABLET BY MOUTH EVERY MORNING 90 tablet 3 Active cholecalciferol (Vitamin D-3) 25 MCG tablet TAKE 1 TABLET BY MOUTH EVERY MORNING 90 tablet 3 024 2024 Discontinued metoprolol succinate XL (Toprol-XL) 50 MG 24 hr tablet TAKE 1 TABLET BY MOUTH EVERY MORNING 90 tablet 2 025 2024 Discontinued melatonin 5 MG tabletIndications :Insomnia, unspecified type TAKE 1 TABLET BY MOUTH AT BEDTIME 90 tablet 2 025 2024 Discontinued insulin aspart (NovoLOG FLEXPEN) 100 UNIT/ML penIndications:Ty pe 2 diabetes mellitus with stage 4 chronic kidney disease, with long-term current use of insulin ([facility]) INJECT SUBCUTANEOUSLY THREE TIMES DAILY BEFORE MEALS DIRECTED BY SLIDING SCALE. (BG<150: 0 UNITS, 150-199: 2 UNITS, 200-249: 3 UNITS, 250-299: 5 UNITS, 300-349: 7 UNITS, 350-399: 8 UNITS, >400: CALL DOCTOR) 15 mL 3 025 2024 Discontinued Active Problems Problem Noted Date Diagnosed Date 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 02/16/2023 Anxiety 12/28/2022 Chronic low back pain 12/28/2022 Coronary artery disease invo lving table [place] coronary artery of [place] heart without angina pectoris 12/28/2022 Hemorrhagic cerebrovascular accident (CVA) ([facility]/ [facility]) 12/28/2022 History of tonsillectomy 12/28/2022 Hyperlipidemia 12/28/2022 Hypertensive disorder 12/28/2022 Implantable cardioverter-defibrillator (ICD) in situ 12/28/2022 S/P CABG x 1 12/28/2022 Seizure disorder ([facility]) 12/28/2022 Stage 3b chronic kidney disease ([facility]) 2021 Renal osteodystrophy 04/12/2021 Chronic kidney disease, stage 4 (severe) ([facility]/ C) 04/11/2021 Type 2 diabetes mellitus wit h diabetic chronic kidney disease 04/11/2021 Chronic kidney disease due to benign hypertensio n 04/11/2021 Encounters Date Type Department Care Team Description 08/24/2025 Orders Only [facility] External Provider, [facility] 08/23/2025 Refill [facility] [address] [place], [place] [phone] Kailee Grewal ANP Insomnia, unspecified type 08/16/2025 Refill [facility] [address] [place], [place] [phone] Kailee Grewal ANP Type 2 diabetes mellitus with stage 4 chronic kidney disease, with long-term current use of insulin ([facility]) 07/20/2025 Results Follow-Up [facility] [place] [address] Kailee Grewal ANP ~PT, ~INR - ANTI COAG CLINIC, PROTHROMBIN TIME WHOLE BLD POC 07/20/2025 Orders Only GENERIC EXTERNAL DATA DEPARTMENT Provider, Generic External Data 06/28/2025 Telephone [facility] [place] [address] Kailee Grewal ANP Record Request 06/27/2025 Refill [facility] [place] [address] Kailee Grewal ANP Coronary artery disease involving table [place] coronary artery of [place] heart without angina pectoris 06/25/2025 11:00 AM EDT Office Visit [facility] [place] [address] Kailee Grewal ANP Type 2 diabetes mellitus with stage 4 chronic kidney disease, with long-term current use of insulin (CMS/[facility]) (Primary Dx); Renal osteodystrophy; 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 (CMS/JD); S/P CABG x 1; Coronary artery disease involving table [place] coronary artery of [place] heart without angina pectoris; Kerion 06/25/2025 Travel 06/24/2025 Refill [facility] [place] [place] [address] Kailee Grewal ANP 06/22/2025 Telephone [facility] [place] [address] Kailee Grewal ANP CHART PREP 06/01/2025 Refill [facility] [place] [address] Kailee Grewal ANP Type 2 diabetes mellitus with stage 4 chronic kidney disease, with long-term current use of insulin (CMS/HCC) 05/30/2025 Refill [facility] [place] [address] Kailee Grewal ANP Type 2 diabetes mellitus with chronic kidney disease, with long-term current use of insulin, unspecified CKD stage (CMS/HCC) from Last 3 Months Immunizations Immunization Administration [...] 06/25/2025 11:05 AM EDT Plan of Treatment Health Maintenance Due Date Last Done Comments Eye Exam 02/06/1950 Zoster Vaccines (1 of 2) 02/06/1988 RSV Patients and Patients Aged 60 years or older (1 - 1-dose 75+ series) 2013 Lipid Panel 03/05/2022 03/05/2021, 11/06/2020 COVID-19 Vaccine ( season) 2025 09/24/2021, 01/16/2021, 12/19/2020 Influenza Vaccine (#1) 2025 , 09/29/2022, 08/21/2020 Diabetes: Hemoglobin A1C 09/25/2025 025, 03/19/2025, 12/10/2023, Additional history exists Alcohol/Substance [...] COMPLETE Routine 08/24/2025 11: 49 AM EDT PROTHROMBIN TIME WHOLE BLD POC Routine 07/20/2025 9:29 AM EDT ~PT, ~INR - ANTI COAG CLINIC Routine 07/20/2025 9:29 AM EDT POCT GLYCATED HEMOGLOBIN, TOTAL Routine 06/25/2025 11:38 AM EDT Type 2 diabetes mellitus with stage 4 chronic kidney disease, with long-term current use of insulin ([facility]) POCT GLUCOSE Routine 06/25/2025 11:38 AM EDT Type 2 diabetes mellitus with stage 4 chronic kidney disease, with long-term current use of insulin ([facility]) LIPID PANEL, STANDARD Routine 03/05/2021 9:50 AM EDT from Last 3 Months or Most Recently Relevant to Health Maintenance Results * US Renal Complete (08/24/2025 11:49 AM EDT) Anatomical Region Laterality Modality Kidney Ultrasound 08/24/2025 11:4 9 AM EDT Narrative 08/24/2025 12:36 PM EDT [address] [address] Ultrasound Report Signed Patient: Gwendolyn Maher MR#: [id number] : 1940 Acct:[id number] Age/Sex: 85 / F ADM Date: 08/24/25 Loc: HO.US Attending Dr: Alexandr Sepulveda MD Ordering Physician: Alexandr Sepulveda MD Date of Service: 08/24/25 Procedure(s): US renal BI Accession Number(s): [id number] cc: Alexandr Sepulveda MD; KAILEE GREWAL NP [...] 08/24/25 1234 DD/ 1149 TD/TT: 08/24/25 1213 Math Interventionist: Procedure Note Donotuseinterpreter, Image - 08/24/[address] [address] Ultrasound Report Signed Patient: Gwendolyn MaherMR#: [id number] : 8Acct:[id number] Age/Sex: 85 / FADM Date: 08/24/25 Loc: HO.US Attending Dr: Alexandr Sepulveda MD Ordering Physician: Alexandr Sepulveda MD Date of Service: 08/24/25 Procedure(s): US renal BI Accession Number(s): [id number] cc: Alexandr Sepulveda MD; KAILEE GREWAL NP [...] 08/24/25 1234 DD/ 1149 TD/TT: 08/24/25 1213 Math Interventionist: [facility] External Provider IMG US PROCEDURES Final Result * (ABNORMAL) PROTHROMBIN TIME WHOLE BLD POC (07/20/2025 9:29 AM EDT) Protime 29.7(H) 11.1 - 13.5 sec [facility] 07/20/2025 9:29 AM EDT 07/20/2025 9:31 AM EDT Generic External Data Provider LAB BLOOD ORDERAB LES Final Result Performing Organization Address City/[facility] Co de Phone Number [facility] [address] [place] [phone] * (ABNORMAL) ~PT, ~INR - ANTI COAG CLINIC (07/20/2025 9:29 AM EDT) Pathologist [facility] Prothrombin Time INR 2.5(H) 0.9 - 1.1 [facility] Comment:METER #: [id number] TERNATIONAL NORMALIZED RATIO (INR) REFERENCE RANGES Reference [...] ORDERAB LES Final Result Performing Organization Address City/[facility] Co de Phone Number [facility] [address] [place] [phone] * (ABNORMAL) POCT HGB A1C (06/25/2025 11:38 AM EDT) Hemoglobin A1C 9.7(A) 4.0 - 5.7 % QC Media Lot # [id number] Lot# Expiration Date [id number] Blood 06/25/2025 11:3 8 AM EDT us Kailee Grewal [facility] POINT OF CARE TEST ENTER/EDIT OR DERABLES Final Result * POCT Glucose (06/25/2025 11:38 AM EDT) Glucose Blood, POC 183 60 - 200 mg/dL QC Media Lot # [id number] Lot# Expiration Date 830,660 Blood Capillary blood specimen / Unknown 06/25/2025 11:38 AM EDT us Kailee [facility] POINT OF CARE TEST ENTER/EDIT OR [...] LDL-C. Bill SS et al. FILOMENA. 2013;310(19): 7886-1354 (http://education.ADP.com/faq/SFA083) Non-HDL Cholesterol 166(H) <130 mg/dL (calc) [facility] Comment: For patients with diabetes plus 1 major ASCVD risk factor, treating to a non-HDL-C goal of <100 mg/dL (LDL-C of <70 mg/dL) is considered a therapeutic option. Triglycerides 183(H) <150 mg/dL [facility] 03/05/2021 9:50 AM EDT us Kailee [facility] LAB BLOOD ORDERABLES Final Resul t [facility] [address] from Last 3 Months or Most Recently Relevant to Health Maintenance Insurance [employer] MEDICARE REPLACEMENT Care Teams Commissioner Of Internal Revenue Relationship Specialty Start Date End Date Kailee Grewal ANP [address] [place] [phone] PCP - General Family Medicine 12/06/19 Alexandr Sepulveda MD [address] [place] [address] Drive [address] [place] [address] Nephrology 06/25/25
--- OUTSIDE RECORDS SUMMARY | 2025-08-24 13:51 | XMS_ITS | Encounter Summary ---
Author Organization [employer] Address [address] [facility] [address] [place] [address] Care Team Providers Care Supervisor Steffen House Name Role Phone Candy Ocampo Primary Care Provider [phone] Alexandr Sepulveda MD Unavailable [phone] Reason for Visit * Reason Comments Med Refill Encounter Details Date Type Department Care Team (Late st Contact Info) Description 04/23/2024 Refill [facility] [address] [place] [address] Candy Ocampo ANP [address] [place] [address] Social History Tobacco Use Types Packs/Day Years [...] on file documented as of this encounter Visit Diagnoses Not on filedocumented in this encounter Care Teams Supervisor Steffen House Relationship Specialty Start Date End Date Candy Ocampo ANP [address] [place] [address] PCP - General Family Medicine 12/06/19 Alexandr Sepulveda MD [address] [place] [address] Nephrology 06/25/25 documented as of this encounter
--- OUTSIDE RECORDS SUMMARY | 2025-08-24 13:51 | XMS_ITS | Clinical Summary ---
Author Organization [facility] Address [address] [place] [address] Care Team Providers Care Gas Examiner Name Role Phone Unavailable Primary Care Provider [...] Documents on File Type Date Recorded Patient Treater Helper Expl anation Health Care Decision (hx) 12/10/2022 HE [facility] C[facility] PROXY Health Care Decision (hx) 12/10/2022 HE ALTH CARE PROXY
--- OUTSIDE RECORDS SUMMARY | 2025-08-24 13:51 | XMS_ITS | Clinical Summary ---
Author Organization [facility] Address [address] [facility] [address] [place] [address] Phone Care Team Providers Care Supervisor Power Reactor Name Role Phone Candy Ocampo NP Primary Care Provider [phone] Allergies No known active allergies Medications sertraline [...] % PVNMA 12/14/2019 us [facility] [id number] LICITED RESULTS Final Result PVNMA from Last 3 Months or Most Recently Relevant to Health [place] [id number] Medicare Care Teams Supervisor Power Reactor Relationship Specialty Start Date End Date Candy Ocampo NP PCP - General Nurse Practitioner 04/11/21
--- OUTSIDE RECORDS SUMMARY | 2025-08-24 13:51 | XMS_ITS | Encounter Summary ---
Author Organization [employer] Address [address] [facility] 7t [place] [address] Care Team Providers Care Electrician Supervisor Name Role Phone Candy Ocampo Primary Care Provider [phone] Alexandr Sepulveda MD Unavailable [phone] Encounter Details Date Type Department Care Team (Late st Contact Info) Description 12/28/2022 Orders Only [facility] [address] [place] [address] Kasandra Moreland RN Social History Tobacco Use [...] on filedocumented in this encounter Care Teams Electrician Supervisor Relationship Specialty Start Date End Date Candy Ocampo ANP [address] [place] [address] PCP - General Family Medicine 12/06/19 Alexandr Sepulveda MD [address] [place] [address] Nephrology 06/25/25 documented as of this encounter
--- OUTSIDE RECORDS SUMMARY | 2025-08-24 13:51 | XMS_ITS | Encounter Summary ---
Author Organization [employer] Address [address] [place] [address] Care Team Providers Care Wing Mailer Machine Operator Name Role Phone Candy Ocampo Primary Care Provider [phone] Alexandr Sepulveda MD Unavailable [phone] Reason for Visit * Reason Comments Med Refill Encounter Details Date Type Department Care Team ([facility] st Contact Info) Description 08/23/2025 Refill [facility] [address] [place], [place] [phone] Candy Ocampo ANP [address] [place], [place] [phone] Insomnia, unspecified type Social History Tobacco Use Types Packs/Day Years [...] as of this encounter Visit Diagnoses Diagnosis Insomnia, unspecified type documented in this encounter Additional Health Concerns Assessment Noted Time PHQ-9 Depression Total Score: 0 03/19/20 11:32 AM EDT documented as of this encounter Care Teams Wing Mailer Machine Operator Relationship Specialty Start Date End Date Candy Ocampo ANP [address] [place] [address] PCP - General Family Medicine 12/06/19 Alexandr Sepulveda MD [address] [place] [address] Nephrology 06/25/25 documented as of this encounter
--- OUTSIDE RECORDS SUMMARY | 2025-08-24 13:51 | XMS_ITS | Encounter Summary ---
Author Organization [employer] Address [address] 7[address] [place] [address] Care Team Providers Care Erisa Attorney Name Role Phone Candy Ocampo Primary Care Provider [phone] Alexandr Sepulveda MD Unavailable [phone] Encounter Details Date Type Department Care Team (Late st Contact Info) Description 11/30/2022 Orders Only [facility]S [address] [place] [address] Malaika Asif LPN Social History Tobacco Use [...] HIGH SENSITIVITY 5.9 <3.5 - 17.0 ng/L [facility] Comment:The Gomez high sens itivity Troponin-I results should beused in conjunction with other diagnostic information suchas ECG, clinical observations and information, and patientsymptoms to aid in the diagnosis of NM. 12/07/2022 2:50 PM EST 12/07/2022 2:55 PM EST us [facility] External Provider LAB BLO OD ORDERABLES Final Result [facility] [address] [place] [address] [phone] * (ABNORMAL) Comprehensive Metabolic Panel (12/07/2022 2:50 PM EST) Pathologist [facility] Sodium 134(L) 135 - 145 mmol/L [facility] Potassium 5.2(H) 3.3 - 5.1 mmol/L [facility] Chloride 100 96 - 108 mmol/L [facility] Carbon Dioxide 25 22 - 29 mmol/L [facility] Anion Gap 14 12 - 20 [facility] Urea Nitrogen (BUN) 39(H) 9 - 16 mg/dL [facility] Creatinine, Serum 1.72(H) 0.5 - 1.4 mg/dL [facility] Creatinine Clr Calc Pharmacy 20.9 [facility] Comment:Provided height and weight: 167.64 cm,54.431 kg.eGFR (calculated from the MDRD study equation) and eCrCl(calculated from the Cockcroft-Gault equation) are based ondifferent parameters and may not yield comparable results.If eCrCl result is absurd, please check patient'sheight/weight. Estimated Glomerular Filt Rate 28 [facility] Comment:NOTE: For -Am erican individuals, multiply the result by 1.210.Chronic Kidney Disease: Estimated GFR < 60 mL/min/1.01w2Cfkixj Kidney Disease: Estimated GFR < 15 mL/min/1.73m2 Glucose 366(HH) 60 - 115 mg/dL [facility] Comment:Critical value for t est(s): GLUR Results called to and readback by: Marvin calling:RORYFlaquitoYamil Date: 68-12-50Mbub:1520 Calcium 9.2 8.4 - 10.2 mg/dL [facility] Bilirubin, Total 0.5 0.0 - 1.0 mg/dL [facility] Aspartate Amino Transferase 15 5 - 31 U/L [facility] Alanine Aminotransferase 19 0 - 31 U/L [facility] Total Protein 6.5 6.5 - 8.0 g/dL [facility] Albumin Level 3.6 3.5 - 5.0 g/dL [facility] Alkaline Phosphatase 79 39 - 117 U/L [facility] 12/07/2022 2:50 PM EST 12/07/2022 2:55 PM EST us [facility] External Provider LAB BLO OD ORDERABLES Final Result Performing Organization Address City/State/[facility] Co de Phone Number [facility] [address] [place] [phone] * (ABNORMAL) CBC auto differential (12/07/2022 2:50 PM EST) White Blood Count 8.3 4.8 - 10.8 X10*3/uL [facility] Red Blood Count 4.88 4.20 - 5.50 X10*6/uL [facility] Hemoglobin 13.5 12.0 - 16.0 g/dl [facility] Hematocrit 41.1 37.0 - 47.0 % [facility] Mean Corpuscular Volume 84.2 80.0 - 98.0 fL [facility] Mean Corpuscular Hemoglobin 27.7 27.0 - 33.0 pg [facility] Mean Corpuscular HGB Conc 32.8 31.0 - 35.0 g/dl [facility] Red Cell Distribution Width 13.7 11.0 - 16.0 % [facility] Platelet Count 215 160 - 400 X10*3/uL [facility] Mean Platelet Volume 10.0 9.4 - 12.3 fL [facility] Neutrophils Percent Auto 72.4 45 - 73 % [facility] Imm Gran Pct Auto 0.8(H) 0.0 - 0.4 % [facility] Lymphocytes Percent Auto 22.0 20 - 40 % [facility] Monocytes Percent Auto 4.4 2 - 11 % [facility] Eosinophils Percent Auto 0.2 0 - 4 % [facility] Basophils Percent Auto 0.2 0 - 2 % [facility] NRBC Pct Auto 0.0 0.0 - 0.2 /100WBC [facility] Neutrophils Absolute Auto 6.0 2.0 - 8.3 x10*3/uL [facility] Imm Gran Abs Auto 0.07(H) 0.00 - 0.03 X10*3/uL [facility] Lymphocytes Absolute Auto 1.8 1.2 - 4.9 X10*3/uL [facility] Monocytes Absolute Auto 0.4 0.1 - 1.2 X10*3/uL [facility] Eosinophils Absolute Auto 0.0 0.0 - 0.4 X10*3/uL [facility] Basophils Absolute Auto 0.0 0.0 - 0.2 X10*3/uL [facility] NRBC Abs Auto 0.000 0.0 - 0.012 X10*3/uL [facility] 12/07/2022 2:50 PM EST 12/07/2022 3:05 PM EST us [facility] External Provider LAB BLO OD ORDERABLES Final Result [facility] [address] [place], [place] [phone] * (ABNORMAL) GLUCOSE, WHOLE BLOOD (12/07/2022 12:48 PM EST) Glucose, Whole Blood 359(HH) 60 - 115 mg/dL [facility] Comment:METER #: [id number] 1 12/07/2022 12:4 8 PM EST 12/07/2022 12:51 PM EST us [facility] External Provider LAB BLO OD ORDERABLES Final Result [facility] [address] [place] [address] [phone] documented in this encounter Visit Diagnoses Not on filedocumented in this encounter Care Teams Erisa Attorney Relationship Specialty Start Date End Date Candy Ocampo ANP [address] [place] [phone] PCP - General Family Medicine 12/06/19 Alexandr Sepulveda MD [address] [place] [address] [address] [place] [address] Nephrology 06/25/25 documented as of this encounter
--- OUTSIDE RECORDS SUMMARY | 2025-08-24 13:51 | XMS_ITS | Encounter Summary ---
Author Organization [employer] Address [address] [facility] 7t [place] [address] Care Team Providers Care Wellness Educator Name Role Phone Candy Ocampo Primary Care Provider [phone] Alexandr Sepulveda MD Unavailable [phone] Reason for Visit * Reason Comments Med Refill Encounter Details Date Type Department Care Team (Late st Contact Info) Description 04/15/2023 Refill [facility] MEDICINE [address] [place], [place] [phone] Candy Ocampo ANP [address] [place] [address] Social History Tobacco Use Types Packs/Day Years [...] documented in this encounter Plan of Treatment Not on file documented as of this encounter Visit Diagnoses Not on filedocumented in this encounter Care Teams Wellness Educator Relationship Specialty Start Date End Date Candy Ocampo ANP [address] [place] [address] PCP - General Family Medicine 12/06/19 Alexandr Sepulveda MD [address] [place] [address] Drive [address] [place] [phone] Nephrology 06/25/25 documented as of this encounter
== END 2025-08-24 11:26 | disposition home or self-care (01) ==
LOC: HO.US 11:25
PROVIDERS: PCP Nurse Practitioner Primary Care; Visit Provider Internal Medicine Hypertension Specialist
DX: N18.9 Chronic kidney disease, unspecified (principal)
CPT/HCPCS: 76775

== ENCOUNTER → 2025-08-24 11:26 | Outpatient (BNV) | payer MEDICARE, SELFPAY | PROVIDERS: PCP Nurse Practitioner Primary Care; Visit Provider Radiology Diagnostic Radiology | DX: N28.1 Cyst of kidney, acquired (principal); N28.89 Other specified disorders of kidney and ureter | CPT/HCPCS: 76775 ==

== ENCOUNTER 2025-09-07 09:48 | Outpatient (AMB) | payer MEDICARE, SELFPAY ==
--- NOTE | 2025-09-07 09:49 | HO.NEPHOV_ITS ---
Vital Signs 09/07/25 09:50 Height 4 ft 11 in Weight 105 lb BMI 21.2 BP 112/62 Blood Pressure Location Rt brachial Position Sitting Intake Visit Reasons: FU after US conf Nurse First Assist Required: No Nurse First Assist Services: Nurse First Assist Offered & Declined (Son will translate ) Accompanied by: Son Allergies No Known Allergies (No Known Allergies*) Allergy (Verified 09/07/25 09:53) Medication List - Last Reconciled 09/07/25 by Alexandr Sepulveda MD amlodipine 5 mg PO DAILY@1200 aspirin 81 mg PO DAILY atorvastatin 80 mg PO DAILY blood sugar diagnostic (FreeStyle Lite Strips) As directed cholecalciferol (vitamin D3) 25 mcg PO DAILY insulin aspart U-100 (Novolog FlexPen U-100 Insulin aspart) subcut insulin degludec (Tresiba FlexTouch U-100 insulin) 10 units subcut DAILY lancets (TRUEplus Lancets) As directed lidocaine 5% (Lidoderm) 1 patch topical DAILY PRN linagliptin (Tradjenta) 5 mg PO DAILY melatonin 5 mg PO BEDTIME metoprolol succinate ER 50 mg PO BID pantoprazole 40 mg PO DAILY pen needle, diabetic (Pentips Pen Needle) As directed sennosides (senna) 17.2 mg PO BEDTIME PRN sertraline 50 mg PO DAILY terbinafine HCl mg PO warfarin See Protocol 2 mg orally 4mg x 3 DAYS , 2MG X 4 DAYS; HPI Comments Details: The patient is an 85-year-old female presenting with declining kidney function. Her chronic kidney disease was identified in December of 2019 with kidney function assessed at 16-20%. Despite this decline, her kidney function has remained stable as of the last available testing in March 2024. H/o type 2 diabetes mellitus, which is managed and has shown decent control per recent evaluations. Additionally, she suffers from hypertension managed with medications including amlodipine, although she occasionally experiences low blood pressure episodes. Her cardiovascular history is significant for prior cerebrovascular accidents and a myocardial infarction, which led to coronary artery bypass grafting years ago. Accompanied by her son 09/07/25 The patient is an 85-year-old female presenting with routine nephrology follow- up and laboratory work. The patient has a history of simple renal cysts, which were identified during an ultrasound in August. Both kidneys appeared normal with no evidence of obstruction or nephrolithiasis, and the cysts were deemed non-concerning. The patient adheres to her medication regimen, including amlodipine, melatonin, and Trajenta, and reports no changes in her medication since the last visit. She denies any respiratory or urinary symptoms and maintains adequate hydration with water intake. [facility] Medical History Abnormal SPEP CVA (cerebral vascular accident) CAD (coronary artery disease) Depression HTN (hypertension) HLD (hyperlipidemia) CKD (chronic kidney disease) stage 4, GFR 15-29 ml/min Vitamin D deficiency Osteoporosis T2DM (type 2 diabetes mellitus) Surgical History History of coronary artery bypass graft History of open heart surgery Hx of knee surgery Family History Father Medical history unknown Mother Diabetes mellitus Osteoporosis Other No family history of cancer Social History Household Members: Family Housing: Other Housing Other:: lives with son, PVTA, ofered [facility] transportation , spouse Are you a primary hospice care consultant to a significant other at home: No Do you presently have visiting nurse or other home services: No Alcohol intake: former Patient Tobacco Use Status: Never used Tobacco service: No Current occupational status: retired Current occupational exposures/hazards: No Physical Exam Vital Signs: Last Vital Signs BP 112/62 09/07/25 09:50 BMI result Body Mass Index 21.2 Results Reviewed Results Reviewed: Aug 2025 USG RIGHT KIDNEY: 10 x 4 x 4 cm (SAG x AP x TRV). Increased echotexture. Renal cortical thickness is normal. No hydronephrosis. No gross solid lesion. Multiple anechoic lesions, the largest measures 2.1 cm in the upper pole without nodular components or septations nor flow on color Doppler interrogation.. LEFT KIDNEY: 9 x 4 x 3 cm (SAG x AP x TRV). Increased echotexture. Renal cortical thickness is normal. No hydronephrosis. No gross solid lesion. There are multiple anechoic lesions throughout the kidneys, the largest measures 0.7 cm. No gross septations or nodular component. Nephrology Results: Renal US 08/24/25 Assessment & Plan Assessment & Plan (1) CKD (chronic kidney disease): Code(s): N18.9 - Chronic kidney disease, unspecified Category: Medical (2) CVA (cerebral vascular accident): Code(s): I63.9 - Cerebral infarction, unspecified Category: Medical Plan Gwendolyn has chronic kidney disease in the setting of longstanding hypertension diabetes mellitus Back in 2019 serum creatinine was 2.0. Over the last 5 years serum creatinine has been this relatively stable. The most recent serum creatinine was from March 2024 which was around 2.1 mg/dL. 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 No evidence of any obstructive uropathy based on clinical history. No clinical evidence of any active glomerular nephritis or interstitial disease at this time. USG unremarkable except for cyst Reordered and urine studies including urine protein creatinine ratio. Check renal panel along with intact PTH. Screen for anemia. Goal is to slow the progression of renal disease. Maintain blood pressure less than 130/80 Maintain A1c less than 7%. Continue to avoid nephrotoxic agents including NSAIDs. Watch BP If she has significant proteinuria I would consider adding an BRODY inhibitor and titrate as needed. She would also benefit from an SGLT2 inhibitor. Orders: Orders Complete Blood Count Auto Diff Today N18.9 - Chronic kidney disease, u nspecified Comprehensive Met. Panel Today N18.9 - Chronic kidney disease, unspecified Parathyroid Hormone Intact Today N18.9 - Chronic kidney disease, unspecified UA and rflx microscopic Today N18.9 - Chronic kidney disease, unspecified Total Protein Urine Random Today N18.9 - Chronic kidney disease, unspecified Creatinine Urine Today N18.9 - Chronic kidney disease, unspecified Coding Level of Care Code Est Pt Level 4 (02976) Diagnoses CKD (chronic kidney disease) N18.9 CVA (cerebral vascular accident) I63.9
[2025-09-07 09:50] VITALS: BP 112/62; BMI 21.2
--- OUTSIDE RECORDS SUMMARY | 2025-09-07 11:15 | XMS_ITS | Clinical Summary ---
Author Organization [facility] Address [address] [place] [address] Care Team Providers Care Apparel Manager Name Role Phone Unavailable Primary Care Provider [...] Documents on File Type Date Recorded Patient Pure Pak Machine Operator Expl anation Health Care Decision (hx) 12/10/2022 [facility] Health Care Decision (hx) 12/10/2022 [facility]
--- OUTSIDE RECORDS SUMMARY | 2025-09-07 11:15 | XMS_ITS | Encounter Summary ---
Author Organization [employer] Address [address] [facility] 7t [place] [address] Care Team Providers Care Filament Tester Name Role Phone Candy Ocampo Primary Care Provider [phone] Alexandr Sepulveda MD Unavailable [phone] Encounter Details Date Type Department Care Team (Late st Contact Info) Description 12/28/2022 Orders Only [facility] MEDICINE [address] [place] [address] Kasandra Moreland RN Social History Tobacco Use [...] on filedocumented in this encounter Care Teams Filament Tester Relationship Specialty Start Date End Date Candy Ocampo ANP [address] [place] [address] PCP - General Family Medicine 12/06/19 Alexandr Sepulveda MD [address] [place] [address] Nephrology 06/25/25 documented as of this encounter
--- OUTSIDE RECORDS SUMMARY | 2025-09-07 11:15 | XMS_ITS | Encounter Summary ---
Author Organization [employer] Address [address] [place] [address] Care Team Providers Care Inspector Exhaust Emissions Name Role Phone Candy Ocampo Primary Care Provider [phone] Alexandr Sepulveda MD Unavailable [phone] Encounter Details Date Type Department Care Team (Late st Contact Info) Description 11/30/2022 Orders Only [facility] MED & PEDS [address] [place] [address] Malaika Asif LPN Social History Tobacco Use [...] HIGH SENSITIVITY 5.9 <3.5 - 17.0 ng/L [facility] Comment:The Ogmez high sens itivity Troponin-I results should beused in conjunction with other diagnostic information suchas ECG, clinical observations and information, and patientsymptoms to aid in the diagnosis of LA. 12/07/2022 2:50 PM EST 12/07/2022 2:55 PM EST us [facility] External Provider LAB BLO OD ORDERABLES Final Result [facility] [address] [place] [address] [phone] * (ABNORMAL) Comprehensive Metabolic Panel (12/07/2022 2:50 PM EST) Pathologist [facility] Sodium 134(L) 135 - 145 mmol/L [facility] Potassium 5.2(H) 3.3 - 5.1 mmol/L [facility] Chloride 100 96 - 108 mmol/L [facility] Carbon Dioxide 25 22 - 29 mmol/L [facility] Anion Gap 14 12 - 20 [facility] Urea Nitrogen (BUN) 39(H) 9 - 16 mg/dL [facility] Creatinine, Serum 1.72(H) 0.5 - 1.4 mg/dL [facility] Creatinine Clr Calc Pharmacy 20.9 [facility] Comment:Provided height and weight: 167.64 cm,54.431 kg.eGFR (calculated from the MDRD study equation) and eCrCl(calculated from the Cockcroft-Gault equation) are based ondifferent parameters and may not yield comparable results.If eCrCl result is absurd, please check patient'sheight/weight. Estimated Glomerular Filt Rate 28 [facility] Comment:NOTE: For -Am erican individuals, multiply the result by 1.210.Chronic Kidney Disease: Estimated GFR < 60 mL/min/1.20l0Gkhiue Kidney Disease: Estimated GFR < 15 mL/min/1.73m2 Glucose 366(HH) 60 - 115 mg/dL [facility] Comment:Critical value for t est(s): GLUR Results called to and readback by: Marvin calling:RORYFlaquitoYamil Date: 94-41-90Ndkg:1520 Calcium 9.2 8.4 - 10.2 mg/dL [facility] Bilirubin, Total 0.5 0.0 - 1.0 mg/dL [facility] Aspartate Amino Transferase 15 5 - 31 U/L [facility] Alanine Aminotransferase 19 0 - 31 U/L [facility] Total Protein 6.5 6.5 - 8.0 g/dL [facility] Albumin Level 3.6 3.5 - 5.0 g/dL [facility] Alkaline Phosphatase 79 39 - 117 U/L [facility] 12/07/2022 2:50 PM EST 12/07/2022 2:55 PM EST us [facility] External Provider LAB BLO OD ORDERABLES Final Result Performing Organization Address City/State/[facility] Co de Phone Number [facility] [address] [place] [phone] * (ABNORMAL) CBC auto differential (12/07/2022 2:50 PM EST) White Blood Count 8.3 4.8 - 10.8 X10*3/uL [facility] Red Blood Count 4.88 4.20 - 5.50 X10*6/uL [facility] Hemoglobin 13.5 12.0 - 16.0 g/dl [facility] Hematocrit 41.1 37.0 - 47.0 % [facility] Mean Corpuscular Volume 84.2 80.0 - 98.0 fL [facility] Mean Corpuscular Hemoglobin 27.7 27.0 - 33.0 pg [facility] Mean Corpuscular HGB Conc 32.8 31.0 - 35.0 g/dl [facility] Red Cell Distribution Width 13.7 11.0 - 16.0 % [facility] Platelet Count 215 160 - 400 X10*3/uL [facility] Mean Platelet Volume 10.0 9.4 - 12.3 fL [facility] Neutrophils Percent Auto 72.4 45 - 73 % [facility] Imm Gran Pct Auto 0.8(H) 0.0 - 0.4 % [facility] Lymphocytes Percent Auto 22.0 20 - 40 % [facility] Monocytes Percent Auto 4.4 2 - 11 % [facility] Eosinophils Percent Auto 0.2 0 - 4 % [facility] Basophils Percent Auto 0.2 0 - 2 % [facility] NRBC Pct Auto 0.0 0.0 - 0.2 /100WBC [facility] Neutrophils Absolute Auto 6.0 2.0 - 8.3 x10*3/uL [facility] Imm Gran Abs Auto 0.07(H) 0.00 - 0.03 X10*3/uL [facility] Lymphocytes Absolute Auto 1.8 1.2 - 4.9 X10*3/uL [facility] Monocytes Absolute Auto 0.4 0.1 - 1.2 X10*3/uL [facility] Eosinophils Absolute Auto 0.0 0.0 - 0.4 X10*3/uL [facility] Basophils Absolute Auto 0.0 0.0 - 0.2 X10*3/uL [facility] NRBC Abs Auto 0.000 0.0 - 0.012 X10*3/uL [facility] 12/07/2022 2:50 PM EST 12/07/2022 3:05 PM EST us [facility] External Provider LAB BLO OD ORDERABLES Final Result [facility] [address] [place], [place] [phone] * (ABNORMAL) GLUCOSE, WHOLE BLOOD (12/07/2022 12:48 PM EST) Glucose, Whole Blood 359(HH) 60 - 115 mg/dL [facility] Comment:METER #: [id number] 1 12/07/2022 12:4 8 PM EST 12/07/2022 12:51 PM EST us [facility] External Provider LAB BLO OD ORDERABLES Final Result [facility] [address] [place] [address] [phone] documented in this encounter Visit Diagnoses Not on filedocumented in this encounter Care Teams Inspector Exhaust Emissions Relationship Specialty Start Date End Date Candy Oacmpo ANP [address] [place] [phone] PCP - General Family Medicine 12/06/19 Alexandr Sepulveda MD [address] [place] [address] Drive [address] [place] [address] Nephrology 06/25/25 documented as of this encounter
--- OUTSIDE RECORDS SUMMARY | 2025-09-07 11:15 | XMS_ITS | Encounter Summary ---
Author Organization [employer] Address [address] [facility] 7t [place] [address] Care Team Providers Care Lead Systems Architect Name Role Phone Candy Ocampo Primary Care Provider [phone] Alexandr Sepulveda MD Unavailable [phone] Reason for Visit * Reason Comments Med Refill Encounter Details Date Type Department Care Team (Late st Contact Info) Description 04/23/2024 Refill [facility] MEDICINE [address] [place] [address] Candy Ocampo ANP [address] [place] [address] Social History Tobacco Use Types Packs/Day Years [...] on filedocumented in this encounter Care Teams Lead Systems Architect Relationship Specialty Start Date End Date Candy Ocampo ANP [address] [place] [address] PCP - General Family Medicine 12/06/19 Alexandr Sepulveda MD [address] [place] [address] Nephrology 06/25/25 documented as of this encounter
--- OUTSIDE RECORDS SUMMARY | 2025-09-07 11:15 | XMS_ITS | Clinical Summary ---
Author Organization [employer] Address [address] [facility] [address] [place] [address] Care Team Providers Care Supervisor Airplane Flight Attendant Name Role Phone GrewalKailee Primary Care Provider [phone] Alexandr Sepulveda MD Unavailable [phone] Allergies No known active allergies Medications [...] disease, with long-term current use of insulin ([facility]) INJECT 10 UNITS SUBCUTANEOUSLY EVERY MORNING 15 mL 3 025 Active Continuous Glucose Systems Analyst Developer (FreeStyle Kai 3 [place]) deviceIndications :Type 2 diabetes mellitus with stage 4 chronic kidney disease, with long-term current use of insulin ([facility]) 1 each Once per day. Use as directed for CGM 1 each 025 Active Continuous Glucose Sensor (FreeStyle Kai 3 Plus Sensor) miscIndications:T ype 2 diabetes mellitus with stage 4 chronic kidney disease, with long-term current use of insulin ([facility]) 1 each every 15 days. Apply 1 [...] current use of insulin, unspecified CKD stage ([facility]) TAKE 1 TABLET BY MOUTH EVERY MORNING 30 tablet 5 025 Active glucose blood (Quartz SolutionsTouch Ultra Test) test stripIndications: Type 2 diabetes mellitus with stage 4 chronic kidney disease, with long-term current use of insulin ([facility]) USE TO TEST BLOOD SUGAR THREE TIMES A DAY 100 each 025 2025 Active Blood Glucose Monitoring Suppl (ONE TOUCH ULTRA 2) w/Device kitIndications:Ty pe 2 diabetes mellitus with stage 4 chronic kidney disease, with long-term current use of insulin ([facility]) USE TO TEST BLOOD SUGAR ONCE A DAY 1 kit Active TRUEplus Lancets 33G miscIndications:T ype 2 diabetes mellitus with stage 4 chronic kidney disease, with long-term current use of insulin ([facility]) USE TO TEST BLOOD SUGAR THREE TIMES A DAY 100 each 11 Active sertraline (Zoloft) 50 MG tablet TAKE 1 TABLET BY MOUTH EVERY MORNING 30 tablet 2 Active ketoconazole (NIZOral) 2 % creamIndications: Kerion Apply topically 2 times daily. 60 g 2 Active Aspirin Low Dose 81 MG chewable tabletIndications :Coronary artery disease involving [place] coronary artery of [place] heart without angina pectoris TAKE 1 TABLET BY MOUTH EVERY EVENING 90 tablet 1 Active atorvastatin (Lipitor) 80 MG tabletIndications :Coronary artery disease involving [place] coronary artery of [place] heart without angina pectoris TAKE 1 TABLET BY MOUTH EVERY MORNING 90 tablet 1 Active insulin aspart (NovoLOG FLEXPEN) 100 UNIT/ML penIndications:Ty pe 2 diabetes mellitus with stage 4 chronic kidney disease, with long-term current use of insulin ([facility]) INJECT SUBCUTANEOUSLY THREE TIMES DAILY BEFORE MEALS [...] disease, with long-term current use of insulin ([facility]) INJECT SUBCUTANEOUSLY THREE TIMES DAILY BEFORE MEALS [...] pain 12/28/2022 Coronary artery disease invo lving [place] coronary artery of [place] heart without angina pectoris 12/28/2022 Hemorrhagic cerebrovascular accident (CVA) ([facility]) 12/28/2022 History of tonsillectomy 12/28/2022 Hyperlipidemia 12/28/2022 Hypertensive disorder 12/28/2022 Implantable cardioverter-defibrillator (ICD) in situ 12/28/2022 S/P CABG x 1 12/28/2022 Seizure disorder ([facility]) 12/28/2022 Stage 3b chronic kidney disease ([facility]) 2021 Renal osteodystrophy 04/12/2021 Chronic kidney disease, stage 4 (severe) ([facility]/ C) 04/11/2021 Type 2 diabetes mellitus wit h diabetic chronic kidney disease 04/11/2021 Chronic kidney disease due to benign hypertensio n 04/11/2021 Encounters Date Type Department Care Team Description 08/24/2025 Orders Only [facility] External Provider, [facility] 08/23/2025 Refill [facility] [address] [place], [place] [phone] Kailee Grewal ANP Insomnia, unspecified type 08/16/2025 Refill [facility] MED[facility] [address] [place], [place] [phone] Kailee Grewal ANP Type 2 diabetes mellitus with stage 4 chronic kidney disease, with long-term current use of insulin (HCC) 07/20/2025 Results Follow-Up [address] [address] Kailee Grewal ANP ~PT, ~INR - ANTI COAG CLINIC, PROTHROMBIN TIME WHOLE BLD POC 07/20/2025 Orders Only GENERIC EXTERNAL DATA DEPARTMENT Provider, Generic External Data 06/28/[address] [address] Kailee Grewal ANP Record Request 06/27/[address] [address] Kailee Grewal ANP Coronary artery disease involving [place] coronary artery of [place] heart without angina pectoris 06/25/2025 11:00 AM EDT Office Visit [address] [address] Kailee Grewal ANP Type 2 diabetes mellitus with stage 4 chronic kidney disease, with long-term current use of insulin (CMS/HCC) (Primary Dx); Renal osteodystrophy; 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 (CMS/HCC); S/P CABG x 1; Coronary artery disease involving [place] coronary artery of [place] heart without angina pectoris; Kerion 06/25/2025 Travel 06/24/2025 Refill [facility] [address] [place] [address] Kailee Grewal ANP 06/22/[address] [address] Kailee Grewal ANP CHART PREP from Last 3 Months Immunizations Immunization Administration [...] disease, with long-term current use of insulin ([facility]) POCT GLUCOSE Routine 06/25/2025 11:38 AM EDT Type 2 diabetes mellitus with stage 4 chronic kidney disease, with long-term current use of insulin ([facility]) LIPID PANEL, STANDARD Routine 03/05/2021 9:50 AM EDT from Last 3 Months or Most Recently Relevant to Health Maintenance Results * US Renal Complete (08/24/2025 11:49 AM EDT) Anatomical Region Laterality Modality Kidney Ultrasound 08/24/2025 11:4 9 AM EDT Narrative 08/24/2025 12:36 PM EDT [place] [address] Ultrasound Report Signed Patient: Gwendolyn Maher MR#: [id number] : 1940 Acct:[id number] Age/Sex: 85 / F ADM Date: 08/24/25 Loc: HO. Attending Dr: Alexandr Sepulveda MD Ordering Physician: Alexandr Sepulveda MD Date of Service: 08/24/25 Procedure(s): US renal BI Accession Number(s): [id number] cc: Alexandr Sepulveda MD; KAILEE GREWAL NP [...] 08/24/25 1234 DD/ 1149 TD/TT: 08/24/25 1213 Assistant Front End Manager: Procedure Note Donotuseinterpreter, Image - 08/24/[address] [address] Ultrasound Report Signed Patient: Gwendolyn Maher#: [id number] : 8Acct:[id number] Age/Sex: 85 / FADM Date: 08/24/25 Loc: HO.US Attending Dr: Alexandr Sepulveda MD Ordering Physician: Alexandr Sepulveda MD Date of Service: 08/24/25 Procedure(s): US renal BI Accession Number(s): [id number] cc: Alexandr Sepulveda MD; KAILEE GREWAL NP [...] Harpreet Jones MD 08/24/2025 12:34 PM EDT Dictated By: Harpreet Heredia MD Signed By: <Electronically signed by Harpreet Beard MDin OV> 08/24/25 1234 DD/ 1149 TD/TT: 08/24/25 1213 Assistant Front End Manager: [facility] External Provider IMG US PROCEDURES Final Result * (ABNORMAL) PROTHROMBIN TIME WHOLE BLD POC (07/20/2025 9:29 AM EDT) Protime 29.7(H) 11.1 - 13.5 sec [facility] 07/20/2025 9:29 AM EDT 07/20/2025 9:31 AM EDT Generic External Data Provider LAB BLOOD ORDERAB LES Final Result Performing Organization Address City/State/[facility] Co de Phone Number [facility] [address] [place] [address] [phone] * (ABNORMAL) ~PT, ~INR - ANTI COAG CLINIC (07/20/2025 9:29 AM EDT) Prothrombin Time INR 2.5(H) 0.9 - 1.1 [facility] Comment:METER #: [id number] TERNATIONAL NORMALIZED RATIO (INR) REFERENCE RANGES Reference [...] ORDERAB LES Final Result Performing Organization Address City/[facility]/ZIP Co de Phone Number [facility] [address] [place] [phone] * (ABNORMAL) POCT HGB A1C (06/25/2025 11:38 AM EDT) Hemoglobin A1C 9.7(A) 4.0 - 5.7 % QC Media Lot # [id number] Lot# Expiration Date [id number] Blood 06/25/2025 11:3 8 AM EDT us Kailee Grewal ANP POINT OF CARE TEST ENTER/EDIT OR DERABLES Final Result * POCT Glucose (06/25/2025 11:38 AM EDT) Glucose Blood, POC 183 60 - 200 mg/dL QC Media Lot # [id number] Lot# Expiration Date 2134,364 Blood Capillary blood specimen / Unknown 06/25/2025 11:38 AM EDT Kailee SIERRA POINT OF CARE TEST ENTER/EDIT [...] factors. LDL-C is now calculated using the Lindsay calculation, which is a validated novel method providing better accuracy than the Friedewald equation in the estimation of LDL-C. Bill SS et al. FILOMENA. 2013;310(19): 5137-2376 (http://education.[employer]/faq/JIC603) Non-HDL Cholesterol 166(H) <130 mg/dL (calc) [facility] Comment: For patients with diabetes plus 1 major ASCVD risk factor, treating to a non-HDL-C goal of <100 mg/dL (LDL-C of <70 mg/dL) is considered a therapeutic option. Triglycerides 183(H) <150 mg/dL [facility] 03/05/2021 9:50 AM EDT Kailee Grewal ANP LAB BLOOD ORDERABLES Final Resul t [facility] [address] from Last 3 Months or Most Recently Relevant to Health Maintenance [place] [phone] Care Teams Supervisor Airplane Flight Attendant Relationship Specialty Start Date End Date Kailee Grewal ANP [address] [place] [phone] PCP - General Family Medicine 12/06/19 Alexandr Sepulveda MD [address] [place] [address] Drive [address] [place] [address] Nephrology 06/25/25
--- OUTSIDE RECORDS SUMMARY | 2025-09-07 11:15 | XMS_ITS | Encounter Summary ---
Author Organization [employer] Address [address] [facility] 7[address] [place] [address] Care Team Providers Care Project Management Name Role Phone Candy Ocampo Primary Care Provider [phone] Alexandr Sepulveda MD Unavailable [phone] Reason for Visit * Reason Comments Med Refill Encounter Details Date Type Department Care Team (Late st Contact Info) Description 04/15/2023 Refill [facility] MEDICINE [address] [place], [place] [phone] Candy Ocampo ANP [address] [place] [address] Social History Tobacco Use Types Packs/Day Years [...] on filedocumented in this encounter Care Teams Project Management Relationship Specialty Start Date End Date Candy Ocampo ANP [address] [place] [address] PCP - General Family Medicine 12/06/19 Alexandr Sepulveda MD [address] [place] [address] Drive [address] [place] [phone] Nephrology 06/25/25 documented as of this encounter
== END 2025-09-07 10:06 | disposition home or self-care (01) ==
LOC: HO.HKA 09:49
PROVIDERS: PCP Nurse Practitioner Primary Care; Visit Provider Internal Medicine Hypertension Specialist
DX: N18.9 Chronic kidney disease, unspecified (principal); I63.9 Cerebral infarction, unspecified
CPT/HCPCS: 99214

== ENCOUNTER → 2025-09-07 09:48 | Outpatient (BNVA) | payer MEDICARE, SELFPAY | PROVIDERS: PCP Nurse Practitioner Primary Care; Visit Provider Internal Medicine Hypertension Specialist | DX: I12.9 Hypertensive chronic kidney disease with stage 1 through stage 4 chronic kidney disease, or unspecified chronic kidney disease (principal); E11.22 Type 2 diabetes mellitus with diabetic chronic kidney disease; N18.9 Chronic kidney disease, unspecified; E55.9 Vitamin D deficiency, unspecified; M81.0 Age-related osteoporosis without current pathological fracture; Z86.73 Personal history of transient ischemic attack (TIA), and cerebral infarction without residual deficits; Z79.01 Long term (current) use of anticoagulants | CPT/HCPCS: 99212 ==

== ENCOUNTER 2025-09-21 11:10 | Outpatient (AMB) | payer MEDICARE, SELFPAY ==
[2025-09-21 11:21] LABS: Prothrombin Time Whole Bld POC 36.3 sec (11.1-13.5); ~PT, ~INR - Anti Coag Clinic 3.0 (0.9-1.1)
--- NOTE | 2025-09-21 11:21 | MHC.OFFVISCO ---
Intake Intake Visit Reasons: Anticoagulation Allergies No Known Allergies (No Known Allergies*) Allergy (Verified 09/21/25 11:15) Medication List - Last Reconciled 09/21/25 by Rosalia Richmond RN amlodipine 5 mg PO DAILY@1200 aspirin 81 mg PO DAILY atorvastatin 80 mg PO DAILY blood sugar diagnostic (FreeStyle Lite Strips) As directed cholecalciferol (vitamin D3) 25 mcg PO DAILY insulin aspart U-100 (Novolog FlexPen U-100 Insulin aspart) subcut insulin degludec (Tresiba FlexTouch U-100 insulin) 10 units subcut DAILY lancets (TRUEplus Lancets) As directed lidocaine 5% (Lidoderm) 1 patch topical DAILY PRN linagliptin (Tradjenta) 5 mg PO DAILY melatonin 5 mg PO BEDTIME metoprolol succinate ER 50 mg PO BID pantoprazole 40 mg PO DAILY pen needle, diabetic (Pentips Pen Needle) As directed sennosides (senna) 17.2 mg PO BEDTIME PRN sertraline 50 mg PO DAILY terbinafine HCl mg PO warfarin See Protocol 2 mg orally 4mg x 3 DAYS , 2MG X 4 DAYS; Nursing Note INR: 3.0- in therapeutic range of 2-3 Medications and supplements reviewed- no changes No changes in health, diet, medications, or supplements, Denies any signs and symptoms of bleeding or bruising or clotting. Bleeding, bruising, clotting discussed Nutritional guidance given Dose: 4mg x 3, 2mg x4 F/U INR: 3 weeks Patient verbalizes understanding of instructions given pt to acs with grandson. educated on importance of monitoring inr Anti-Coag Initial Assessment Social Hx Patient Tobacco Use Status: Never used Tobacco alcohol intake: former Alcohol intake frequency: does not drink Cardiovascular Hx: HTN, Rheumatic Fever (possible as child - will need to further assessment ) and Other (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 r/t blood sugar) and Stroke/TIA (cva x 2 (3 years) Nov 2022 - had covid vaccine) Cancer HX: No Psych. Illness/Depression: No Coding Level of Care Code Est Patient Level 1 Diagnoses Current use of anticoagulant therapy Z79.01 Assessment & Plan Assessment & Plan (1) Current use of anticoagulant therapy: Code(s): Z79.01 - rn long term care (current) use of 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
--- OUTSIDE RECORDS SUMMARY | 2025-09-21 12:01 | XMS_ITS | Encounter Summary ---
Author Organization [employer] Address [address] [facility] [address] [place] [address] Care Team Providers Care Email Deployment Specialist Name Role Phone Candy Ocampo Primary Care Provider [phone] Alexandr Sepulveda MD Unavailable [phone] Encounter Details Date Type Department Care Team (Late st Contact Info) Description 11/30/2022 Orders Only [facility] [address] [place] [address] Malaika Asif LPN Social History Tobacco Use [...] HIGH SENSITIVITY 5.9 <3.5 - 17.0 ng/L [facility] Comment:The Gomez high sens itivity Troponin-I results should beused in conjunction with other diagnostic information suchas ECG, clinical observations and information, and patientsymptoms to aid in the diagnosis of NH. 12/07/2022 2:50 PM EST 12/07/2022 2:55 PM EST us [facility] External Provider LAB BLO OD ORDERABLES Final Result [facility] [address] [place] [address] [phone] * (ABNORMAL) Comprehensive Metabolic Panel (12/07/2022 2:50 PM EST) Pathologist [facility] Sodium 134(L) 135 - 145 mmol/L [facility] Potassium 5.2(H) 3.3 - 5.1 mmol/L [facility] Chloride 100 96 - 108 mmol/L [facility] Carbon Dioxide 25 22 - 29 mmol/L [facility] Anion Gap 14 12 - 20 [facility] Urea Nitrogen (BUN) 39(H) 9 - 16 mg/dL [facility] Creatinine, Serum 1.72(H) 0.5 - 1.4 mg/dL [facility] Creatinine Clr Calc Pharmacy 20.9 [facility] Comment:Provided height and weight: 167.64 cm,54.431 kg.eGFR (calculated from the MDRD study equation) and eCrCl(calculated from the Cockcroft-Gault equation) are based ondifferent parameters and may not yield comparable results.If eCrCl result is absurd, please check patient'sheight/weight. Estimated Glomerular Filt Rate 28 [facility] Comment:NOTE: For -Am erican individuals, multiply the result by 1.210.Chronic Kidney Disease: Estimated GFR < 60 mL/min/1.43l4Xcvukc Kidney Disease: Estimated GFR < 15 mL/min/1.73m2 Glucose 366(HH) 60 - 115 mg/dL [facility] Comment:Critical value for t est(s): GLUR Results called to and readback by: Marvin calling:[email or web address] Date: [id number] Calcium 9.2 8.4 - 10.2 mg/dL [facility] Bilirubin, Total 0.5 0.0 - 1.0 mg/dL [facility] Aspartate Amino Transferase 15 5 - 31 U/L [facility] Alanine Aminotransferase 19 0 - 31 U/L [facility] Total Protein 6.5 6.5 - 8.0 g/dL [facility] Albumin Level 3.6 3.5 - 5.0 g/dL [facility] Alkaline Phosphatase 79 39 - 117 U/L [facility] 12/07/2022 2:50 PM EST 12/07/2022 2:55 PM EST us [facility] External Provider LAB BLO OD ORDERABLES Final Result Performing Organization Address City/State/[facility] Co de Phone Number [facility] [address] [place] [phone] * (ABNORMAL) CBC auto differential (12/07/2022 2:50 PM EST) White Blood Count 8.3 4.8 - 10.8 X10*3/uL [facility] Red Blood Count 4.88 4.20 - 5.50 X10*6/uL [facility] Hemoglobin 13.5 12.0 - 16.0 g/dl [facility] Hematocrit 41.1 37.0 - 47.0 % [facility] Mean Corpuscular Volume 84.2 80.0 - 98.0 fL [facility] Mean Corpuscular Hemoglobin 27.7 27.0 - 33.0 pg [facility] Mean Corpuscular HGB Conc 32.8 31.0 - 35.0 g/dl [facility] Red Cell Distribution Width 13.7 11.0 - 16.0 % [facility] Platelet Count 215 160 - 400 X10*3/uL [facility] Mean Platelet Volume 10.0 9.4 - 12.3 fL [facility] Neutrophils Percent Auto 72.4 45 - 73 % [facility] Imm Gran Pct Auto 0.8(H) 0.0 - 0.4 % [facility] Lymphocytes Percent Auto 22.0 20 - 40 % [facility] Monocytes Percent Auto 4.4 2 - 11 % [facility] Eosinophils Percent Auto 0.2 0 - 4 % [facility] Basophils Percent Auto 0.2 0 - 2 % [facility] NRBC Pct Auto 0.0 0.0 - 0.2 /100WBC [facility] Neutrophils Absolute Auto 6.0 2.0 - 8.3 x10*3/uL [facility] Imm Gran Abs Auto 0.07(H) 0.00 - 0.03 X10*3/uL [facility] Lymphocytes Absolute Auto 1.8 1.2 - 4.9 X10*3/uL [facility] Monocytes Absolute Auto 0.4 0.1 - 1.2 X10*3/uL [facility] Eosinophils Absolute Auto 0.0 0.0 - 0.4 X10*3/uL [facility] Basophils Absolute Auto 0.0 0.0 - 0.2 X10*3/uL [facility] NRBC Abs Auto 0.000 0.0 - 0.012 X10*3/uL [facility] 12/07/2022 2:50 PM EST 12/07/2022 3:05 PM EST us [facility] External Provider LAB BLO OD ORDERABLES Final Result [facility] [address] [place], [place] [phone] * (ABNORMAL) GLUCOSE, WHOLE BLOOD (12/07/2022 12:48 PM EST) Glucose, Whole Blood 359(HH) 60 - 115 mg/dL [facility] Comment:METER #: [id number] 1 12/07/2022 12:4 8 PM EST 12/07/2022 12:51 PM EST us [facility] External Provider LAB BLO OD ORDERABLES Final Result [facility] [address] [place] [address] [phone] documented in this encounter Visit Diagnoses Not on filedocumented in this encounter Care Teams Email Deployment Specialist Relationship Specialty Start Date End Date Candy Ocampo ANP [address] [place] [phone] PCP - General Family Medicine 12/06/19 Alexandr Sepulveda MD [address] [place] [address] Drive [address] [place] [address] Nephrology 06/25/25 documented as of this encounter
--- OUTSIDE RECORDS SUMMARY | 2025-09-21 12:01 | XMS_ITS | Encounter Summary ---
Author Organization [employer] Address [address] [facility] 7t [place] [address] Care Team Providers Care Gas Main Fitter Name Role Phone Candy Ocampo Primary Care Provider [phone] Alexandr Sepulveda MD Unavailable [phone] Reason for Visit * Reason Comments Med Refill Encounter Details Date Type Department Care Team (Late st Contact Info) Description 04/23/2024 Refill [facility] MEDICINE [address] [place] [address] Candy Ocampo ANP [address] [place] [address] Social History Tobacco Use Types Packs/Day Years [...] on filedocumented in this encounter Care Teams Gas Main Fitter Relationship Specialty Start Date End Date Candy Ocampo ANP [address] [place] [address] PCP - General Family Medicine 12/06/19 Alexandr Sepulveda MD [address] [place] [address] Nephrology 06/25/25 documented as of this encounter
--- OUTSIDE RECORDS SUMMARY | 2025-09-21 12:01 | XMS_ITS | Encounter Summary ---
Author Organization [employer] Address [address] [facility] [address] 7t [place] [address] Care Team Providers Care Agricultural Purchasing Agent Name Role Phone Candy Ocampo Primary Care Provider [phone] Alexandr Sepulveda MD Unavailable [phone] Reason for Visit * Reason Onset Date Comments fyi 09/12/2025 VNA referral 09/12/2025 Encounter Details Date Type Department Care Team (Late st Contact Info) Description 09/12/2025 Telephone [facility] [address] [place], [place] [phone] Candy Ocampo ANP [address] [place], [place] [phone] fyi; VNA referral Social History Tobacco Use Types Packs/Day Years [...] encounter Miscellaneous Notes * Telephone Encounter - Liana Cardenas RN - 09/21/2025 8:57 AM EST [facility] unable to take pt due to insurance. Faxed referral to [facility] agency at [phone], confirmation received. * Telephone Encounter - Velia Beard RN - 09/12/2025 4:24 PM EST Telephone call placed to pt's son/caregiver Fran who reports pt has become more difficult to take out of the home. He reports that she is stubborn and gets anxious. On the day she was supposed to get INR drawn, he tried to get her ready and she refused to go. He also reports that when they go,she gets anxious and irritated while there because it takes so long. He reports that he was planning on taking her this Wednesday. Explained to him that he needs to communicate this to [facility] staff. If they can't make it, he has to call to r/s. He states will call them today to tell them they are going in Wednesday. Inquired if I was able to have a nurse go to the home to complete POCT INRwould they be interested in that. Son agreeable, states that would be so much easier for pt. Informed I would work on that but in the meantime, he needs to call [facility]in clinic back and bring pt in this week for INR. Fran agrees with plan. [facility]NA orders generated and placed on PCP's desk. Pending signature. * Telephone Encounter - Anthony Marques - 09/12/2025 2:37 PM EST Tc from [facility] with [facility] calling to inform pt is not compliant services. Any question call [facility] at [phone] documented in this encounter Plan of Treatment Not on file documented as of this encounter Goals Goal Patient Goal Type Associated Problems Recent Progress Patient-Stated? Author Help patients manage their type 2 diabetes Care Plan Help patients manage their type 2 diabetes No Anthony Marques Weekly blood pressure task Care Plan Weekly blood pressure task No Anthony Marques Help patients manage their type 2 diabetes Care Plan Help patients manage their type 2 diabetes No Anthony Marques Patient has chronic kidney disease Care Plan Patient has chronic kidney disease No Anthony Marques Weekly blood pressure task Care Plan Weekly blood pressure task No Anthony Marques Patient has chronic kidney disease Care Plan Patient has chronic kidney disease No Anthony Marques documented as of this encounter Visit Diagnoses Not on filedocumented in this encounter Additional Health Concerns Active Problems Noted Date Diagnosed Date Help patients manage their type 2 diabetes 09/12 Weekly blood pressure task 09/12/2025 Help patients manage their type 2 diabetes 09/12 Patient has chronic kidney disease 09/12/2025 Weekly blood pressure task 09/12/2025 Patient has chronic kidney disease 09/12/2025 Assessment Noted Time PHQ-9 Depression Total Score: 0 03/19/20 25 11:32 AM EDT documented as of this encounter Care Teams Agricultural Purchasing Agent Relationship Specialty Start Date End Date Candy Ocampo ANP [address] [place] [phone] PCP - General Family Medicine 12/06/19 Alexandr Sepulveda MD [address] [place] [address] Nephrology 06/25/25 documented as of this encounter
--- OUTSIDE RECORDS SUMMARY | 2025-09-21 12:01 | XMS_ITS | Encounter Summary ---
Author Organization [employer] Address [address] [facility] 7t [place] [address] Care Team Providers Care Housing Quality Standard Inspector Name Role Phone Candy Ocampo Primary Care Provider [phone] Alexandr Sepulveda MD Unavailable [phone] Reason for Visit * Reason Comments Med Refill Encounter Details Date Type Department Care Team (Late st Contact Info) Description 04/15/2023 Refill [facility] [address] [place], [place] [phone] Candy Ocampo ANP [address] [place] [address] Social History Tobacco Use Types Packs/Day Years [...] on filedocumented in this encounter Care Teams Housing Quality Standard Inspector Relationship Specialty Start Date End Date Candy Ocampo ANP [address] [place] [address] PCP - General Family Medicine 12/06/19 Alexandr Sepulveda MD [address] [place] [address] Drive [address] [place] [phone] Nephrology 06/25/25 documented as of this encounter
--- OUTSIDE RECORDS SUMMARY | 2025-09-21 12:01 | XMS_ITS | Clinical Summary ---
Author Organization [employer] Address [address] [facility] [address] 7[address] [place] [address] Care Team Providers Care Call Manager Name Role Phone GrewalKailee Primary Care Provider [phone] Alexandr Sepulveda MD Unavailable [phone] Allergies No known active allergies Medications [...] disease, with long-term current use of insulin ([facility]) INJECT 10 UNITS SUBCUTANEOUSLY EVERY MORNING 15 mL 3 025 Active Continuous Glucose Brush Holder Inspector (FreeStyle Kia 3 [place]) deviceIndications :Type 2 diabetes mellitus with stage 4 chronic kidney disease, with long-term current use of insulin ([facility]) 1 each Once per day. Use as directed for CGM 1 each 025 Active Continuous Glucose Sensor (FreeStyle Kai 3 Plus Sensor) miscIndications:T ype 2 diabetes mellitus with stage 4 chronic kidney disease, with long-term current use of insulin ([facility]) 1 each every 15 days. Apply 1 [...] current use of insulin, unspecified CKD stage ([facility]) TAKE 1 TABLET BY MOUTH EVERY MORNING 30 tablet 5 025 Active glucose blood (Pano LogicTouch Ultra Test) test stripIndications: Type 2 diabetes mellitus with stage 4 chronic kidney disease, with long-term current use of insulin ([facility]) USE TO TEST BLOOD SUGAR THREE TIMES A DAY 100 each 025 2025 Active Blood Glucose Monitoring Suppl (ONE TOUCH ULTRA 2) w/Device kitIndications:Ty pe 2 diabetes mellitus with stage 4 chronic kidney disease, with long-term current use of insulin ([facility]) USE TO TEST BLOOD SUGAR ONCE A DAY 1 kit Active TRUEplus Lancets 33G miscIndications:T ype 2 diabetes mellitus with stage 4 chronic kidney disease, with long-term current use of insulin ([facility]) USE TO TEST BLOOD SUGAR THREE TIMES A DAY 100 each 11 Active sertraline (Zoloft) 50 MG tablet TAKE 1 TABLET BY MOUTH EVERY MORNING 30 tablet 2 Active ketoconazole (NIZOral) 2 % creamIndications: Kerion Apply topically 2 times daily. 60 g 2 Active Aspirin Low Dose 81 MG chewable tabletIndications :Coronary artery disease involving [place] coronary artery of [place] heart without angina pectoris TAKE 1 TABLET BY MOUTH EVERY EVENING 90 tablet 1 Active atorvastatin (Lipitor) 80 MG tabletIndications :Coronary artery disease involving [place] coronary artery of [place] heart without angina pectoris TAKE 1 TABLET BY MOUTH EVERY MORNING 90 tablet 1 Active insulin aspart (NovoLOG FLEXPEN) 100 UNIT/ML penIndications:Ty pe 2 diabetes mellitus with stage 4 chronic kidney disease, with long-term current use of insulin ([facility]) INJECT SUBCUTANEOUSLY THREE TIMES DAILY BEFORE MEALS [...] BEDTIME 90 tablet 2 025 2024 Discontinued Active Problems Problem Noted Date Diagnosed Date 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 02/16/2023 Anxiety 12/28/2022 Chronic low back pain 12/28/2022 Coronary artery disease invo lving [place] coronary artery of [place] heart without angina pectoris 12/28/2022 Hemorrhagic cerebrovascular accident (CVA) ([facility]) 12/28/2022 History of tonsillectomy 12/28/2022 Hyperlipidemia 12/28/2022 Hypertensive disorder 12/28/2022 Implantable cardioverter-defibrillator (ICD) in situ 12/28/2022 S/P CABG x 1 12/28/2022 Seizure disorder ([facility]) 12/28/2022 Stage 3b chronic kidney disease ([facility]) 2021 Renal osteodystrophy 04/12/2021 Chronic kidney disease, stage 4 (severe) ([facility]/ C) 04/11/2021 Type 2 diabetes mellitus wit h diabetic chronic kidney disease 04/11/2021 Chronic kidney disease due to benign hypertensio n 04/11/2021 Encounters Date Type Department Care Team Description 09/21/2025 Orders Only GENERIC EXTERNAL DATA DEPARTMENT Provider, Generic External Data 09/12/2025 Telephone [facility] [address] [place] [address] Kailee Grewal ANP fyi; [facility]NA referral 08/24/2025 Orders Only [facility] External Provider, [facility] 08/23/2025 Refill [facility] [address] [place], [place] [phone] Kailee Grewal ANP Insomnia, unspecified type 08/16/2025 Refill [facility] [address] [place] [address] Kailee Grewal ANP Type 2 diabetes mellitus with stage 4 chronic kidney disease, with long-term current use of insulin ([facility]) 07/20/2025 Results Follow-Up [facility] [address] [place] [address] Kailee Grewal ANP ~PT, ~INR - ANTI COAG CLINIC, PROTHROMBIN TIME WHOLE BLD POC 07/20/2025 Orders Only GENERIC EXTERNAL DATA DEPARTMENT Provider, Generic External Data 06/28/2025 Telephone [facility] [address] [place] [address] Kailee Grewal ANP Record Request 06/27/2025 Refill [facility] [address] [place] [address] Kailee Grewal ANP Coronary artery disease involving [place] coronary artery of [place] heart without angina pectoris 06/25/2025 11:00 AM EDT Office Visit [facility] [address] [place] [address] Kailee Grewal ANP Type 2 diabetes mellitus with stage 4 chronic kidney disease, with long-term current use of insulin (CMS/HCC) (Primary Dx); Renal osteodystrophy; 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 (CMS/HCC); S/P CABG x 1; Coronary artery disease involving [place] coronary artery of [place] heart without angina pectoris; Kerion 06/25/2025 Travel 06/24/2025 Refill [facility] [address] [place] [address] Kailee Grewal ANP 06/22/2025 Telephone [facility] [address] Kailee Grewal ANP CHART PREP from Last [...] Panel 03/05/2022 03/05/2021, 11/06/2020 COVID-19 Vaccine ( - season) 2025 09/24/2021, 01/16/2021, 12/19/2020 Influenza Vaccine (#1) 2025 4, 09/29/2022, 08/21/2020 Diabetes: Hemoglobin A1C 09/25/2025 025, 03/19/2025, 12/10/2023, Additional history exists Alcohol/Substance Use Screening 03/19/2026 03/19/2025 Depression Screening 03/19/2026 03/19/2025, 03/19/20 25 SDOH Screening 03/19/2026 03/19/2025 Diabetes: Foot Exam 06/25/2026 06/25/2025, 5 Tobacco Screening 06/25/2026 06/25/2025 DTaP/Tdap/Td Vaccines (2 [...] on patient's age to complete this topic Goals Goal Patient Goal Type Associated Problems [...] has chronic kidney disease No Anthony Marques Procedures Procedure Name Priority Date/Time Associated Diagnosis Comments PROTHROMBIN TIME WHOLE BLD POC Routine 09/21/2025 11:19 AM EST ~PT, ~INR - ANTI COAG CLINIC Routine 09/21/2025 11:19 AM EST US RENAL COMPLETE Routine 08/24/2025 11: 49 AM EDT PROTHROMBIN TIME WHOLE BLD POC Routine 07/20/2025 9:29 AM EDT ~PT, ~INR - ANTI COAG CLINIC Routine 07/20/2025 9:29 AM EDT POCT GLYCATED HEMOGLOBIN, TOTAL Routine 06/25/2025 11:38 AM EDT Type 2 diabetes mellitus with stage 4 chronic kidney disease, with long-term current use of insulin ([facility]) POCT GLUCOSE Routine 06/25/2025 11:38 AM EDT Type 2 diabetes mellitus with stage 4 chronic kidney disease, with long-term current use of insulin ([facility]) LIPID PANEL, STANDARD Routine 03/05/2021 9:50 AM EDT from Last 3 Months or Most Recently Relevant to Health Maintenance Results * (ABNORMAL) PROTHROMBIN TIME WHOLE BLD POC (09/21/2025 11:19 AM EST) Only the most recent of2 resultswithin the time period is included. Protime 36.3(H) 11.1 - 13.5 sec [facility] 09/21/2025 11:1 9 AM EST 09/21/2025 11:20 AM EST us Generic External Data Provider LAB BLOOD ORDERAB LES Final Result Performing Organization Address [facility] Co de Phone Number [facility] [address] [place] [phone] * (ABNORMAL) ~PT, ~INR - ANTI COAG CLINIC (09/21/2025 11:19 AM EST) Only the most recent of2 resultswithin the time period is included. Prothrombin Time INR 3.0(H) 0.9 - 1.1 [facility] Comment:METER #: [id number] TERNATIONAL NORMALIZED RATIO (INR) REFERENCE RANGES Reference RangeFor patients not on anticoagulant therapy: 0.9 - 1.1INR ranges for oral anticoagulanttherapy:For prevention and treatment of venous thrombosis and pulmonary embolism: 2.0 - 3.0For acute myocardial infarction with aspirin therapy: 2.0 - 3.0For acute myocardial infarction without aspirin therapy: 3.0 - 4.0For patients with mechanical prosthetic heart valves: 2.5 - 3.5 09/21/2025 11:1 9 AM EST 09/21/2025 11:20 AM EST us Generic External Data Provider LAB BLOOD ORDERAB LES Final Result Performing Organization Address [facility] Co de Phone Number [facility] [address] [place] [phone] * US Renal Complete (08/24/2025 11:49 AM EDT) Anatomical Region Laterality Modality Kidney Ultrasound 08/24/2025 11:4 9 AM EDT Narrative 08/24/2025 12:36 PM EDT [address] [address] Ultrasound Report Signed Patient: Gwendolyn Maher MR#: [id number] : 1940 Acct:[id number] Age/Sex: 85 / F ADM Date: 08/24/25 Loc: HO.US Attending Dr: Alexandr Sepulveda MD Ordering Physician: Alexandr Sepulveda MD Date of Service: 08/24/25 Procedure(s): US renal BI Accession Number(s): [id number] cc: Alexandr Sepulveda MD; KAILEE GREWAL NP [...] 08/24/25 1234 DD/ 1149 TD/TT: 08/24/25 1213 Director Of Early Childhood Education: Procedure Note Donotuseinterpreter, Image - 08/24/[address] [address] Ultrasound Report Signed Patient: Gwendolyn MaherMR#: [id number] : 8Acct:[id number] Age/Sex: 85 / FADM Date: 08/24/25 Loc: HO.US Attending Dr: Alexandr Sepulveda MD Ordering Physician: Alexandr Sepulveda MD Date of Service: 08/24/25 Procedure(s): US renal BI Accession Number(s): [id number] cc: Alexandr Sepulveda MD; KAILEE GREWAL NP [...] 08/24/25 1234 DD/ 1149 TD/TT: 08/24/25 1213 Director Of Early Childhood Education: [facility] External Provider IMG US PROCEDURES Final Result * (ABNORMAL) POCT HGB A1C (06/25/2025 11:38 AM EDT) Hemoglobin A1C 9.7(A) 4.0 - 5.7 % QC Media Lot # [id number] Lot# Expiration Date , Blood 06/25/2025 11:3 8 AM EDT [facility] POINT OF CARE TEST ENTER/EDIT OR DERABLES Final Result * POCT Glucose (06/25/2025 11:38 AM EDT) Glucose Blood, POC 183 60 - 200 mg/dL QC Media Lot # [id number] Lot# Expiration Date 533,680 Blood Capillary blood specimen / Unknown 06/25/2025 11:38 AM EDT [facility] POINT OF CARE TEST ENTER/EDIT OR DERABLES Final Result * (ABNORMAL) LIPID PANEL, STANDARD (03/05/2021 9:50 AM EDT) Pathologist [facility] Chol/HDLC Ratio 4.9 <5.0 (calc) [facility] [...] equation in the estimation of LDL-C. Bill VARGAS et al. FILOMENA. 2013;310(19): 1487-5747 (http://education.[employer]ürki[employer].com/faq/GMW431) Non-HDL Cholesterol 166(H) <130 mg/dL (calc) [facility] Comment: For patients with diabetes plus 1 major ASCVD risk factor, treating to a non-HDL-C goal of <100 mg/dL (LDL-C of <70 mg/dL) is considered a therapeutic option. Triglycerides 183(H) <150 mg/dL [facility] 03/05/2021 9:50 AM EDT us Kailee Grewal ANP LAB BLOOD ORDERABLES Final Resul t [facility] [address] from Last 3 Months or Most Recently Relevant to Health Maintenance Additional Health Concerns Active Problems Noted Date Diagnosed Date Help patients manage their type 2 diabetes 09/12 Weekly blood pressure task 09/12/2025 Help patients manage their type 2 diabetes 09/12 Patient has chronic kidney disease 09/12/2025 Weekly blood pressure task 09/12/2025 Patient has chronic kidney disease 09/12/2025 Insurance [employer] MED[employer]ARE REPLACEMENT Care Teams Call Manager Relationship Specialty Start Date End Date Kailee Grewal ANP [address] [place] [address] [phone] PCP - General Family Medicine 12/06/19 Alexandr Sepulveda MD [address] [place] [address] Drive [address] [place] [phone] Nephrology 06/25/25
--- OUTSIDE RECORDS SUMMARY | 2025-09-21 12:01 | XMS_ITS | Encounter Summary ---
Author Organization [employer] Address [address] [facility] [address] [address] 7t [place] [address] Care Team Providers Care Cargo Surveyor Name Role Phone Damaris Candy SIERRA Primary Care Provider [phone] Alexandr Sepulveda MD Unavailable [phone] Encounter Details Date Type Department Care Team (Late st Contact Info) Description 09/21/2025 Orders Only GENERIC EXTERNAL DATA [...] Help patients manage their type 2 diabetes Anthony Gage Weekly blood pressure task Care Plan Weekly blood pressure task No Anthony Marques Help patients manage their type 2 diabetes Care Plan Help patients manage their type 2 diabetes Anthony Gage Patient has chronic kidney disease Care Plan Patient has chronic kidney disease Anthony Gage Weekly blood pressure task Care Plan Weekly blood pressure task No Anthony Marques Patient has chronic kidney disease Care Plan Patient has chronic kidney disease No Anthony Marques documented as of this encounter Procedures Procedure Name Priority Date/Time Associated Diagnosis Comments PROTHROMBIN TIME WHOLE BLD POC Routine 09/21/2025 11:19 AM EST ~PT, ~INR - ANTI COAG CLINIC Routine 09/21/2025 11:19 AM EST documented in this encounter Results * (ABNORMAL) PROTHROMBIN TIME WHOLE BLD POC (09/21/2025 11:19 AM EST) Protime 36.3(H) 11.1 - 13.5 sec [facility] 09/21/2025 11:1 9 AM EST 09/21/2025 11:20 AM EST us Generic External Data Provider LAB BLOOD ORDERAB LES Final Result [facility] [address] [place] [phone] * (ABNORMAL) ~PT, ~INR - ANTI COAG CLINIC (09/21/2025 11:19 AM EST) Prothrombin Time INR 3.0(H) 0.9 - 1.1 [facility] Comment:METER #: [id number] TERNATIONAL NORMALIZED RATIO (INR) REFERENCE RANGES Reference [...] ORDERAB LES Final Result Performing Organization Address City/State/[facility] Co de Phone Number [facility] [address] [place] [phone] documented in this encounter Visit Diagnoses [...] documented as of this encounter Care Teams Cargo Surveyor Relationship Specialty Start Date End Date Candy Ocampo ANP [address] [place] [address] PCP - General Family Medicine 12/06/19 Alexandr Sepulveda MD [address] [place] [address] Nephrology 06/25/25 documented as of this encounter
--- OUTSIDE RECORDS SUMMARY | 2025-09-21 12:01 | XMS_ITS | Clinical Summary ---
Author Organization [facility] Address [address] [place] [address] Care Team Providers Care Spray Gun Sizer Name Role Phone Unavailable Primary Care Provider [...] Depression Screening 11/01/2024 COVID-19 Vaccine ( - 2024-2 6 season) 2025 Influenza Vaccine (#1) 2025 HIB [...] Documents on File Type Date Recorded Patient Journeyman Operator Assistant Expl anation Health Care Decision (hx) 12/10/2022 HE [facility]TH CARE PROXY Health Care Decision (hx) 12/10/2022 HE ALTH CARE PROXY
--- OUTSIDE RECORDS SUMMARY | 2025-09-21 12:01 | XMS_ITS | Encounter Summary ---
Author Organization [employer] Address [address] [facility] 7t [place] [address] Care Team Providers Care Rotating Equipment Engineer Name Role Phone Candy Ocampo Primary Care Provider [phone] Alexandr Sepulveda MD Unavailable Encounter Details Date Type Department Care Team (Late st Contact Info) Description 12/28/2022 Orders Only [facility] [address] [place] [address] Kasandra Moreland RN Social History Tobacco Use [...] on filedocumented in this encounter Care Teams Rotating Equipment Engineer Relationship Specialty Start Date End Date Candy Ocampo ANP [address] [place] [address] PCP - General Family Medicine 12/06/19 Alexandr Sepulveda MD [address] [place] [address] Nephrology 06/25/25 documented as of this encounter
--- OUTSIDE RECORDS SUMMARY | 2025-09-21 12:01 | XMS_ITS | Clinical Summary ---
Author Organization [facility] Address [address] [facility] [address] [place] [address] Phone Care Team Providers Care Mirror Maker Name Role Phone Candy Ocampo NP Primary Care Provider [phone] Allergies No known active allergies Medications sertraline [...] % PVNMA 12/14/2019 us [facility] [id number] LICITED RESULTS Final Result PVNMA from Last 3 Months or Most Recently Relevant to Health Maintenance [place] [id number] Medicare Care Teams Mirror Maker Relationship Specialty Start Date End Date Candy Ocampo NP PCP - General Nurse Practitioner 04/11/21
== END 2025-09-21 11:29 | disposition home or self-care (01) ==
LOC: HO.ACS 11:10
PROVIDERS: PCP Nurse Practitioner Primary Care; Visit Provider Internal Medicine Medical Oncology
DX: Z79.01 Long term (current) use of anticoagulants (principal)

== ENCOUNTER → 2025-09-21 11:10 | Outpatient (BNVA) | payer MEDICARE, SELFPAY | PROVIDERS: PCP Nurse Practitioner Primary Care; Visit Provider Internal Medicine Medical Oncology | DX: Z79.01 Long term (current) use of anticoagulants (principal) | CPT/HCPCS: 85610; 99211 ==

== ENCOUNTER 2025-10-12 11:02 | Outpatient (AMB) | payer MEDICARE, SELFPAY ==
--- NOTE | 2025-10-12 11:11 | MHC.OFFVISCO ---
Intake Intake Visit Reasons: Anticoagulation Allergies No Known Allergies (No Known Allergies*) Allergy (Verified 10/12/25 11:11) Medication List - Last Reconciled 10/12/25 by Olive Newell RN amlodipine 5 mg PO DAILY@1200 aspirin 81 mg PO DAILY atorvastatin 80 mg PO DAILY blood sugar diagnostic (FreeStyle Lite Strips) As directed cholecalciferol (vitamin D3) 25 mcg PO DAILY insulin aspart U-100 (Novolog FlexPen U-100 Insulin aspart) subcut insulin degludec (Tresiba FlexTouch U-100 insulin) 10 units subcut DAILY lancets (TRUEplus Lancets) As directed lidocaine 5% (Lidoderm) 1 patch topical DAILY PRN linagliptin (Tradjenta) 5 mg PO DAILY melatonin 5 mg PO BEDTIME metoprolol succinate ER 50 mg PO BID pantoprazole 40 mg PO DAILY pen needle, diabetic (Pentips Pen Needle) As directed sennosides (senna) 17.2 mg PO BEDTIME PRN sertraline 50 mg PO DAILY terbinafine HCl mg PO warfarin See Protocol 2 mg orally 4mg x 3 DAYS , 2MG X 4 DAYS; Nursing Note Pt to ACs with son INR: 2.7 in therapeutic range of 2-3 Medications and supplements reviewed No changes in health, diet, medications, or supplements, Denies any signs and symptoms of bleeding or bruising or clotting. Bleeding, bruising, clotting discussed Nutritional guidance given Dose: 2mg X 4 days and 4mg X 3 dyas (//) F/U INR: 4 weeks Son verbalizes understanding of instructions with read back given Anti-Coag Initial Assessment Social Hx Patient Tobacco Use Status: Never used Tobacco alcohol intake: former Alcohol intake frequency: does not drink Cardiovascular Hx: HTN, Rheumatic Fever (possible as child - will need to further assessment ) and Other (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 r/t blood sugar) and Stroke/TIA (cva x 2 (3 years) Nov 2022 - had covid vaccine) Cancer HX: No Psych. Illness/Depression: No Coding Level of Care Code Est Patient Level 1 Diagnoses Current use of anticoagulant therapy Z79.01 Results AMB INR Fingerstick AMB INR Fingerstick 2.7 Last Edit by Olive Newell RN on 10/12/25 11:19 interface delay Assessment & Plan Assessment & Plan (1) Current use of anticoagulant therapy: Code(s): Z79.01 - long-term (current) use of 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
[2025-10-12 11:19] LABS: Prothrombin Time Whole Bld POC 32.4 sec (11.1-13.5); ~PT, ~INR - Anti Coag Clinic 2.7 (0.9-1.1)
== END 2025-10-12 11:27 | disposition home or self-care (01) ==
LOC: HO.ACS 11:02
PROVIDERS: PCP Nurse Practitioner Primary Care; Visit Provider Internal Medicine Medical Oncology
DX: Z79.01 Long term (current) use of anticoagulants (principal)

== ENCOUNTER → 2025-10-12 11:02 | Outpatient (BNVA) | payer MEDICARE, SELFPAY | PROVIDERS: PCP Nurse Practitioner Primary Care; Visit Provider Internal Medicine Medical Oncology | DX: I51.3 Intracardiac thrombosis, not elsewhere classified (principal); I69.30 Unspecified sequelae of cerebral infarction; Z79.01 Long term (current) use of anticoagulants; Z51.81 Encounter for therapeutic drug level monitoring | CPT/HCPCS: 85610; 99211 ==